=== PATIENT | female | born 1990 | race Caucasian/White ===

== ENCOUNTER → 2017-11-18 15:42 | Outpatient (CLI) | payer BC, SELFPAY ==
[2017-11-18 18:44] LABS: ALB/GLOB Ratio 0.8 RATIO (0.9-2.4); AST(SGOT) 12 U/L (15-37); Alanine Aminotransfer ALT/SGPT 18 U/L (13-56); Albumin, Serum 3.6 g/dL (3.2-5.0); Alkaline Phosphatase 66 U/L (45-117); Anion Gap 10 (5-15); BUN 17 mg/dL (7-18); BUN/Creat Ratio 25.3 RATIO (10-20); Calcium,Total 8.9 mg/dL (8.5-10.1); Chloride 101 mmol/L (98-107); Creatinine, Serum 0.67 mg/dL (0.55-1.02); EST Glomerular Filtration Rate 110 mL/min (>60); Est Glom Filt Rate - Afr Amer 133 mL/min (>60); Globulin 4.5 g/dL (2.2-4.2); Glucose 83 mg/dL (74-106); Magnesium 2.1 mg/dL (1.6-2.6); Potassium 3.7 mmol/L (3.5-5.1); Protein, Total 8.1 g/dL (6.4-8.2); Sodium Level 140 mmol/L (136-145); Uric Acid 4.6 mg/dL (2.6-6.0)
[2017-11-18 18:54] LABS: PTHIN 36.5 pg/mL (18.4-80.1)
[2017-11-26 20:07] LABS: Ca Oxalate, Monohydrate 92 % (.)
== END ==
PROVIDERS: Visit Provider Nurse Practitioner Adult Health
DX: N20.0 Calculus of kidney (principal)
CPT/HCPCS: 36415; 80053; 82360; 83735; 83970; 84100; 84550

== ENCOUNTER → 2017-11-28 06:45 | Outpatient (CLI) | payer BC, SELFPAY ==
--- NOTE | 2017-11-28 07:00 | CT_ITS ---
STUDY: CT CHEST WITH CONTRAST REASON FOR EXAM: Female, 27 years old. History of a soft tissue density on prior CT scan of the abdomen. RADIATION DOSAGE (If Supplied By Facility): CTDIvol = ( 11.9 ) mGy, DLP = ( 254 ) mGycm TECHNIQUE: Transaxial imaging was performed following intravenous administration of 100 ml of Isovue 300 contrast material. Multiplanar coronal and sagittal images were reformatted. Individualized dose optimization techniques were used for this CT. COMPARISON: None. FINDINGS: Residual thymic gland is seen. Small benign-appearing bilateral axillary lymph nodes. The lungs are normal. There is no demonstrated pleural abnormality. Normal heart and pericardium. There is evidence of enlarged bilateral hilar and mediastinal lymphadenopathy. Normal enhanced pulmonary arteries. Normal aorta arch and descending thoracic aorta. Normal osseous structures. There is no demonstrated abnormality of the visualized upper abdomen. CT/Chest WITH Contrast IMPRESSION: Bilateral hilar and mediastinal lymphadenopathy. Lymphoma should be ruled out. Electronically Signed: Emeka Menjivar MD at 15:13 EDT Tel [phone], Service support ,
== END ==
PROVIDERS: Visit Provider Nurse Practitioner Adult Health
DX: M79.89 Other specified soft tissue disorders (principal)
CPT/HCPCS: 71260; Q9967

== ENCOUNTER → 2017-12-17 11:42 | Outpatient (CLI) | payer BC, SELFPAY ==
[2017-12-17 12:23] LABS: Hemoglobin 13.2 g/dl (12.0-15.0); Mean Corpuscular Hgb 30.1 pg (27.0-32.0); Mean Corpuscular Volume 91.1 fL (81-99); Mean Platelet Vol. 9.4 fl (6.2-12.0); Platelet Count 434 K/mm3 (150-450); RBC Distribution Width CV 12.4 % (11.6-14.6); RBC Distribution Width SD 40.5 fl (35.1-43.9); Red Blood Count 4.39 M/mm3 (4.2-5.4); Scan Indicated on CBC? Y/N NO; White Blood Count 10.3 K/mm3 (4.4-11.0)
[2017-12-18 15:03] LABS: Free Kappa Light Chains 16.3 mg/L (3.3-19.4); Free Lambda Light Chains 16.4 mg/L (5.7-26.3)
== END ==
PROVIDERS: Visit Provider Internal Medicine Critical Care Medicine
DX: R59.0 Localized enlarged lymph nodes (principal)
CPT/HCPCS: 36415; 83883; 85027; 85610

== ENCOUNTER 2017-12-27 11:27 | Day surgery (SDC) | payer BC, SELFPAY ==
[2017-12-27] VITALS (9 sets, daily range): BP systolic 95–120; BP diastolic 44–78; PULSE 70–93; RESP 16–18; TEMP 36.2–37.3; O2SAT 92–100; BMI 23.0
--- NOTE | 2017-12-27 | ASPS_PTH ---
PATIENT: ADAM MCKNIGHT LOC: EN U#:[id number] AGE/SX: 27/F ROOM: RE12/27/[address]: Dr. Hipolito Juares DO : 1990 BED: DIS: 12/27/2017 SPEC #: [id number] RECD: 12/27/17 14:03 STATUS: VENKATESH HOPE #: [id number] MARGOT: 12/27/17 00:[address]: Hipolito Juares DEPT: CYTOLOGY RECD BY: Peter Llamas ENTERED: 12/31/17 08:57 SP TYPE: ASPIRATION OTHR DR: Out of Town Doctor Tissues: A - Lung, NOS B - Lung, NOS C - Lung, NOS D - Lung, NOS E - Lung, NOS F - Lung, NOS G - Lung, NOS Procedures: Special Stain Group II Cytology Other HEADER OPERATION: EBUS with TBNA PRE-OP DIAGNOSIS: Mediastinal LAD TISSUE SUBMITTED: A-E ? EBUS FNA, site 7, F & G - EBUS FNA, site 10R DIAGNOSIS CYTOLOGY A. EBUS aspiration #1, site 7: Adequate for evaluation. Lymphocytes and blood present. B. EBUS aspiration #2, site 7: Nondiagnostic. Blood and rare respiratory epithelial cells. C. EBUS aspiration #3, site 7: Adequate for evaluation. Lymphocytes present. Giant cell consistent with granuloma. D. EBUS aspiration #4, site 7: Adequate for evaluation. Giant cells consistent with granuloma. E. EBUS aspiration #5, site 7: Adequate for evaluation. Mostly blood. F. EBUS aspiration #6, site 10R: Nondiagnostic. Blood and benign respiratory epithelial cells. G. EBUS aspiration #7, site 10R: Nondiagnostic. Blood and benign respiratory epithelial cells. AM:pj 12/31/17 COMMENT The specimen is evaluated at the time of procedure by Dr. Nunez. Immediate Evaluation: A. EBUS aspiration #1, site 7: Adequate for evaluation. Lymphocytes and blood present. (1:05?p.m.) B. EBUS aspiration #2, site 7: Nondiagnostic. Blood and rare respiratory epithelial cells. C. EBUS aspiration #3, site 7: Adequate for evaluation. Lymphocytes present. Giant cell consistent with granuloma. D. EBUS aspiration #4, site 7: Adequate for evaluation. Two giant cells consistent with granuloma. E. EBUS aspiration #5, site 7: Adequate for evaluation. Mostly blood. F. EBUS aspiration #6, site 10R: Nondiagnostic. Blood and benign respiratory epithelial cells. G. EBUS aspiration #7, site 10R: Nondiagnostic. Blood and benign respiratory epithelial cells. Flow cytometric analysis was performed on the all remaining fluid from site 7 and 10R per order and reveals no evidence of a B-cell or T-cell lymphoma. The complete report is viewable in patient?s EMR. CYTOLOGY STUDY Slides are reviewed. CYTOLOGY GROSS A - Received labeled with the patient?s name and and designated ?EBUS FNA, aspiration #1, site?7.? The specimen consists of two smears submitted for immediate cytologic evaluation (wet read). B - Received labeled with the patient?s name and and designated ?EBUS FNA, aspiration #2, site?7.? The specimen consists of two smears submitted for immediate cytologic evaluation (wet read). C - Received labeled with the patient?s name and and designated ?EBUS FNA, aspiration #3, site?7.? The specimen consists of two smears submitted for immediate cytologic evaluation (wet read). D - Received labeled with the patient?s name and and designated ?EBUS FNA, aspiration #4, site?7.? The specimen consists of two smears submitted for immediate cytologic evaluation (wet read). E - Received labeled with the patient?s name and and designated ?EBUS FNA, aspiration #5, site?7.? The specimen consists of two smears submitted for immediate cytologic evaluation (wet read). F - Received labeled with the patient?s name and and designated ?EBUS FNA, aspiration #6, site?10R.? The specimen consists of two smears submitted for immediate cytologic evaluation (wet read). G - Received labeled with the patient?s name and and designated ?EBUS FNA, aspiration #7, site?10R.? The specimen consists of two smears submitted for immediate cytologic evaluation (wet read). / AM:pj 12/27/17 TC:3 CPT: 61052 x7, 48047 x2
[2017-12-27 11:48] LABS: Internal QC Validated? YES +Cl - CLEAR BKGD; Pregnancy, Urine Negative Negative
--- NOTE | 2017-12-27 13:52 | PCM.OP.BLANK ---
Operative Report Date of Procedure: 12/27/17 BRONCHOSCOPY (EBUS) PROCEDURE REPORT DATE OF SERVICE: December 27, 2017 BRIEF HISTORY: CT chest with contrast completed at the beginning of November 2017 revealed evidence of enlarged bilateral hilar and mediastinal lymph nodes. The patient was subsequently referred to Dr. Castro of oncology. The patient had been admitted to [facility] in October 2017 with acute abdominal pain. A CAT scan of the abdomen and pelvis revealed a right ureteral stone which she passed spontaneously. However, the CAT scan did reveal enlarged lymph nodes at the gastroesophageal junction, distal esophagus. This prompted them to obtain dedicated chest imaging which revealed mediastinal and hilar lymphadenopathy. The patient is a lifelong non-smoker with limited secondhand smoke exposure. The patient was subsequently referred to me in the pulmonary medicine clinic to undergo mediastinal lymph node sampling via EBUS. PROCEDURE: Bronchoscopy with endoscopic endobronchial ultrasound (EBUS), transbronchial needle aspiration INDICATION: Mediastinal and hilar lymphadenopathy PHYSICIAN: DO Ron Louis MD ANESTHETIC: This procedure was completed under the supervision of anesthesia. Please refer to their documentation accordingly. COMPLICATIONS: No immediate complications noted. DESCRIPTION OF PROCEDURE: A history and physical has been performed. Please see outpatient pulmonary clinic note. The patient's medications and allergies have been reviewed. The risks and benefits of the procedure and sedation options and risks were discussed with the patient at length. All questions were answered and informed consent was obtained. The patient's identification and proposed procedure were verified prior to the procedure by the physician. ASA GRADE ASSESSMENT: II After obtaining informed consent, the bronchoscope was introduced through the mouth, via laryngeal mask airway and advanced to the tracheal bronchial tree bilaterally. The procedure was accomplished without difficulty. The patient tolerated the procedure well. FINDINGS: The visualized oropharynx appears normal. The vocal cords appeared normal and moved normally with breathing. The subglottic space is normal. The trachea was of normal caliber. The nikia is sharp. The tracheal bronchial trees of the left and right lungs were examined to at least the first subsegmental level. Bronchial mucosa and anatomy was noted to be normal. Once the airway inspection was completed, the standard bronchoscope was withdrawn and a convex probe endobronchial ultrasound (EBUS) bronchoscope was inserted through the same route. The endobronchial ultrasound endoscope was then utilized to systematically examine the superior/inferior mediastinal and hilar lymph nodes to assist with fine-needle aspiration. In total, 7 transbronchial needle aspirations were completed at 2 different lymph node stations. Transbronchial needle aspiration was performed at lymph node station #7 ([place]) using an Olympus EBUS-TBNA 19-gauge needle and sent for routine cytology. The procedure was guided by ultrasound. 5 samples were obtained. Transbronchial needle aspiration was then performed at lymph node station #10R (Right Hilar) using an Olympus EBUS-TBNA 19-gauge needle and sent for routine cytology. The procedure was guided by ultrasound. 2 samples were obtained. Rapid on-site evaluation (RALPH): Preliminary cytology was suggestive of granuloma formation. Following this, the EBUS endoscope was subsequently withdrawn from the patient's airway through the LMA. A conventional bronchoscope was then reinserted into the patient's airway, at which time, any retained secretions and/or blood was cleared. The bronchoscope was then withdrawn without complication. The patient was then transferred to the PACU, where they recovered in the usual fashion. IMPRESSION: 1. Extensive subcarinal and moderate right hilar lymphadenopathy was identified and sampled by EBUS. 2. Airway anatomy was normal in gross appearance without any endobronchial lesions identified. RECOMMENDATIONS: 1. Await final pathology report and flow cytometry. 2. Follow-up in the pulmonary medicine clinic as scheduled. Code Visit 9xxxx: Other Procedure See Report - [id number]
== END 2017-12-27 16:16 | disposition home or self-care (01) ==
LOC: EN 11:28 → AC 11:29
PROVIDERS: Visit Provider Internal Medicine Critical Care Medicine
PROC: BB4BZZZ Ultrasonography of Pleura (ICD-10-PCS; principal; 2017-12-27 12:00)
DX: R59.1 Generalized enlarged lymph nodes (principal); Z77.22 Contact with and (suspected) exposure to environmental tobacco smoke (acute) (chronic)
CPT/HCPCS: 31652; 81025; 88161; 88313; J7120; A4216; J2405

== ENCOUNTER → 2018-01-16 07:56 | Outpatient (CLI) | payer BC, SELFPAY ==
--- NOTE | 2018-01-16 15:52 | PFTCOMP ---
COMPLETE PULMONARY FUNCTION TEST INTERPRETATION Brief HPI: Patient is a 27 year old female, currently under the care of Dr. Juares, who presents to [facility] for complete pulmonary function tests secondary to diagnosis of sarcoidosis. Respiratory therapist reports good effort and reproducible results. Interpretation: Forced expiration spirometry shows no large airways obstructive ventilatory defect with an FEV1 of 93% predicted. There is some bronchodilator response, but this does not meet strict ATS criteria. Spirograms are of good quality and plateau normally. The respiratory flow volume loop shows a normal pattern. Lung volumes by body plethysmography show a decreased total lung capacity at 5.49 L, 84% predicted. All other lung volumes are reduced symmetrically. Diffusion capacity by carbon monoxide is normal at 109% predicted. The airway resistance is normal. No previous pulmonary function tests were available for review. Impression: Mild restrictive ventilatory defect with some response to bronchodilators, but this did not reach clinical significance by ATS criteria.
--- NOTE | 2018-01-16 15:55 | PFTCOMP_ITS ---
COMPLETE PULMONARY FUNCTION TEST INTERPRETATION Brief HPI: Patient is a 27 year old female, currently under the care of Dr. Juares , who presents to [facility] for complete pulmonary function tests secondary to diagnosis of sarcoidosis. Respiratory therapist reports good effort and reproducible results. Interpretation: Forced expiration spirometry shows no large airways obstructive ventilatory defect with an FEV1 of 93% predicted. There is some bronchodilator response, but this does not meet strict ATS criteria. Spirograms are of good quality and plateau normally. The respiratory flow volume loop shows a normal pattern. Lung volumes by body plethysmography show a decreased total lung capacity at 5.49 L, 84% predicted. All other lung volumes are reduced symmetrically. Diffusion capacity by carbon monoxide is normal at 109% predicted. The airway resistance is normal. No previous pulmonary function tests were available for review. Impression: Mild restrictive ventilatory defect with some response to bronchodilators, but this did not reach clinical significance by ATS criteria.
== END ==
PROVIDERS: Visit Provider Nurse Practitioner Acute Care
DX: D86.9 Sarcoidosis, unspecified (principal)
CPT/HCPCS: 94060; 94726; 94729

== ENCOUNTER → 2018-02-17 19:50 | Outpatient (CLI) | payer BC, SELFPAY | PROVIDERS: Referring Provider Nurse Practitioner Adult Health; Visit Provider Nurse Practitioner Adult Health | DX: N39.0 Urinary tract infection, site not specified (principal) | CPT/HCPCS: 87086; 87088; 87186 ==

== ENCOUNTER → 2018-04-08 09:45 | Outpatient (CLI) | payer BC, SELFPAY ==
[2018-04-08 11:17] LABS: Absolute Lymphocyte Count 2.12 X10^3/ul (0.83-4.51); Absolute Neutrophil Count 5.5 X10^3/uL (2.0-7.7); Basophil# 0.02 X10^3/uL; Basophil% 0.2 % (0-1); Eosinophil# 0.13 X10^3/uL; Eosinophils% 1.6 % (0-5); Hematocrit 39.8 % (37-47); Hemoglobin 13.1 g/dl (12.0-15.0); Lymphocyte # 2.12 X10^3/ul (4.0); Lymphocyte % 25.7 % (19-41); Mean Corp Hgb Conc 32.9 g/gl (32-36); Mean Corpuscular Hgb 29.9 pg (27.0-32.0); Mean Corpuscular Volume 90.9 fL (81-99); Mean Platelet Vol. 9.8 fl (6.2-12.0); Monocyte# 0.48 X10^3/uL; Monocyte% 5.8 % (0-10); Neutrophil # 5.47 X10^3/uL (2.7-7.7); Neutrophil % 66.5 % (47-70); Platelet Count 379 K/mm3 (150-450); RBC Distribution Width CV 12.4 % (11.6-14.6); RBC Distribution Width SD 40.6 fl (35.1-43.9); Red Blood Count 4.38 M/mm3 (4.2-5.4); White Blood Count 8.2 K/mm3 (4.4-11.0)
[2018-04-08 11:18] LABS: POSITIVE COUNT NO; POSITIVE DIFFERENTIAL NO; POSITIVE MORPHOLOGY NO
[2018-04-08 11:41] LABS: Anion Gap 7 (5-15); BUN 23 mg/dL (7-18); BUN/Creat Ratio 35.3 RATIO (10-20); Calcium,Total 8.7 mg/dL (8.5-10.1); Chloride 108 mmol/L (98-107); Creatinine, Serum 0.65 mg/dL (0.55-1.02); EST Glomerular Filtration Rate 114 mL/min (>60); Est Glom Filt Rate - Afr Amer 138 mL/min (>60); Glucose 78 mg/dL (74-106); Potassium 3.6 mmol/L (3.5-5.1); Sodium Level 141 mmol/L (136-145)
--- OUTSIDE RECORDS SUMMARY | 2018-05-25 09:58 | XMS RPT_ITS ---
:1990 Author Organization [facility] Support Name Relationship Address Phone NBA HERNANDEZ Unavailable [address] + [place] [address] JMSM Unavailable [address] + [place] [address] BAILEE MCKNIGHT Unavailable Unavailable + BAILEE MCKNIGHT Unavailable Unavailable + ADAM MCKNIGHT Unavailable Unavailable Unavailable NBA HERNANDEZ Unavailable Unavailable + BAILEE MCKNIGHT Unavailable Unavailable + BAILEE MCKNIGHT Unavailable Unavailable + ADAM MCKNIGHT Unavailable Unavailable Unavailable NBA HERNANDEZ Unavailable Unavailable + NBA HERNANDEZ Unavailable [address] + [place] [address] JMSM Unavailable [address] + [place] [address] NBA HERNANDEZ Unavailable [address] + [place] [address] JMSM Unavailable [address] + [place] [address] NBA HERNANDEZ Unavailable [address] + [place] [address] JMSM Unavailable [address] + [place] [address] BAILEE MCKNIGHT Unavailable Unavailable + BAILEE MCKNIGHT Unavailable Unavailable + ADAM MCKNIGHT Unavailable Unavailable Unavailable NBA HERNANDEZ Unavailable Unavailable + NBA HERNANDEZ Unavailable Unavailable + NBA HERNANDEZ Unavailable [address] + [place] [address] JMSM Unavailable [address] + [place] [address] NBA HERNANDEZ Unavailable [address] + [place] [address] JMSM Unavailable [address] + [place] [address] ROXANNA, BAILEE Unavailable Unavailable + ROXANNA, BAILEE Unavailable Unavailable + ROXANNAMANJULA HERMANISTEN Unavailable Unavailable Unavailable NBA HERNANDEZ Unavailable Unavailable + ROXANNA, BAILEE Unavailable Unavailable + ROXANNA, BAILEE Unavailable Unavailable + ROXANNAMANJULA HERMANISTEN Unavailable Unavailable Unavailable NBA HERNANDEZ Unavailable Unavailable + ROXANNA, BAILEE Unavailable Unavailable + ROXANNA, BAILEE Unavailable Unavailable + ROXANNAMANJULA HERMANISTEN Unavailable Unavailable Unavailable NBA HERNANDEZ Unavailable Unavailable + ROXANNA, BAILEE Unavailable Unavailable + ROXANNA, BAILEE Unavailable Unavailable + MANJULA MCKNIGHTISTEN Unavailable Unavailable Unavailable NBA HERNANDEZ Unavailable Unavailable + NBA HERNANDEZ Unavailable [address] + [place] [address] JMSM Unavailable [address] + [place] [address] NBA HERNANDEZ Unavailable [address] + [place] [address] JMSM Unavailable [address] + [place] [address] NBA HERNANDEZ Unavailable [address] + [place] [address] JMSM Unavailable [address] + [place] [address] MIAH HERNANDEZ Unavailable Unavailable + NBA HERNANDEZ Unavailable [address] + [place] [address] JMSM Unavailable [address] + [place] [address] NBA HERNANDEZ Unavailable [address] + [place] [address] JMSM Unavailable [address] + [place] [address] NBA HERNANDEZ Unavailable [address] + [place] [address] JMSM Unavailable [address] + [place] [address] NBA HERNANDEZ Unavailable [address] + [place] [address] JMSM Unavailable [address] + [place] [address] NBA HERNANDEZ Unavailable [address] + [place] [address] JMSM Unavailable [address] + [place] [address] BAILEE MCKNIGHT Unavailable Unavailable + ROXANNA, BAILEE Unavailable Unavailable + ADAM MCKNIGHT Unavailable Unavailable Unavailable NBA HERNANDEZ Unavailable Unavailable + NBA HERNANDEZ Unavailable [address] + [place] [address] JMSM Unavailable [address] + [place] [address] NBA HERNANDEZ Unavailable Unavailable + ROXANNA, BAILEE Unavailable Unavailable + ROXANNA, BAILEE Unavailable Unavailable + ADAM MCKNIGHT Unavailable Unavailable Unavailable NBA HERNANDEZ Unavailable Unavailable + ESDRAS MCKNIGHTDY Unavailable Unavailable + ROXANNA, BAILEE Unavailable Unavailable + ADAM MCKNIGHT Unavailable Unavailable Unavailable NBA HERNANDEZ Unavailable Unavailable + BAILEE MCKNIGHT Unavailable Unavailable + BAILEE MCKNIGHT Unavailable Unavailable + ADAM MCKNIGHT Unavailable Unavailable Unavailable NBA HERNANDEZ Unavailable Unavailable + Care Team Providers Name Role Phone Pushpa, Karen M Attending Unavailable Pushpa, Karen M Referring Unavailable Primay Care Physicia, No Primary Care Unavailable Pushpa, Karen M Attending Unavailable Pushpa, Karen M Referring Unavailable SABRINA NGUYEN Primary Care Unavailable SABRINA NGUYEN Consulting Unavailable Hipolito Brown, D.O. Attending Unavailable DOCTOR, OUT OF TOWN Referring Unavailable Pushpa, Karen M Attending Unavailable Pushpa, Karen M Referring Unavailable SABRINA NGUYEN Primary Care Unavailable Isckarus, Vannesa Attending Unavailable Pushpa, Karen M Referring Unavailable SABRINA NGUYEN Primary Care Unavailable Isckarus, Vannesa Attending Unavailable Pushpa, Karen M Referring Unavailable SABRINA NGUYEN Primary Care Unavailable Isckarus, Vannesa Consulting Unavailable Hipolito Juares D.O. Attending Unavailable Christiane Kingsley.O. Referring Unavailable SABRINA NGUYEN Primary Care Unavailable Hipolito Mor D.O. Attending Unavailable DOCTOR, OUT OF TOWN Referring Unavailable SABRINA NGUYEN Primary Care Unavailable Christiane Kingsley.O. Attending Unavailable Hipolito Brown, D.O. Referring Unavailable SABRINA NGUYEN Primary Care Unavailable Isckarus, Mansjr Consulting Unavailable Hipolito Brown, D.O. Attending Unavailable Hipolito Brown, D.O. Referring Unavailable SABRINA NGUYEN Primary Care Unavailable Hipolito Juares D.O. Consulting Unavailable Elizabeth Duggan Attending Unavailable DOCTOR, OUT OF TOWN Referring Unavailable Elizabeth Duggan Attending Unavailable Duggan, Elizabeth Referring Unavailable SABRINA NGUYEN Primary Care Unavailable Ron Trevino Attending Unavailable Duggan, Elizabeth Referring Unavailable Pushpa, Karen M Attending Unavailable SABRINA NGUYEN Primary Care Unavailable Pushpa, Karen M Referring Unavailable Pushpa, Karen M Attending Unavailable SABRINA NGUYEN Primary Care Unavailable Pushpa, Karen M Referring Unavailable CHAOG DAVISON Attending Unavailable CHAGO DAVISON Referring Unavailable CHAGO DAVISON Attending Unavailable CHAGO DAVISON Referring Unavailable TROY CHOI Attending Unavailable ADUNKA, TROY F Referring Unavailable ADUNKA, TROY F Admitting Unavailable ADUNKA, TROY F Attending Unavailable CHAGO DAVISON Attending Unavailable CHAGO DAVISON Referring Unavailable MOOSE MYERS Attending Unavailable SELF, SELF Referring Unavailable ADUNKA, TROY F Attending Unavailable ADUNKA, TROY F Referring Unavailable LORIE SAWYER Attending Unavailable SELF, SELF Referring Unavailable JODIE JONESA Attending Unavailable CHAGO DAVISON R Referring Unavailable CHAGO DAVISON R Attending Unavailable CHAGO DAVISON R Referring Unavailable CHAGO DAVISON R Attending Unavailable CHAGO DAVISON R Referring Unavailable NICK RATLIFF DO Attending Unavailable PHYSICIAN, NONE Primary Care Unavailable PHYSICIAN, NONE Primary Care Unavailable BREANNA ZHANG MD Admitting Unavailable BREANNA ZHANG MD Attending Unavailable Dottie Barker Attending Unavailable PROBLEMS PROBLEMS DATE TYPE CONDITION / CODE ATTENDING STATUS SOURCE 04/14/2018 Unknown R82.998 - Other Pushpa, Karen Active [facility] abnormal findings M Community in urine / Hospital R82.998(ICD-10) Repository 04/11/2018 Admitting Facial Weakness / CHAGO DAVISON Active [place] diagnosis 852() [facility] Repository 04/08/2018 Unknown D86.9 - Hipolito Brown, Active [facility] Sarcoidosis, D.O. 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 diagnosis anarthria / University R47.1(ICD-10) [facility] Repository 01/07/2018 Admitting Abnormal ROBERT TOSHA Active [facility] diagnosis innervation [facility] syndrome left [facility] eye, unspecified Center eyelid / Repository H02.516(ICD-10) 01/07/2018 Admitting Foreign Body in LORIE SAWYER Active [facility] diagnosis Ear / [id number]() [facility] Repository 01/07/2018 Admitting Annual Exam / LUCIA, Active [place] diagnosis 745() [facility] 12/19/2017 Admitting Unknown / Dottie Barker Active [facility] Medical diagnosis UNK(Unknown) Center [place] Repository 12/06/2017 Unknown R59.1 - Isckarus, Active [facility] lymph Hospital nodes / Repository R59.1(ICD-10) 08/27/2017 Admitting Hearing Loss / ADUNKA TROY Active [facility] diagnosis 460() F [facility] Repository 07/22/2017 Admitting Dysphagia, oral SAMAN, CHAGO R Active [facility] diagnosis phase / University R13.11(ICD-10) [facility] Repository PROCEDURES PROCEDURES No Procedure Records FoundRESULTS RESULTS ABDOMEN SINGLE VIEW Observed: 04/14/2018 Status: F Source: [place] 4:10 PM [facility] REPOSITORY [facility] Imaging Services [address] [id number] Abdomen Single View MR#: [id number] Acct: [id number] Name: ROXANNAMANJULAADAM J Rep #: [id number] : 1990 F 28 From: Edmond Flanagan PCP: OUT OF TOWN DOCTOR Status: REG CLI Study: Abdomen Single View Date of Exam: 04/14/18 Exam# [id number] Ordering Dr: Karen Barrow COMPOSITION MOLDER-C STUDY: X-RAY - ABDOMEN/PELVIS REASON FOR EXAM: Female, 28 years old. Kidney stones TECHNIQUE: Frontal view COMPARISON: None. FINDINGS: Normal visualized lung bases. There is an unremarkable bowel gas pattern. There is no demonstrated free abdominal air. Multiple tiny bilateral kidney stones are identified. NO ureteral stones are seen. NO bladder stones are seen. Normal soft tissue structures. Normal visualized osseous structures. RAD/Abdomen Single View IMPRESSION: There is an unremarkable bowel gas pattern. There is no demonstrated free abdominal air. Multiple tiny bilateral kidney stones are identified. NO ureteral stones are seen. NO bladder stones are seen. Electronically Signed: Edmond Flanagan MD at 7:56 EST , Service support , CC: OUT OF TOWN DOCTOR; Karen Barrow NP Critical Care Technician: Signed Observed: 04/14/2018 Status: F Source: [place] CULTURE, URINE 3:30 PM [facility] REPOSITORY Urine Culture ORGANISM 1: Presumptive E. coli [place] Count >100,000 Presumptive E. coli: REACTION Amoxacillin/Clavulanic Acid $ 4 S Ampicillin $ 16 I Ampicillin/Sulbactam $ 4 S Cefazolin $ <=4 S Cefepime $ <=1 S Ceftriaxone $ <=1 S Ciprofloxacin $ <=0.25 S ESBL - Ertapenim $$$ <=0.5 S Gentamicin $ <=1 S Imipenem *NF <=0.25 S Levofloxacin $ <=0.12 S Nitrofurantoin $ <=16 S Piperacillin/Tazobactam $$ <=4 S Tobramycin $ <=1 S Trimethoprim/Sulfametho $ <=20 S (NF) indicates non-formulary drug at [facility]. Approval by Infectious Disease Specialist required before non-formulary drugs may be ordered and/or dispensed. Performed By: #### M100.0650 #### [facility] [place], [address] CBC W/DIFF, AUTOMATED Collected: 04/08/2018 Status: F Source: [place] 9:53 AM [facility] REPOSITORY TYPE CODE TESTS RESULT OUT OF [place] REFERENCE UNITS LAB L100.1000 4.4-11.0 K/mm3 Normal WBC 8.2 LAB L100.1200 4.2-5.4 M/mm3 Normal RBC 4.38 LAB L100.1300 12.0-15.0 g/dl Normal HGB 13.1 LAB L100.1400 37-47 % Normal HCT 39.8 LAB L100.1500 81-99 fL Normal MCV 90.9 LAB L100.1600 27.0-32.0 pg Normal MCH 29.9 LAB L100.1700 32-36 g/gl Normal MCHC 32.9 LAB L100.1810 11.6-14.6 % Normal RDW CV 12.4 LAB L100.1820 35.1-43.9 fl Normal RDW SD 40.6 LAB L100.1900 150-450 K/mm3 Normal PLT 379 LAB L100.2000 6.2-12.0 fl Normal MPV 9.8 LAB L100.2100 47-70 % Normal NEUT% 66.5 LAB L100.2200 19-41 % Normal LY% 25.7 LAB L100.2300 0-10 % Normal MONO% 5.8 LAB L100.2400 0-5 % Normal EO% 1.6 LAB L100.2500 0-1 % Normal BASO% 0.2 LAB L100.2550 0.0-0.9 % Normal IM GRAN % 0.200 Result Comment: IG% - Immature Granulocytes (promyelocytes, myelocytes and metamyelocytes) > 1% indicates that a LEFT SHIFT is Present. LAB L100.2620 2.0-7.7 X10 3/uL Normal Absolute Neut 5.5 LAB L100.2720 0.83-4.51 X10 3/ul Normal Absolute Lymph 2.12 Performed By: #### L100.0100 #### [facility] [address] [place], [place], [address] BASIC METABOLIC Collected: 04/08/2018 Status: F Source: [place] PROFILE ([facility]) 9:53 AM [facility] REPOSITORY TYPE CODE TESTS RESULT OUT OF R[place] REFERENCE UNITS LAB L501.0100 74-106 mg/dL Normal GLU 78 Result Comment: Please note revised GLUCOSE reference range effective 2017. LAB L501.1000 7-18 mg/dL High BUN 23 LAB L501.1100 0.55-1.02 mg/dL Normal CREAT,SERUM 0.65 Result Comment: The validity of the calculated GFR AND GFRAA in patients over 70 years has not been determined. Clinical correlation is essential. LAB L501.1110 >60 mL/min Normal EST GFR 114 Result Comment: Non- GFR Calc LAB L501.1115 >60 mL/min Normal EST GFR - AA 138 Result Comment: GFR Calc LAB L501.1300 10-20 RATIO High BUN/CRE 35.3 LAB L501.2200 8.5-10.1 mg/dL CA Normal 8.7 LAB L501.5300 136-145 mmol/L NA Normal 141 LAB L501.5600 3.5-5.1 mmol/L K Normal 3.6 LAB L501.5900 98-107 mmol/L High CL 108 LAB L501.6100 21.0-32.0 mmol/L Normal CO2 26.0 LAB L501.6200 5-15 Normal GAP 7 Performed By: #### L500.2500 #### [facility] [address] [place], [place], [address] PULMONARY VISIT REPORT Observed: 04/08/2018 Status: F Source: [place] 9:24 AM [facility] REPOSITORY [facility] [place] [address] [place], [place] [address] OFFICE VISIT Date of Service: 04/08/18 MR#: [id number] Acct: [id number] Name: ADAM MCKNIGHT Rep #: [id number] : 1990 Provider: Hipolito Juares D.O. Age/Sex: 28/F Location: [facility] Status: Signed Assessment AND Plan 1. Sarcoidosis D86.9 Plan At this time, given the patient's lack of respiratory symptoms, no treatment is indicated. Recommend continued yearly eye examinations. In addition, we will plan to repeat the patient's pulmonary function testing on a yearly basis. She will be due for repeat PFTs around December 2018. She has been advised to call this office if she experiences any worsening in her breathing quality. Orders Orders: Plan Detail Other Medications New: Follow Up 9 Months (DMB) HPI HPI Comments Details: The patient is a 28-year-old female who presents to the clinic today for a routine scheduled follow-up office visit due to underlying sarcoidosis. If you recall, CT chest with contrast completed at the beginning of November 2017 revealed evidence of enlarged bilateral hilar and mediastinal lymph nodes. The patient was subsequently referred to Dr. Castro of oncology. The patient had been admitted to [facility] in October 2017 with acute abdominal pain. A CAT scan of the abdomen and pelvis revealed a right ureteral stone which she passed spontaneously. However, the CAT scan did reveal enlarged lymph nodes at the gastroesophageal junction, distal esophagus. This prompted them to obtain dedicated chest imaging which revealed mediastinal and hilar lymphadenopathy. The patient is a lifelong non-smoker with limited secondhand smoke exposure. The patient subsequently underwent mediastinal lymph node sampling by EBUS, which revealed evidence of granulomas consistent with sarcoidosis. Pulmonary function testing was subsequently completed in December 2017 and revealed evidence of a mild restrictive ventilatory defect with a partial response to aerosolized bronchodilators. Today, the patient reports no significant pulmonary limitations. She only experiences a mild degree of shortness of breath with strenuous physical exertion. She denies any chest tightness or wheezing. She does have a mild, essentially nonproductive cough. She is already undergone her yearly eye examination. The results of her pulmonary function tests were conveyed to her today's office visit. She denies fevers, chills or night sweats. Her weight remains stable. Intake Vital Signs04/08/18 Height 51 ft 1 in 04/08/18 Weight: 170 lb Intake Visit Reasons: 3 M FU Accompanied by: Self Allergies No Known Allergies Allergy (Verified 04/08/18 08:46) Medications Desog-E.estradiol/E.estradiol [Kariva 28 Day Tablet] 1 ea PO DAILY 12/04/17 [History Confirmed 04/08/18] Multivitamin [Multiple Vitamins] 1 ea PO DAILY 12/04/17 [History Confirmed 04/08/18] D-Mannose 1 tab PO DAILY 12/06/17 [History Confirmed 04/08/18] ascorbic acid (vitamin C) 1,000 mg tablet 1 g PO Q6H 04/08/18 [History Confirmed 04/08/18] methenamine hippurate 1 gram tablet 1 g PO ONCE tab 04/08/18 [History Confirmed 04/08/18] potassium citrate ER 15 mEq (1,620 mg) tablet,extended release 15 meq PO BID tab 04/08/18 [History Confirmed 04/08/18] [facility] Medical History BENIGN BRAIN TUMOR REMOVED (Acute) Calculus of kidney (Acute) Deaf (Acute) Generalized abdominal pain (Acute) Partial facial paralysis (Acute) Urinary calculi (Acute) Urinary tract infection (Acute) Surgical History H/O brain surgery (Resolved) Family History Grandmother Lung cancer Social History Smoking Status: Never smoker alcohol intake: current alcohol intake frequency: holidays/special occasions only substance use type: does not use Review of Systems Const CONSTITUTIONAL: Negative anorexia, body ache, chills, daytime sleepiness, fever(s), night sweats, oral thrush, stops breathing during sleep, weight loss, sleeping in chair, fatigue, weight loss, weight gain, frequent colds, seasonal allergies, other, headache(s) or orthopnea EETM Ear Nose Throat Mouth: Positive hearing normal; negative hard of hearing, hoarseness, dry mouth in morning, change in vision, itchy eyes, eye pain, swallowing Difficulty, ear pain, nose bleed, headache(s), mouth pain, nasal congestion, nasal discharge, sinus pain, sinus pressure, sore throat, other (clears throat through out the day ) or post nasal drip Cardio Cardiovascular: Negative chest pain, chest pain at rest, chest pain with activity, irregular heart rhythm, edema, shortness of breath when lying down, palpitations, murmur or other Resp Respiratory: Positive as per HPI, shortness of breath (with weather) and cough cough: Positive productive (upon rising ) color: Positive clear; negative pain with cough, wheezing, chest congestion, chest tightness, pain on inspiration, inhalers, increase use of rescue inhalers, snoring, apnea or other Gastro Gastrointestional: Negative bloody stools, change in appetite, difficulty swallowing, reflux, hematemesis, melena stool, loose stool, constipation or other Genitourinary: Negative blood in urine, nocturia, pain with urination or other Musc Musculoskeletal: Negative body pain, back pain, neck pain or other Skin/Breast Skin/Breast: Negative dry skin, itching, rash, unusual bruising, breast lump or other Neuro Neurological: Negative restless legs, confusion, weakness or other Psych Psychocological: Negative abnormal sleep pattern, anxiety, thoughts of hurting self/others, hopelessness or other Lymph Lymphatic: Negative easy bleeding, easy bruising, swollen lymph nodes or other Exam Const Constitutional: Positive conversant, cooperative, in no acute respiratory distress, well developed, well nourished and good hygiene Head Head: Positive normocephalic and atraumatic; negative cyanosis of lips/distal nose Eyes Eye: Positive clear conjunctiva; negative nystagmus or scleral abnormality Ears Ear: Positive hearing normal and external ears normal; negative hard of hearing Nose Nose: Positive external nose normal; negative epistaxis Mouth Mouth: Positive oral mucosae normal and posterior oropharynx is adequate; negative no lesions or post nasal drip Mallampati Score: II: Mallampati Score Neck Neck: Positive normal visual inspection and trachea midline; negative lymphadenopathy Chest Wall Chest: Positive symmetric chest movement Normal AP diameter. Resp lung sounds: Positive clear to auscultation and good air exchange; negative wheezes, rhonchi or rales Cardio Cardiac: Positive regular rate, regular rhythm, S1 normal and S2 normal; negative rub, gallop or murmur GI GI: Positive normal bowel sounds Soft without distention Genitourinary: Positive deferred Musc Musculoskeletal: Positive steady gait Skin Pulmonary Skin Exam: Positive intact; negative lesion, ulcers, dermal atrophy or rash Pulses Pulse: Yes Pedal pulses present: Extremities Extremities: No clubbing, No cyanosis, No edema Neuro Neurologic: Yes conversant, Yes no focal neuro deficits, Yes cooperative Lymph Lymphatic: No lymphadenopathy Psych Appearance: Positive grossly normal Mental Status: Positive mental status grossly normal Mood: Positive congruent mood Affect: Positive normal affect Coding Level of Care Code Off vis,est,level 3 Diagnoses Sarcoidosis D86.9 04/08/18 0924 <Electronically signed by Hipolito Juares DO> Date Hipolito Juares DO Cosigner Signature: Date (if applicable) CC: OUT OF TOWN DOCTOR Observed: 02/17/2018 Status: F Source: [place] CULTURE, URINE 11:30 AM [facility] REPOSITORY Urine Culture ORGANISM 1: Presumptive E. coli [place] Count >100,000 Presumptive E. coli: REACTION Amoxacillin/Clavulanic Acid $ 4 S Ampicillin $ 8 S Ampicillin/Sulbactam $ 4 S Cefazolin $ <=4 S Cefepime $ <=1 S Ceftriaxone $ <=1 S Ciprofloxacin $ <=0.25 S ESBL - Ertapenim $$$ <=0.5 S Gentamicin $ <=1 S Imipenem *NF <=0.25 S Levofloxacin $ <=0.12 S Nitrofurantoin $ <=16 S Piperacillin/Tazobactam $$ <=4 S Tobramycin $ <=1 S Trimethoprim/Sulfametho $ <=20 S (NF) indicates non-formulary drug at [facility]. Approval by Infectious Disease Specialist required before non-formulary drugs may be ordered and/or dispensed. Performed By: #### M100.0650 #### [facility] [address] [place], [address] XR ABDOMEN AP Observed: 01/31/2018 Status: F Source: [facility] 9:43 PM [facility] REPOSIT[facility] ORIGINAL XR ABDOMEN AP CLINICAL STATEMENT: left flank pain. COMPARISON: CT abdomen/pelvis, 11/10/2017 FINDINGS: The LEFT renal shadow is mostly obscured by overlying bowel. Rounded opacities projecting over the aerated LEFT hemicolon just inferior to the 12th rib correspond with lower pole calculi as sh own on the prior CT and measure up to 5 mm. There are multiple 2 mm calcifications associated with the RIGHT renal midpole and lower pole. No calcifications referable to either ureter or the urinary bladder are identified. Moderate stool is seen within the RIGHT hemicolon. Osseous structures are intact, and the sacroiliac joints are normally approximated. IMPRESSION: Bilateral nephrolithiasis. I have personally reviewed the images of this examination and agree with the resident's findings and interpretation. Interpreted By: Kiara Luevano MD Preliminary Report By: Shubham Barksdale MD Electronically Signed By: Kiara Luevano MD Dictated Date: 01/31/2018 9:47:16 PM Prelim Date: 01/31/2018 9:50:46 PM Sign Date: 01/31/2018 10:49:03 PM CBC Collected: 01/31/2018 Status: F Source: [place] [facility] 7:51 PM [facility] REPOSITORY TYPE CODE TESTS RESULT OUT OF REFERENCE UNITS RANGE LAB WBC(LOINC) 4.60-10.80 10 3/mcL High WBC 13.10 LAB RBCCT(LOINC 4.20-5.40 10 6/mcL ) RBC 4.31 LAB HGB(LOINC) 12.0-16.0 G/dL Hgb 12.6 LAB HCT(LOINC) 37.0-47.0 % Hct 38.0 LAB MCV(LOINC) 80.0-94.0 fL MCV 88.2 LAB MCH(LOINC) 27.0-31.2 pg MCH 29.4 LAB MCHC(LOINC) 33.0-37.0 G/dL MCHC 33.3 LAB RDW(LOINC) 11.5-14.5 % RDW 12.5 LAB PLT(LOINC) 130-400 10 3/mcL High Platelet 416 LAB MPV(LOINC) 7.4-10.4 fL MPV 7.7 Performed By: #### CBC, ADIFF, ANEU #### [address] [address] #### BMP, GFR #### [address] [address] .AUTO DIFF Collected: 01/31/2018 Status: F Source: [facility] 7:51 PM [facility] REPOSITORY TYPE CODE TESTS RESULT OUT OF REFERENCE UNITS RANGE LAB DONNA(LOINC) 37.0-80.0 % Neutrophil % 72.0 LAB LYM(LOINC) 10.0-50.0 % Lymphocyte % 21.4 LAB MON(LOINC) 1.7-13.0 % Monocyte % 5.2 LAB EO(LOINC) 0.0-7.0 % Eosinophil % 0.9 LAB BAS(LOINC) 0.0-2.5 % Basophil % 0.5 LAB ABLYM(LOIN 0.77-3.85 10 3/mcL C) Lymphocyte, 2.80 Absolute LAB BEN(LOINC 0.15-1.00 10 3/mcL ) Monocyte, 0.70 Absolute LAB AEOS(LOINC 0.00-0.40 10 3/mcL ) Eosinophil, 0.10 Absolute LAB ABAS(LOINC 0.00-0.19 10 3/mcL ) Basophil, 0.10 Absolute Performed By: #### CBC, ADIFF, ANEU #### [facility] [address] [place], [place] [address] #### BMP, GFR #### [address] [address] .NEUABS Collected: 01/31/2018 Status: F Source: [facility] 7:51 [facility] REPOSITORY TYPE CODE TESTS RESULT OUT OF REFERENCE UNITS RANGE LAB ANEU(LOINC) 2.85-6.16 10 3/mcL High Neutrophil, 9.50 Absolute Performed By: #### CBC, ADIFF, ANEU #### [place] [id number] [place], [place] [address] #### BMP, GFR #### [address] [address] BMP Collected: 01/31/2018 Status: F Source: [facility] 7:51 PM [facility] REPOSITORY TYPE CODE TESTS RESULT OUT OF REFERENCE UNITS RANGE LAB GLU(LOINC) 70-105 mg/dL Glucose High Level 116 LAB NA(LOINC) 136-145 mmol/L Sodium Level 138 LAB K(LOINC) 3.5-5.1 mmol/L Low Potassium Level 3.3 LAB CL(LOINC) 98-107 mmol/L Chloride 102 LAB CO2(LOINC) 22-29 mmol/L CO2 25 LAB EBAL(LOINC mEq/L ) Electrolyte Balance 11.0 LAB BUN(LOINC) 7-18 mg/dL BUN High 20 LAB CRE(LOINC) 0.55-1.02 mg/dL Creatinine Lvl (s) 0.81 LAB BC(LOINC) 7-27 ratio BUN/Creatinine 25 Ratio LAB CA(LOINC) 8.4-10.2 mg/dL Calcium Lvl 9.1 Performed By: #### CBC, ADIFF, ANEU #### [address] [address] #### BMP, GFR #### [address] [address] .GFR Collected: 01/31/2018 Status: F Source: [facility] 7:51 PM [facility] REPOSITORY TYPE CODE TESTS RESULT OUT OF REFERENCE UNITS RANGE LAB GFRAA(LOINC ml/min/1.73 ) sqm GFR 102 [place] Result Comment: GFR Population mean for , Non- Americans Ages 20-29 = 116 mL/min/1.73 sq.m. Ages 30-39 = 107 mL/min/1.73 sq.m. Ages 40-49 = 99 mL/min/1.73 sq.m. Ages 50-59 = 93 mL/min/1.73 sq.m. Ages 60-69 = 85 mL/min/1.73 sq.m. Ages 70+ = 75 mL/min/1.73 sq.m. Chronic Kidney Disease: Less than 60 mL/min/1.73 square meters End Stage Renal Disease: Less than 15 mL/min/1.73 square meters LAB GFRNO(LOINC) ml/min/1.73sqm GFR Non- 84 Result Comment: GFR Population mean for , Non- Americans Ages 20-29 = 116 mL/min/1.73 sq.m. Ages 30-39 = 107 mL/min/1.73 sq.m. Ages 40-49 = 99 mL/min/1.73 sq.m. Ages 50-59 = 93 mL/min/1.73 sq.m. Ages 60-69 = 85 mL/min/1.73 sq.m. Ages 70+ = 75 mL/min/1.73 sq.m. Chronic Kidney Disease: Less than 60 mL/min/1.73 square meters End Stage Renal Disease: Less than 15 mL/min/1.73 square meters Performed By: #### CBC, ADIFF, ANEU #### [address] [address] #### BMP, GFR #### [address] [address] UA Collected: 01/31/2018 Status: F Source: [facility] 7:51 PM [facility] REPOSITORY TYPE CODE TESTS RESULT OUT OF RANGE REFERENCE UNITS LAB SPCUA(DENISE NC) UA Specimen Type Void LAB CLRUA(DENISE NC) UA Color Yellow LAB APPUA(DENISE Clear NC) UA Appear Unknown Slightly Cloudy LAB SGUA(LOIN C) UA Spec Grav 1.015 LAB GLUA(LOIN Negative mg/dL C) UA Glucose Negative LAB BILUA(DENISE Negative NC) UA Bili Negative LAB KETUA(DENISE Negative mg/dL NC) UA Ketones Negative LAB BLDUA(DENISE Negative NC) UA Blood Unknown Small LAB PHUA(LOIN C) UA pH 5.0 LAB PROUA(DENISE Negative mg/dL NC) UA Protein Trace LAB UROUA(DENISE E.U./dL NC) UA Urobilinogen 0.2 LAB NITUA(DENISE Negative NC) UA Nitrite Unknown Positive LAB LEUUA(DENISE Negative NC) UA Leuk Est Unknown Large Performed By: #### UA, PREGU, UAMICAO #### [place] [address] PREGU Collected: 01/31/2018 Status: F Source: [facility] 7:51 [facility] REPOSITORY TYPE CODE TESTS RESULT OUT OF RANGE REFERENCE UNITS LAB PREGU(LOIN C) Test Negative Urine LAB PRUG1(LOIN C) Unknown test HCG not (u) int detected. Performed By: #### UA, PREGU, UAMICAO #### [address] [address] .URINALYSIS MICROSCOPIC Collected: 01/31/2018 Status: F Source: [facility] () 7:51 [facility] REPOSITORY TYPE CODE TESTS RESULT OUT OF RANGE REFERENCE UNITS LAB WBCUA(LOIN None Seen /hpf C) Unknown UA WBC 15-25 LAB RBCUA(LOIN None Seen /hpf C) Unknown UA RBC 0-5 LAB EPIUA(LOIN None Seen /hpf C) Unknown UA Squam Epithelial 0-5 LAB BACUA(LOIN /hpf C) Unknown UA Bacteria 3+ Performed By: #### UA, PREGU, UAMICAO #### [address] [address] Observed: 01/31/2018 Status: F Source: [place] [facility] 7:51 [facility] REPOSITORY . MICRO - Microbiology PROCEDURE: Urine Culture [*1] SOURCE: Urine, Clean Catch BODY SITE: COLLECTED DATE/TIME: 01/31/2018 19:51 EDT RECEIVED DATE/TIME: 02/01/2018 19:59 EDT START DATE/TIME: 02/01/2018 19:59 EDT FREE TEXT SOURCE: FINAL REPORTS Final Report [] Verified Date/Time/Personnel: 02/03/2018 08:00 EDT >100,000 organisms per mL Escherichia coli PRELIMINARY REPORTS Preliminary Report [] Verified Date/Time/Personnel: 02/02/2018 10:12 EDT >100,000 organisms per mL Gram Negative Rods Final identification and HUMBERTO to follow. SUSCEPTIBILITY RESULTS Escherichia coli Antibiotic HUMBERTO Dilutn HUMBERTO Interp Ampicillin <=8 Susceptible Cefazolin <=8 Susceptible Ciprofloxacin <=1 Susceptible Gentamicin <=4 Susceptible Levofloxacin <=2 Susceptible Meropenem <=1 Susceptible Nitrofurantoin <=32 Susceptible Trimethoprim/ <=2/38 Susceptible Sulfa Performing Locations *1: This test was performed at: [facility], [address] [place] [address], [facility]- , [facility] Performed By: #### CUR #### [place] [address] PULMONARY FUNCTION Observed: 01/16/2018 Status: F Source: [place] REPORT COMP 3:55 PM [facility] REPOSITORY [facility] Pulmonary Services/Neurology [address] [place] [address] MR#: [id number] Acct: [id number] Name: ADAM MCKNIGHT Rep #: [id number] : 1990 27 From: Ron Trevino MD Referring Dr: Elizabeth Duggan COMPOSITION MOLDER Status: REG CLI Ordering Dr: Date: Location: [facility] Sex: F C COMPLETE PULMONARY FUNCTION TEST INTERPRETATION Brief HPI: Patient is a 27 year old female, currently under the care of Dr. Juares, who presents to [facility] for complete pulmonary function tests secondary to diagnosis of sarcoidosis. Respiratory therapist reports good effort and reproducible results. Interpretation: Forced expiration spirometry shows no large airways obstructive ventilatory defect with an FEV1 of 93% predicted. There is some bronchodilator response, but this does not meet strict ATS criteria. Spirograms are of good quality and plateau normally. The respiratory flow volume loop shows a normal pattern. Lung volumes by body plethysmography show a decreased total lung capacity at 5.49 L, 84% predicted. All other lung volumes are reduced symmetrically. Diffusion capacity by carbon monoxide is normal at 109% predicted. The airway resistance is normal. No previous pulmonary function tests were available for review. Impression: Mild restrictive ventilatory defect with some response to bronchodilators, but this did not reach clinical significance by ATS criteria. 01/16/18 4345 <Electronically signed by Ron Trevino MD> Date Ron Trevino MD CC: Ron Trevino MD; Elizabeth Duggan; OUT OF TOWN DOCTOR Date Dictated: 01/16/181551 Date Transcribed: 01/16/181551 Critical Care Technician: NILSA Signed MRI INTERNAL AUDITORY Observed: 01/07/2018 Status: F Source: [facility] WITH AND 2:13 PM [facility] WITHOUT CONTRAST [facility] REPOSITORY EXAM: MRI INTERNAL AUDITORY CANAL WITH AND WITHOUT CONTRAST, 01/07/2018 12:12 PM COMPARISON: June 20, 2016. CLINICAL INDICATION: 27 years Female Hearing loss, mixed conductive sensorineural; RELEVANT CLINICAL HISTORY: H90.5:SNHL (sensorineural hearing loss) TECHNIQUE: A series of sagittal, axial and coronal multisequence images of the head are obtained both before and after intravenous administration of contrast. Study includes dedicated evaluation of the internal auditory canals, with pre-and postcontrast thin section axial and coronal T1- weighted, axial thin section T2 3D SPACE, and axial thin section 3D VIBE images obtained through the level of the IACs. CONTRAST: gadoterate Meglumine (DOTAREM) 5 MMOL/10ML injection 3-60 mL; Route of Administration: Intravenous; Dose: 15 mL. 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 T1 hyperintense packing material within the mastoidectomy defect and internal auditory canal has decreased in size. Following contrast, there is some stable, minimal enhancement medial to the T1 hyperintense packing material in the left CP angle region. Mixed signal intensity opacity is present within the left mastoid air cells. Brain and posterior fossa structures are otherwise normal in appearance. No abnormal enhancement is noted along the right 7th or 8th nerve complex. Right mastoid air cells are clear. Sinuses are clear. No abnormality is noted in the orbits. 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 There is some stable enhancement medial to the T1 hyperintense packing material in the CP angle region which is favored to be related to treatment effects over residual tumor. Attention on follow-up is recommended. *CRE/GFR POC DEVICE Collected: 01/07/2018 Status: F Source: [facility] 11:33 AM [facility] REPOSITORY TYPE CODE TESTS RESULT OUT OF REFERENCE UNITS RANGE LAB CREPC 0.50-1.20 mg/dL Creatinine (poc 0.72 device) LAB GFRPC >60 mL/min/1.7 3 sq m est GFR, (poc device) >60 LAB PCSTYP *POC SAMPLE TYPE Venous Observed: 01/07/2018 Status: F Source: [facility] URINE CULTURE -UHE 9:52 AM [facility] REPOSITORY SOURCE: Urine-clean catch: RESULT: ESCHERICHIA COLI :Greater than 100,000 CFU/ML ---> RVW Mixed skin/urogenital alex :10,000 TO 50,000 CFU/ML (NOTE) Suspect contamination during collection. REPORT STATUS: 01/09/2018 FINAL ORGANISM: ESCHERICHIA COLI SUSCEPTIBILITY ESCHERICHIA COLI :Greater than 100,000 CFU/ML ANTIBIOTIC INTERPRETATION HUMBERTO STATUS AMIKACIN SS <=2 F AMPICILLIN I 16 F AMPICILLIN/SULB. SS 4 F CEFAZOLIN SS 8 F CEFEPIME SS <=1 F CEFTRIAXONE SS <=1 F CIPROFLOXACIN SS <=0.25 F GENTAMICIN SS <=1 F NITROFURANTOIN SS 32 F TOBRAMYCIN SS <=1 F TRIMETHOPRIM/SULFA. SS <=20 F Performed By: #### UR #### [address] [address] Blood Cultures processed at: [facility] PULMONARY VISIT REPORT Observed: 01/03/2018 Status: F Source: [place] 9:10 AM [facility] Pulmonary Medicine of [address] [place] [address] OFFICE VISIT Date of Service: 01/02/18 MR#: [id number] Acct: [id number] Name: EUFEMIA MCKNIGHTBHAKTI Gomes Rep #: [id number] : 1990 Provider: Elizabeth Duggan Age/Sex: 27/F Location: [facility] Status: Signed Assessment AND Plan 1. Sarcoidosis D86.9 Plan New. Pathology confirmed a diagnosis of sarcoidosis. Significant amount of time spent discussing sarcoidosis, signs and symptoms, treatment and observation management. The patient did become tearful during the office visit, supportive measures were provided. After reassurance was provided the patient did convey understanding and was no longer tearful. Ophthalmology referral placed, to evaluate the possibility of ophthalmic sarcoid. Will obtain baseline PFTs. Follow-up with Dr. Juares in 3 months. Education materials provided are not sarcoidosis. Orders Orders: 2. Facial nerve palsy, secondary G51.0 Plan Complicates exam, plan, care and prognosis. Plan Detail Follow Up 3 Months (DMB) HPI Ebus Results: Chief Complaint: Postnasal drip HPI Comments Details: This patient presents to the office today to review recent test results. She is ambulatory, currently in room air and accompanied by her boyfriend. She denies any shortness of breath at rest or during conversation, does report some shortness of breath with exertion, per her own words during exercise. She reports a persistent postnasal drip, that has worsened over the past 2 weeks. She states that typically this occurs in the spring and fall it is related to seasonal allergies. Currently she has a cough that is productive of clear to pale yellow sputum, which she attributes to the postnasal drip. She is not currently on any maintenance inhalers, nor rescue inhaler. She has been taking Claritin-D [id number] for her postnasal drip, which she says is effective for about 1 week and then she needs to take a break from the medication. She denies any wheezing, chest tightness, chest pain or palpitations. She has not experienced any rashes. She has not experienced any vision changes, and denies any difficulties with dry eyes. 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 She has been meaning to get a ophthalmology opinion on on that eye but has not made the time to do so. See complete review of systems. Pathology report from [facility] procedure completed by Dr. Juares, was reviewed and was consistent with granuloma tissue. Flow cytology returned and was reviewed, CD4: CD8 ratio is 2.5-1, discussed the case with Dr. Juares who reports that this indicates sarcoidosis. Intake Vital Signs01/02/18 Height 5 ft 11 in 01/02/18 Weight: 165 lb Intake Visit Reasons: Ebus Results Chief Complaint: Enlarged lymph nodes on a CAT scan Allergies No Known Allergies Allergy (Verified 12/24/17 15:34) Medications Desog-E.estradiol/E.estradiol [Kariva 28 Day Tablet] 1 ea PO DAILY 12/04/17 [History Confirmed 12/24/17] Multivitamin [Multiple Vitamins] 1 ea PO DAILY 12/04/17 [History Confirmed 12/24/17] D-Mannose 1 tab PO DAILY 12/06/17 [History Confirmed 12/24/17] Cephalexin [Keflex] 500 mg PO BID 12/24/17 [History Confirmed 12/24/17] [facility] Medical History BENIGN BRAIN TUMOR REMOVED (Acute) Calculus of kidney (Acute) Deaf (Acute) Generalized abdominal pain (Acute) Partial facial paralysis (Acute) Urinary calculi (Acute) Urinary tract infection (Acute) Surgical History H/O brain surgery (Resolved) Family History Grandmother Lung cancer Social History Smoking Status: Never smoker alcohol intake: current alcohol intake frequency: holidays/special occasions only substance use type: does not use Review of Systems Const CONSTITUTIONAL: Negative anorexia, body ache, chills, daytime sleepiness, fever(s), night sweats, oral thrush, stops breathing during sleep, weight loss, sleeping in chair, fatigue, weight loss, weight gain, frequent colds, seasonal allergies, other, headache(s) or orthopnea EETM Ear Nose Throat Mouth: Positive hearing normal and post nasal drip; negative hard of hearing, hoarseness, dry mouth in morning, change in vision, itchy eyes, eye pain, swallowing Difficulty, ear pain, nose bleed, headache(s), mouth pain, nasal congestion, nasal discharge, sinus pain, sinus pressure, sore throat or other Cardio Cardiovascular: Negative chest pain, chest pain at rest, chest pain with activity, irregular heart rhythm, edema, shortness of breath when lying down, palpitations, murmur or other Resp Respiratory: Positive as per HPI and cough cough: Positive productive color: Positive clear, yellow and white; negative shortness of breath, pain with cough, wheezing, chest congestion, chest tightness, pain on inspiration, inhalers, increase use of rescue inhalers, snoring, apnea or other Gastro Gastrointestional: Negative bloody stools, change in appetite, difficulty swallowing, reflux, hematemesis, melena stool, loose stool, constipation or other Genitourinary: Negative blood in urine, nocturia, pain with urination or other Musc Musculoskeletal: Negative body pain, back pain, neck pain or other Skin/Breast Skin/Breast: Negative dry skin, itching, rash, unusual bruising, breast lump or other Neuro Neurological: Negative restless legs, confusion, weakness or other Psych Psychocological: Negative abnormal sleep pattern, anxiety, thoughts of hurting self/others, hopelessness or other Lymph Lymphatic: Negative easy bleeding, easy bruising, swollen lymph nodes or other Exam Const Constitutional: Positive conversant, cooperative, in no acute respiratory distress, healthy appearing, well developed, well nourished and good hygiene Head Head: Positive normocephalic, atraumatic and other (Chronic left-sided facial droop); negative cyanosis of lips/distal nose Eyes Eye: Positive clear conjunctiva; negative nystagmus or scleral abnormality Ears Ear: Positive hearing normal and external ears normal; negative hard of hearing Nose Nose: Positive external nose normal and no nasal discharge; negative epistaxis Mouth Mouth: Positive post nasal drip, oral mucosae normal, no lesions, good dentition, posterior oropharynx is adequate and other (Chronic left-sided facial droop); negative malodorous breath or oral thrush present Mallampati Score: II: Mallampati Score Neck Neck: Positive normal visual inspection, full ROM and trachea midline; negative lymphadenopathy, JVD or tender Chest Wall Chest: Positive normal inspection of the chest and symmetric chest movement; negative increased A/P diameter Resp lung sounds: Positive clear to auscultation, good air exchange, normal expiratory time and normal respiratory effort; negative diminished, wheezes, rhonchi, rales, dullness to percussion or wheeze present on forced exhalation Cardio Cardiac: Positive regular rate, regular rhythm, S1 normal and S2 normal; negative murmur GI GI: Positive normal to inspection; negative distended Genitourinary: Positive deferred Musc Musculoskeletal: Positive steady gait and ROM normal; negative kyphosis or scoliosis Skin Pulmonary Skin Exam: Positive intact; negative rash, lesion or ulcers Pulses Pulse: Yes pulses normal x4 extremities Extremities Extremities: Yes capillary refill normal, No clubbing, No cyanosis, No edema Neuro Neurologic: Yes conversant, Yes no focal neuro deficits, Yes normal concentration, Yes understands questions, Yes cooperative, Yes normal cognition, Yes normal coordination Lymph Lymphatic: No lymphadenopathy, No tenderness, No cervical adenopathy Psych Appearance: Positive grossly normal, eye contact and well kempt Mental Status: Positive mental status grossly normal Mood: Positive anxious mood Affect: Positive anxious affect Coding Level of Care Code Off vis,est,level 4 Diagnoses Sarcoidosis D86.9 Facial nerve palsy, secondary G51.0 Time Spent (min) 45 01/03/18 0910 <Electronically signed by Elizabeth HOLLINS> Date Elizabeth HOLLINS Cosigner Signature: Date (if applicable) CC: OUT OF TOWN DOCTOR OPERATIVE REPORT Observed: 12/27/2017 Status: F Source: [place] 1:58 PM [facility] REPOSITORY [facility] Medical Records Department [address] [place] [address] Operative Report 12/27/17 1352 MR#: [id number] Acct: [id number] Name: ADAM MCKNIGHT Rep #: [id number] : 1990 27 From: Hipolito Juares DO PCP: OUT OF TOWN DOCTOR Status: REG SDC Y Location: [place] [address] Operative Report Date of Procedure: 12/27/17 BRONCHOSCOPY (EBUS) PROCEDURE REPORT DATE OF SERVICE: December 27, 2017 BRIEF HISTORY: CT chest with contrast completed at the beginning of November 2017 revealed evidence of enlarged bilateral hilar and mediastinal lymph nodes. The patient was subsequently referred to Dr. Castro of oncology. The patient had been admitted to [facility] in October 2017 with acute abdominal pain. A CAT scan of the abdomen and pelvis revealed a right ureteral stone which she passed spontaneously. However, the CAT scan did reveal enlarged lymph nodes at the gastroesophageal junction, distal esophagus. This prompted them to obtain dedicated chest imaging which revealed mediastinal and hilar lymphadenopathy. The patient is a lifelong non-smoker with limited secondhand smoke exposure. The patient was subsequently referred to me in the pulmonary medicine clinic to undergo mediastinal lymph node sampling via EBUS. PROCEDURE: Bronchoscopy with endoscopic endobronchial ultrasound (EBUS), transbronchial needle aspiration INDICATION: Mediastinal and hilar lymphadenopathy PHYSICIAN: DO Ron Louis MD ANESTHETIC: This procedure was completed under the supervision of anesthesia. Please refer to their documentation accordingly. COMPLICATIONS: No immediate complications noted. DESCRIPTION OF PROCEDURE: A history and physical has been performed. Please see outpatient pulmonary clinic note. The patient's medications and allergies have been reviewed. The risks and benefits of the procedure and sedation options and risks were discussed with the patient at length. All questions were answered and informed consent was obtained. The patient's identification and proposed procedure were verified prior to the procedure by the physician. ASA GRADE ASSESSMENT: II After obtaining informed consent, the bronchoscope was introduced through the mouth, via laryngeal mask airway and advanced to the tracheal bronchial tree bilaterally. The procedure was accomplished without difficulty. The patient tolerated the procedure well. FINDINGS: The visualized oropharynx appears normal. The vocal cords appeared normal and moved normally with breathing. The subglottic space is normal. The trachea was of normal caliber. The nikia is sharp. The tracheal bronchial trees of the left and right lungs were examined to at least the first subsegmental level. Bronchial mucosa and anatomy was noted to be normal. Once the airway inspection was completed, the standard bronchoscope was withdrawn and a convex probe endobronchial ultrasound (EBUS) bronchoscope was inserted through the same route. The endobronchial ultrasound endoscope was then utilized to systematically examine the superior/inferior mediastinal and hilar lymph nodes to assist with fine-needle aspiration. In total, 7 transbronchial needle aspirations were completed at 2 different lymph node stations. Transbronchial needle aspiration was performed at lymph node station #7 ([place]) using an Olympus EBUS-TBNA 19-gauge needle and sent for routine cytology. The procedure was guided by ultrasound. 5 samples were obtained. Transbronchial needle aspiration was then performed at lymph node station #10R (Right Hilar) using an Olympus EBUS-TBNA 19-gauge needle and sent for routine cytology. The procedure was guided by ultrasound. 2 samples were obtained. Rapid on-site evaluation (RALPH): Preliminary cytology was suggestive of granuloma formation. Following this, the EBUS endoscope was subsequently withdrawn from the patient's airway through the LMA. A conventional bronchoscope was then reinserted into the patient's airway, at which time, any retained secretions and/or blood was cleared. The bronchoscope was then withdrawn without complication. The patient was then transferred to the PACU, where they recovered in the usual fashion. IMPRESSION: 1. Extensive subcarinal and moderate right hilar lymphadenopathy was identified and sampled by EBUS. 2. Airway anatomy was normal in gross appearance without any endobronchial lesions identified. RECOMMENDATIONS: 1. Await final pathology report and flow cytometry. 2. Follow-up in the pulmonary medicine clinic as scheduled. Code Visit 9xxxx: Other Procedure See Report - [id number] 12/27/17 1358 <Electronically signed by Hipolito Juares DO> Date Hipolito Juares DO CC: Hipolito Juares D.O.; OUT OF TOWN DOCTOR Signed ,URINE Collected: 12/27/2017 Status: F Source: [place] 11:38 AM [facility] REPOSITORY TYPE CODE TESTS RESULT OUT OF REFERENCE UNITS RANGE LAB L400.8000 Negative Normal HCGUQUAL Negative Result Comment: Very dilute urine specimens, as indicated by a low specific gravity, may not contain arborist representative levels of hCG. If is still suspected, a first morning urine specimen should be collected 48 hours later and tested. Performed By: #### L400.7600 #### [facility] [address] [place], [address] ASPIRATION (SLIDES Observed: 12/27/2017 Status: F Source: [place] ONLY) 12:00 AM [facility] REPOSITORY Patient: ADAM MCKNIGHT : 1990 () Acct Num: [id number] Phys: Hipolito Juares D.O. Unit Num: [id number] Loc: EN Specimen: [id number] Received: 12/27/17 - 1403 Spec Type: ASPIRATION TISSUES TISSUES: A. Lung, NOS B. Lung, NOS C. Lung, NOS D. Lung, NOS E. Lung, NOS F. Lung, NOS G. Lung, NOS COMMENT The specimen is evaluated at the time of procedure by Dr. Nunez. Immediate Evaluation: A. EBUS aspiration #1, site 7: Adequate for evaluation. Lymphocytes and blood present. (1:05 p.m.) B. EBUS aspiration #2, site 7: Nondiagnostic. Blood and rare respiratory epithelial cells. C. EBUS aspiration #3, site 7: Adequate for evaluation. Lymphocytes present. Giant cell consistent with granuloma. D. EBUS aspiration #4, site 7: Adequate for evaluation. Two giant cells consistent with granuloma. E. EBUS aspiration #5, site 7: Adequate for evaluation. Mostly blood. F. EBUS aspiration #6, site 10R: Nondiagnostic. Blood and benign respiratory epithelial cells. G. EBUS aspiration #7, site 10R: Nondiagnostic. Blood and benign respiratory epithelial cells. Flow cytometric analysis was performed on the all remaining fluid from site 7 and 10R per order and reveals no evidence of a B-cell or T- cell lymphoma. The complete report is viewable in patient s EMR. CYTOLOGY GROSS A - Received labeled with the patient s name and and designated EBUS FNA, aspiration #1, site 7. The specimen consists of two smears submitted for immediate cytologic evaluation (wet read). B - Received labeled with the patient s name and and designated EBUS FNA, aspiration #2, site 7. The specimen consists of two smears submitted for immediate cytologic evaluation (wet read). C - Received labeled with the patient s name and and designated EBUS FNA, aspiration #3, site 7. The specimen consists of two smears submitted for immediate cytologic evaluation (wet read). D - Received labeled with the patient s name and and designated EBUS FNA, aspiration #4, site 7. The specimen consists of two smears submitted for immediate cytologic evaluation (wet read). E - Received labeled with the patient s name and and designated EBUS FNA, aspiration #5, site 7. The specimen consists of two smears submitted for immediate cytologic evaluation (wet read). F - Received labeled with the patient s name and and designated EBUS FNA, aspiration #6, site 10R. The specimen consists of two smears submitted for immediate cytologic evaluation (wet read). G - Received labeled with the patient s name and and designated EBUS FNA, aspiration #7, site 10R. The specimen consists of two smears submitted for immediate cytologic evaluation (wet read). / AM:rg 12/27/17 TC:3 CPT: 94038 x7, 67337 x2 CYTOLOGY STUDY Slides are reviewed. DIAGNOSIS CYTOLOGY A. EBUS aspiration #1, site 7: Adequate for evaluation. Lymphocytes and blood present. B. EBUS aspiration #2, site 7: Nondiagnostic. Blood and rare respiratory epithelial cells. C. EBUS aspiration #3, site 7: Adequate for evaluation. Lymphocytes present. Giant cell consistent with granuloma. D. EBUS aspiration #4, site 7: Adequate for evaluation. Giant cells consistent with granuloma. E. EBUS aspiration #5, site 7: Adequate for evaluation. Mostly blood. F. EBUS aspiration #6, site 10R: Nondiagnostic. Blood and benign respiratory epithelial cells. G. EBUS aspiration #7, site 10R: Nondiagnostic. Blood and benign respiratory epithelial cells. AM:pj 12/31/17 HEADER OPERATION: EBUS with TBNA PRE-OP DIAGNOSIS: Mediastinal LAD TISSUE SUBMITTED: A-E EBUS FNA, site 7, F AND G - EBUS FNA, site 10R Signed Jt [facility] 12/31/17 <signature on file> Performed By: #### PASPS #### [facility] [address] [place] [address], [address] Observed: 12/19/2017 Status: F Source: [facility] URINE CULTURE 12:00 PM [facility] REPOSITORY ORGANISM 1: ESCHERICHIA COLI COLONY COUNT >100,000 ESCHERICHIA COLI: REACTION AMIKACIN <16 S AMPICILLIN <8 S CEFAZOLIN <8 S CEFEPIME <4 S CEFOTAXIME <2 S CEFTAZIDIME <1 S CEFUROXIME 8 S CIPROFLOXACIN <1 S GENTAMICIN <4 S IMIPENEM <1 S ERTAPENEM <2 S NITROFURANTOIN <32 S PIPERACILLIN/TAZOBACTAM <16 S TOBRAMYCIN <4 S TRIMETH/SULFA <2/38 S LEVOFLOXACIN <2 S MEROPENEM <1 S Performed By: #### M100.70616 #### [facility] [address] [place] [address] # [phone] CBC-COMPLETE BLOOD CNT Collected: 12/17/2017 Status: F Source: [place] NO DIFF 11:47 AM [facility] REPOSITORY TYPE CODE TESTS RESULT OUT OF RANGE REFERENCE UNITS LAB L100.1000 4.4-11.0 K/mm3 Normal WBC 10.3 LAB L100.1200 4.2-5.4 M/mm3 Normal RBC 4.39 LAB L100.1300 12.0-15.0 g/dl Normal HGB 13.2 LAB L100.1400 37-47 % Normal HCT 40.0 LAB L100.1500 81-99 fL Normal MCV 91.1 LAB L100.1600 27.0-32.0 pg Normal MCH 30.1 LAB L100.1700 32-36 g/gl Normal MCHC 33.0 LAB L100.1810 11.6-14.6 % Normal RDW CV 12.4 LAB L100.1820 35.1-43.9 fl Normal RDW SD 40.5 LAB L100.1900 150-450 K/mm3 Normal PLT 434 LAB L100.2000 6.2-12.0 fl Normal MPV 9.4 Performed By: #### L100.0500, L300.3900 #### [facility] [address] [place], [place], [id number] PROTHROMBIN TIME W/INR Collected: 12/17/2017 Status: F Source: [place] 11:47 AM [facility] REPOSITORY TYPE CODE TESTS RESULT OUT OF RANGE REFERENCE UNITS LAB L300.4150 11.7-14.9 SECONDS Normal PROTIME 13.0 LAB L300.4200 Normal INR 1.0 Performed By: #### L100.0500, L300.3900 #### [facility] [address] [place], [place], [address] KAPPA LAMBDA LIGHT Collected: 12/17/2017 Status: F Source: [facility] 11:47 AM [facility] REPOSITORY Order Comment: DR CASTRO ORDERED KAPPA BENIGNO TYPE CODE TESTS RESULT OUT OF RANGE REFERENCE UNITS LAB L3130.0200 3.3-19.4 mg/L Normal FR KAPPA LT 16.3 CHN LAB L3130.0300 5.7-26.3 mg/L Normal FR LAMBDA LT 16.4 CH LAB L3130.0400 0.26-1.65 Normal KAPPA/LAMBDA 0.99 % Result Comment: Performed at: [facility], [place], [place] [id number] Automation Driver: Darian Curtis PhD, Phone: [phone] Performed By: #### L3130.0010 #### [facility] (refer to report for specific site) refer to report for address and phone number PULMONARY VISIT REPORT Observed: 12/17/2017 Status: F Source: [place] 11:44 AM [facility] REPOSITORY [facility] [address] [address] [place] [address] OFFICE VISIT Date of Service: 12/17/17 MR#: [id number] Acct: [id number] Name: ADAM MCKNIGHT Rep #: [id number] : 1990 Provider: Hipolito Juares D.O. Age/Sex: 27/F Location: [facility] Status: Signed Assessment AND Plan 1. Mediastinal lymphadenopathy R59.0 Plan The patient's recent contrasted chest CT revealed evidence of both mediastinal and hilar lymphadenopathy. Patient was evaluated by oncology with concern for potential lymphoma versus underlying granulomatous disease such as sarcoidosis. Therefore, she was referred to our office for consideration of mediastinal lymph node sampling via EBUS. The procedure was discussed with the patient at length, including risks and benefits. Questions were answered accordingly. Following our discussion, the patient was in agreement to proceed with the procedure. She has been scheduled for December 27. Once her finalized pathology reports are made available, I will call her to schedule a follow-up office appointment. Preprocedure lab orders have been placed. Orders Orders: HPI HPI Comments Details: The patient is a 27-year-old female who presents to the clinic today in referral for evaluation of mediastinal lymphadenopathy. CT chest with contrast completed at the beginning of November 2017 revealed evidence of enlarged bilateral hilar and mediastinal lymph nodes. The patient was subsequently referred to Dr. Castro of oncology. The patient had been admitted to [facility] in October 2017 with acute abdominal pain. A CAT scan of the abdomen and pelvis revealed a right ureteral stone which she passed spontaneously. However, the CAT scan did reveal enlarged lymph nodes at the gastroesophageal junction, distal esophagus. This prompted them to obtain dedicated chest imaging which revealed mediastinal and hilar lymphadenopathy. The patient is a lifelong non-smoker with limited secondhand smoke exposure. She denies any fatigue or unintentional weight loss. She denies the presence of shortness of breath, chest tightness, wheezing or cough. She only reports a mild degree of nasal congestion and postnasal drip. She denies fevers, chills or night sweats. Her weight has been stable. Her appetite is good. Intake Vital Signs12/17/17 Height 5 ft 11 in 12/17/17 Weight: 166 lb Intake Visit Reasons: abnormal CT Webbing Weaver Required: No Is patient in pain?: No Allergies No Known Allergies Allergy (Verified 12/17/17 11:07) Medications Desog-E.estradiol/E.estradiol [Kariva 28 Day Tablet] 1 ea PO DAILY 12/04/17 [History Confirmed 12/17/17] Multivitamin [Multiple Vitamins] 1 ea PO DAILY 12/04/17 [History Confirmed 12/17/17] D-Mannose 1 tab PO DAILY 12/06/17 [History Confirmed 12/17/17] [facility] Medical History BENIGN BRAIN TUMOR REMOVED (Acute) Calculus of kidney (Acute) Deaf (Acute) Generalized abdominal pain (Acute) Partial facial paralysis (Acute) Urinary calculi (Acute) Urinary tract infection (Acute) Surgical History H/O brain surgery (Resolved) Family History Grandmother Lung cancer Social History Smoking Status: Never smoker alcohol intake: current alcohol intake frequency: holidays/special occasions only substance use type: does not use Review of Systems Const CONSTITUTIONAL: Negative anorexia, body ache, chills, daytime sleepiness, fever(s), night sweats, oral thrush, stops breathing during sleep, weight loss, sleeping in chair, fatigue, weight loss, weight gain, frequent colds, seasonal allergies, other, headache(s) or orthopnea EETM Ear Nose Throat Mouth: Positive hearing normal; negative hard of hearing, hoarseness, dry mouth in morning, change in vision, itchy eyes, eye pain, swallowing Difficulty, ear pain, nose bleed, headache(s), mouth pain, nasal congestion, nasal discharge, post nasal drip, sinus pain, sinus pressure, sore throat or other Cardio Cardiovascular: Negative chest pain, chest pain at rest, chest pain with activity, irregular heart rhythm, edema, shortness of breath when lying down, palpitations, murmur or other Resp Respiratory: Positive as per HPI; negative shortness of breath, pain with cough, wheezing, chest congestion, cough, chest tightness, pain on inspiration, inhalers, increase use of rescue inhalers, snoring, apnea or other Gastro Gastrointestional: Negative bloody stools, change in appetite, difficulty swallowing, reflux, hematemesis, melena stool, loose stool, constipation or other Genitourinary: Negative blood in urine, nocturia, pain with urination or other Musc Musculoskeletal: Negative body pain, back pain, neck pain or other Skin/Breast Skin/Breast: Negative dry skin, itching, rash, unusual bruising, breast lump or other Neuro Neurological: Negative restless legs, confusion, weakness or other Psych Psychocological: Negative abnormal sleep pattern, anxiety, thoughts of hurting self/others, hopelessness or other Lymph Lymphatic: Negative easy bleeding, easy bruising or other Exam Const Constitutional: Positive conversant, cooperative, in no acute respiratory distress, well developed, well nourished and good hygiene Head Head: Positive normocephalic and atraumatic; negative cyanosis of lips/distal nose Eyes Eye: Positive clear conjunctiva; negative nystagmus or scleral abnormality Ears Ear: Positive hearing normal and external ears normal; negative hard of hearing Nose Nose: Positive external nose normal; negative epistaxis Mouth Mouth: Positive oral mucosae normal and posterior oropharynx is adequate; negative no lesions or post nasal drip Mallampati Score: II: Mallampati Score Neck Neck: Positive normal visual inspection and trachea midline; negative lymphadenopathy Chest Wall Chest: Positive symmetric chest movement Normal AP diameter. Resp lung sounds: Positive clear to auscultation, good air exchange and normal expiratory time; negative wheezes, rhonchi or rales Cardio Cardiac: Positive regular rate, regular rhythm, S1 normal and S2 normal; negative rub, gallop or murmur GI GI: Positive normal bowel sounds Soft without distention Genitourinary: Positive deferred Musc Musculoskeletal: Positive steady gait Skin Pulmonary Skin Exam: Positive intact; negative lesion, ulcers, dermal atrophy or rash Pulses Pulse: Yes Pedal pulses present: Extremities Extremities: No clubbing, No cyanosis, No edema Neuro Neurologic: Yes conversant, Yes no focal neuro deficits, Yes cooperative Psych Appearance: Positive grossly normal Mental Status: Positive mental status grossly normal Mood: Positive congruent mood Affect: Positive normal affect Coding Level of Care Code Off vis,new,level 4 Diagnoses Mediastinal lymphadenopathy R59.0 12/17/17 1144 <Electronically signed by Hipolito Juares DO> Date Hipolito Juares DO Cosigner Signature: Date (if applicable) CC: Vannesa Castro MD ONCOLOGY HISTORY AND Observed: 12/06/2017 Status: F Source: [place] PHYSICAL 12:32 PM [facility] REPOSITORY [facility] Medical Records Department [address] [place] [address] History and Physical 12/06/17 1216 MR#: [id number] Acct: [id number] Name: ROXANNAADAM Rep #: [id number] : 1990 27 From: Vannesa Castro MD PCP: OUT OF TOWN DOCTOR Status: REG RCR Y Location: OMD - Problem List (1) Lymphadenopathy Status: Acute Subjective Date of Service:: 12/06/17 Chief Complaint: Enlarged lymph nodes on a CAT scan History of Present Illness: Patient is a 27-year-old female who presented at [facility] ER on November 10, 2017 with acute abdominal pain and a CAT scan of the abdomen and pelvis revealed right ureteral stone which since the patient had passed and the pain had resolved. However the CAT scan revealed enlarged lymph nodes at the GE junction distal esophagus the largest measuring 12 mm in diameter. This prompted a CT scan of the chest which revealed pathologically enlarged bilateral hilar and mediastinal lymphadenopathy. Small benign-appearing bilateral axillary adenopathy was also noted. The patient has had no B symptoms and is unaware of any enlarged lymph nodes. Apart from the pain from the kidney stone which resolved she has had no recent infections. 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 Health History: Past Medical History Other Cancer History: BENIGN BRAIN TUMOR REMOVED Past Medical History (Last Reviewed 12/06/17 @ 11:11 by Lisseth Silva RN) Deaf (Acute) Partial facial paralysis (Acute) BENIGN BRAIN TUMOR REMOVED (Acute) Calculus of kidney (Acute) Generalized abdominal pain (Acute) Urinary calculi (Acute) Urinary tract infection (Acute) Family History (Last Updated 12/06/17 @ 11:11 by Lisseth Silva RN) Grandmother Lung cancer Allergies/Adverse Reactions: Allergy/AdvReac Type Severity Reaction Status Date / Time No Known Allergies Allergy Verified 12/06/17 11:07 Risk Factors Social History Smoking Status Never smoker Tobacco Risk Data: Tobacco Risk Smoking Status Never smoker Type of tobacco: Smokeless tobacco usage: Never Items/Day: Year started: Years used: Counseled to quit/cut down: Reason for no counseling performed: Reason for no pharmacotherapy: Tobacco use comments: Passive smoke exposure: Substance Risk Drug use: No Caffeine use [drinks/day]: Alcohol use: Type of alcohol: SOCIAL Drinks per day: Has patient felt the need to cut down: Has the patient been annoyed by complaints: Has the patient felt guilty about drinking: Has the patient needed an eye senior product development engineer in the mornings: Comments: Date of last PAP smear:: 04/29/15 Review of Systems Constitutional:: Denies: Fever, Sweats, Weight loss, Appetite change, Chills Cardiovascular:: Denies: Chest pain, Palpitations, Dyspnea on exertion, Orthopnea, PND, Shortness of breath Respiratory: Denies: Cough, Hemoptysis, Shortness of Breath, Wheezing Gastrointestinal:: Reports: Abdominal pain - Resoled since he passed the stone. Denies: Nausea, Vomiting, Diarrhea, Constipation, Hematochezia Genitourinary: Reports: - - Last menstrual. October 2017, she is on control pills and her boy friend wears a condom during intimacy. Denies: Dysuria, Hematuria, Flank pain Musculoskeletal:: Denies: Back pain, Myalgia, Arthralgia Skin: Denies: Rash, Skin Changes, Wounds Neurological:: Reports: Paralysis - Residual left face paralysis and hearing loss post resection of a vestibular schwannoma, Hearing loss. Denies: Headache, Dizziness, Visual changes, Tinnitus Psychiatric: Denies: Anxiety, Depression, Homicidal Ideations, Suicidal Ideations Vital Signs Height 5 ft 11 in Weight: 75.75 kg Weight in Pounds 167.0 lbs - Physical Exam General: Alert, Oriented x3, No apparent distress, - - ECOG 0 HEENT: Atraumatic, PERRLA, EOMI, Normocephalic, - Oropharynx:: Dry mucosa Neck:: Supple, Trachea midline. Negative for: JVD, bilateral Cardiac:: Regular rate, Regular rhythm, Normal S1, Normal S2. Negative for: Murmur Lungs: Clear to auscultation, Excusion symmetrical. Negative for: Rhonchi, Wheezes Abdomen:: Bowel sounds x 4, Soft, Non-tender, Non-distended. Negative for: Hepatosplenomegaly Extremities:: Negative for: Cyanosis, Edema Neurological: - - Old left facial palsy Skin:: Negative for: Lesions, Rash, Petechiae, Ecchymosis Psychiatric:: Appropriate affect, Euthymic Lymphatics:: Inguinal lymphadenopathy - No pathologically enlarged inguinal nodes. Negative for: Cervical lymphadenopathy, Supraclavicular lymphadenopathy, Axillary lymphadenopathy Diagnostic Data: I personally reviewed patient's CT chest images and concur with the report Assessment and Plan 27-year-old female with asymptomatic incidentally discovered mediastinal and upper abdominal adenopathy. The differential diagnosis is: 1. Lymphoma: Hodgkin's or non-Hodgkin's. 2. Metastatic malignancy less likely. 3. Nonmalignant such as sarcoid. Plan: 1. Obtain baseline CBC, CMP, LDH, hepatitis and HIV serologies, serum protein electrophoresis, immune fixation (noted on recent labs and elevated gamma globulin levels). 2. Tissue biopsy by CT or EBUS. Impression and plan discussed with patient and her boyfriend, follow-up after above Medications: Prescriptions This Visit Medication Instructions Recorded Primary Care Provider: Out of Town Doctor Referring Provider: Karen Barrow COMPOSITION MOLDER-C 12/06/17 1232 <Electronically signed by Vannesa Castro MD> Date Vannesa Castro MD Cosigner Signature: Date (if applicable) CC: Vannesa Castro MD; OUT OF TOWN DOCTOR; Karen Barrow COMPOSITION MOLDER Signed CBC W/DIFF, AUTOMATED Collected: 12/06/2017 Status: F Source: [place] 12:15 PM [facility] REPOSITORY Order Comment: Reason for Laboratory Test . TYPE CODE TESTS RESULT OUT OF RANGE REFERENCE UNITS LAB L100.1000 4.4-11.0 K/mm3 Normal WBC 7.8 LAB L100.1200 4.2-5.4 M/mm3 Normal RBC 4.35 LAB L100.1300 12.0-15.0 g/dl Normal HGB 13.1 LAB L100.1400 37-47 % Normal HCT 40.1 LAB L100.1500 81-99 fL Normal MCV 92.2 LAB L100.1600 27.0-32.0 pg Normal MCH 30.1 LAB L100.1700 32-36 g/gl Normal MCHC 32.7 LAB L100.1810 11.6-14.6 % Normal RDW CV 12.8 LAB L100.1820 35.1-43.9 fl Normal RDW SD 43.0 LAB L100.1900 150-450 K/mm3 Normal PLT 341 LAB L100.2000 6.2-12.0 fl Normal MPV 9.3 LAB L100.2100 47-70 % High NEUT% 71.8 LAB L100.2200 19-41 % Normal LY% 21.1 LAB L100.2300 0-10 % Normal MONO% 5.4 LAB L100.2400 0-5 % Normal EO% 1.3 LAB L100.2500 0-1 % Normal BASO% 0.3 LAB L100.2550 0.0-0.9 % Normal IM GRAN % 0.100 Result Comment: IG% - Immature Granulocytes (promyelocytes, myelocytes and metamyelocytes) > 1% indicates that a LEFT SHIFT is Present. LAB L100.2620 2.0-7.7 X10 3/uL Normal Absolute Neut 5.6 LAB L100.2720 0.83-4.51 X10 3/ul Normal Absolute Lymph 1.64 Performed By: #### L100.0100, L101.9900 #### [facility] [address] [place], [address] ERYTHROCYTE SED RATE Collected: 12/06/2017 Status: F Source: [place] 12:15 PM [facility] REPOSITORY Order Comment: Reason for Laboratory Test . TYPE CODE TESTS RESULT OUT OF RANGE REFERENCE UNITS LAB L102.0000 0-20 mm/hr Normal SED RATE 19 Performed By: #### L100.0100, L101.9900 #### [facility] [address] [place], [address] COMPREHENSIVE METABOLIC Collected: 12/06/2017 Status: F Source: [place] [facility] 12:15 PM [facility] REPOSITORY Order Comment: Reason for Laboratory Test . Serial Specimen #1, #2 or #3? 1 TYPE CODE TESTS RESULT OUT OF RANGE REFERENCE UNITS LAB L501.0100 74-106 mg/dL High GLU 109 Result Comment: Fasting Glucose result from 100 to 125 mg/dL suggests IMPAIRED HOMEOSTASIS per A.D.A. criteria. Please note revised GLUCOSE reference range effective 2017. LAB L501.1000 7-18 mg/dL Normal BUN 12 LAB L501.1100 0.55-1.02 mg/dL Normal CREAT,SERUM 0.80 Result Comment: The validity of the calculated GFR AND GFRAA in patients over 70 years has not been determined. Clinical correlation is essential. LAB L501.1110 >60 mL/min Normal EST GFR 90 Result Comment: Non- GFR Calc LAB L501.1115 >60 mL/min Normal EST GFR - AA 109 Result Comment: GFR Calc LAB L501.1255 ml/min Normal Estimated CRCL 117.02 LAB L501.1300 10-20 RATIO BUN/CRE Normal 15.0 LAB L501.1500 6.4-8. g/dL High 2 T PROT 8.4 LAB L501.1800 3.2-5. g/dL 0 ALB Normal 3.4 LAB L501.1950 2.2-4. g/dL High 2 GLOB 5.0 LAB L501.2000 0.9-2. RATIO Low 4 A/G 0.7 LAB L501.2200 8.5-10 mg/dL .1 CA Normal 8.9 LAB L501.4100 15-37 U/L AST Normal 15 LAB L501.4305 45-117 U/L ALK P Normal 74 LAB L501.4405 13-56 U/L ALT Normal 16 LAB L501.4600 0.20-1 mg/dL .00 T BILI Normal 0.60 LAB L501.5300 136-14 mmol/L 5 NA Normal 142 LAB L501.5600 3.5-5. mmol/L 1 K Normal 3.7 LAB L501.5900 98-107 mmol/L High CL 108 LAB L501.6100 21.0-3 mmol/L 2.0 CO2 Normal 26.0 LAB L501.6200 5-15 GAP Normal 8 Performed By: #### L500.4050, L504.2610 #### [facility] [address] [place], [address] LDH Collected: 12/06/2017 Status: F Source: [place] 12:15 PM [facility] REPOSITORY Order Comment: Reason for Laboratory Test . Serial Specimen #1, #2 or #3? 1 TYPE CODE TESTS RESULT OUT OF RANGE REFERENCE UNITS LAB L504.2610 84-246 U/L Normal LDH 138 Performed By: #### L500.4050, L504.2610 #### [facility] [address] [place], [address] HEPATITIS B/C PROFILE Collected: 12/06/2017 Status: F Source: [facility] 12:15 PM [facility] REPOSITORY Order Comment: Reason for Laboratory Test . Is Patient Fasting? N TYPE CODE TESTS RESULT OUT OF RANGE REFERENCE UNITS LAB L3100.0400 Normal HB SURF AG Result Comment: TEST RESULT LIMITS HBV/HCV (Profile VIII) HBsAg Screen Negative Negative Hep Be Ag Negative Negative Hep B Core Ab, IgM Negative Negative Hep B Core Ab, Tot Negative Negative Hep Be Ab Negative Negative Hep B Surface Ab, Qual Reactive Non Reactive: Inconsistent with immunity, less than 10 mIU/mL Reactive: Consistent with immunity, HCV Ab 0.1 s/co ratio 0.0 - 0.9 Comment: Non reactive HCV antibody screen is consistent with no HCV infection, unless recent infection is suspected or other evidence exists to indicate HCV infection. Performed By: #### L3000.0800, L3100.3425 #### [facility] (refer to report for specific site) refer to report for address and phone number GRACY + PROTEIN ELECT, Collected: 12/06/2017 Status: F Source: ALYSSA SERUM 12:15 PM [facility] REPOSITORY Order Comment: Reason for Laboratory Test . Is Patient Fasting? N TYPE CODE TESTS RESULT OUT OF RANGE REFERENCE UNITS LAB L3100.3500 Normal PROTEIN,TOTA L Result Comment: TEST RESULT LIMITS GRACY and PE, Serum Immunoglobulin G, Qn, Serum 1163 mg/dL 700 - 1600 Immunoglobulin A, Qn, Serum 310 mg/dL 87 - 352 Immunoglobulin M, Qn, Serum 119 mg/dL 26 - 217 Protein, Total 7.3 g/dL 6.0 - 8.5 Albumin 3.5 g/dL 2.9 - 4.4 Qpmft-5-Mvexxuyp 0.4 g/dL 0.0 - 0.4 Hbpnd-1-Etmnfnyf 0.8 g/dL 0.4 - 1.0 Beta Globulin 1.3 g/dL 0.7 - 1.3 Gamma Globulin 1.3 g/dL 0.4 - 1.8 M-Gabriel Not Observed g/dL Not Observed Globulin, Total 3.8 g/dL 2.2 - 3.9 A/G Ratio 1.0 0.7 - 1.7 Immunofixation Result, Serum No monoclonality detected. Please note: Protein electrophoresis scan will follow via computer, mail, or signal tower director delivery. TESTING PERFORMED AT [facility]. ORIGINAL REPORT ON FILE IN LAB CONTAINS ADDITIONAL TEST SITE INFORMATION. Performed By: #### L3000.0800, L3100.3425 #### [facility] (refer to report for specific site) refer to report for address and phone number CHEST WITH CONTRAST Observed: 11/28/2017 Status: F Source: ALYSSA 7:01 AM [facility] REPOSITORY [facility] Imaging Services [address] [place] [address] Chest WITH Contrast MR#: [id number] Acct: [id number] Name: ADAM MCKNIGHT Rep #: [id number] : 1990 F 27 From: Emeka Menjivar MD PCP: OUT OF TOWN DOCTOR Status: REG CLI Study: Chest WITH Contrast Date of Exam: 11/28/17 Exam# [id number] Ordering Dr: Karen Barrow COMPOSITION MOLDER-C STUDY: CT CHEST WITH CONTRAST REASON FOR EXAM: Female, 27 years old. History of a soft tissue density on prior CT scan of the abdomen. RADIATION DOSAGE (If Supplied By Facility): CTDIvol = ( 11.9 ) mGy, DLP = ( 254 ) mGycm TECHNIQUE: Transaxial imaging was performed following intravenous administration of 100 ml of Isovue 300 contrast material. Multiplanar coronal and sagittal images were reformatted. Individualized dose optimization techniques were used for this CT. COMPARISON: None. FINDINGS: Residual thymic gland is seen. Small benign-appearing bilateral axillary lymph nodes. The lungs are normal. There is no demonstrated pleural abnormality. Normal heart and pericardium. There is evidence of enlarged bilateral hilar and mediastinal lymphadenopathy. Normal enhanced pulmonary arteries. Normal aorta arch and descending thoracic aorta. Normal osseous structures. There is no demonstrated abnormality of the visualized upper abdomen. CT/Chest WITH Contrast IMPRESSION: Bilateral hilar and mediastinal lymphadenopathy. Lymphoma should be ruled out. Electronically Signed: Emeka Menjivar MD at 15:13 EDT Tel [phone], Service support , CC: OUT OF TOWN DOCTOR; Karen Barrow NP Critical Care Technician: Signed COMPREHENSIVE METABOLIC Collected: 11/18/2017 Status: F Source: ALYSSA PROFIL 4:06 PM [facility] REPOSITORY Order Comment: Comments: MG TYPE CODE TESTS RESULT OUT OF RANGE REFERENCE UNITS LAB L501.0100 74-106 mg/dL Normal GLU 83 Result Comment: Please note revised GLUCOSE reference range effective 2017. LAB L501.1000 7-18 mg/dL Normal BUN 17 LAB L501.1100 0.55-1.02 mg/dL Normal CREAT,SERUM 0.67 Result Comment: The validity of the calculated GFR AND GFRAA in patients over 70 years has not been determined. Clinical correlation is essential. LAB L501.1110 >60 mL/min Normal EST GFR 110 Result Comment: Non- GFR Calc LAB L501.1115 >60 mL/min Normal EST GFR - AA 133 Result Comment: GFR Calc LAB L501.1300 10-20 RATIO High BUN/CRE 25.3 LAB L501.1500 6.4-8.2 g/dL T Normal PROT 8.1 LAB L501.1800 3.2-5.0 g/dL Normal ALB 3.6 LAB L501.1950 2.2-4.2 g/dL High GLOB 4.5 LAB L501.2000 0.9-2.4 RATIO Low A/G 0.8 LAB L501.2200 8.5-10.1 mg/dL CA Normal 8.9 LAB L501.4100 15-37 U/L Low AST 12 LAB L501.4305 45-117 U/L Normal ALK P 66 LAB L501.4405 13-56 U/L Normal ALT 18 LAB L501.4600 0.20-1.00 mg/dL T Normal BILI 0.60 LAB L501.5300 136-145 mmol/L NA Normal 140 LAB L501.5600 3.5-5.1 mmol/L K Normal 3.7 LAB L501.5900 98-107 mmol/L CL Normal 101 LAB L501.6100 21.0-32.0 mmol/L Normal CO2 29.0 LAB L501.6200 5-15 Normal GAP 10 Performed By: #### L500.4050, L501.1400, L501.2300, L501.5200 #### [facility] [address] [place], [place], [id number] URIC ACID Collected: 11/18/2017 Status: F Source: ALYSSA 4:06 PM [facility] REPOSITORY Order Comment: Comments: MG TYPE CODE TESTS RESULT OUT OF RANGE REFERENCE UNITS LAB L501.1400 2.6-6.0 mg/dL Normal URIC 4.6 Result Comment: The drugs N-Acetylcysteine and Metamizole may falsely depress this assay. Performed By: #### L500.4050, L501.1400, L501.2300, L501.5200 #### [facility] [address] [place], [address] PHOSPHORUS Collected: 11/18/2017 Status: F Source: ALYSSA 4:06 PM [facility] REPOSITORY Order Comment: Comments: MG TYPE CODE TESTS RESULT OUT OF RANGE REFERENCE UNITS LAB L501.2300 2.5-4.9 mg/dL Normal PHOS 3.0 Performed By: #### L500.4050, L501.1400, L501.2300, L501.5200 #### [facility] [address] [place], [address] MAGNESIUM Collected: 11/18/2017 Status: F Source: [place] 4:06 PM [facility] REPOSITORY Order Comment: Comments: MG TYPE CODE TESTS RESULT OUT OF RANGE REFERENCE UNITS LAB L501.5200 1.6-2.6 mg/dL Normal MG 2.1 Performed By: #### L500.4050, L501.1400, L501.2300, L501.5200 #### [facility] [address] [place], [address] PTHIN Collected: 11/18/2017 Status: F Source: [place] 4:06 PM [facility] REPOSITORY TYPE CODE TESTS RESULT OUT OF RANGE REFERENCE UNITS LAB L509.1000 18.4-80.1 pg/mL Normal PTHIN 36.5 Performed By: #### L509.1000 #### [facility] [address] [place], [address] CALCULI, URINARY W / Collected: 11/18/2017 Status: F Source: ALYSSA PHOTO 2:35 PM [facility] REPOSITORY TYPE CODE TESTS RESULT OUT OF RANGE REFERENCE UNITS LAB L3650.0200 . Normal COLOR Brown LAB L3650.0300 . mm Normal SIZE 3x2x2 LAB L3650.0400 . mg Normal WEIGHT 15.0 LAB L3650.0500 . Normal . Comment Result Comment: Percentage (Represents the % composition) LAB L3650.0600 . % CA OXAL DIHYDR 03 Normal LAB L3650.0700 . % CA OXAL 92 Normal MONOHYD LAB L3650.0800 . % CA PHOSPHATE 05 Normal LAB L3650.0900 . MAG RAQUEL PHOS Test not Normal performed LAB L3650.1000 . URIC ACID Test not Normal performed LAB L3650.1100 . URIC ACID Test not Normal DIHYD performed LAB L3650.1200 . AMM ACID URATE Test not Normal performed LAB L3650.1300 . NA ACID URATE Test not Normal performed LAB L3650.1400 . CA HYDROG PHOS Test not Normal performed LAB L3650.1500 . CYSTINE Test not Normal performed LAB L3650.1600 . CHOLESTEROL Test not Normal performed LAB L3650.1700 . CA Test not Normal BILIRUBINATE performed LAB L3650.1800 . CA CARBONATE Test not Normal performed LAB L3650.1900 . TRIAMTERENE Test not Normal performed LAB L3650.2000 . NEWBERYITE Test not Normal performed LAB L3650.2100 . DRIED BLOOD Test not Normal performed LAB L3650.2200 . CELL MATERIAL Test not Normal performed LAB L3650.2250 . NIDUS No Nidus Normal visualized LAB L3650.2325 . SHELL Test not Normal performed LAB L3650.2350 . SURFACE Comment: Normal CRYSTAL Result Comment: Calcium oxalate dihydrate LAB L3650.2400 . Normal Test not COMMENT performed LAB L3650.2500 . Normal Test not COMMENT performed LAB L3650.2600 . Normal Comment PHOTO Result Comment: Photograph will follow under separate cover. LAB L3650.2700 . Normal COMMENT Comment Result Comment: Physician questions regarding Calculi Analysis contact [facility] at: [phone]. LAB L3650.2800 . Normal COMMENT Comment Result Comment: Calculi report with photograph will follow via computer, mail or signal tower director delivery. LAB L3650.2900 . Normal Disclaimer Comment Result Comment: This test was developed and its performance characteristics determined by [facility]. It has not been cleared or approved by the Food and Drug Administration. Performed at: [address] [id number] Automation Driver: Mandeep Cruz MD, Phone: [phone] Performed By: #### L3650.0100 #### [facility] (refer to report for specific site) refer to report for address and phone number CT ABDOMEN/PELVIS W/O Observed: 11/10/2017 Status: F Source: MARGARITA CONTRAST 6:29 PM [facility] REPOSITORY ORIGINAL REPORT CORRECTION CORRECTION: Probable large lymph nodes near the GE junction. Routine follow-up CT chest with intravenous contrast advised. Corrected report appears below. I have personally reviewed the images of this examination and edited the preliminary report. CT ABDOMEN/PELVIS W/O CONTRAST: Multiplanar coronal, sagittal, and axial reconstructions were reviewed on a separate workstation CLINICAL STATEMENT: RIGHT flank pain starting today, nausea, vomiting COMPARISON: None TECHNIQUE: This exam was performed according to our departmental dose optimization program, including but not limited to: automated exposure control, adjustment of the mAs and/or kVp according to patien t size and/or exam, and use of an iterative reconstruction algorithm where applicable. FINDINGS: Evaluation is suboptimal secondary to the lack of IV contrast. The included lung bases are clear. No pleural fluid. The unenhanced liver, gallbladder, spleen, adrenal glands, and pancreas are normal. The stomach, duodenum, small bowel, and large bowel demonstrate no acute abnormality. The appendix is normal. No pneumoperitoneum. There are multiple bilateral nephrolithiasis. In the RIGHT kidney, there are at least 4 nonobstructing calculi, the largest at the inferior pole measuring 4 mm. In the LEFT kidney, there are at least 7 nonobstructing calculi, the largest measuring 4 mm at the inferior pole. There is mild RIGHT hydroureteronephrosis, with inflammatory fat stranding seen adjacent to multiple segments of the RIGHT ureter , to the level of the distal ureter, where a 3 mm stone is seen at the ureterovesicular junction. No left-sided ureteral stones. The urinary bladder is largely collapsed. The uterus is anteverted. No adnexal mass. The aorta is normal in course and caliber. No lymphadenopathy. The abdominal wall is intact. No aggressive osseous lesions or acute osseous findings. There are prominent lymph nodes/soft tissue density lesions adjacent to the GE junction/distal esophagus. A density on image 6 measures approximately 6 mm. There is a density suspected on image 7 measuring 12 mm in diameter. IMPRESSION: 1. Obstructing 3 mm distal RIGHT ureteral stone resulting in mild RIGHT hydroureteronephrosis. 2. Multiple bilateral nonobstructing nephrolithiasis measuring up to 4 mm. 3. Soft tissue density lesions/lymph nodes near the GE junction/distal esophagus. Routine follow-up CT chest with intravenous contrast advised. I have personally reviewed the images of this examination and agree with the resident's findings and interpretation. Interpreted By: Nick Castro MD Preliminary Report By: J Luis Morales DO Electronically Signed By: Nick Castro MD Dictated Date: 11/10/2017 6:37:17 PM Prelim Date: 11/10/2017 6:42:25 PM Sign Date: 11/10/2017 9:54:14 PM UA Collected: 11/10/2017 Status: F Source: [facility] 5:51 PM [facility] REPOSITORY TYPE CODE TESTS RESULT OUT OF RANGE REFERENCE UNITS LAB SPCUA(DENISE NC) UA Specimen Type Clean Catch LAB CLRUA(DENISE NC) UA Color Yellow LAB APPUA(DENISE Clear NC) UA Appear Unknown Cloudy LAB SGUA(LOIN C) UA Spec Grav 1.020 LAB GLUA(LOIN Negative mg/dL C) UA Glucose Negative LAB BILUA(DENISE Negative NC) UA Bili Negative LAB KETUA(DENISE Negative mg/dL NC) UA Ketones Negative LAB BLDUA(DENISE Negative NC) UA Blood Unknown Moderate-Inta ct LAB PHUA(LOIN C) UA pH 6.0 LAB PROUA(DENISE Negative mg/dL NC) UA Protein Trace LAB UROUA(DENISE E.U./dL NC) UA Urobilinogen 0.2 LAB NITUA(DEINSE Negative NC) UA Nitrite Unknown Positive LAB LEUUA(DENISE Negative NC) UA Leuk Est Unknown Moderate Performed By: #### UA, PREGU, UAMICAO #### [place] [address] PREGU Collected: 11/10/2017 Status: F Source: [facility] 5:51 PM [facility] REPOSITORY TYPE CODE TESTS RESULT OUT OF RANGE REFERENCE UNITS LAB PREGU(LOIN C) Test Negative Urine LAB PRUG1(LOIN C) Unknown test HCG not (u) int detected. Performed By: #### UA, PREGU, UAMICAO #### [place] [address] [place], [place] [address] .URINALYSIS MICROSCOPIC Collected: 11/10/2017 Status: F Source: [facility]) 5:51 PM [facility] REPOSITORY TYPE CODE TESTS RESULT OUT OF RANGE REFERENCE UNITS LAB WBCUA(LOIN None Seen /hpf C) Unknown UA WBC 10-15 LAB RBCUA(LOIN None Seen /hpf C) Unknown UA RBC 0-5 LAB EPIUA(LOIN None Seen /hpf C) Unknown UA Squam Epithelial 0-5 LAB BACUA(LOIN /hpf C) Unknown UA Bacteria 3+ Performed By: #### UA, PREGU, UAMICAO #### [place] [address] [place], [place] [address] CBC Collected: 11/10/2017 Status: F Source: [facility] 5:51 [facility] REPOSITORY TYPE CODE TESTS RESULT OUT OF REFERENCE UNITS RANGE LAB WBC(LOINC) 4.60-10.80 10 3/mcL High WBC 12.30 LAB RBCCT(LOINC 4.20-5.40 10 6/mcL ) RBC 4.74 LAB HGB(LOINC) 12.0-16.0 G/dL Hgb 14.3 LAB HCT(LOINC) 37.0-47.0 % Hct 41.6 LAB MCV(LOINC) 80.0-94.0 fL MCV 87.8 LAB MCH(LOINC) 27.0-31.2 pg MCH 30.2 LAB MCHC(LOINC) 33.0-37.0 G/dL MCHC 34.4 LAB RDW(LOINC) 11.5-14.5 % RDW 12.7 LAB PLT(LOINC) 130-400 10 3/mcL High Platelet 472 LAB MPV(LOINC) 7.4-10.4 fL MPV 7.8 Performed By: #### CBC, ADIFF, ANEU, BMP, GFR #### [address] [address] .AUTO DIFF Collected: 11/10/2017 Status: F Source: [facility] 5:51 [facility] REPOSITORY TYPE CODE TESTS RESULT OUT OF REFERENCE UNITS RANGE LAB DONNA(LOINC) 37.0-80.0 % Neutrophil % 68.5 LAB LYM(LOINC) 10.0-50.0 % Lymphocyte % 22.9 LAB MON(LOINC) 1.7-13.0 % Monocyte % 6.3 LAB EO(LOINC) 0.0-7.0 % Eosinophil % 1.7 LAB BAS(LOINC) 0.0-2.5 % Basophil % 0.6 LAB ABLYM(LOIN 0.77-3.85 10 3/mcL C) Lymphocyte, 2.80 Absolute LAB BEN(LOINC 0.15-1.00 10 3/mcL ) Monocyte, 0.80 Absolute LAB AEOS(LOINC 0.00-0.40 10 3/mcL ) Eosinophil, 0.20 Absolute LAB ABAS(LOINC 0.00-0.19 10 3/mcL ) Basophil, 0.10 Absolute Performed By: #### CBC, ADIFF, ANEU, BMP, GFR #### [address] [address] .NEUABS Collected: 11/10/2017 Status: F Source: [facility] 5:51 [facility] REPOSITORY TYPE CODE TESTS RESULT OUT OF REFERENCE UNITS RANGE LAB ANEU(LOINC) 2.85-6.16 10 3/mcL High Neutrophil, 8.40 Absolute Performed By: #### CBC, ADIFF, ANEU, BMP, GFR #### [address] [address] BMP Collected: 11/10/2017 Status: F Source: [facility] 5:51 [facility] REPOSITORY TYPE CODE TESTS RESULT OUT OF REFERENCE UNITS RANGE LAB GLU(LOINC) 70-105 mg/dL Glucose High Level 112 LAB NA(LOINC) 136-146 mEq/L Sodium Level 140 LAB K(LOINC) 3.5-5.1 mEq/L Potassium Level 3.7 LAB CL(LOINC) 98-107 mEq/L Chloride 104 LAB CO2(LOINC) 22-29 mEq/L CO2 24 LAB EBAL(LOINC mEq/L ) Electrolyte Balance 12.0 LAB BUN(LOINC) 7.0-18.0 mg/dL BUN 17.7 LAB CRE(LOINC) 0.6-1.2 mg/dL Creatinine Lvl (s) 0.8 LAB BC(LOINC) 7-27 ratio BUN/Creatinine 22 Ratio LAB CA(LOINC) 8.4-10.2 mg/dL Calcium Lvl 9.8 Performed By: #### CBC, ADIFF, ANEU, BMP, GFR #### [place] [place], [place] [address] .GFR Collected: 11/10/2017 Status: F Source: [facility] 5:51 PM [facility] REPOSITORY TYPE CODE TESTS RESULT OUT OF REFERENCE UNITS RANGE LAB GFRAA(LOINC ml/min/1.73 ) sqm GFR >60 [place] Result Comment: GFR Population mean for , Non- Americans Ages 20-29 = 116 mL/min/1.73 sq.m. Ages 30-39 = 107 mL/min/1.73 sq.m. Ages 40-49 = 99 mL/min/1.73 sq.m. Ages 50-59 = 93 mL/min/1.73 sq.m. Ages 60-69 = 85 mL/min/1.73 sq.m. Ages 70+ = 75 mL/min/1.73 sq.m. Chronic Kidney Disease: Less than 60 mL/min/1.73 square meters End Stage Renal Disease: Less than 15 mL/min/1.73 square meters LAB GFRNO(LOINC) ml/min/1.73sqm GFR Non- >60 Result Comment: GFR Population mean for , Non- Americans Ages 20-29 = 116 mL/min/1.73 sq.m. Ages 30-39 = 107 mL/min/1.73 sq.m. Ages 40-49 = 99 mL/min/1.73 sq.m. Ages 50-59 = 93 mL/min/1.73 sq.m. Ages 60-69 = 85 mL/min/1.73 sq.m. Ages 70+ = 75 mL/min/1.73 sq.m. Chronic Kidney Disease: Less than 60 mL/min/1.73 square meters End Stage Renal Disease: Less than 15 mL/min/1.73 square meters Performed By: #### CBC, ADIFF, ANEU, BMP, GFR #### [place] [address] [place], [place] [address] ALLERGIES ALLERGIES DATE TYPE / CODE NAME / CODE REACTION SEVERITY SOURCE 04/08/2018 Drug No Known Unknown [facility] Allergy/4160 Allergies/F00 [facility] [address](SNOMED 6981360(RXNOR Repository CT) M) ENCOUNTERS ENCOUNTERS ADMIT/DISCHARGE ACCOUNT NUMBER ADMITTING ENCOUNTER LOCATION SOURCE CLASS 04/14/2018 [id number] Ambulatory [facility] ding:RAD Repository 04/11/2018 [id number] Ambulatory Building:O4G [facility] Repository 04/11/2018 [id number] Ambulatory Building:OPR [facility] Repository 04/08/2018 [id number] Ambulatory [facility] ding:LAB.FUT Repository URE 04/08/2018/04/08/20 [id number] [facility] 02/17/2018 [id number] Ambulatory [facility] ding:LABSPEC Repository 02/12/2018 [id number] AMBERA, Ambulatory Building:BAS [facility] Repository 01/31/2018/02/02/20 [id number] VICENTE ROSENBERG, Ambulatory BBuilding:MS [place] 18 BREANNA W URRoom: Health 0207Bed: A Foundation Repository 01/16/2018 [id number] Ambulatory [facility] ding:PSN Repository 01/16/2018 [id number] Ambulatory BMSBuilding: [facility] Repository 01/07/2018 [id number] Ambulatory Building:OPR [facility] Repository 01/07/2018 [id number] Ambulatory Building:DUO [facility] Repository 01/07/2018 [id number] Ambulatory Building:KRI [facility] Repository 01/07/2018 [id number] Ambulatory Building:ARL [facility] Repository 01/02/2018/01/03/20 [id number] Ambulatory BMSBuilding: Alyssa 18 BMS.[facility] Repository 12/27/2017/12/28/19 [id number] Ambulatory [address] ding:EN Repository 12/27/2017 [id number] Ambulatory BMSBuilding: Alyssa BMS.CF.[facility] Repository 12/19/2017 [id number] [facility] ng:ORIGISELLE 12/17/2017 [id number] Ambulatory [facility] ding:LAB Repository 12/17/2017/12/18/19 [id number] Ambulatory BMSBuilding: Alyssa 18 BMS.[facility] Repository 12/06/2017 [id number] Ambulatory [facility] ding:OMD Repository 12/06/2017 [id number] Ambulatory BMSBuilding: Alyssa BMS.CF.[facility] Repository 11/28/2017 [id number] Ambulatory [facility] ding:CT Repository 11/22/2017 [id number] Ambulatory Building:O4G [facility] Repository 11/18/2017 [id number] Ambulatory [facility] ding:LAB Repository 11/10/2017/11/11/19 [id number] Emergency BBuilding:[address] Repository 08/27/2017 [id number] Ambulatory Building:O4G [facility] Repository 07/22/2017 [id number] Ambulatory Building:[facility] Repository 07/19/2017 [id number] [facility] PAYERS PAYERS ENCOUNTER GUARANTOR PAYER SUBSCRIBER SOURCE 04/14/2018 ADAM Gomes Primary ADAM Gomes [facility] [id number] Insurance:ANTHEMPolicy ROBERBETTDOB: [facility] Number: [id number] [facility] MONCHO [id number] [place]ository [place] [address]Olt: Date:1162-23-59[address], [place] () [address]NY: 04/14/2018 Secondary NOT GIVENUNK [facility] Insurance:SELF PAY [facility] Number: Effective Repository Date:2018-04-14 04/11/2018 ADAM Gomes Primary ADAM Gomes [facility] Health[facility]ETTDOB: Insurance:[facility] CORBETTDOB: [place] PPO POSPolicy Number: [id number] [facility] [id number] 0 [place], [place] Date:0095-95-28V[address] Repository [address]Cxz: ([phone]) Name:[place], [place] [phone] () [phone]: () 04/11/2018 ADAM Gomes Primary ADAM Gomes [facility] CORBETTDOB: Insurance[facility] [place] [facility] Number: [id number] [facility] [id number] 0 [place], [place] Date:3985-02-98Nsms [address] Repository [address]Cwr: ([phone]) Name:[place], [place] [phone] () [address]Vey: () 04/08/2018 ADAM Gomes Primary ADAM Gomes [place] [id number] Insurance:ANTHEMPolicy CORBETTDOB: [facility] Number: [id number], [id number] [place]ository [place] [address]Cfz: Date:5950-28-55WT [address] NH[address] CHU () [address]VR: 04/08/2018 Secondary NOT GIVENUNK A[place] Insurance:SELF PAY [facility] Number: Effective Repository Date:2018-04-02 04/08/2018 ADAM Gomes Primary ADAM Gomes [place] [id number] Insurance:ANTHEMPolicy CORBETTDOB: [facility] Number: [id number], [id number] Repository [place] [address]Yvx: Date:6539-65-71TN [address] NH[address] CHU () [address]GM: 04/08/2018 Secondary NOT GIVENUNK [facility] Insurance:SELF PAY [facility] Number: Effective Repository Date:2018-03-31 02/17/2018 ADAM Gomes Primary ADAM Gomes [facility] [id number] Insurance:[facility] CORBETTDOB: [facility] Number: [id number] HospitalTERESITA [id number] [place] [address]Ieq: Date:0935-62-52[address]ELO [place] () [address]GL: 02/17/2018 Secondary NOT GIVENUNK [facility] Insurance:SELF PAY [facility] Number: Effective Repository Date:2018-02-17 02/12/2018 ADAM Gomes Primary [facility]omes [facility]OSPITALBETTB: [place] [facility] POSPolic Number: [id number] [facility] [id number] [address] [place] [address] Date:5898-00-48Mtwc [address] Repository [address]Lrn: ([phone]) Name:[facility] CARE [place], [place] [phone] () [phone]: () 01/31/2018 ADAM Gomes Primary [facility]omes [facility] Insurance:[place] CORBETTDOB: [facility] CROSS COMMERCIALPolicy [id number] Repository [facility] Number: [address] [place] [address] [id number] [place], [place] [address]Jgc: ([phone]) Date:2018-01-31 [address]Rbz: () 1815-54-37Ynet [phone] Name:[address] ()Tel: (591) 887202[place]wo[place]qq[place], [place] [phone] () [address]BP: 01/16/2018 ADAM Gomes Primary ADAM Gomes [facility] [id number] Insurance:ANTHEMPolicy CORBETTDOB: [facility] Number: [id number] [id number] Repository [place] [address]Tcj: Date:3569-16-58[address]SDBPBFJ, [place] () [address]MW: 01/16/2018 Secondary NOT GIVENUNK [facility] Insurance:SELF PAY [facility] Number: Effective Repository Date:2018-01-02 01/16/2018 ADAM Gomes Primary ADAM Gomes Alyssa [id number] Insurance:[facility]HEMPolicy [facility] Number: [id number] [id number] Repository [place] [address]Thg: Date:4858-03-79[address]HJZYOTG, [place] () [address]KZ: 01/16/2018 Secondary NOT GIVENUNK [employer] Insurance:SELF PAY [facility] Number: Effective Repository Date:2018-01-16 01/07/2018 ADAM Gomes Primary ADAM [facility]omes [facility] [place] O POSPolicy Number: [id number] [facility] [id number] [address] [place] [address] Date:5085-60-39[address] Repository [address]Gwu: ([phone]) Name:[facility] CARE [place], [place] [phone] () [phone]: () 01/07/2018 ADAM Gomes Primary ADAM Gomes [facility]: [facility]TB: [place] PPO POSPolicy Number: [id number] [facility] [id number] 0 [facility], [place] Date:2459-15-37Xtpq [address] Repository [address]Aws: ([phone]) Name:[place], [place] [phone] () [phone]: () 01/07/2018 ADAM Gomes Primary ADAM Gomes [facility]: [facility]: [place] PPO POSPolicy Number: [id number] [facility] [id number] 0 [facility], [place] Date:5162-29-30Rw[address] Repository [address]Blc: ([phone]) Name:[place], [place] [phone] () [phone]: () 01/07/2018 ADAM Gomes Primary ADAM Gomes [facility]: [facility]: [place] [facility] POSPolic Number: [id number] [facility] [id number] 0 [facility], [place] Date:2844-57-06[address]xe [address] Repository [address]Ktf: ([phone]) Name:[place], [place] [phone] () [phone]: () 01/02/2018 ADAM Gomes Primary ADAM Gomes Alyssa [id number] [facility] Number: [id number] Hospital [id number] [place] [address]Cth: Date:6731-19-16[address]FAVDTQD, [place] () [address]QN: 01/02/2018 Secondary NOT GIVENUNK Alyssa Insurance:SELF PAY [facility] Number: Effective Repository Date:2018-01-02 12/27/2017 ADAM Gomes Primary ADAM J [facility] [id number] Insurance:ANTHEMPolicy CORBETTDOB: Community [place] Number: [id number], [id number] [place]ository [place] [address]Ggs: Date:9037-08-19[address]FKGUHKGNHI [place] () [address]AB: 12/27/2017 Secondary NOT GIVENUNK Alyssa Insurance:SELF PAY [facility] Number: Effective Repository Date:2017-12-09 12/27/2017 ADAM Gomes Primary ADAM J Alyssa [id number] Insurance:ANTHEMPolicy CORBETTDOB: [facility] Number: [id number] Francis Medical Center, [id number] [place]ository [place] [address]Dbj: Date:1974-62-01[address]SIZBCLQ, [place] () [address]XZ: 12/27/2017 Secondary NOT GIVENUNK Alyssa Insurance:SELF PAY [facility] Number: Effective Repository Date:2017-12-27 12/19/2017 ADAM DEWITTDY [facility] [id number] Insurance:ANTHEM CORBETTUNK [facility] Number: Repository [place], [place] [id number] [address]Csv: ([phone]) Date:2013-04-29 [phone] () 12/17/2017 ADAM Gomes Primary ADAM J Alyssa [id number] Insurance:ANTHEMPolicy CORBETTDOB: [facility] Number: [id number] Francis Medical Center, [id number] Repository [place] [address]Dwk: Date:6204-69-58HR [address]QHRBGRI, [place] () [address]ZF: 12/17/2017 Secondary NOT GIVENUNK Alyssa Insurance:SELF PAY [facility] Number: Effective Repository Date:2017-12-17 12/17/2017 ADAM Gomes Primary ADAM J [facility] [id number] Insurance:ANTHEMPolicy CORBETTDOB: Community [place] Number: [id number] Hospital [id number] Repository [place] [address]Nse: Date:3302-78-15GZ [address]PEAEIVM, [facility]) [address]WW: 12/17/2017 Secondary NOT GIVENUNK Alyssa Insurance:SELF PAY [facility] Number: Effective Repository Date:2017-12-10 12/06/2017 ADAM Gomes Primary ADAM J [facility] [id number] Insurance:ANTHEMPolicy CORBETTDOB: [facility] [place] Number: [id number] Hospital [id number] Repository [place] [address]Occ: Date:6960-19-60W[address]TXCTBOI, [place] () [address]LT: 12/06/2017 Secondary NOT GIVENUNK Alyssa Insurance:SELF PAY [facility] Number: Effective Repository Date:2017-12-03 12/06/2017 ADAM Gomes Primary ADAM J [facility] [id number] Insurance:ANTHEMPolicy CORBETTDOB: [facility] Number: [id number] Valley General [id number] Repository [place] [address]Wxt: Date:5376-01-16TG [address] [place] [address] [facility]) [address]VI: 12/06/2017 Secondary NOT GIVENUNK [place] Insurance:SELF PAY [facility] Number: Effective Repository Date:2017-12-06 11/28/2017 ADAM Gomes Primary ADAM J Alyssa [id number] Insurance:ANTHEMPolicy CORBETTDOB: [facility] [place] Number: [id number] Valley General [id number] Repository [place] [address]Oml: Date:5853-13-67QA [address] CHU () [address]LG: 11/28/2017 Secondary NOT GIVENUNK Alyssa Insurance:SELF PAY [facility] [place] Number: Effective Repository Date:2017-11-18 11/22/2017 ADAM Gomes Primary AD[facility]omes [facility] Insurance:ANTHEM O CORBETTDOB: [place] O POSPolicy Number: [id number] [facility] [id number] [address] [place] [address] Date:8539-97-00Kty[address] Repository [address]Fcm: ([phone]) Name:[facility] CARE [place], [place] [phone] () [phone]: () 11/18/2017 ADAM Gomes Primary ADAM Gomes [facility] [id number] Insurance:[facility]B: [facility] Number: [id number] Hospital [id number] [place] [address]Oxu: Date:5338-75-15AW [address] CHU () [address]YA: 11/18/2017 Secondary NOT GIVENUNK [place] Insurance:SELF PAY [facility] [place] Number: Effective Repository Date:2017-11-18 11/10/2017 ADAM Gomes Primary ADAM Gomes [facility]: Insurance:[facility]ITALBETTDOB: [facility] [place] [facility] [id number] [facility] Number: [address] [place], [place] [id number] [place], [place] [address]Lvt: ([phone]) Date:2017-11-10 [address]Ejf: () 6528-89-11Ehbs [phone] Name:[facility] BOX ()Tel: [phone] 134914Wwpiaje, [place] [phone] ( [address]MA: 08/27/2017 ADAM Gomes Primary ADAM Gomes [facility]: Insurance:[facility]: [place] PPO POSPolicy Number: [id number] [facility] [id number] 0 [facility], [place] Date:8846-49-68Ldmd [address] Repository [address]Rbf: ([phone]) Name:[place], [place] [phone] () [phone]: () 07/22/2017 ADAM Gomes Primary ADAM Gomes [facility]: Insurance:[facility]: [place] PPO POSPolicy Number: [id number] [facility] [id number] 0 [facility], [place] Date:0876-25-99Dctl [address] Repository [address]Zpn: ([phone]) Name:[place], [place] [phone] () [phone]: () 07/19/2017 ADAM Gomes Primary ADAM Gomes [facility]: Insurance:[facility]: [place] PPO POSPolicy Number: [id number] [facility] [id number] 0 [facility], [place] Date:5801-44-32Zcgp [address] Repository [address]Ztz: (196) Name:[place], [place] [phone] () [address]Mej: ()
== END ==
PROVIDERS: Referring Provider Nurse Practitioner Adult Health; Visit Provider Nurse Practitioner Adult Health
DX: N20.0 Calculus of kidney (principal)
CPT/HCPCS: 36415; 80048; 85025

== ENCOUNTER → 2018-04-14 16:07 | Outpatient (CLI) | payer BC, SELFPAY ==
--- NOTE | 2018-04-14 16:15 | RAD_ITS ---
STUDY: X-RAY - ABDOMEN/PELVIS REASON FOR EXAM: Female, 28 years old. Kidney stones TECHNIQUE: Frontal view COMPARISON: None. FINDINGS: Normal visualized lung bases. There is an unremarkable bowel gas pattern. There is no demonstrated free abdominal air. Multiple tiny bilateral kidney stones are identified. NO ureteral stones are seen. NO bladder stones are seen. Normal soft tissue structures. Normal visualized osseous structures. RAD/Abdomen Single View IMPRESSION: There is an unremarkable bowel gas pattern. There is no demonstrated free abdominal air. Multiple tiny bilateral kidney stones are identified. NO ureteral stones are seen. NO bladder stones are seen. Electronically Signed: Edmond Flanagan MD at 7:56 EST , Service support ,
--- OUTSIDE RECORDS SUMMARY | 2018-07-17 08:58 | XMS RPT_ITS ---
:1990 Author Organization [facility] Support Name Relationship Address Phone NBA HERNANDEZ Unavailable [address] + [place] [address] JMSM Unavailable [address] + [place] [address] BAILEE MCKNIGHT Unavailable Unavailable + BAILEE MCKNIGHT Unavailable Unavailable + ADAM MCKNIGHT Unavailable Unavailable Unavailable NBA HERNANDEZ Unavailable Unavailable + BAILEE MCKNIGHT Unavailable Unavailable + BAILEE MCKNIGHT Unavailable Unavailable + ADAM MCKNIGHT Unavailable Unavailable Unavailable NBA HERNANDEZ Unavailable Unavailable + NBA HERNANDEZ Unavailable [address] + [place] [address] JMSM Unavailable [address] + [place] [address] NBA HERNANDEZ Unavailable [address] + [place] [address] JMSM Unavailable [address] + [place] [address] NBA HERNANDEZ Unavailable [address] + [place] [address] JMSM Unavailable [address] + [place] [address] BAILEE MCKNIGHT Unavailable Unavailable + BAILEE MCKNIGHT Unavailable Unavailable + ADAM MCKNIGHT Unavailable Unavailable Unavailable NBA HERNANDEZ Unavailable Unavailable + NBA HERNANDEZ Unavailable Unavailable + NBA HERNANDEZ Unavailable [address] + [place] [address] JMSM Unavailable [address] + [place] [address] NBA HERNANDEZ Unavailable [address] + [place] [address] JMSM Unavailable [address] + [place] [address] ROXANNA, BAILEE Unavailable Unavailable + ROXANNA, BAILEE [...] HERNANDEZ Unavailable [address] + [place] [address] JMSM Unavailable [address] + [place] [address] NBA HERNANDEZ Unavailable [address] + [place] [address] JMSM Unavailable [address] + [place] [address] NBA HERNANDEZ Unavailable [address] + [place] [address] JMSM Unavailable [address] + [place] [address] MIAH HERNANDEZ Unavailable Unavailable + NBA HERNANDEZ Unavailable [address] + [place] [address] JMSM Unavailable [address] + [place] [address] NBA HERNANDEZ Unavailable [address] + [place] [address] JMSM Unavailable [address] + [place] [address] NBA HERNANDEZ Unavailable [address] + [place] [address] JMSM Unavailable [address] + [place] [address] NBA HERNANDEZ Unavailable [address] + [place] [address] JMSM Unavailable [address] + [place] [address] NBA HERNANDEZ Unavailable [address] + [place] [address] JMSM Unavailable [address] + [place] [address] BAILEE MCKNIGHT Unavailable Unavailable + ROXANNA, BAILEE Unavailable Unavailable + ADAM MCKNIGHT Unavailable Unavailable Unavailable NBA HERNANDEZ Unavailable Unavailable + NBA HERNANDEZ Unavailable [address] + [place] [address] JMSM Unavailable [address] + [place] [address] NBA HERNANDEZ Unavailable Unavailable + ROXANNA, BAILEE [...] Unavailable DOCTOR, OUT OF TOWN Referring Unavailable Eliazbeth Duggan Attending Unavailable Duggan, Elizabeth Referring Unavailable SABRINA NGUYEN Primary Care Unavailable Ron Trevino Attending Unavailable Duggan, Elizabeth Referring Unavailable Pushpa, Karen M Attending Unavailable SABRINA NGUYEN Primary Care Unavailable Pushpa, Karen M Referring Unavailable Pushpa, Karen M Attending Unavailable SABRINA NGUYEN Primary Care Unavailable Pushpa, Karen M Referring Unavailable CHAGO DAVISON Attending Unavailable CHAGO DAVISON Referring Unavailable CHAGO DAVISON Attending Unavailable CHAGO DAIVSON Referring Unavailable TROY CHOI Attending Unavailable ADUNKA, [...] Admitting Facial Weakness / CHAGO DAVISON Active [place] [facility] diagnosis 852() [facility] Repository 04/08/2018 Unknown D86.9 - Hipolito Brown, Active Alyssa Sarcoidosis, D.O. 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 [facility] / D49.6(ICD-10) Center Repository 01/07/2018 Admitting Dysarthria and TOSHA JONES Active [facility] diagnosis anarthria / University R47.1(ICD-10) [facility] Repository 01/07/2018 Admitting Abnormal ROBERT TOSHA Active [facility] diagnosis innervation University syndrome left [facility] eye, unspecified Center eyelid / Repository H02.516(ICD-10) 01/07/2018 Admitting Foreign Body in LORIE SAWYER Active [facility] diagnosis Ear / 400226() [facility] Repository 01/07/2018 Admitting Annual Exam / LUCIA, Active [place] [facility] diagnosis 745() [facility] 12/19/2017 Admitting Unknown / Dottie Barker Active [facility] Medical diagnosis UNK(Unknown) Center [place] Repository 12/06/2017 Unknown R59.1 - Isckarus, Active [facility] lymph Hospital nodes / Repository R59.1(ICD-10) 08/27/2017 Admitting Hearing Loss / ADUNKA TROY Active [facility] diagnosis 460() F [facility] Repository 07/22/2017 Admitting Dysphagia, oral SAMAN, CHAGO R Active [facility] diagnosis phase / University R13.11(ICD-10) [facility] Repository PROCEDURES PROCEDURES No Procedure Records FoundRESULTS RESULTS ABDOMEN SINGLE VIEW Observed: 04/14/2018 Status: F Source: [place] 4:10 PM [facility] REPOSITORY [facility] Imaging Services [address] [place] [address] Abdomen Single View MR#: [id number] Acct: [id number] Name: ROXANNAMANJULAADAM J Rep #: [id number] : 1990 F 28 From: Edmond Flanagan PCP: OUT OF TOWN DOCTOR Status: REG CLI Study: Abdomen Single View Date of Exam: 04/14/18 Exam# [id number] Ordering Dr: Karen Barrow MAINFRAME SOFTWARE DEVELOPER-C STUDY: X-RAY - ABDOMEN/PELVIS REASON FOR EXAM: [...] OUT OF TOWN DOCTOR; Karen Barrow NP Straddle Bug Driver: Signed Observed: 04/14/2018 Status: F Source: [place] CULTURE, URINE 3:30 PM [facility] REPOSITORY Urine Culture ORGANISM 1: Presumptive E. coli Trinity Count >100,000 Presumptive E. coli: REACTION Amoxacillin/Clavulanic [...] <=20 S (NF) indicates non-formulary drug at [facility]. Approval by Infectious Disease Specialist required before non-formulary drugs may be ordered and/or dispensed. Performed By: #### M100.0650 #### [facility] [address] [place], [address] CBC W/DIFF, AUTOMATED Collected: 04/08/2018 Status: F Source: [place] 9:53 AM [facility] REPOSITORY TYPE CODE TESTS RESULT OUT OF [...] Lymph 2.12 Performed By: #### L100.0100 #### [facility] [address] [place], [place], [address] BASIC METABOLIC Collected: 04/08/2018 Status: F Source: [place] PROFILE ([facility]) 9:53 AM [facility] REPOSITORY TYPE CODE TESTS RESULT OUT OF [...] GAP 7 Performed By: #### L500.2500 #### [facility] [address] [place], [place], [address] PULMONARY VISIT REPORT Observed: 04/08/2018 Status: F Source: [place] 9:24 AM [facility] REPOSITORY [facility] [address] [place], [place] [address] OFFICE VISIT Date of Service: 04/08/18 MR#: [id number] Acct: [id number] Name: ADAM MCKNIGHT Rep #: [id number] : 1990 Provider: Hipolito Juares D.O. Age/Sex: 28/F Location[place] [facility] Status: Signed Assessment AND Plan 1. Sarcoidosis [...] oncology. The patient had been admitted to [facility] in October 2017 with acute abdominal pain. [...] PO BID tab 04/08/18 [History Confirmed 04/08/18] [facility] Medical History BENIGN BRAIN TUMOR REMOVED (Acute) [...] F Source: [place] CULTURE, URINE 11:30 AM [facility] REPOSITORY Urine Culture ORGANISM 1: Presumptive E. coli Trinity Count >100,000 Presumptive E. coli: REACTION Amoxacillin/Clavulanic [...] <=20 S (NF) indicates non-formulary drug at [facility]. Approval by Infectious Disease Specialist required before non-formulary drugs may be ordered and/or dispensed. Performed By: #### M100.0650 #### [facility] [address] [place], [address] XR ABDOMEN AP Observed: 01/31/2018 Status: F Source: [place] 9:43 PM [facility] REPOSITORY ORIGINAL XR ABDOMEN [...] PM CBC Collected: 01/31/2018 Status: F Source: [place] 7:51 PM [facility] REPOSITORY TYPE CODE TESTS RESULT OUT OF [...] Performed By: #### CBC, ADIFF, ANEU #### [address] [address] #### BMP, GFR #### [address] [address] .AUTO DIFF Collected: 01/31/2018 Status: F Source: [facility] 7:51 PM [facility] REPOSITORY TYPE CODE TESTS [...] Performed By: #### CBC, ADIFF, ANEU #### [facility] [address] [place], [place] [address] #### BMP, GFR #### [address] [address] .NEUABS Collected: 01/31/2018 Status: F Source: [facility] 7:51 [facility] REPOSITORY TYPE CODE TESTS RESULT OUT OF REFERENCE UNITS RANGE LAB ANEU(LOINC) 2.85-6.16 10 3/mcL High Neutrophil, 9.50 Absolute Performed By: #### CBC, ADIFF, ANEU #### [place] [address] [place], [place] [address] #### BMP, GFR #### [address] [address] BMP Collected: 01/31/2018 Status: F Source: [facility] 7:51 PM [facility] REPOSITORY TYPE CODE TESTS RESULT OUT OF [...] Performed By: #### CBC, ADIFF, ANEU #### [address] [address] #### BMP, GFR #### [address] [address] .GFR Collected: 01/31/2018 Status: F Source: [facility] 7:51 PM [facility] REPOSITORY TYPE CODE TESTS RESULT OUT OF REFERENCE UNITS RANGE LAB GFRAA(LOINC ml/min/1.73 ) sqm GFR 102 [place] Result Comment: GFR Population mean for , [...] Performed By: #### CBC, ADIFF, ANEU #### [address] [address] #### BMP, GFR #### [address] [address] UA Collected: 01/31/2018 Status: F Source: [facility] 7:51 PM [facility] REPOSITORY TYPE CODE TESTS [...] Performed By: #### UA, PREGU, UAMICAO #### [place] [address] PREGU Collected: 01/31/2018 Status: F Source: [facility] 7:51 [facility] REPOSITORY TYPE CODE TESTS RESULT OUT OF RANGE REFERENCE UNITS LAB PREGU(LOIN C) Test Negative Urine LAB PRUG1(LOIN C) Unknown test HCG not (u) int detected. Performed By: #### UA, PREGU, UAMICAO #### [address] [address] .URINALYSIS MICROSCOPIC Collected: 01/31/2018 Status: F Source: [place] () 7:51 [facility] REPOSITORY TYPE CODE TESTS RESULT OUT OF RANGE REFERENCE UNITS LAB WBCUA(LOIN None Seen /hpf C) Unknown UA WBC 15-25 LAB RBCUA(LOIN None Seen /hpf C) Unknown UA RBC 0-5 LAB EPIUA(LOIN None Seen /hpf C) Unknown UA Squam Epithelial 0-5 LAB BACUA(LOIN /hpf C) Unknown UA Bacteria 3+ Performed By: #### UA, PREGU, UAMICAO #### [address] [address] Observed: 01/31/2018 Status: F Source: [place] [employer] [facility] 7:51 [facility] REPOSITORY . MICRO - Microbiology PROCEDURE: [...] Locations *1: This test was performed at: [facility], [address] [place] [address], [facility]- , [facility] Performed By: #### CUR #### [place] [address] PULMONARY FUNCTION Observed: 01/16/2018 Status: F Source: [place] REPORT COMP 3:55 PM [facility] REPOSITORY [facility] Pulmonary Services/Neurology [address] [place] [address] MR#: [id number] Acct: [id number] Name: ADAM MCKNIGHT Rep #: [id number] : 1990 27 From: Ron Trevino MD Referring Dr: Elizabeth Duggan MAINFRAME SOFTWARE DEVELOPER Status: REG CLI Ordering Dr: Date: Location: [facility] Sex: F C COMPLETE PULMONARY FUNCTION TEST INTERPRETATION Brief HPI: Patient is a 27 year old female, currently under the care of Dr. Juares, who presents to [facility] for complete pulmonary function tests secondary to [...] reach clinical significance by ATS criteria. 01/16/18 3245 <Electronically signed by Ron Trevino MD> Date Ron Trevino MD CC: Ron Treivno MD; Elizabeth Duggan; OUT OF TOWN DOCTOR Date Dictated: 01/16/181551 Date Transcribed: 01/16/181551 Straddle Bug Driver: NILSA Signed MRI INTERNAL AUDITORY Observed: 01/07/2018 Status: F Source: [facility] WITH AND 2:13 PM [facility] WITHOUT CONTRAST [facility] REPOSITORY EXAM: MRI INTERNAL AUDITORY CANAL WITH [...] POC DEVICE Collected: 01/07/2018 Status: F Source: [facility] 11:33 AM [facility] REPOSITORY TYPE CODE TESTS RESULT OUT OF REFERENCE UNITS RANGE LAB CREPC 0.50-1.20 mg/dL Creatinine (poc 0.72 device) LAB GFRPC >60 mL/min/1.7 3 sq m est GFR, (poc device) >60 LAB PCSTYP *POC SAMPLE TYPE Venous Observed: 01/07/2018 Status: F Source: [facility] URINE CULTURE -UHE 9:52 AM [facility] REPOSITORY SOURCE: Urine-clean catch: RESULT: ESCHERICHIA COLI [...] <=20 F Performed By: #### UR #### [address] [address] Blood Cultures processed at: [facility] PULMONARY VISIT REPORT Observed: 01/03/2018 Status: F Source: [place] 9:10 AM [facility] Pulmonary Medicine of [address] [place] [address] OFFICE VISIT Date of Service: 01/02/18 MR#: [id number] Acct: [id number] Name: EUFEMIA MCKNIGHTBHAKTI Gomes Rep #: [id number] : 1990 Provider: Elizabeth Duggan Age/Sex: 27/F Location[place] [facility] Status: Signed Assessment AND Plan 1. Sarcoidosis [...] rescue inhaler. She has been taking Claritin-D [id number] for her postnasal drip, which she says [...] mg PO BID 12/24/17 [History Confirmed 12/24/17] [facility] Medical History BENIGN BRAIN TUMOR REMOVED (Acute) [...] OPERATIVE REPORT Observed: 12/27/2017 Status: F Source: [place] 1:58 PM [facility] REPOSITORY [facility] Medical Records Department [address] [place] [address] Operative Report 12/27/17 1352 MR#: [id number] Acct: [id number] Name: ADAM MCKNIGHT Rep #: [id number] : 1990 27 From: Hipolito Juares DO PCP: OUT OF TOWN DOCTOR Status: REG SDC Y Location: [place] [address] Operative Report Date of Procedure: 12/27/17 BRONCHOSCOPY (EBUS) PROCEDURE REPORT DATE OF SERVICE: December 27, 2017 BRIEF HISTORY: CT chest with contrast completed at the beginning of November 2017 revealed evidence of enlarged bilateral hilar and mediastinal lymph nodes. The patient was subsequently referred to Dr. Castro of oncology. The patient had been admitted to [facility] in October 2017 with acute abdominal pain. [...] Visit 9xxxx: Other Procedure See Report - [id number] 12/27/17 1358 <Electronically signed by Hipolito Juares DO> Date Hipolito Juares DO CC: Hipolito Juares D.O.; OUT OF TOWN DOCTOR Signed ,URINE Collected: 12/27/2017 Status: F Source: [place] 11:38 AM [facility] REPOSITORY TYPE CODE TESTS RESULT OUT OF REFERENCE UNITS RANGE LAB L400.8000 Negative Normal HCGUQUAL Negative Result Comment: Very dilute urine specimens, as indicated by a low specific gravity, may not contain sales training representative levels of hCG. If is still suspected, a first morning urine specimen should be collected 48 hours later and tested. Performed By: #### L400.7600 #### [facility] [address] [place], [address] ASPIRATION (SLIDES Observed: 12/27/2017 Status: F Source: [place] ONLY) 12:00 AM [facility] REPOSITORY Patient: ADAM MCKNIGHT : 1990 () Acct Num: [id number] Phys: Hipolito Juares D.O. Unit Num: [id number] Loc: EN Specimen: [id number] Received: 12/27/17 - [...] (wet read). / AM:rg 12/27/17 TC:3 CPT: 51941 x7, 96604 x2 CYTOLOGY STUDY Slides are reviewed. DIAGNOSIS [...] - EBUS FNA, site 10R Signed Jt [facility] 12/31/17 <signature on file> Performed By: #### PASPS #### [facility] [address] [place] [address], [address] Observed: 12/19/2017 Status: F Source: [facility] URINE CULTURE 12:00 PM [facility] REPOSITORY ORGANISM 1: ESCHERICHIA COLI COLONY [...] S MEROPENEM <1 S Performed By: #### M100.34088 #### [facility] [address] [place] [address] # [phone] CBC-COMPLETE BLOOD CNT Collected: 12/17/2017 Status: F Source: [place] NO DIFF 11:47 AM [facility] REPOSITORY TYPE CODE TESTS RESULT OUT OF [...] 9.4 Performed By: #### L100.0500, L300.3900 #### [facility] [address] [place], [place], [address] PROTHROMBIN TIME W/INR Collected: 12/17/2017 Status: F Source: [place] 11:47 AM [facility] REPOSITORY TYPE CODE TESTS RESULT OUT OF RANGE REFERENCE UNITS LAB L300.4150 11.7-14.9 SECONDS Normal PROTIME 13.0 LAB L300.4200 Normal INR 1.0 Performed By: #### L100.0500, L300.3900 #### [facility] [address] [place], [place], [address] KAPPA LAMBDA LIGHT Collected: 12/17/2017 Status: F Source: [facility] 11:47 AM [facility] REPOSITORY Order Comment: DR CASTRO ORDERED KAPPA BENIGNO TYPE CODE TESTS RESULT OUT OF RANGE REFERENCE UNITS LAB L3130.0200 3.3-19.4 mg/L Normal FR KAPPA LT 16.3 CHN LAB L3130.0300 5.7-26.3 mg/L Normal FR LAMBDA LT 16.4 CH LAB L3130.0400 0.26-1.65 Normal KAPPA/LAMBDA 0.99 % Result Comment: Performed at: [facility] Lab[address], [place], [place] [id number] Stoner Out: Darian Curtis PhD, Phone: [phone] Performed By: #### L3130.0010 #### [facility] (refer to report for specific site) refer to report for address and phone number PULMONARY VISIT REPORT Observed: 12/17/2017 Status: F Source: [place] 11:44 AM [facility] REPOSITORY [facility] [address] [place] [address] OFFICE VISIT Date of Service: 12/17/17 MR#: [id number] Acct: [id number] Name: ADAM MCKNIGHT Rep #: [id number] : 1990 Provider: Hipolito Juares D.O. Age/Sex: 27/F Location[place] [facility] Status: Signed Assessment AND Plan 1. Mediastinal [...] oncology. The patient had been admitted to [facility] [place] in October 2017 with acute abdominal pain. [...] 166 lb Intake Visit Reasons: abnormal CT Health And Safety Consultant Required: No Is patient in pain?: No Allergies No Known Allergies Allergy (Verified 12/17/17 11:07) Medications Desog-E.estradiol/E.estradiol [Kariva 28 Day Tablet] 1 ea PO DAILY 12/04/17 [History Confirmed 12/17/17] Multivitamin [Multiple Vitamins] 1 ea PO DAILY 12/04/17 [History Confirmed 12/17/17] D-Mannose 1 tab PO DAILY 12/06/17 [History Confirmed 12/17/17] [facility] Medical History BENIGN BRAIN TUMOR REMOVED (Acute) [...] HISTORY AND Observed: 12/06/2017 Status: F Source: [place] PHYSICAL 12:32 PM [facility] REPOSITORY [facility] Medical Records Department [address] [place] [address] History and Physical 12/06/17 1216 MR#: [id number] Acct: [id number] Name: ROXANNAADAM Rep #: [id number] : 1990 27 From: Vannesa Castro MD PCP: OUT OF TOWN DOCTOR Status: REG RCR Y Location: OMD - Problem List (1) Lymphadenopathy Status: Acute Subjective Date of Service:: 12/06/17 Chief Complaint: Enlarged lymph nodes on a CAT scan History of Present Illness: Patient is a 27-year-old female who presented at [facility] ER on November 10, 2017 [...] 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 and did not [...] drinking: Has the patient needed an eye turkey roll maker in the mornings: Comments: Date of last [...] of Town Doctor Referring Provider: Karen Barrow MAINFRAME SOFTWARE DEVELOPER-C 12/06/17 1232 <Electronically signed by Vannesa Castro MD> Date Vannesa Castro MD Cosigner Signature: Date (if applicable) CC: Vannesa Castro MD; OUT OF TOWN DOCTOR; Karen Barrow MAINFRAME SOFTWARE DEVELOPER Signed CBC W/DIFF, AUTOMATED Collected: 12/06/2017 Status: F Source: [place] 12:15 PM [facility] REPOSITORY Order Comment: Reason for Laboratory Test [...] 1.64 Performed By: #### L100.0100, L101.9900 #### [facility] [address] [place], [address] ERYTHROCYTE SED RATE Collected: 12/06/2017 Status: F Source: [place] 12:15 PM [facility] REPOSITORY Order Comment: Reason for Laboratory Test . TYPE CODE TESTS RESULT OUT OF RANGE REFERENCE UNITS LAB L102.0000 0-20 mm/hr Normal SED RATE 19 Performed By: #### L100.0100, L101.9900 #### [facility] [place], [address] COMPREHENSIVE METABOLIC Collected: 12/06/2017 Status: F Source: [place] [facility] 12:15 PM [facility] REPOSITORY Order Comment: Reason for Laboratory Test [...] 8 Performed By: #### L500.4050, L504.2610 #### [facility] [address] [place], [address] LDH Collected: 12/06/2017 Status: F Source: [place] 12:15 PM [facility] REPOSITORY Order Comment: Reason for Laboratory Test . Serial Specimen #1, #2 or #3? 1 TYPE CODE TESTS RESULT OUT OF RANGE REFERENCE UNITS LAB L504.2610 84-246 U/L Normal LDH 138 Performed By: #### L500.4050, L504.2610 #### [facility] [address] [place], [address] HEPATITIS B/C PROFILE Collected: 12/06/2017 Status: F Source: [facility] 12:15 PM [facility] REPOSITORY Order Comment: Reason for Laboratory Test [...] Status: F Source: [place] SERUM 12:15 PM [facility] REPOSITORY Order Comment: Reason for Laboratory Test [...] 8.5 Albumin 3.5 g/dL 2.9 - 4.4 Lethd-4-Qahvtled 0.4 g/dL 0.0 - 0.4 Qmple-7-Asmaxlme 0.8 g/dL 0.4 - 1.0 Beta Globulin 1.3 g/dL 0.7 - 1.3 Gamma Globulin 1.3 g/dL 0.4 - 1.8 M-Gabriel Not Observed g/dL Not Observed Globulin, Total 3.8 g/dL 2.2 - 3.9 A/G Ratio 1.0 0.7 - 1.7 Immunofixation Result, Serum No monoclonality detected. Please note: Protein electrophoresis scan will follow via computer, mail, or nursing center tutor delivery. TESTING PERFORMED AT [facility]. ORIGINAL REPORT ON FILE IN LAB CONTAINS ADDITIONAL TEST SITE INFORMATION. Performed By: #### L3000.0800, L3100.3425 #### [facility] (refer to report for specific site) refer to report for address and phone number CHEST WITH CONTRAST Observed: 11/28/2017 Status: F Source: [place] 7:01 AM [facility] REPOSITORY [facility] Imaging Services [address] [place] [address] Chest WITH Contrast MR#: [id number] Acct: [id number] Name: ADAM MCKNIGHT Rep #: [id number] : 1990 F 27 From: Emeka Menjivar MD PCP: OUT OF TOWN DOCTOR Status: REG CLI Study: Chest WITH Contrast Date of Exam: 11/28/17 Exam# [id number] Ordering Dr: Karen Barrow MAINFRAME SOFTWARE DEVELOPER-C STUDY: CT CHEST WITH CONTRAST REASON FOR [...] Emeka Menjivar MD at 15:13 EDT Tel [phone], Service support , CC: OUT OF TOWN DOCTOR; Karen Barrow NP Straddle Bug Driver: Signed COMPREHENSIVE METABOLIC Collected: 11/18/2017 Status: F Source: ALYSSA PROFIL 4:06 PM [facility] REPOSITORY Order Comment: Comments: MG TYPE CODE [...] By: #### L500.4050, L501.1400, L501.2300, L501.5200 #### [facility] [address] [place], [place], [address] URIC ACID Collected: 11/18/2017 Status: F Source: ALYSSA 4:06 PM [facility] REPOSITORY Order Comment: Comments: MG TYPE CODE TESTS RESULT OUT OF RANGE REFERENCE UNITS LAB L501.1400 2.6-6.0 mg/dL Normal URIC 4.6 Result Comment: The drugs N-Acetylcysteine and Metamizole may falsely depress this assay. Performed By: #### L500.4050, L501.1400, L501.2300, L501.5200 #### [facility] [address] [place], [address] PHOSPHORUS Collected: 11/18/2017 Status: F Source: ALYSSA 4:06 PM [facility] REPOSITORY Order Comment: Comments: MG TYPE CODE TESTS RESULT OUT OF RANGE REFERENCE UNITS LAB L501.2300 2.5-4.9 mg/dL Normal PHOS 3.0 Performed By: #### L500.4050, L501.1400, L501.2300, L501.5200 #### [facility] [address] [place], [address] MAGNESIUM Collected: 11/18/2017 Status: F Source: [place] 4:06 PM [facility] REPOSITORY Order Comment: Comments: MG TYPE CODE TESTS RESULT OUT OF RANGE REFERENCE UNITS LAB L501.5200 1.6-2.6 mg/dL Normal MG 2.1 Performed By: #### L500.4050, L501.1400, L501.2300, L501.5200 #### [facility] [address] [place], [address] PTHIN Collected: 11/18/2017 Status: F Source: [place] 4:06 PM [facility] REPOSITORY TYPE CODE TESTS RESULT OUT OF RANGE REFERENCE UNITS LAB L509.1000 18.4-80.1 pg/mL Normal PTHIN 36.5 Performed By: #### L509.1000 #### [facility] [address] [place], [address] CALCULI, URINARY W / Collected: 11/18/2017 Status: F Source: ALYSSA PHOTO 2:35 PM [facility] REPOSITORY TYPE CODE TESTS RESULT OUT OF [...] Comment: Physician questions regarding Calculi Analysis contact [facility] at: [phone]. LAB L3650.2800 . Normal COMMENT Comment Result Comment: Calculi report with photograph will follow via computer, mail or nursing center tutor delivery. LAB L3650.2900 . Normal Disclaimer Comment Result Comment: This test was developed and its performance characteristics determined by [facility]. It has not been cleared or approved by the Food and Drug Administration. Performed at: [address] [id number] [place] Out: Mandeep Cruz MD, Phone: [phone] Performed By: #### L3650.0100 #### [facility] (refer to report for specific site) refer to report for address and phone number CT ABDOMEN/PELVIS W/O Observed: 11/10/2017 Status: F Source: MARGARITA CONTRAST 6:29 PM [facility] REPOSITORY ORIGINAL REPORT CORRECTION CORRECTION: Probable large [...] PM UA Collected: 11/10/2017 Status: F Source: [facility] 5:51 PM [facility] REPOSITORY TYPE CODE TESTS RESULT OUT OF [...] Performed By: #### UA, PREGU, UAMICAO #### [place] [address] PREGU Collected: 11/10/2017 Status: F Source: [facility] 5:51 PM [facility] REPOSITORY TYPE CODE TESTS RESULT OUT OF RANGE REFERENCE UNITS LAB PREGU(LOIN C) Test Negative Urine LAB PRUG1(LOIN C) Unknown test HCG not (u) int detected. Performed By: #### UA, PREGU, UAMICAO #### [place] [address] [place], [place] [address] .URINALYSIS MICROSCOPIC Collected: 11/10/2017 Status: F Source: [facility]) 5:51 PM [facility] REPOSITORY TYPE CODE TESTS RESULT OUT OF RANGE REFERENCE UNITS LAB WBCUA(LOIN None Seen /hpf C) Unknown UA WBC 10-15 LAB RBCUA(LOIN None Seen /hpf C) Unknown UA RBC 0-5 LAB EPIUA(LOIN None Seen /hpf C) Unknown UA Squam Epithelial 0-5 LAB BACUA(LOIN /hpf C) Unknown UA Bacteria 3+ Performed By: #### UA, PREGU, UAMICAO #### [place] [address] [place], [place] [address] CBC Collected: 11/10/2017 Status: F Source: [facility] 5:51 [facility] REPOSITORY TYPE CODE TESTS RESULT [...] #### CBC, ADIFF, ANEU, BMP, GFR #### [address] [address] .AUTO DIFF Collected: 11/10/2017 Status: F Source: [facility] 5:51 [facility] REPOSITORY TYPE CODE TESTS RESULT [...] #### CBC, ADIFF, ANEU, BMP, GFR #### [address] [address] .NEUABS Collected: 11/10/2017 Status: F Source: [facility] 5:51 [facility] REPOSITORY TYPE CODE TESTS RESULT OUT OF REFERENCE UNITS RANGE LAB ANEU(LOINC) 2.85-6.16 10 3/mcL High Neutrophil, 8.40 Absolute Performed By: #### CBC, ADIFF, ANEU, BMP, GFR #### [address] [address] BMP Collected: 11/10/2017 Status: F Source: [facility] 5:51 [facility] REPOSITORY TYPE CODE TESTS RESULT [...] #### CBC, ADIFF, ANEU, BMP, GFR #### [place] [place], [place] [address] .GFR Collected: 11/10/2017 Status: F Source: [facility] 5:51 [facility] REPOSITORY TYPE CODE TESTS RESULT OUT OF REFERENCE UNITS RANGE LAB GFRAA(LOINC ml/min/1.73 ) sqm GFR >60 [place] Result Comment: GFR Population mean for , [...] CBC, ADIFF, ANEU, BMP, GFR #### [place] [place], [place] [address] ALLERGIES ALLERGIES DATE TYPE / CODE NAME / CODE REACTION SEVERITY SOURCE 04/08/2018 Drug No Known Unknown [facility] Allergy/4160 Allergies/F00 [facility] 6[address](SNOMED 3187421(RXNOR Repository CT) M) ENCOUNTERS ENCOUNTERS ADMIT/DISCHARGE ACCOUNT NUMBER ADMITTING ENCOUNTER LOCATION SOURCE CLASS 04/14/2018 [id number] Ambulatory [facility] ding:RAD Repository 04/11/2018 [id number] Ambulatory Building:O4G [facility] Repository 04/11/2018 [id number] Ambulatory Building:OPR [facility] Repository 04/08/2018 [id number] Ambulatory [facility] ding:LAB.FUT Repository URE 04/08/2018/04/08/20 [id number] [facility] BMS[facility] 02/17/2018 [id number] Ambulatory [facility] ding:LABSPEC Repository 02/12/2018 [id number] AMBERA, Ambulatory Building:BAS [facility] Repository 01/31/2018/02/02/20 [id number] VICENTE ROSENBERG, Ambulatory BBuilding:MS Nagy 18 BREANNA W URRoom: Health [address]Bed: A [facility] Repository 01/16/2018 [id number] Ambulatory [facility] ding:PSN Repository 01/16/2018 [id number] Ambulatory BMSBuilding: [facility] Repository 01/07/2018 [id number] Ambulatory Building:OPR [facility] Repository 01/07/2018 [id number] Ambulatory Building:DUO [facility] Repository 01/07/2018 [id number] Ambulatory Building:KRI [facility] Repository 01/07/2018 [id number] Ambulatory Building:ARL [facility] Repository 01/02/2018/01/03/20 [id number] Ambulatory BMSBuilding: Alyssa 18 BMS.[facility] Repository 12/27/2017/12/28/19 [id number] Ambulatory [address] ding:EN Repository 12/27/2017 [id number] Ambulatory BMSBuilding: Alyssa BMS.CF.[facility] Repository 12/19/2017 [id number] Ambulatory [facility] CenterBuildi Repository ng:ORIGISELLE 12/17/2017 [id number] Ambulatory [facility] ding:LAB Repository 12/17/2017/12/18/19 [id number] Ambulatory BMSBuilding: Alyssa 18 BMS.[facility] Repository 12/06/2017 [id number] Ambulatory [facility] ding:OMD Repository 12/06/2017 [id number] Ambulatory BMSBuilding: Alyssa BMS.CF.[facility] Repository 11/28/2017 [id number] Ambulatory [facility] ding:CT Repository 11/22/2017 [id number] Ambulatory Building:O4G [facility] Repository 11/18/2017 [id number] Ambulatory [facility] ding:LAB Repository 11/10/2017/11/11/19 [id number] Emergency BBuilding:[address] Repository 08/27/2017 [id number] Ambulatory Building:O4G [facility] Repository 07/22/2017 [id number] Ambulatory Building:[facility] Repository 07/19/2017 [id number] [facility] PAYERS PAYERS ENCOUNTER GUARANTOR PAYER SUBSCRIBER SOURCE 04/14/2018 ADAM Gomes Primary ADAM Gomes [facility] [id number] Insurance:ANTHEMPolicy ROBERBETTDOB: [facility] Number: [id number] MONCHO [id number] Repository [place] [address]Gsy: Date:4051-73-92[address]WK[address], [place] () [address]OB: 04/14/2018 Secondary NOT GIVENUNK [facility] Insurance:SELF PAY [facility] Number: Effective Repository Date:2018-04-14 04/11/2018 ADAM Gomes Primary ADAM Gomes [facility]: [facility] CORBETTDOB: [place] PPO POSPolicy Number: [id number] [facility] [id number] 0 [place], [place] Date:7962-14-61[address] Repository [address]Bhl: (853) Name:[place], [place] [phone] () [address]Yvd: () 04/11/2018 ADAM Gomes Primary ADAM Gomes [facility] CORBETTDOB: Insurance:[facility]ET[facility]: [place] [facility] Number: [id number] [facility] [id number] 0 [place], [place] Date:7459-47-86[address] Repository [address]Ubx: (123) Name:[place], [place] [phone] () [address]Cne: () 04/08/2018 ADAM Goems Primary ADAM Gomes [place] [id number] Insurance:ANTHEMPolicy CORBETTDOB: [facility] Number: [id number] [facility], [id number] Repository [place] [address]Lec: Date:4553-42-75PU [address] NH[address] CHU () [address]DW: 04/08/2018 Secondary NOT GIVENUNK [place] Insurance:SELF PAY [facility] Number: Effective Repository Date:2018-04-02 04/08/2018 ADAM Gomes Primary ADAM Gomes [place] [id number] Insurance:ANTHEMPolicy CORBETTDOB: [facility] Number: [id number] Inyo Hospital, [id number] Repository [place] [address]Euh: Date:3732-12-61TS [address] NH[address] CHU () [address]UF: 04/08/2018 Secondary NOT GIVENUNK [facility] Insurance:SELF PAY [facility] Number: Effective Repository Date:2018-03-31 02/17/2018 ADAM Gomes Primary ADAM Gomes [facility] [id number] Insurance:[facility] CORBETTDOB: [facility] Number: [id number] County Medical CenterTERESITA [id number] Repository [place] [address]Gml: Date:0659-45-16YL [address]ATMARCELO ID () [address]YE: 02/17/2018 Secondary NOT GIVENUNK [facility] Insurance:SELF PAY [facility] Number: Effective Repository Date:2018-02-17 02/12/2018 ADAM Gomes Primary ADAM Gomes [facility]: Insurance:ANTHJAMA[facility] MEDICAL CENTERBETTB: [place] [facility] POSPolic Number: [id number] [facility] [id number] [address] [place] [address] Date:0562-79-[address] Repository [address]Luq: (310) Name:[facility] [place], [place] [phone] () [address]Zxq: () 01/31/2018 ADAM Gomes Primary ADAM Gomes [facility] UPMCTTB: Insurance:[place] CORBETTDOB: [facility] CROSS COMMERCIALPolicy [id number] Repository [facility] Number: [address] [place] [address] [id number] [place], [place] [address]Car: (145) Date:2018-01-31 [address]Vfu: () 6340-73-00Jucw [phone] Name:[address] ()Tel: [phone]) [phone], [place] [phone] () [address]RI: 01/16/2018 ADAM Gomes Primary ADAM Gomes [facility] [id number] Insurance:ANTHEMPolicy CORBETTDOB: [facility] Number: [id number] [id number] Repository [place] [address]Dzy: Date:8029-53-07JI [address]QFBEGOT, [place] () [address]WP: 01/16/2018 Secondary NOT GIVENUNK [place] Insurance:SELF PAY [facility] Number: Effective Repository Date:2018-01-02 01/16/2018 ADAM Gomes Primary ADAM Gomes [place] [id number] Insurance:ANTHEMPolicy [facility]BETTDOB: [facility] Number: [id number] Del Rey Hospital [id number] [place]ository [place] [address]Ivu: Date:2087-88-57MC [address]SYTAQJX, [place] () [address]UZ: 01/16/2018 Secondary NOT GIVENUNK [place] Insurance:SELF PAY [facility] Number: Effective Repository Date:2018-01-16 01/07/2018 ADAM Gomes Primary ADAM Gomes [facility]B: Insurance:[facility]: [place] O POSPolicy Number: [id number] [facility] [id number] [address] [place] [address] Date:0575-09-54X[address] Repository [address]Gwv: ([phone]) Name:[facility] [place], [place] [phone] () [address]Ebz: () 01/07/2018 ADAM Gomes Primary ADAM Gomes [facility]B: Insurance:[facility] CENTERBETTB: [place] PPO POSPolicy Number: [id number] [facility] [id number] 0 [facility] [place], [place] Date:2407-99-79Ndyt [address] Repository [address]Jgr: (763) Name:[place], [place] [phone] () [address]Ign: () 01/07/2018 ADAM Gomes Primary ADAM Gomes [facility]B: Insurance:[facility] CENTERBETTB: [place] PPO POSPolicy Number: [id number] [facility] [id number] 0 [facility] [place], [place] Date:4587-37-50Vhln [address] Repository [address]Qsm: (663) Name:[place], [place] [phone] () [address]Hyn: () 01/07/2018 ADAM Gomes Primary ADAM Gomes [facility] HospitalB: Insurance:[facility]OS[facility]ITALB: [place] [facility] POSPolic Number: [id number] [facility] [id number] 0 [facility] [place], [place] Date:5317-48-90Egrj [address] Repository [address]Obp: (601) Name:[place], [place] [phone] () [address]Ncd: () 01/02/2018 ADAM Gomes Primary ADAM Gomes [place] [id number] Insurance:[facility] HospitalBETTB: [facility] Number: [id number] Del Rey Hospital [id number] Repository [place] [address]Khc: Date:2924-98-89AJ [address]RXAMZFB, [place] () [address]CH: 01/02/2018 Secondary NOT GIVENUNK [place] Insurance:SELF PAY [facility] Number: Effective Repository Date:2018-01-02 12/27/2017 ADAM Gomes Primary ADAM J [facility] [id number] Insurance:ANTHEMPolicy CORBETTDOB: Community [place] Number: [id number] Inyo Hospital, [id number] [place]ository [place] [address]Vfh: Date:3685-22-57HJ [address]DUPAATNNHI [place] () [address]JL: 12/27/2017 Secondary NOT GIVENUNK [place] Insurance:SELF PAY [facility] Number: Effective Repository Date:2017-12-09 12/27/2017 ADAM Gomes Primary ADAM J [place] [id number] Insurance:ANTHEMPolicy CORBETTDOB: [facility] Number: [id number] Inyo Hospital, [id number] Repository [place] [address]Ylk: Date:6621-97-41DR [address]TLXNMDB, [place] () [address]TI: 12/27/2017 Secondary NOT GIVENUNK [place] Insurance:SELF PAY [facility] Number: Effective Repository Date:2017-12-27 12/19/2017 ADAM DEWITTDY [facility] [id number] Insurance:ANTHEM CORBETTUNK [facility] Number: Repository [place], [place] [id number] [address]Klh: (920) Date:2013-04-29 [phone] () 12/17/2017 ADAM Gomes Primary ADAM J [place] [id number] Insurance:ANTHEMPolicy CORBETTDOB: [facility] Number: [id number] Inyo Hospital, [id number] [place]ository [place] [address]Zmk: Date:2407-64-03ZJ [address]JCNQLXG, [place] () [address]MT: 12/17/2017 Secondary NOT GIVENUNK [place] Insurance:SELF PAY [facility] Number: Effective Repository Date:2017-12-17 12/17/2017 ADAM Gomes Primary ADAM J [facility] [id number] Insurance:ANTHEMPolicy CORBETTDOB: Community [place] Number: [id number] Del Rey Hospital [id number] Repository [place] [address]Fjq: Date:7469-41-57AI [address]FMTCCFW, [facility]) [address]YB: 12/17/2017 Secondary NOT GIVENUNK [place] Insurance:SELF PAY [facility] Number: Effective Repository Date:2017-12-10 12/06/2017 ADAM Gomes Primary ADAM J [facility] [id number] Insurance:ANTHEMPolicy CORBETTDOB: [facility] MERCEDES Number: [id number] Del Rey Hospital [id number] Repository [place] [address]Yyo: Date:4044-91-74EO [address]DGANNQQ, [place] () [address]QE: 12/06/2017 Secondary NOT GIVENUNK [place] Insurance:SELF PAY [facility] Number: Effective Repository Date:2017-12-03 12/06/2017 ADAM Gomes Primary ADAM J [facility] [id number] Insurance:ANTHEMPolicy CORBETTDOB: [facility] Number: [id number] Hospital Medical [id number] Repository [place] [address]Swv: Date:0045-46-31XM [address] [place] [address] [facility]) [address]GA: 12/06/2017 Secondary NOT GIVENUNK [place] Insurance:SELF PAY [facility] Number: Effective Repository Date:2017-12-06 11/28/2017 ADAM Gomes Primary ADAM J [place] [id number] Insurance:ANTHEMPolicy CORBETTDOB: [facility] MERCEDES Number: [id number] Hospital Medical [id number] Repository [place] [address]Reh: Date:8932-56-50MX [address] NH[address] CHU () [address]RQ: 11/28/2017 Secondary NOT GIVENUNK [place] Insurance:SELF PAY [facility] Number: Effective Repository Date:2017-11-18 11/22/2017 ADAM Gomes Primary ADAM Gomes [facility]: Insurance:ANTHEM O CORBETTDOB: [place] O POSPolicy Number: [id number] [facility] [id number] [address] [place] [address] Date:5617-58-[address] Repository [address]Rxd: (663) Name:[facility] [place], [place] [phone] () [address]Xuz: () 11/18/2017 ADAM Gomes Primary ADAM Gomes [facility] [id number] Insurance:[facility] HospitalB: [facility] Number: [id number] Del Rey Hospital [id number] Repository [place] [address]Ejn: Date:8893-60-51II [address] NH[address] CHU () [address]UX: 11/18/2017 Secondary NOT GIVENUNK [place] Insurance:SELF PAY [facility] Number: Effective Repository Date:2017-11-18 11/10/2017 ADAM Gomes Primary ADAM Gomes [facility]: Insurance:[facility] HOSPITALBETTDOB: [facility] EARLIMART COMMERCIALKindred Healthcare [id number] [facility] Number: 0 [place], [place] [id number] [place], [place] [address]Vrd: (593) Date:2017-11-10 [address]Hnb: () 0994-74-12Tdav [phone] Name:[facility] BOX ()Tel: [phone], [place] [phone] ( [address]SF: 08/27/2017 ADAM Gomes Primary ADAM Gomes [facility]B: Insurance:[facility]: [place] PPO POSPolicy Number: [id number] [facility] [id number] 0 [facility] [place], [place] Date:8162-93-94Danb [address] Repository [address]Coh: (513) Name:[place], [place] [phone] () [address]Gjz: () 07/22/2017 ADAM Gomes Primary ADAM Gomes [facility]B: Insurance:[facility]: [place] PPO POSPolicy Number: [id number] [facility] [id number] 0 [facility] [place], [place] Date:9433-08-26Ibb[address] Repository [address]Qci: (513) Name:[place], [place] [phone] () [address]Bdy: () 07/19/2017 ADAM Gomes Primary ADAM Gomes [facility]B: Insurance:[facility]: [place] PPO POSPolicy Number: [id number] [facility] [id number] 0 [facility] [place], [place] Date:9274-33-99[address] Repository [address]Gct: ([phone]) Name:[place], [place] [phone] () [address]Bmk: ()
== END ==
PROVIDERS: Referring Provider Nurse Practitioner Adult Health; Visit Provider Nurse Practitioner Adult Health
DX: R82.998 Other abnormal findings in urine (principal); N20.0 Calculus of kidney
CPT/HCPCS: 74018; 87086; 87088; 87186

== ENCOUNTER → 2018-05-26 11:52 | Outpatient (CLI) | payer BC, SELFPAY | PROVIDERS: Referring Provider Nurse Practitioner Adult Health; Visit Provider Nurse Practitioner Adult Health | DX: N20.0 Calculus of kidney (principal) | CPT/HCPCS: 36415; 84132 ==

== ENCOUNTER → 2018-07-08 16:05 | Outpatient (CLI) | payer BC, SELFPAY ==
[2018-07-08 16:51] LABS: Anion Gap 7 (5-15); BUN 17 mg/dL (7-18); BUN/Creat Ratio 25.7 RATIO (10-20); Chloride 100 mmol/L (98-107); Creatinine, Serum 0.66 mg/dL (0.55-1.02); EST Glomerular Filtration Rate 112 mL/min (>60); Est Glom Filt Rate - Afr Amer 136 mL/min (>60); Glucose 85 mg/dL (74-106); Potassium 3.7 mmol/L (3.5-5.1); Sodium Level 134 mmol/L (136-145)
== END ==
PROVIDERS: Referring Provider Nurse Practitioner Adult Health; Visit Provider Nurse Practitioner Adult Health
DX: N20.0 Calculus of kidney (principal)
CPT/HCPCS: 36415; 80048

== ENCOUNTER → 2018-11-24 15:47 | Outpatient (CLI) | payer BC, SELFPAY ==
[2018-11-24 16:34] LABS: Anion Gap 5 (5-15); BUN 11 mg/dL (7-18); Calcium,Total 9.4 mg/dL (8.5-10.1); Chloride 103 mmol/L (98-107); Creatinine, Serum 0.73 mg/dL (0.55-1.02); EST Glomerular Filtration Rate 99 mL/min (>60); Est Glom Filt Rate - Afr Amer 120 mL/min (>60); Glucose 85 mg/dL (74-106); Potassium 3.6 mmol/L (3.5-5.1); Sodium Level 135 mmol/L (136-145)
== END ==
DX: N20.0 Calculus of kidney (principal); Z79.01 Long term (current) use of anticoagulants
CPT/HCPCS: 36415; 80048

== ENCOUNTER → 2018-12-23 13:24 | Outpatient (CLI) | payer BC, SELFPAY ==
--- NOTE | 2018-12-23 14:28 | RAD_ITS ---
STUDY: X-RAY - ABDOMEN/PELVIS REASON FOR EXAM: Female, 28 years old. Flank pain TECHNIQUE: 3 views COMPARISON: 04/14/2018 FINDINGS: Normal visualized lung bases. Punctate calcifications overlying both renal shadows There is an abundance of fecal material throughout the colon. There is no demonstrated free abdominal air. The visualized liver, spleen and kidneys are grossly normal in size and morphology. Normal soft tissue structures. Normal visualized osseous structures. RAD/Abdomen Single View IMPRESSION: No acute findings Retained stool noted throughout the colon Likely bilateral nephrolithiasis Electronically Signed: Ray Walker MD at 15:21 EDT , Service support ,
--- NOTE | 2018-12-24 13:23 | PFT ---
INTRODUCTION: The patient is a 28-year-old female that presents for pulmonary function studies secondary to a diagnosis of sarcoidosis. Respiratory therapy reports good patient effort. Bronchodilators were used during testing. INTERPRETATION: Forced expiration spirometry demonstrates no evidence of a large airways obstructive ventilatory defect. There was no significant response to aerosolized bronchodilators. Spirograms are of good quality and plateau normally. Body plethysmography was performed and reveals lung volumes to be within normal limits. Diffusing capacity by single breath CO was also within normal limits. IMPRESSION: Normal pulmonary function studies.
== END ==
PROVIDERS: Referring Provider Internal Medicine Critical Care Medicine; Visit Provider Internal Medicine Critical Care Medicine
DX: N20.0 Calculus of kidney (principal); D86.9 Sarcoidosis, unspecified
CPT/HCPCS: 74018; 94060; 94726; 94729

== ENCOUNTER → 2019-10-06 | Outpatient (CLI) | payer BC, SELFPAY ==
[2019-07-01 10:23] VITALS: BMI 25.2
--- NOTE | 2019-10-06 15:08 | CT_ITS ---
STUDY: CT MAXILLOFACIAL SINUSES REASON FOR EXAM: Female, 29 years old. Sinus pressure RADIATION DOSAGE (If Supplied By Facility): CTDIvol = ( 33.45 ) mGy, DLP = ( 855.81 ) mGycm TECHNIQUE: The patient was scanned in a multi detector CT scanner. High resolution axial imaging was performed without the administration of intravenous contrast material. Sagittal and coronal images were reconstructed. Individualized dose optimization techniques were used for this CT. COMPARISON: None. FINDINGS: FRONTAL SINUSES: Normal aeration, without mucosal inflammatory disease. ETHMOIDAL SINUSES: Normal aeration, without mucosal inflammatory disease. MAXILLARY SINUSES: Normal aeration, without mucosal inflammatory disease. SPHENOIDAL SINUSES: Normal aeration, without mucosal inflammatory disease. There is patency of the bilateral maxillary infundibuli with normal uncinate processes, ethmoid bullae, and hiatus semilunaris. Normal bilateral middle turbinates. Normal bilateral inferior turbinates. Normal midline nasal septum. There is patency of the bilateral nasal airways. The visualized osseous structures are normal. The visualized bilateral orbital contents are normal. CT/Sinus/Facial Bone IMPRESSION: Normal CT examination of the maxillofacial sinuses. Electronically Signed: Ray Walker MD at 17:26 EDT , Service support ,
== END | disposition home or self-care (01) ==
LOC: CT 15:01
PROVIDERS: Referring Provider Otolaryngology; Visit Provider Otolaryngology
DX: J32.9 Chronic sinusitis, unspecified (principal)
CPT/HCPCS: 70486

== ENCOUNTER → 2019-12-21 | Outpatient (CLI) | payer BC, SELFPAY ==
[2019-07-01 10:23] VITALS: BMI 25.2
--- NOTE | 2019-12-21 13:45 | RAD_ITS ---
STUDY: X-RAY - ABDOMEN/PELVIS REASON FOR EXAM: Female, 29 years old. LEFT SIDE KIDNEY STONE FOLLOW UP TECHNIQUE: Single AP view of the abdomen / pelvis. COMPARISON: 12/23/2018 FINDINGS: There is an unremarkable bowel gas pattern. The visualized liver, spleen and kidneys are grossly normal in size and morphology. Normal soft tissue structures. Normal visualized osseous structures. RAD/Abdomen Single View IMPRESSION: Normal x-ray examination of the abdomen and pelvis. Electronically Signed: Ollie Anguiano MD at 14:37 EDT Tel , Service support ,
[2019-12-21 14:37] LABS: Anion Gap 5 (5-15); BUN 14 mg/dL (7-18); BUN/Creat Ratio 18.7 RATIO (10-20); Calcium,Total 8.8 mg/dL (8.5-10.1); Chloride 108 mmol/L (98-107); Creatinine, Serum 0.75 mg/dL (0.55-1.02); EST Glomerular Filtration Rate 96 mL/min (>60); Est Glom Filt Rate - Afr Amer 117 mL/min (>60); Glucose 90 mg/dL (74-106); Potassium 3.6 mmol/L (3.5-5.1); Sodium Level 139 mmol/L (136-145)
== END | disposition home or self-care (01) ==
PROVIDERS: Referring Provider Nurse Practitioner Adult Health; Visit Provider Nurse Practitioner Adult Health
DX: N20.0 Calculus of kidney (principal); N39.0 Urinary tract infection, site not specified
CPT/HCPCS: 36415; 74018; 80048; 87086; 87088

== ENCOUNTER → 2020-01-07 | Outpatient (CLI) | payer BC, SELFPAY ==
[2019-12-21 15:08] VITALS: BMI 25.2
--- NOTE | 2020-01-07 12:54 | CT_ITS ---
STUDY: CT ABDOMEN AND PELVIS WITHOUT CONTRAST REASON FOR EXAM: Female, 29 years old. HX [place] RADIATION DOSAGE (If Supplied By Facility): CTDIvol = ( 9.36 ) mGy, DLP = ( 478.22 ) mGycm TECHNIQUE: Transaxial images were obtained from the dome of the diaphragm to the symphysis pubis without oral contrast, and without intravenous contrast. Sagittal and coronal images were reconstructed. Individualized dose optimization techniques were used for this CT. COMPARISON: None. FINDINGS: The visualized lung bases are unremarkable. The visualized portions of the heart are within normal limits. Normal liver. Normal gallbladder and extrahepatic biliary system. Normal spleen. Normal pancreas. Normal bilateral adrenal glands. Punctate calcification in upper pole calyx of the right kidney. 1.3 cm cyst in the posterior midportion of the right kidney. A 1 cm cyst is also seen in the lower pole. A punctate calcification is seen in the lower pole calyx of the right kidney. There is a 3.3 mm calculus in the upper pole calyx of the left kidney. There are 2 adjacent nonobstructive calculi in the lower pole calyx of the left kidney measuring 3.6 mm. Normal visualized stomach. Normal small intestine. There are scattered colonic diverticula consistent with diverticulosis. The appendix is visualized and appears normal. Normal abdominal aorta. Normal inferior vena cava. Normal retroperitoneum. Normal urinary bladder. Normal abdominal wall. Normal osseous structures. CT/Abdomen/Pelvis without Cont IMPRESSION: Bilateral nonobstructive intrarenal calculi. Small right renal cyst. Electronically Signed: Emeka Menjivar, at 13:46 EDT , Service support ,
== END | disposition home or self-care (01) ==
PROVIDERS: Referring Provider Nurse Practitioner Adult Health; Visit Provider Nurse Practitioner Adult Health
DX: R31.9 Hematuria, unspecified (principal)
CPT/HCPCS: 74176

== ENCOUNTER → 2020-02-25 | Outpatient (CLI) | payer BC, SELFPAY ==
[2019-12-21 15:08] VITALS: BMI 25.2
[2020-02-25 15:32] LABS: Bacteria 0 SEEN /hpf (None Seen); Mucous, Urine 0 SEEN /hpf (<or=2+)
[2020-02-25 16:46] LABS: Color, Urine Yellow (Yellow); Glucose, Dipstick Normal (Normal); Ketone-Dipstick Negative (Negative); Leukocyte Esterase-Dipstick 100 /ul (Negative); Nitrite-Dipstick Positive (Negative); Occult Blood-Urine 25 /ul (Negative); Protein-Dipstick Negative (Negative); Urine Bilirubin Dipstick Negative (Negative); Urine Clarity Sl. Cloudy (Clear); Urine Urobilinogen Normal (Normal)
[2020-02-25 17:20] LABS: Red Blood Cells-Urine 0-5 SEEN /hpf (0-5); Squamous Epithelial Cells - UA 0-5 SEEN /hpf (5-10); White Blood Cells 10-25 SEEN /hpf (0-5)
== END | disposition home or self-care (01) ==
LOC: LAB 15:28
PROVIDERS: Referring Provider Nurse Practitioner Adult Health; Visit Provider Nurse Practitioner Adult Health
DX: R31.9 Hematuria, unspecified (principal)
CPT/HCPCS: 81001

== ENCOUNTER → 2020-06-13 09:00 | Outpatient (CLI) | payer BC, SELFPAY ==
[2019-12-21 15:08] VITALS: BMI 25.2
--- NOTE | 2020-06-13 09:01 | RAD_ITS ---
STUDY: X-RAY - ESOPHAGUS (BARIUM SWALLOW) WITH FLUOROSCOPY REASON FOR EXAM: Female, 30 years old. GERD, DYSPHAGIA, FEELING OF SOMETHING IN THROAT -- 29.17 mGy TECHNIQUE: 23 view(s) of the esophagus were obtained following swallowing of barium. FLUOROSCOPY TIME (if supplied): (0:48) minutes/seconds COMPARISON: None. FINDINGS: There is no demonstrated esophageal foreign body. There is no demonstrated stricture or mucosal abnormality. Normal gastroesophageal junction, without a demonstrated hiatal hernia. The patient ingested a 12 mm tablet of barium. The tablet is trapped at the gastroesophageal junction. Normal visualized aortic arch and descending thoracic aorta. Normal visualized pulmonary parenchyma. Normal visualized osseous structures of the thorax. RAD/Esophagus Dual Contrast IMPRESSION: The ingested 12 mm tablet of barium is trapped at the gastroesophageal junction. Electronically Signed: Emeka Menjivar MD at 10:23 EST , Service support ,
== END ==
PROVIDERS: Referring Provider Otolaryngology; Visit Provider Otolaryngology
DX: R13.10 Dysphagia, unspecified (principal); K21.9 Gastro-esophageal reflux disease without esophagitis
CPT/HCPCS: 74221

== ENCOUNTER → 2020-12-27 | Outpatient (CLI) | payer BC, SELFPAY ==
[2020-12-27 17:15] LABS: Red Blood Cells-Urine 0 SEEN /hpf (0-5)
[2020-12-27 17:40] LABS: Color, Urine Yellow (Yellow); Glucose, Dipstick Normal (Normal); Ketone-Dipstick Negative (Negative); Leukocyte Esterase-Dipstick 500 /ul (Negative); Nitrite-Dipstick Positive (Negative); Occult Blood-Urine 50 /ul (Negative); Protein-Dipstick Negative (Negative); Urine Bilirubin Dipstick Negative (Negative); Urine Clarity Clear (Clear); Urine Urobilinogen Normal (Normal)
[2020-12-27 18:36] LABS: Bacteria 2+ /hpf (None Seen); Mucous, Urine 1+ /hpf (<or=2+); Squamous Epithelial Cells - UA 5-10 SEEN /hpf (5-10); White Blood Cells 50-100 SEEN /hpf (0-5)
== END | disposition home or self-care (01) ==
LOC: LABSPEC 16:48
PROVIDERS: Referring Provider Nurse Practitioner Adult Health; Visit Provider Nurse Practitioner Adult Health
DX: N20.0 Calculus of kidney (principal); R31.21 Asymptomatic microscopic hematuria
CPT/HCPCS: 81001; 87086; 87088

== ENCOUNTER → 2021-01-09 08:43 | Outpatient (CLI) | payer BC, SELFPAY ==
--- NOTE | 2021-01-09 08:47 | US_ITS ---
STUDY: ULTRASOUND BREAST - RIGHT REASON FOR EXAM: Female, 30 years old. Palpable lump in the right breast. TECHNIQUE: Axial and longitudinal images of the RIGHT breast were performed with a high resolution ultrasound transducer. # OF IMAGES: 30 COMPARISON: Comparison is made with prior mammogram done earlier in the day. FINDINGS: RIGHT Breast: The lower inner quadrant of the breast was examined by ultrasound. There is dense fibroglandular tissue. No sonographic abnormalities seen. US/Breast Limited Unilateral IMPRESSION: No sonographic abnormality is seen. ASSESSMENT CATEGORY: BIRADS Category 1: Negative. A letter regarding these results will be sent to the patient by the facility within 30 days. Electronically Signed: Emeka Menjivar MD at 10:36 EDT , Service support ,
--- NOTE | 2021-01-09 08:47 | BI_ITS ---
MAMMOGRAPHY - BILATERAL DIAGNOSTIC REASON FOR EXAM: Female, 30 years old. Occasional tenderness and lumpiness in the lower outer quadrant of the right breast. PERTINENT HISTORY: Non-contributory. TECHNIQUE: Digital bilateral breast janessa (3D mammographic acquisition) in the CC and MLO projections. 2-D mediolateral oblique (MLO) and craniocaudad (CC) views of both breasts were obtained. CAD: Full Field Digital Mammography with Computer Added Detection was performed. COMPARISON: None. Baseline examination. FINDINGS: Breast Composition: The breasts are heterogeneously dense, which may obscure small masses. There are no dominant masses or suspicious calcifications. No other significant abnormalities are identified. BI/DIAG MAMM W/CAD, BILAT IMPRESSION: Negative diagnostic mammogram. The patient''s history of a palpable lump, correlation with ultrasound is recommended. ASSESSMENT CATEGORY: BIRADS Category 0: Incomplete. Need additional imaging evaluation. A letter regarding these results will be sent to the patient by the facility within 30 days. Approximately 10% of breast cancers are not detected by mammography. A normal mammogram should not delay biopsy of a clinically suspicious abnormality. Electronically Signed: Emeka Menjivar MD at 10:21 EDT , Service support ,
[2021-01-09 11:40] LABS: Anion Gap 6 (5-15); BUN 17 mg/dL (7-18); BUN/Creat Ratio 25.3 RATIO (10-20); Calcium,Total 8.9 mg/dL (8.5-10.1); Chloride 106 mmol/L (98-107); Creatinine, Serum 0.67 mg/dL (0.55-1.02); EST Glomerular Filtration Rate 108 mL/min (>60); Est Glom Filt Rate - Afr Amer 131 mL/min (>60); Glucose 92 mg/dL (74-106); Sodium Level 138 mmol/L (136-145)
== END ==
PROVIDERS: Nurse Practitioner Adult Health; Referring Provider Obstetrics & Gynecology; Visit Provider Obstetrics & Gynecology
DX: N20.0 Calculus of kidney (principal); N64.4 Mastodynia; N63.10 Unspecified lump in the right breast, unspecified quadrant
CPT/HCPCS: 36415; 76642; 77062; 77066; 80048; G0279

== ENCOUNTER 2021-07-26 15:51 | Outpatient (CLI) | payer BC, SELFPAY ==
[2021-07-26 17:06] LABS: Basophil# 0.05 X10^3/uL; Basophil% 0.3 % (0-1); Eosinophil# 0.15 X10^3/uL; Hematocrit 41.1 % (37-47); Hemoglobin 13.3 g/dL (12.0-15.0); Lymphocyte % 21.9 % (19-41); Mean Corp Hgb Conc 32.4 g/dL (32-36); Mean Corpuscular Hgb 29.8 pg (27.0-32.0); Mean Corpuscular Volume 92.2 fL (81-99); Mean Platelet Vol. 10.4 fl (6.2-12.0); Monocyte# 0.79 X10^3/uL; Monocyte% 5.1 % (0-10); NRBC Flagged by Analyzer 0 % (0-5); Neutrophil # 11.04 X10^3/uL (2.7-7.7); Neutrophil % 71.2 % (47-70); Platelet Count 414 K/mm3 (150-450); RBC Distribution Width CV 12.5 % (11.6-14.6); RBC Distribution Width SD 42.6 fl (35.1-43.9); Red Blood Count 4.46 M/mm3 (4.2-5.4); White Blood Count 15.5 K/mm3 (4.4-11.0)
[2021-07-26 17:21] LABS: ALB/GLOB Ratio 0.9 RATIO (0.9-2.4); AST(SGOT) 17 U/L (15-37); Alanine Aminotransfer ALT/SGPT 22 U/L (13-56); Albumin, Serum 3.6 g/dL (3.2-5.0); Alkaline Phosphatase 80 U/L (45-117); Anion Gap 6 (5-15); BUN 21 mg/dL (7-18); BUN/Creat Ratio 29.5 RATIO (10-20); Calcium,Total 8.8 mg/dL (8.5-10.1); Chloride 105 mmol/L (98-107); Creatinine, Serum 0.71 mg/dL (0.55-1.02); EST Glomerular Filtration Rate 101 mL/min (>60); Est Glom Filt Rate - Afr Amer 122 mL/min (>60); Globulin 4.2 g/dL (2.2-4.2); Glucose 87 mg/dL (74-106); Potassium 3.7 mmol/L (3.5-5.1); Protein, Total 7.8 g/dL (6.4-8.2); Sodium Level 137 mmol/L (136-145)
== END 2021-07-26 23:59 | disposition home or self-care (01) ==
LOC: BIMLAB 15:52
PROVIDERS: Referring Provider Internal Medicine; Visit Provider Internal Medicine
DX: D86.9 Sarcoidosis, unspecified (principal)
CPT/HCPCS: 36415; 80053; 85025

== ENCOUNTER → 2021-08-23 | Outpatient (CLI) | payer BC, SELFPAY ==
[2021-08-23 12:14] LABS: Absolute Lymphocyte Count 2.72 X10^3/uL (0.83-4.51); Absolute Neutrophil Count 10.8 X10^3/uL (2.0-7.7); Basophil# 0.06 X10^3/uL; Basophil% 0.4 % (0-1); Eosinophil# 0.06 X10^3/uL; Eosinophils% 0.4 % (0-5); Hemoglobin 14.1 g/dL (12.0-15.0); Lymphocyte # 2.72 X10^3/ul (0.83-4.51); Lymphocyte % 18.9 % (19-41); Mean Corp Hgb Conc 32.8 g/dL (32-36); Mean Corpuscular Hgb 30.7 pg (27.0-32.0); Mean Corpuscular Volume 93.7 fL (81-99); Mean Platelet Vol. 9.6 fl (6.2-12.0); Monocyte# 0.69 X10^3/uL; Monocyte% 4.8 % (0-10); NRBC Flagged by Analyzer 0 % (0-5); Neutrophil # 10.81 X10^3/uL (2.7-7.7); Platelet Count 533 K/mm3 (150-450); RBC Distribution Width CV 12.1 % (11.6-14.6); RBC Distribution Width SD 41.7 fl (35.1-43.9); Red Blood Count 4.59 M/mm3 (4.2-5.4); White Blood Count 14.4 K/mm3 (4.4-11.0)
== END | disposition home or self-care (01) ==
LOC: BIMLAB 11:20
PROVIDERS: Visit Provider Internal Medicine
DX: D72.829 Elevated white blood cell count, unspecified (principal)
CPT/HCPCS: 36415; 85025

== ENCOUNTER → 2021-11-02 | Outpatient (CLI) | payer BC, SELFPAY ==
--- NOTE | 2021-11-02 16:24 | RAD_ITS ---
STUDY: X-RAY - RIGHT WRIST REASON FOR EXAM: Female, 31 years old. pain TECHNIQUE: 3 view(s) of the wrist were obtained. COMPARISON: None. FINDINGS: Normal visualized distal radius and ulna. Normal radiocarpal articulation. Normal distal radioulnar articulation. Normal carpal bones. Normal carpal articulations. Normal carpometacarpal articulation of the thumb. Normal second through fifth carpometacarpal articulations. Normal visualized metacarpal bones. The soft tissue structures are unremarkable. RAD/Wrist min 3 Views IMPRESSION: Normal x-ray examination of the wrist. Electronically Signed: Ollie Anguiano MD at 17:04 EDT ,
--- NOTE | 2021-11-02 16:24 | RAD_ITS ---
STUDY: X-RAY - RIGHT HAND REASON FOR EXAM: Female, 31 years old. pain TECHNIQUE: 3 view(s) of the hand. COMPARISON: None. FINDINGS: Normal radiocarpal articulation. Normal distal radioulnar joint. Normal visualized carpal bones. Normal carpal articulations Normal carpometacarpal articulation of the thumb. Normal second through fifth carpometacarpal joints. Normal metacarpi. Normal metacarpophalangeal joint of the thumb. Normal interphalangeal joint of the thumb. Normal proximal and distal phalanges of the thumb. Normal metacarpophalangeal joints of the second through fifth fingers. Normal proximal and distal interphalangeal joints of the second through fifth fingers. Normal phalanges of the second through fifth fingers. The soft tissue structures are unremarkable. RAD/Hand Min 3 Views IMPRESSION: Normal x-ray examination of the hand. Electronically Signed: Ollie Anguiano MD at 17:05 EDT ,
== END | disposition home or self-care (01) ==
LOC: MTRAD 16:24
PROVIDERS: Referring Provider Physician Assistant; Visit Provider Physician Assistant
DX: M79.641 Pain in right hand (principal); M25.531 Pain in right wrist
CPT/HCPCS: 73110; 73130

== ENCOUNTER → 2022-03-07 | Outpatient (CLI) | payer BC, SELFPAY ==
[2022-03-15 14:47] LABS: HPV APTIMA, High Risk Negative (Negative)
== END | disposition home or self-care (01) ==
PROVIDERS: Visit Provider Nurse Practitioner Women's Health
DX: Z12.4 Encounter for screening for malignant neoplasm of cervix (principal)
CPT/HCPCS: 87624; 88175; G0145

== ENCOUNTER → 2022-06-13 | Outpatient (CLI) | payer BC, SELFPAY ==
[2022-06-13 15:39] LABS: Absolute Lymphocyte Count 3.23 X10^3/uL (0.83-4.51); Absolute Neutrophil Count 10.6 X10^3/uL (2.0-7.7); Basophil# 0.05 X10^3/uL; Basophil% 0.3 % (0-1); Eosinophil# 0.12 X10^3/uL; Eosinophils% 0.8 % (0-5); Hematocrit 41.6 % (37-47); Hemoglobin 13.6 g/dL (12.0-15.0); Lymphocyte # 3.23 X10^3/ul (0.83-4.51); Lymphocyte % 21.8 % (19-41); Mean Corp Hgb Conc 32.7 g/dL (32-36); Mean Corpuscular Hgb 30.2 pg (27.0-32.0); Mean Corpuscular Volume 92.2 fL (81-99); Mean Platelet Vol. 9.7 fl (6.2-12.0); Monocyte# 0.73 X10^3/uL; Monocyte% 4.9 % (0-10); NRBC Flagged by Analyzer 0 % (0-5); Neutrophil # 10.59 X10^3/uL (2.7-7.7); Neutrophil % 71.7 % (47-70); Platelet Count 501 K/mm3 (150-450); RBC Distribution Width CV 11.9 % (11.6-14.6); RBC Distribution Width SD 40.4 fl (35.1-43.9); Red Blood Count 4.51 M/mm3 (4.2-5.4); White Blood Count 14.8 K/mm3 (4.4-11.0)
[2022-06-13 16:31] LABS: ALB/GLOB Ratio 0.8 RATIO (0.9-2.4); AST(SGOT) 17 U/L (15-37); Alanine Aminotransfer ALT/SGPT 23 U/L (13-56); Albumin, Serum 3.3 g/dL (3.2-5.0); Alkaline Phosphatase 80 U/L (45-117); Anion Gap 8 (5-15); BUN 19 mg/dL (7-18); BUN/Creat Ratio 24.3 RATIO (10-20); Calcium,Total 8.8 mg/dL (8.5-10.1); Chloride 106 mmol/L (98-107); Cholesterol 186 mg/dL (200); Creatinine, Serum 0.78 mg/dL (0.55-1.02); EST Glomerular Filtration Rate 90 mL/min (>60); Est Glom Filt Rate - Afr Amer 109 mL/min (>60); Globulin 4.3 g/dL (2.2-4.2); Glucose 80 mg/dL (74-106); High Density Lipoprotein 55 mg/dL; Potassium 3.7 mmol/L (3.5-5.1); Protein, Total 7.6 g/dL (6.4-8.2); Sodium Level 139 mmol/L (136-145); Triglycerides 125 mg/dL; Very Low Density Lipoprotein 25 mg/dL (5-40)
== END | disposition home or self-care (01) ==
LOC: BIMLAB 14:11
PROVIDERS: PCP Internal Medicine; Referring Provider Internal Medicine; Visit Provider Internal Medicine
DX: Z00.00 Encounter for general adult medical examination without abnormal findings (principal)
CPT/HCPCS: 36415; 80053; 80061; 85025

== ENCOUNTER → 2022-09-05 | Outpatient (CLI) | payer BC, SELFPAY ==
--- NOTE | 2022-09-06 09:52 | PFTCOMP_ITS ---
COMPLETE PULMONARY FUNCTION TEST INTERPRETATION Brief HPI: Patient is a 32-year-old female, currently under the care of Dr. Juares, who presents to [facility] for complete pulmonary function tests secondary to diagnosis of sarcoidosis. Respiratory therapist reports good effort and reproducible results. Interpretation: Forced expiration spirometry shows no large airways obstructive ventilatory defect with an FEV1 of 97% predicted. There is no significant bronchodilator response by strict ATS criteria. Spirograms are of good quality and plateau normally. The respiratory flow volume loop shows a normal pattern. Lung volumes by body plethysmography show a normal total lung capacity at 6.91 L, 103% predicted. All other lung volumes are within normal limits. Diffusion capacity by carbon monoxide is normal at 104% predicted. The airway resistance is normal. Compared to previous pulmonary function tests from 12/23/2018, there has been a significant improvement in all measured values. Impression: Grossly normal pulmonary function test with significant improvement compared to 2019
== END | disposition home or self-care (01) ==
PROVIDERS: PCP Internal Medicine; Referring Provider Internal Medicine Critical Care Medicine; Visit Provider Internal Medicine Critical Care Medicine
DX: D86.9 Sarcoidosis, unspecified (principal)
CPT/HCPCS: 94060; 94726; 94729

== ENCOUNTER → 2023-01-07 | Outpatient (CLI) | payer BC, SELFPAY | END | disposition home or self-care (01) | LOC: LABSPEC 16:18 | PROVIDERS: PCP Internal Medicine; Referring Provider Urology; Visit Provider Urology | DX: N30.21 Other chronic cystitis with hematuria (principal) | CPT/HCPCS: 87077; 87086; 87088; 87186 ==

== ENCOUNTER → 2023-04-15 | Outpatient (CLI) | payer BC, SELFPAY ==
[2023-04-15 12:16] LABS: Absolute Lymphocyte Count 2.37 X10^3/uL (0.83-4.51); Absolute Neutrophil Count 2.6 X10^3/uL (2.0-7.7); Basophil# 0.02 X10^3/uL; Basophil% 0.4 % (0-1); Eosinophil# 0.04 X10^3/uL; Eosinophils% 0.7 % (0-5); Hematocrit 42.8 % (37-47); Lymphocyte # 2.37 X10^3/ul (0.83-4.51); Lymphocyte % 43.1 % (19-41); Mean Corp Hgb Conc 32.7 g/dL (32-36); Mean Corpuscular Volume 91.6 fL (81-99); Mean Platelet Vol. 9.7 fl (6.2-12.0); Monocyte% 9.1 % (0-10); NRBC Flagged by Analyzer 0 % (0-5); Neutrophil # 2.55 X10^3/uL (2.7-7.7); Neutrophil % 46.3 % (47-70); POSITIVE MORPHOLOGY YES; Platelet Count 354 K/mm3 (150-450); RBC Distribution Width CV 12.3 % (11.6-14.6); RBC Distribution Width SD 41.2 fl (35.1-43.9); Red Blood Count 4.67 M/mm3 (4.2-5.4); White Blood Count 5.5 K/mm3 (4.4-11.0)
[2023-04-15 12:17] LABS: Differential Indicated SCAN CRITERIA MET
[2023-04-15 12:38] LABS: Reactive Lymphocyte 1+
[2023-04-15 13:12] LABS: Anion Gap 7 (5-15); BUN 15 mg/dL (7-18); BUN/Creat Ratio 17.8 RATIO (10-20); Calcium,Total 8.6 mg/dL (8.5-10.1); Chloride 107 mmol/L (98-107); Creatinine, Serum 0.84 mg/dL (0.55-1.02); EST Glomerular Filtration Rate 82 mL/min (>60); Est Glom Filt Rate - Afr Amer 99 mL/min (>60); Glucose 89 mg/dL (74-106); Sodium Level 140 mmol/L (136-145); T4 Free Direct 1.21 ng/dL (0.76-1.46); Thyroid Stim Hormone (TSH) 2.55 uIU/mL (0.358-3.74)
== END | disposition home or self-care (01) ==
LOC: BIMLAB 10:07
PROVIDERS: PCP Internal Medicine; Referring Provider Internal Medicine; Visit Provider Internal Medicine
DX: R19.7 Diarrhea, unspecified (principal)
CPT/HCPCS: 36415; 80048; 84439; 84443; 85025

== ENCOUNTER → 2023-04-16 | Outpatient (CLI) | payer BC, SELFPAY ==
[2023-04-20 00:07] LABS: Calprotectin, Stool 60 ug/g (0-120)
== END | disposition home or self-care (01) ==
LOC: LABSPEC 09:57
PROVIDERS: PCP Internal Medicine; Referring Provider Internal Medicine; Visit Provider Internal Medicine
DX: R19.7 Diarrhea, unspecified (principal)
CPT/HCPCS: 83630; 83993; 87506

== ENCOUNTER → 2023-06-17 | Outpatient (CLI) | payer BC, SELFPAY ==
--- OUTSIDE RECORDS SUMMARY | 2023-06-17 15:03 | XMS RPT_ITS | CCD ---
Author Name Unknown Address [address] [place] [address] [address] [place] [address] Organization [facility] Care Team Providers Care Associate Director Of Sales Name Role Phone Jose Armando Paz DO Unavailable Unavailable Ruchi ROSENBERG, Boni Foss Primary Care Provider PHYSICIAN, NONE Primary Care Physician Unavailab Azul ROSENBERG, DR EM Singh Attending Unavailable PHYSICIAN, NONE Primary Care Unavailable PIA BENTLEY Referring Unavailable RUCHI, EFEWONGBE B Primary Care Unavailable PIA BENTLEY Attending Unavailable PIA BENTLEY Referring Unavailable OLEGHE, EFEWONGBE B Primary Care Unavailable PIA BENTLEY Attending Unavailable PIA BENTLEY Referring Unavailable PIA BENTLEY Attending Unavailable RUCHI EFEWJUDEBE B Primary Care Unavailable PIA BENTLEY Referring Unavailable RUCHI, EFEWONGBE B Primary Care Unavailable PIA BENTLEY Attending Unavailable PIA BENTLEY Referring Unavailable RUCHI, EFEWONGBE B Primary Care Unavailable PIA BENTLEY Attending Unavailable PIA BENTLEY Referring Unavailable RUCHI EFEWONGBE B Primary Care Unavailable PIA BENTLEY Attending Unavailable Medications Current Medications Medication Drug Class(es) Dates Sig (Normalized) Sig (Original) acetaminophen 325 mg oral capsule (1 source) Start: 8 Tylenol 325 mg oral capsule Dose : 650 mg =, Oral, q4h, PRN Pain, scale 1-3, 0 Refill(s) Start Date: 02/01/18 Status: Ordered onabotulinumtoxina 100 unt injection (3 sources) Acetylcholine Release Inhibitor Start: 3 End: 3 onabotulinumtoxinA (BOTOX) injection 50 Units Problems Active Problems Problem Classification Problem Date Documented Date Episodic/Chronic Calculus of urinary tract (1 source) Kidney stone 11-10-2017 Episodic Immunity disorders (3 sources) Pulmonary sarcoidosis; Translations: [Sarcoidosis of lung] Onset: 01-07-2018 01-07-2018 Chronic Neoplasms of unspecified nature or uncertain behavior (4 sources) Neoplasm of brain; Translations: [Neoplasm of unspecified behavior of brain] Onset: 12-20-2015 11-08-2017 Chronic Other and unspecified benign neoplasm (1 source) Acoustic neuroma; 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 Other and unspecified benign neoplasm (3 sources) Cerebellopontine angle tumor; Translations: [Benign neoplasm of cranial nerves] Onset: 09-28-2015 09-28-2015 Chronic Other ear and sense organ disorders (3 sources) Sensorineural hearing loss; Translations: [Unspecified sensorineural hearing loss] Onset: 10-09-2016 10-09-2016 Chronic Other ear and sense organ disorders (1 source) Hearing loss 11-10-2017 Chronic Other nervous system disorders (1 source) Facial nerve disorder; Translations: [Disorder of facial nerve, unspecified] Episodic Other nervous system disorders (2 sources) Facial nerve motor disorder; Translations: [Other disorders of facial nerve] Episodic Other nervous system disorders (2 sources) Other disorders of facial nerve; Translations: [Other disorders of facial nerve] Onset: 03-07-2023 Episodic Other nervous system disorders (2 sources) Other abnormal involuntary movements; Translations: [Other abnormal involuntary movements] Onset: 03-07-2023 Episodic Other nervous system disorders (2 sources) Other speech disturbances; Translations: [Other speech disturbances] Onset: 03-07-2023 Episodic Past or Other Problems Problem Classification Problem Date Documented Date Episodic/Chronic Lymphadenitis (3 sources) Lymphadenopathy; Translations: [Generalized enlarged lymph nodes] Onset: 01-07-2018 01-07-2018 Episodic Nausea and vomiting (3 sources) Postoperative nausea and vomiting; Translations: [Nausea with vomiting, unspecified] Onset: 12-21-2015 12-21-2015 Episodic Other complications of (3 sources) Urinary tract infection in ; Translations: [Unspecified infection of urinary tract in , unspecified trimester] Onset: 01-13-2018 Resolved: 01-13-2018 01-13-2018 Episodic Other eye disorders (4 sources) Abnormal innervation syndrome; Translations: [Abnormal innervation syndrome unspecified eye, unspecified eyelid] Onset: 11-06-2016 Episodic Other nervous system disorders (5 sources) Facial palsy; 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] Onset: 12-21-2015 Episodic Other nervous system disorders (2 sources) Mejia's palsy; 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] Onset: 07-03-2022 Episodic Urinary tract infections (3 sources) Recurrent urinary tract infection; Translations: [Urinary tract infection, site not specified] Onset: 01-07-2018 01-07-2018 Episodic Results Test Name Value Interpretation Reference Range Facil ity Vital Signs Date Time Vital Sign Value Performing Clinician Faci lity 10-31-2021 12:43-0400 Heart rate 88 /min Pia Bentley MD Work Phone: [facility] 10-31-2021 12:43-0400 SaO2% (BldA) [Mass fraction] 99 % Pia Bentley MD Work Phone: [facility] Encounters Encounter Date Encounter Type Care Provider Facility Start: 03-07-2023 ambulatory PIA BENTLEY Facility:[facility] Start: 03-01-2023 End: 03-02-[address] EM BENDER MD Facility:[facility] Start: 03-01-2023 End: 03-01-[address] EM BENDER MD [facility] Start: 11-06-2022 ambulatory PIA BENTLEY Facility:[facility] Start: 11-06-2022 End: 11-06-2022 Patient encounter procedure Pia Bentley MD Work Phone: [facility] Procedures Date Procedure Procedure Detail Performing Clinician Craniotomy DR EM BENDER MD Specimen from lung o btained by biopsy (specimen) DR EM BENDER MD Plan of Treatment Date Care Activity Detail Author Start: 03-07-2023 End: 03-07-2023 Patient encounter procedure [facility] Start: 12-28-2022 Influenza vaccination INFLUENZA VACCINE (#1) [facility] Start: 11-06-2022 End: 11-06-2022 Patient encounter procedure 11/06/2022 Office Visit Otolaryngology Pia Bentley MD [address] [place] [id number] [facility] Start: 03-13-2022 End: 03-13-2022 Patient encounter procedure 03/13/2022 Office Visit Otolaryngology Pia Bentley MD [address] [place] [id number] [facility] [place] Start: 03-13-2022 End: 03-13-2022 ambulatory 03/13/2022 Rehab Services Visit Speech Therapy Pia Bentley MD [address] [place] [address] Treva Patiño, [facility] P[facility] [address] [facility] [facility] [address] [place] [address] Outpatient Rehabilitation [facility] Start: 12-28-2021 Influenza vaccination INFLUENZA VACCINE (#1) [facility] Start: 12-22-2016 Potassium [Moles/volume] in Serum or Plasma POTASSIUM [facility] Start: 2010 Screening for malignant neoplasm of cervix CERVICAL CANCER SCREENING DISCUSSION [facility] Start: 2008 Third diphtheria, tetanus and acellular pertussis (DTaP) vaccination TDAP (ADULT) [facility] Start: 2007 Tetanus vaccination TETANUS [facility] Start: 1989 COVID-19 VACCINE (#1) COVID-19 VACCINE (#1) [facility] Start: 1989 Tetanus vaccination TETANUS [facility] innervated facial nrv unil [place] CHEMODNRVTJ [facility] INNERVATED FACIAL NRV UNIL [place] Charge Routine 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 Social History Date Type Detail Facility Start: 02-04-2017 End: 08-24-2020 Tobacco smoking status NHIS Never smoked tobacco [facility] Start: 02-04-2017 Tobacco use and exposure Smokeless tobacco non-user [facility] Start: 10-31-2021 Alcohol intake 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) [facility] Start: 1990 Sex Assigned At Not on file O LOW [facility] Start: 06-23-2022 End: 07-03-2022 Exposure to SARS-CoV-2 (event) Not sure [facility] Start: 10-31-2021 History of Social function [facility] Start: 10-31-2021 Tobacco use panel [facility] Gender identity Identifies as fe male gender (finding) [facility] Sex Assigned At Sex [facility] Medical Equipment Procedure Code Equipment Code Equipment Origin al Text Equipment Identifier Dates Screw Neuro 1.5x4.0mm/Ea - [id number] Start: 12-20-2015 Goals Date Patient Goal Desired Activity /State Personal health goal History of Present illness Narrative 11-06-2022 Pia Bentley MD - 11/06/2022 11:30 AM EDT Note Date & Type Note Facility 11-06-2022 History of Present illness Narrative Chemodenervation With Botox ([id number]) PREOPERATIVE DIAGNOSIS(ES): Left facial paralysis, abnormal innervation syndrome (severe synkinesis) POSTOPERATIVE DIAGNOSIS(ES): Same ATTENDING: Pia Bentley MD ANESTHESIA: none PROCEDURE PERFORMED: Botox injection into bilateral cervicofacial musculature (50 units total) INDICATIONS FOR PROCEDURE: The patient presents for scheduled Botox injection. She is doing well with the current treatment protocol and therefore no change has been elected. The risks and benefits of the surgical procedure have been explained in detail to the patient and she has elected to proceed. PROCEDURE DETAILS: The patient was placed in a reclined position. The cervicofacial skin was then cleansed with alcohol and markings made after visualizing facial animations. Once this was completed, A total of 28 units was injected with 22 units being discarded, for a total of 50 units being utilized. Injections were performed to bilateral frontalis, left lower lip depressors, left mentalis, left buccinator, left nasal ala, left deep dori at columella. Specific details of injection are located in the therapeutic botox log. Bilateral injections performed as otherwise asymmetry would be exacerbated by unilateral treatment. CONDITION: Stable COMPLICATIONS:The patient tolerated the procedure well without apparent complications and was ambulatory. documented in this encounter [facility] History of Present illness Narrative 07-03-2022 Pia Bentley MD - 07/03/2022 1:00 PM EST Note Date & Type Note Facility 07-03-2022 History of Present illness Narrative Chemodenervation With Botox ([id number]) PREOPERATIVE DIAGNOSIS(ES): Left facial paralysis, abnormal innervation syndrome (severe synkinesis) POSTOPERATIVE DIAGNOSIS(ES): Same ATTENDING: Pia Bentley MD ANESTHESIA: none PROCEDURE PERFORMED: Botox injection into bilateral cervicofacial musculature (50 units total) INDICATIONS FOR PROCEDURE: The patient presents for scheduled Botox injection. She is doing well with the current treatment protocol and therefore no change has been elected. The risks and benefits of the surgical procedure have been explained in detail to the patient and she has elected to proceed. PROCEDURE DETAILS: The patient was placed in a reclined position. The cervicofacial skin was then cleansed with alcohol and markings made after visualizing facial animations. Once this was completed, A total of 28 units was injected with 22 units being discarded, for a total of 50 units being utilized. Injections were performed to bilateral frontalis, left lower lip depressors, left mentalis, left buccinator, left nasal ala, left deep dori at columella. Specific details of injection are located in the therapeutic botox log. Bilateral injections performed as otherwise asymmetry would be exacerbated by unilateral treatment. CONDITION: Stable COMPLICATIONS:The patient tolerated the procedure well without apparent complications and was ambulatory. documented in this encounter [facility] History of Present illness Narrative 10-31-2021 Pia Bentley MD - 10/31/2021 1:00 PM EDT Note Date & Type Note Facility 10-31-2021 History of Present illness Narrative Chemodenervation With Botox ([id number]) PREOPERATIVE DIAGNOSIS(ES): Left facial paralysis, abnormal innervation syndrome (severe synkinesis) POSTOPERATIVE DIAGNOSIS(ES): Same ATTENDING: Pia Bentley MD ANESTHESIA: none PROCEDURE PERFORMED: Botox injection into bilateral cervicofacial musculature (50 units total) INDICATIONS FOR PROCEDURE: The patient presents for scheduled Botox injection. She is doing well with the current treatment protocol and therefore no change has been elected. The risks and benefits of the surgical procedure have been explained in detail to the patient and she has elected to proceed. PROCEDURE DETAILS: The patient was placed in a reclined position. The cervicofacial skin was then cleansed with alcohol and markings made after visualizing facial animations. Once this was completed, A total of 28 units was injected with 22 units being discarded, for a total of 50 units being utilized. Injections were performed to bilateral frontalis, left lower lip depressors, left mentalis, left buccinator, left nasal ala, left deep dori at columella. Specific details of injection are located in the therapeutic botox log. Bilateral injections performed as otherwise asymmetry would be exacerbated by unilateral treatment. CONDITION: Stable COMPLICATIONS:The patient tolerated the procedure well without apparent complications and was ambulatory. documented in this encounter [facility] Evaluation + Plan note Note Date & Type Note Facility Evaluation + Plan note No data available for this section [facility] Evaluation note Note Date & Type Note Facility documented in this encounter [facility] note Note Date & Type Note Facility documented in this encounter [facility] Evaluation note Note Date & Type Note Facility documented in this encounter [facility] Discharge instructions Note Date & Type Note Facility Hospital Discharge instructions No data available for this section [facility] Progress note Note Date & Type Note Facility Progress note No data available for this section [facility] Advance Directives No Advanced Directives Records FoundLatest Code Status on File Code Status Date Activated Date Inactivated Comments Full Code 12/20/2015 6:11 AM 12/23/2015 8:09 PM Latest Code Status on File Code Status Date Activated Date Inactivated Comments Full Code 12/20/2015 6:11 AM 12/23/2015 8:09 PM Summary Purpose Family History No Family History Records Found Additional Source Comments Reason for Visit (unrecogniz ed section and content) Specialty Diagnoses / Procedures Referred By Azael walker Referred To Contact Otolaryngology Diagnoses Disorder of facial nerve Facial paralysis Pia Bentley MD [address] [place] [address] [address] Referral ID Status Reason Start Date Expiration Date Visits Requested Visits Authorized [id number] Authorized - 06/21/2021 07/16/2022 4 4 Reason Comments Botox Injection FP. Specialty Diagnoses / Procedures Referred By Contac t Referred To Contact Otolaryngology Diagnoses Facial nerve motor disorder Blepharospasm Pia Bentley MD [address] [place] [phone] Otolaryngology [place] [address] Referral ID Status Reason Start Date Expiration Date Visits Requested Visits Authorized [id number] Authorized - 10/31/2022 11/25/2023 4 4 Care Teams (unrecognized sec tion and content) Associate Director Of Sales Relationship Specialty Start Date End Date Boni Hopper MD [address] [address] PCP - General Internal Medicine 10/31/21 Jose Armando Paz DO 09/02/15 INFORMATION SOURCE (unrecogn ized section and content) DATE CREATED AUTHOR AUTHOR'S CYNTHIA ATGERRY 03/12/2023 [facility] FOR RECORDS PERTAINING TO PATIENTS WHO ARE OR HAVE BEEN ENROLLED IN A CHEMICAL DEPENDENCY/SUBSTANCEABUSE PROGRAM, SOME INFORMATION MAY BE OMITTED. This clinical summary was aggregated from multiple sources. Caution should be exercised in using it in the provision of clinical care. This summary normalizes information from multiple sources, and as a consequence, information in this document may materially change the coding, format and clinical context of patient data. In addition, data may be omitted in some cases. CLINICAL DECISIONS SHOULD BE BASED ON THE PRIMARY CLINICAL RECORDS. [facility]. provides no warranty or guarantee of the accuracy or completeness of information in this document.
[2023-06-17 16:03] LABS: ALB/GLOB Ratio 0.9 RATIO (0.9-2.4); AST(SGOT) 15 U/L (15-37); Alanine Aminotransfer ALT/SGPT 22 U/L (13-56); Albumin, Serum 3.4 g/dL (3.2-5.0); Alkaline Phosphatase 79 U/L (45-117); Anion Gap 6 (5-15); BUN 17 mg/dL (7-18); BUN/Creat Ratio 25.1 RATIO (10-20); Chloride 108 mmol/L (98-107); Cholesterol 170 mg/dL (200); Creatinine, Serum 0.68 mg/dL (0.55-1.02); EST Glomerular Filtration Rate 106 mL/min (>60); Est Glom Filt Rate - Afr Amer 128 mL/min (>60); Globulin 3.8 g/dL (2.2-4.2); Glucose 91 mg/dL (74-106); High Density Lipoprotein 47 mg/dL; Potassium 4.1 mmol/L (3.5-5.1); Protein, Total 7.2 g/dL (6.4-8.2); Sodium Level 139 mmol/L (136-145); Triglycerides 249 mg/dL; Very Low Density Lipoprotein 50 mg/dL (5-40)
== END | disposition home or self-care (01) ==
LOC: BIMLAB 13:26
PROVIDERS: PCP Internal Medicine; Visit Provider Internal Medicine
DX: Z00.00 Encounter for general adult medical examination without abnormal findings (principal)
CPT/HCPCS: 36415; 80053; 80061

== ENCOUNTER 2023-11-07 15:28 | Outpatient (CLI) | payer BC, SELFPAY ==
[2023-11-07 17:34] LABS: SERUM TEARS COLLECTION SPECIMEN PROCESSED
== END 2023-11-07 23:59 | disposition home or self-care (01) ==
PROVIDERS: PCP Internal Medicine; Referring Provider Ophthalmology; Visit Provider Ophthalmology
DX: H04.123 Dry eye syndrome of bilateral lacrimal glands (principal)
CPT/HCPCS: 36415

== ENCOUNTER → 2023-11-11 | Outpatient (CLI) | payer BC, SELFPAY | END | disposition home or self-care (01) | LOC: LABSPEC 11:33 | PROVIDERS: PCP Internal Medicine; Referring Provider Urology; Visit Provider Urology | DX: N39.0 Urinary tract infection, site not specified (principal) | CPT/HCPCS: 87077; 87086; 87088; 87186 ==

== ENCOUNTER → 2023-11-26 | Outpatient (CLI) | payer BC, SELFPAY | END | disposition home or self-care (01) | LOC: LABSPEC 15:32 | PROVIDERS: PCP Internal Medicine; Referring Provider Urology; Visit Provider Urology | DX: N39.0 Urinary tract infection, site not specified (principal) | CPT/HCPCS: 87077; 87086; 87088; 87186 ==

== ENCOUNTER → 2023-12-16 | Outpatient (CLI) | payer BC, SELFPAY ==
--- NOTE | 2023-12-16 14:24 | US_ITS ---
INDICATION: HX OF URINARY CALCULUS EXAMINATION: Ultrasound US Kidney(s) complete (eg, kidneys and bladder) TECHNIQUE: Gambino scale and color doppler images were obtained of the kidneys. COMPARISON: No relevant prior comparison study available FINDINGS: RIGHT KIDNEY: 10.9 cm length. There is no hydronephrosis. No shadowing calculus, focal lesion or perinephric collection is demonstrated. LEFT KIDNEY: 12.6 cm length. There is no hydronephrosis. 7 mm echogenic focus in the lower pole consistent with a calculus. URINARY BLADDER: Distended. Bladder volume 255 mL. Bilateral ureteral jets visualized. US/Kidney and Bladder IMPRESSION: Nonobstructing intrarenal calculus in the left kidney. No hydronephrosis.. Electronically Signed: Arlene Wong MD at 7:45 EDT ,
== END | disposition home or self-care (01) ==
LOC: US 14:22
PROVIDERS: PCP Internal Medicine; Referring Provider Urology; Visit Provider Urology
DX: R30.0 Dysuria (principal); Z87.442 Personal history of urinary calculi
CPT/HCPCS: 76770; 87086; 87088

== ENCOUNTER → 2023-12-24 | Outpatient (CLI) | payer BC, SELFPAY ==
--- NOTE | 2023-12-24 09:30 | RAD_ITS ---
STUDY: X-RAY - ABDOMEN/PELVIS REASON FOR EXAM: Female, 33 years old. URINARY CALCULIS TECHNIQUE: Frontal views COMPARISON: None. FINDINGS: There is an unremarkable bowel gas pattern. Colonic fecal retention. There is no demonstrated free abdominal air. Possible calcifications over the left renal shadow. Normal soft tissue structures. Normal visualized osseous structures. RAD/Abdomen Single View IMPRESSION: Possible calcification over the left renal shadow. Colonic fecal retention. Electronically Signed: Fan Ayala DO at 20:15 EDT ,
== END | disposition home or self-care (01) ==
PROVIDERS: PCP Internal Medicine; Referring Provider Urology; Visit Provider Urology
DX: N30.00 Acute cystitis without hematuria (principal); Z87.442 Personal history of urinary calculi
CPT/HCPCS: 74018; 87077; 87086; 87088; 87186

== ENCOUNTER → 2024-02-26 | Outpatient (CLI) | payer BC, SELFPAY | END | disposition home or self-care (01) | LOC: PSN 10:37 | PROVIDERS: PCP Internal Medicine; Referring Provider Nurse Practitioner Acute Care; Visit Provider Nurse Practitioner Acute Care | DX: D86.9 Sarcoidosis, unspecified (principal) | CPT/HCPCS: 94060; 94726; 94729 ==

== ENCOUNTER → 2024-03-02 | Outpatient (CLI) | payer BC, SELFPAY ==
[2024-03-02 16:33] LABS: Absolute Lymphocyte Count 4.77 X10^3/uL (0.83-4.51); Absolute Neutrophil Count 9.3 X10^3/uL (2.0-7.7); Basophil# 0.06 X10^3/uL; Basophil% 0.4 % (0-1); Eosinophil# 0.21 X10^3/uL; Eosinophils% 1.4 % (0-5); Hematocrit 40.6 % (37-47); Hemoglobin 13.1 g/dL (12.0-15.0); Lymphocyte # 4.77 X10^3/ul (0.83-4.51); Lymphocyte % 31.5 % (19-41); Mean Corp Hgb Conc 32.3 g/dL (32-36); Mean Corpuscular Hgb 29.1 pg (27.0-32.0); Mean Corpuscular Volume 90.2 fL (81-99); Monocyte# 0.79 X10^3/uL; Monocyte% 5.2 % (0-10); NRBC Flagged by Analyzer 0 % (0-5); Neutrophil # 9.29 X10^3/uL (2.7-7.7); Neutrophil % 61.2 % (47-70); POSITIVE MORPHOLOGY YES; Platelet Count 478 K/mm3 (150-450); RBC Distribution Width CV 12.4 % (11.6-14.6); RBC Distribution Width SD 40.8 fl (35.1-43.9); White Blood Count 15.2 K/mm3 (4.4-11.0)
[2024-03-02 16:39] LABS: Differential Indicated SCAN CRITERIA MET
[2024-03-02 17:20] LABS: Vitamin D,25 Hydroxy 21.8 ng/mL
[2024-03-02 18:37] LABS: Differential Comment SCANNED; Reactive Lymphocyte 1+; Toxic Granulation 2+
[2024-03-06 22:07] LABS: Complement CH50 > 60 U/mL (>41); IgG, Quant 1115 mg/dL (586-1602); Immunoglobulin A 338 mg/dL (87-352); Immunoglobulin E 9 IU/mL (6-495); Immunoglobulin G, Subclass 1 550 mg/dL (248-810); Immunoglobulin G, Subclass 2 377 mg/dL (130-555); Immunoglobulin G, Subclass 3 58 mg/dL (15-102); Immunoglobulin G, Subclass 4 13 mg/dL (2-96); Immunoglobulin M 90 mg/dL (26-217)
== END | disposition home or self-care (01) ==
PROVIDERS: PCP Internal Medicine; Referring Provider Nurse Practitioner; Visit Provider Nurse Practitioner
DX: D84.9 Immunodeficiency, unspecified (principal); E55.9 Vitamin D deficiency, unspecified
CPT/HCPCS: 36415; 82306; 82784; 82785; 82787; 85025; 86162

== ENCOUNTER → 2024-04-06 | Outpatient (CLI) | payer BC, SELFPAY ==
--- NOTE | 2024-04-06 14:04 | BI_ITS ---
MAMMOGRAPHY - BILATERAL SCREENING REASON FOR EXAM: Female, 34 years old. Routine annual screening examination. PERTINENT HISTORY: Non-contributory. TECHNIQUE: Digital bilateral breast siomara (3D mammographic acquisition) in the CC and MLO projections. 2-D mediolateral oblique (MLO) and craniocaudad (CC) views of both breasts were obtained. CAD: Full Field Digital Mammography with Computer Added Detection was performed. COMPARISON: Comparison is made with prior study January 09, 2021. FINDINGS: Breast Composition: The breasts are heterogeneously dense, which may obscure small masses. There are no dominant masses or suspicious calcifications. Small bilateral fat containing axillary lymph nodes. No other significant abnormalities are identified. There has been no significant change since the prior study. BI/SCRN MAMM (CAD)W/SIOMARA BILAT IMPRESSION: Stable bilateral screening mammogram. Yearly follow-up mammogram recommended. (A) ASSESSMENT CATEGORY: BIRADS Category 2: Benign. A letter regarding these results will be sent to the patient by the facility within 30 days. Approximately 10% of breast cancers are not detected by mammography. A normal mammogram should not delay biopsy of a clinically suspicious abnormality. [id number] Electronically Signed: Emeka Menjivar MD at 8:27 EST ,
== END | disposition home or self-care (01) ==
LOC: OPBI 14:04
PROVIDERS: PCP Internal Medicine; Referring Provider Nurse Practitioner Women's Health; Visit Provider Nurse Practitioner Women's Health
DX: Z12.31 Encounter for screening mammogram for malignant neoplasm of breast (principal)
CPT/HCPCS: 77063; 77067

== ENCOUNTER → 2024-06-18 | Outpatient (CLI) | payer BC, SELFPAY ==
[2024-06-18 12:37] LABS: Absolute Lymphocyte Count 2.85 X10^3/uL (0.83-4.51); Absolute Neutrophil Count 5.8 X10^3/uL (2.0-7.7); Basophil# 0.05 X10^3/uL; Basophil% 0.5 % (0-1); Eosinophil# 0.12 X10^3/uL; Eosinophils% 1.3 % (0-5); Lymphocyte # 2.85 X10^3/ul (0.83-4.51); Lymphocyte % 30.2 % (19-41); Mean Corp Hgb Conc 32.5 g/dL (32-36); Mean Corpuscular Hgb 28.7 pg (27.0-32.0); Mean Corpuscular Volume 88.3 fL (81-99); Mean Platelet Vol. 9.7 fl (6.2-12.0); Monocyte# 0.56 X10^3/uL; Monocyte% 5.9 % (0-10); NRBC Flagged by Analyzer 0 % (0-5); Neutrophil # 5.79 X10^3/uL (2.7-7.7); Neutrophil % 61.4 % (47-70); Platelet Count 505 K/mm3 (150-450); RBC Distribution Width CV 12.5 % (11.6-14.6); RBC Distribution Width SD 40.2 fl (35.1-43.9); Red Blood Count 4.53 M/mm3 (4.2-5.4); White Blood Count 9.4 K/mm3 (4.4-11.0)
[2024-06-18 13:32] LABS: ALB/GLOB Ratio 0.8 RATIO (0.9-2.4); AST(SGOT) 20 U/L (15-37); Alanine Aminotransfer ALT/SGPT 28 U/L (13-56); Albumin, Serum 3.3 g/dL (3.2-5.0); Alkaline Phosphatase 81 U/L (45-117); Anion Gap 9 (5-15); BUN 18 mg/dL (7-18); BUN/Creat Ratio 23.7 RATIO (10-20); Calcium,Total 9.5 mg/dL (8.5-10.1); Chloride 108 mmol/L (98-107); Cholesterol 197 mg/dL (200); Creatinine, Serum 0.76 mg/dL (0.55-1.02); EST Glomerular Filtration Rate 92 mL/min (>60); Est Glom Filt Rate - Afr Amer 111 mL/min (>60); Globulin 4.4 g/dL (2.2-4.2); Glucose 84 mg/dL (74-106); High Density Lipoprotein 58 mg/dL; Potassium 4.3 mmol/L (3.5-5.1); Protein, Total 7.7 g/dL (6.4-8.2); Sodium Level 139 mmol/L (136-145); Triglycerides 183 mg/dL; Very Low Density Lipoprotein 37 mg/dL (5-40)
[2024-06-18 13:44] LABS: Hemoglobin A1c 4.8 % (3.8-5.6)
== END | disposition home or self-care (01) ==
LOC: BIMLAB 09:19
PROVIDERS: PCP Internal Medicine; Referring Provider Dermatology; Visit Provider Dermatology
DX: Z00.00 Encounter for general adult medical examination without abnormal findings (principal); Z79.899 Other long term (current) drug therapy
CPT/HCPCS: 36415; 80053; 80061; 83036; 85025

== ENCOUNTER → 2024-08-12 | Outpatient (CLI) | payer SELFPAY ==
[2024-08-12 11:30] LABS: SERUM TEARS COLLECTION SPECIMEN PROCESSED
== END | disposition home or self-care (01) ==
LOC: LAB 09:13
PROVIDERS: PCP Internal Medicine; Referring Provider Ophthalmology; Visit Provider Ophthalmology
DX: H04.123 Dry eye syndrome of bilateral lacrimal glands (principal)

== ENCOUNTER → 2024-12-22 | Outpatient (CLI) | payer BC, SELFPAY ==
[2024-12-22 12:41] LABS: Hematocrit 39.8 % (37-47); Hemoglobin 13.2 g/dL (12.0-15.0); Immature Granulocytes Count 0.060 X10^3/uL (0.0-0.0); Mean Corp Hgb Conc 33.2 g/dL (32-36); Mean Corpuscular Volume 90.5 fL (81-99); Mean Platelet Vol. 9.7 fl (6.2-12.0); NRBC Flagged by Analyzer 0 % (0-5); Platelet Count 445 K/mm3 (150-450); RBC Distribution Width CV 12.2 % (11.6-14.6); RBC Distribution Width SD 40.7 fl (35.1-43.9); Red Blood Count 4.40 M/mm3 (4.2-5.4); White Blood Count 12.5 K/mm3 (4.4-11.0)
[2024-12-22 13:20] LABS: Ferritin 50 ng/mL (22-378); Iron 81 ug/dL (50-170); Iron Binding Capacity,Total 369 ug/dL (250-450); Iron Binding Capacity,Unsat 288 ug/dL (228-428)
[2024-12-22 14:27] LABS: Cholesterol 179 mg/dL (<=200); Low Density Lipoprotein Calc. 94 mg/dL; Triglycerides 176 mg/dL; Very Low Density Lipoprotein 35 mg/dL (5-40); cholesterol:hdl ratio screen 3.60
--- OUTSIDE RECORDS SUMMARY | 2024-12-22 19:57 | XMS RPT_ITS | CCD ---
Author Organization [facility] Care Team Providers Care Director Economic Name Role Phone Care Physician, No Primary Primary Care Provider Unavailable Care Physician, No Primary Referring Provider Un available Urban SOLE RUFFER, SOLE RUFFER-C Elizabeth Attending Provider Terese Fonseca Attending Provider Unavailable Dr. Divine Hopper Attending Provider [phone] Jose Armando Paz DO Unavailable Unavailable Divine Hopper MD Primary Care Provider Care Physician, No Primary Primary Care Provider Unavailable Care Physician, No Primary Referring Provider Un available JAIRON Casas Attending Provider Care Physician, No Primary Primary Care Provider Unavailable Care Physician, No Primary Referring Provider Un available Darci SOLE RUFFER, SOLE RUFFER-C Jessenia Attending Provider Dr. Hipolito Juares Attending Provider Dr. Divine Hopper Attending Provider [phone] Jose Armando Paz DO Unavailable Divine Yang MD Primary Care Provider Care Physician, No Primary Primary Care Provider Unavailable Care Physician, No Primary Referring Provider Un available Dr. Hipolito Juares Attending Provider Dr. Divine Hopper Attending Provider [phone] Dr. Hipolito Juares Referring Provider Dr. Hipolito Juares Other Provider Dr. Divine Hopper Primary Care Provider Dr. Ron Trevino Attending Provider Jose Armando Paz DO Unavailable Unavailable Divine Hopper MD Primary Care Provider [phone] Care Physician, No Primary Referring Provider Un available Urban SOLE RUFFER, SOLE RUFFER-C Elizabeth Attending Provider Dr. Divine Hopper Primary Care Provider [phone] PHYSICIAN, NONE Primary Care Physician Unavailab DR EM Liang MD Attending Unavailable PHYSICIAN, NONE Primary Care Unavailable Dr. Divine Hopper Primary Care Provider [phone] Dr. Divine Hopper Referring Provider [phone] Dr. Hipolito Juares Attending Provider Care Physician, No Primary Referring Provider Un available Darci SOLE RUFFER, SOLE RUFFER-C Jessenia Attending Provider Dr. Divine Hopper Attending Provider [phone] Dr. Divine Hopper Primary Care Provider [phone] Dr. Divine Hopper Referring Provider [phone] DIVINE HOPPER MD Primary Care Physician [phone] DIVINE HOPPER MD Primary Care Unavailab ALPHONSE Lopez DO Attending Unavailable Jose Armando Paz DO Unavailable Unavailable Oleghe, Efewongbe Referring Unavailable Jessenia Bejarano NP Attending Unavailable Oleghe, Efewongbe Primary Care Unavailable Em Bender Referring Unavailable Em Bender Attending Unavailable Oleghe, Efewongbe Primary Care Unavailable Imtiaz Cristopher Referring Unavailable Oleghe, Efewongbe Primary Care Unavailable ImtiazYang Attending Unavailable Oleghe, Efewongbe Primary Care Unavailable Jose Armando Gupta Referring Unavailable Jose Armando Gupta Attending Unavailable ImtiazYang Attending Unavailable Oleghe, Efewongbe Primary Care Unavailable ImtiazYang Referring Unavailable ImtiazYang Referring Unavailable ImtiazYang Attending Unavailable Oleghe, Efewongbe Primary Care Unavailable Oleghe, Efewongbe Primary Care Unavailable Jose Armando Gupta Referring Unavailable Jose Armando Gupta Attending Unavailable Imtiaz, Yang Mclaughlin Referring Unavailable Oleghe, Efewongbe Primary Care Unavailable Yang Kitchen Attending Unavailable ImtiazYang Referring Unavailable Oleghe, Efewongbe Primary Care Unavailable Yang Kitchen Attending Unavailable Oleghe, Efewongbe Primary Care Unavailable Urban SOLE RUFFER, Elizabeth Attending Unavailable Urban SOLE RUFFER, Elizabeth Referring Unavailable Oleghe, Efewongbe Attending Unavailable Oleghe, Efewongbe Primary Care Unavailable Oleghe, Efewongbe Referring Unavailable Oleghe, Efewongbe Primary Care Unavailable ImtiazYang Attending Unavailable Oleghe, Efewongbe Primary Care Unavailable KERI ORTIZ Referring Unavailable KERI ORTIZ Attending Unavailable Darci SOLE RUFFER, Jessenia Referring Unavailable Darci SOLE RUFFER, Jessenia Attending Unavailable Oleghe, Efewongbe Primary Care Unavailable Yris Gunn Attending Unavailable Oleghe, Efewongbe Primary Care Unavailable Oleghe, Efewongbe Referring Unavailable Oleghe, Efewongbe Primary Care Unavailable Oleghe, Efewongbe Referring Unavailable Richard Patel Attending Unavailable Oleghe, Efewongbe Primary Care Unavailable Oleghe, Efewongbe Referring Unavailable Urban SOLE RUFFER, Elizabeth Attending Unavailable Oleghe, Efewongbe Primary Care Unavailable Oleghe, Efewongbe Referring Unavailable Ricardo Lam Attending Unavailable Oleghe, Efewongbe Primary Care Unavailable Oleghe, Efewongbe Referring Unavailable Oleghe, Efewongbe Attending Unavailable Oleghe, Efewongbe Primary Care Unavailable Ron Trevino Attending Unavailable Urban MCCONNELL, Elizabeth Referring Unavailable Ruchi ROSENBERG Efjosueongbe B Primary Care Provider PIA BENTLEY Attending Unavailable OLEGHE, EFEWONGBE B Primary Care Unavailable PIA BENTLEY Referring Unavailable OLEGHE, EFEWONGBE B Primary Care Unavailable PIA BENTLEY Referring Unavailable PIA BENTLEY Attending Unavailable OLEGHE, EFEWONGBE B Primary Care Unavailable PIA BENTLEY Referring Unavailable PIA BENTLEY Attending Unavailable PIA BENTLEY Attending Unavailable OLEGHE, EFEWONGBE B Primary Care Unavailable PIA BENTLEY Referring Unavailable OLEGHE, EFEWONGBE B Primary Care Unavailable PIA BENTLEY Attending Unavailable PIA BENTLEY Referring Unavailable PIA BENTLEY Attending Unavailable DIVINE HOPPER Primary Care Unavailable PIA BENTLEY Referring Unavailable PIA BENTLEY Attending Unavailable DIVINE HOPPER Primary Care Unavailable PIA BENTLEY Referring Unavailable Allergies Allergy Classification Reported Allergen(s) Allergy Type Date of Onset Reaction(s) Facility (1 source) Nitrofurantoin Drug Allergy 5 [facility] Repository Medications Current Medications Medication Drug Class(es) Dates Sig (Normalized) Sig (Original) acetaminophen 325 mg oral capsule (2 sources) Start: 8 Tylenol 325 mg oral capsule Dose : 650 mg =, Oral, q4h, PRN Pain, scale 1-3, 0 Refill(s) Start Date: 02/01/18 Status: Ordered onabotulinumtoxina 100 unt injection (8 sources) Acetylcholine Release Inhibitor Start: 5 End: 5 onabotulinumtoxinA (BOTOX) injection 50 Units Start: 06-30-2024 End: 07-01-2024 onabotulinumtoxinA (BOTOX) i njection 50 Units Start: 03-10-2024 End: 03-11-2024 onabotulinumtoxinA (BOTOX) i njection 50 Units Start: 11-05-2023 End: 11-06-2023 onabotulinumtoxinA (BOTOX) i njection 50 Units Start: 07-02-2023 End: 07-03-2023 onabotulinumtoxinA (BOTOX) i njection 50 Units Start: 11-06-2022 End: 11-07-2022 onabotulinumtoxinA (BOTOX) i njection 50 Units Start: 07-03-2022 End: 07-04-2022 onabotulinumtoxinA (BOTOX) i njection 50 Units Start: 10-31-2021 End: 11-01-2021 onabotulinumtoxinA (BOTOX) i njection 50 Units Cranberry preparation (10 sources) Non-Standardized Food Allergenic Extract, Non-Standardized Plant Allergenic Extract Start: 02-01-2018 take 1 capsule by mouth once daily cranberry oral capsule See Instructions, 1 cap(s) Oral Daily, 0 Refill(s) Start Date: 02/01/18 Status: Ordered CRANBERRY PO sophia e by mouth. Active CRANBERRY PO sophia e by mouth. 0 Active Cyclosporine (Restasis) 0.05 % dropperette (1 source) Start: 06-17-2023 Cyclosporine ( Restasis) 0.05 % dropperette Active DRP OPHTHALMIC June 17, 2023 12:00am D-Mannose (9 sources) Start: 12-06-2017 take 1 tablet by mouth once daily D-Mannose Active 1 TABLET PO DAILY December 06, 2017 11:07am Start: 12-06-2017 take 1 tablet by daquan th once daily D-Mannose Active 1 TABLET PO DAILY December 05, 2017 11:00pm Start: 12-06-2017 take 1 tablet by daquan th once daily D-Mannose Active 1 TABLET PO DAILY December 06, 2017 12:00am D-Mannose 500 MG Cap (8 sources) Start: 12-06-2017 D-Mannose 500 MG Cap Indications: Recurrent UTI DAILY 12/06/2017 Active Start: 12-06-2017 D-Mannose 500 MG Cap Indications: Recurrent UTI DAILY 0 12/06/2017 Active dapsone 0.075 mg/mg topical gel (9 sources) Sulfone Start: 12-21-2019 Dapsone (Aczon e) 7.5 % gel with pump Active 1 APPLIC TOPICAL DAILY December 20, 2019 11:00pm rub in gently and completely Desog-E.Estradiol /E.Estradiol (20 sources) Progestin, Estrogen Start: 03-11-2023 take 1 tablet by mouth once daily Desog-E.Estradiol/ E.Estradiol Active 1 TABLET PO DAILY March 11, 2023 2:15pm Start: 04-02-2022 End: 03-11-2023 take 1 tablet by mouth once daily Desog-E.Estradiol/E.Estradiol Discontinu ed 1 TABLET PO DAILY April 02, 2022 12:44pm March 11, 2023 2:15pm Start: 04-02-2022 take 1 tablet by daquan th once daily Desog-E.Estradiol/E.Estradiol Active 1 T ABLET PO DAILY April 02, 2022 1:44pm Start: 04-02-2022 take 1 tablet by daquan th once daily Desog-E.Estradiol/E.Estradiol Active 1 T ABLET PO DAILY April 02, 2022 12:44pm Start: 04-02-2022 End: 04-02-2022 take 1 tablet by mouth once daily Desog-E.Estradiol/E.Estradiol Discontinu ed 1 TABLET PO DAILY April 02, 2022 12:34pm April 02, 2022 1:44pm Start: 04-02-2022 End: 04-02-2022 take 1 tablet by mouth once daily Desog-E.Estradiol/E.Estradiol Discontinu ed 1 TABLET PO DAILY April 02, 2022 11:34am April 02, 2022 12:44pm Start: 03-07-2022 End: 04-02-2022 take 1 tablet by mouth once daily Desog-E.Estradiol/E.Estradiol Discontinu ed 1 TABLET PO DAILY March 07, 2022 2:37pm April 02, 2022 12:35pm Start: 03-07-2022 End: 04-02-2022 take 1 tablet by mouth once daily Desog-E.Estradiol/E.Estradiol Discontinu ed 1 TABLET PO DAILY March 07, 2022 1:37pm April 02, 2022 11:35am Start: 12-22-2021 End: 03-07-2022 take 1 tablet by mouth once daily Desog-E.Estradiol/E.Estradiol Discontinu ed 1 TABLET PO DAILY December 22, 2021 4:38pm March 07, 2022 2:37pm Start: 12-22-2021 End: 03-07-2022 take 1 tablet by mouth once daily Desog-E.Estradiol/E.Estradiol Discontinu ed 1 TABLET PO DAILY December 22, 2021 3:38pm March 07, 2022 1:37pm Start: 11-30-2020 End: 12-22-2021 take 1 tablet by mouth once daily Desog-E.Estradiol/E.Estradiol Discontinu ed 1 TABLET PO DAILY November 30, 2020 8:06am December 22, 2021 4:39pm Start: 11-30-2020 End: 12-22-2021 take 1 tablet by mouth once daily Desog-E.Estradiol/E.Estradiol Discontinu ed 1 TABLET PO DAILY November 30, 2020 7:06am December 22, 2021 3:39pm Start: 11-30-2020 take 1 tablet by daquan th once daily Desog-E.Estradiol/E.Estradiol Active 1 T ABLET PO DAILY November 30, 2020 8:06am Start: 12-21-2019 End: 11-30-2020 take 1 tablet by mouth once daily Desog-E.Estradiol/E.Estradiol Discontinu ed 1 TABLET PO DAILY December 21, 2019 2:21pm November 30, 2020 7:06am Start: 12-21-2019 End: 11-30-2020 take 1 tablet by mouth once daily Desog-E.Estradiol/E.Estradiol Discontinu ed 1 TABLET PO DAILY December 21, 2019 3:21pm November 30, 2020 8:06am Start: 01-07-2018 take 1 tablet by daquan th once daily desogestrel-ethinyl estradiol 0.15-0.02/ 0.01 MG (/) Tab tablet Indications: Encounter for initial prescription of contraceptive pills Take 1 tablet by mouth daily. 3 Package 4 01/07/2018 Active Start: 12-04-2017 End: 12-21-2019 Desog-E.Estradiol/E.Estradio l Discontinued 1 EACH PO DAILY December 04, 2017 7:54am December 21, 2019 3:22pm Start: 12-04-2017 End: 12-21-2019 Desog-E.Estradiol/E.Estradio l Discontinued 1 EACH PO DAILY December 03, 2017 11:00pm December 21, 2019 2:22pm Start: 12-04-2017 End: 12-21-2019 Desog-E.Estradiol/E.Estradio l Discontinued 1 EACH PO DAILY December 04, 2017 12:00am December 21, 2019 3:22pm famotidine 40 mg oral tablet (1 source) Histamine-2 Receptor Antagonist Start: 01-17-2024 End: 01-22-2024 famotidine 40 mg oral tablet Dose : 40 mg = 1 tab(s), Oral, Daily, # 5 tab(s), 0 Refill(s) Start Date: 01/17/24 Stop Date: 01/22/24 Status: Ordered hydrOXYzine pamoate 25 mg oral capsule (1 source) Antihistamine Start: 01-17-2024 End: 01-24-2024 hydrOXYzine pamoate 25 mg oral capsule Dose : 25 mg = 1 cap(s), Oral, QID, PRN as needed for itching, X 7 day(s), # 30 cap(s), 0 Refill(s), 01/24/24 12:19:00 AM EDT Start Date: 01/17/24 Stop Date: 01/24/24 Status: Ordered montelukast 10 mg oral tablet (20 sources) Leukotriene Receptor Antagonist Start: 10-03-2020 End: 04-15-2023 Montelukast 10 MG tablet 10/03/2020 Active Multiple Vitamin (MULTIVITAMIN PO) (8 sources) Multiple Vitamin (MULTIVITAMIN PO) Indications: Well woman exam with routine gynecological exam take by mouth. Active Multiple Vitamin (MULTIVITAMIN PO) Indications: Well woman exam with routine gynecological exam take by mouth. 0 Active Multivitamin preparation (9 sources) Start: 12-04-2017 Multivitamin A ctive 1 EACH PO DAILY December 04, 2017 7:54am Start: 12-04-2017 Multivitamin A ctive 1 EACH PO DAILY December 03, 2017 11:00pm Start: 12-04-2017 Multivitamin A ctive 1 EACH PO DAILY December 04, 2017 12:00am omeprazole 40 mg delayed release oral capsule (20 sources) Proton Pump Inhibitor Start: 12-21-2019 End: 06-13-2022 take 1 capsule by mouth once daily omeprazole [address] capsule Take 1 capsule by mouth daily. 04/28/2022 Active potassium citrate 15 meq extended release oral tablet (17 sources) Start: 04-08-2018 take 1 tablet by mouth twice daily Potassium Citrate 15 MEQ (1620 MG) Tab CR Take 1 tablet by mouth 2 times daily. 3 05/14/2018 Active rohto (1 source) Start: 06-17-2023 rohto Active EACH EYE June 17, 2023 12:00am qhs Saccharomyces boulardii (1 source) Start: 06-17-2023 take 1 mg by mouth once daily in the morning Saccharomyces Boulardii Active MG PO June 17, 2023 12:00am qam Semaine (1 source) Start: 06-17-2023 Semaine Active PO June 17, 2023 12:00am pro biotic bid spironolactone 25 mg oral tablet (20 sources) Aldosterone Antagonist Start: 12-21-2019 take 50 mg by mouth once daily Spironolactone Active 50 MG PO DAILY December 21, 2019 2:02pm Start: 12-31-2018 End: 12-21-2019 take 25 mg by mouth once daily Spironolactone Disconti nued 25 MG PO DAILY December 30, 2018 11:00pm December 21, 2019 2:05pm Start: 06-11-2018 take 1 tablet by daquan th once daily spironolactone 50 MG Tab tablet Take 1 tablet by mouth daily. 11 06/11/2018 Active Completed/Discontinued Medications Medication Drug Class(es) Dates Sig (Normalized) Sig (Original) [id number] 200 actuat albuterol 0.09 mg/actuat metered dose inhaler (9 sources) beta2-Adrenergic Agonist Start: 12-31-2018 End: 12-21-2019 take 1 puff(s) by inhalation every four hours Albuterol Sulfate Discontinued 2 PUFF INHALATION Q4H December 30, 2018 11:00pm December 21, 2019 2:04pm administer with spacer ascorbic acid 1000 mg oral tablet (9 sources) Vitamin C Start: 04-08-2018 End: 12-31-2018 take 1 g by mouth every six hours Ascorbic Acid (Vitamin C) Discontinued 1 GM PO EVERY 6 HOURS April 08, 2018 12:00am December 31, 2018 12:55pm azelastine hydrochloride 0.137 mg/actuat metered dose nasal spray (9 sources) Histamine-1 Receptor Antagonist Start: 12-31-2018 End: 12-21-2019 take 1 spray(s) nasal route twice daily Azelastine Discontinued 1 SPRAY INTRANASAL TWICE A DAY December 30, 2018 11:00pm December 21, 2019 2:03pm administer into each nostril cephalexin 500 mg oral capsule (9 sources) Cephalosporin Antibacterial Start: 12-24-2017 End: 04-08-2018 take 500 mg by mouth twice daily Cephalexin Discontinued 500 MG PO TWICE A DAY December 23, 2017 11:00pm April 08, 2018 8:46am dexamethasone 6 mg oral tablet (6 sources) Corticosteroid Start: 02-13-2022 End: 06-13-2022 take 6 mg by mouth once daily Dexamethasone Discontinued 6 MG PO DAILY February 12, 2022 11:00pm June 13, 2022 1:49pm fluorometholone 1 mg/ml ophthalmic suspension (15 sources) Corticosteroid Start: 12-21-2019 End: 06-30-2024 fluorometholone 0.1 % Suspension ophthalmic suspension Apply to eye. 12/21/2019 06/30/2024 Discontinued (Therapy completed) Start: 12-21-2019 Fluorometholon e Active 1 DRP OPHTHALMIC TWICE A DAY December 20, 2019 11:00pm fluticasone propionate 0.05 mg/actuat metered dose nasal spray (9 sources) Corticosteroid Start: 12-31-2018 End: 12-21-2019 take 1 spray(s) nasal route once daily Fluticasone Propionate (Flonase Allergy Relief) 50 mcg/actuation spray,suspension Discontinued 2 SPRAY INTRANASAL daily December 30, 2018 11:00pm December 21, 2019 2:03pm administer into each nostril Fluticasone Propion-Salmetero l (6 sources) Corticosteroid, beta2-Adrenergic Agonist Start: 06-14-2022 End: 09-20-2022 Fluticasone Propion-Salmeterol (Advair Diskus) 500-50 mcg/dose blister with device Discontinued 1 INH INHALATION TWICE A DAY 60 June 14, 2022 12:00am September 20, 2022 12:17pm Start: 06-14-2022 End: 09-20-2022 Fluticasone Propion-Salmeter ol (Advair Diskus) 500-50 mcg/dose blister with device Discontinued 1 INH INHALATION TWICE A DAY 60 June 14, 2022 1:00am September 20, 2022 1:17pm Start: 06-14-2022 Fluticasone Pr opion-Salmeterol (Advair Diskus) 500-50 mcg/dose blister with device Active 1 INH INHALATION TWICE A DAY 60 June 14, 2022 1:00am Start: 06-14-2022 Fluticasone Pr opion-Salmeterol (Advair Diskus) 500-50 mcg/dose blister with device Active 1 INH INHALATION TWICE A DAY 60 June 14, 2022 12:00am Fluticasone Furoate-Vilanterol (20 sources) Corticosteroid, beta2-Adrenergic Agonist Start: 06-13-2022 End: 06-14-2022 Fluticasone Furoate-Vilanterol (Breo Ellipta) 200-25 mcg/dose blister with device Discontinued 1 INH INHALATION daily June 13, 2022 2:09pm June 14, 2022 9:47am after inhalation, rinse mouth with water and spit out; do not swallow Start: 06-13-2022 End: 06-14-2022 Fluticasone Furoate-Vilanter ol (Breo Ellipta) 200-25 mcg/dose blister with device Discontinued 1 INH INHALATION daily June 13, 2022 1:09pm June 14, 2022 8:47am after inhalation, rinse mouth with water and spit out; do not swallow Start: 03-15-2022 End: 06-13-2022 Fluticasone Furoate-Vilanter ol (Breo Ellipta) 200-25 mcg/dose blister with device Discontinued 1 INH INHALATION daily March 15, 2022 9:36am June 13, 2022 2:09pm after inhalation, rinse mouth with water and spit out; do not swallow Start: 03-15-2022 End: 06-13-2022 Fluticasone Furoate-Vilanter ol (Breo Ellipta) 200-25 mcg/dose blister with device Discontinued 1 INH INHALATION daily March 15, 2022 8:36am June 13, 2022 1:09pm after inhalation, rinse mouth with water and spit out; do not swallow Start: 12-21-2021 End: 03-15-2022 Fluticasone Furoate-Vilanter ol (Breo Ellipta) 200-25 mcg/dose blister with device Discontinued 1 INH INHALATION daily December 21, 2021 8:05am March 15, 2022 9:38am after inhalation, rinse mouth with water and spit out; do not swallow Start: 12-21-2021 End: 03-15-2022 Fluticasone Furoate-Vilanter ol (Breo Ellipta) 200-25 mcg/dose blister with device Discontinued 1 INH INHALATION daily December 21, 2021 7:05am March 15, 2022 8:38am after inhalation, rinse mouth with water and spit out; do not swallow Start: 06-14-2021 End: 12-21-2021 Fluticasone Furoate-Vilanter ol (Breo Ellipta) 200-25 mcg/dose blister with device Discontinued 1 INH INHALATION daily June 14, 2021 2:13pm December 21, 2021 8:06am after inhalation, rinse mouth with water and spit out; do not swallow Start: 06-14-2021 End: 12-21-2021 Fluticasone Furoate-Vilanter ol (Breo Ellipta) 200-25 mcg/dose blister with device Discontinued 1 INH INHALATION daily June 14, 2021 1:13pm December 21, 2021 7:06am after inhalation, rinse mouth with water and spit out; do not swallow Start: 06-14-2021 Fluticasone Fu roate-Vilanterol (Breo Ellipta) 200-25 mcg/dose blister with device Active 1 INH INHALATION daily June 14, 2021 2:13pm after inhalation, rinse mouth with water and spit out; do not swallow Start: 12-23-2020 End: 06-14-2021 Fluticasone Furoate-Vilanter ol (Breo Ellipta) 200-25 mcg/dose blister with device Discontinued 1 INH INHALATION daily December 23, 2020 7:55am June 14, 2021 1:28pm after inhalation, rinse mouth with water and spit out; do not swallow Start: 12-23-2020 End: 06-14-2021 Fluticasone Furoate-Vilanter ol (Breo Ellipta) 200-25 mcg/dose blister with device Discontinued 1 INH INHALATION daily December 23, 2020 8:55am June 14, 2021 2:28pm after inhalation, rinse mouth with water and spit out; do not swallow Start: 10-03-2020 End: 12-23-2020 Fluticasone Furoate-Vilanter ol (Breo Ellipta) 200-25 mcg/dose blister with device Discontinued 1 INH INHALATION daily October 03, 2020 1:30pm December 23, 2020 8:56am after inhalation, rinse mouth with water and spit out; do not swallow Start: 10-03-2020 End: 12-23-2020 Fluticasone Furoate-Vilanter ol (Breo Ellipta) 200-25 mcg/dose blister with device Discontinued 1 INH INHALATION daily October 02, 2020 11:00pm December 23, 2020 7:56am after inhalation, rinse mouth with water and spit out; do not swallow Start: 10-03-2020 End: 12-23-2020 Fluticasone Furoate-Vilanter ol (Breo Ellipta) 200-25 mcg/dose blister with device Discontinued 1 INH INHALATION daily 3 October 03, 2020 12:00am December 23, 2020 8:56am after inhalation, rinse mouth with water and spit out; do not swallow ipratropium bromide 0.042 mg/actuat metered dose nasal spray (20 sources) Anticholinergic Start: 07-01-2019 End: 06-29-2020 take 1 spray(s) nasal route three times daily Ipratropium [place] Discontinued 2 SPRAY INTRANASAL THREE TIMES A DAY 3 July 20, 2019 8:11am June 29, 2020 2:13pm administer into each nostril methenamine hippurate 1000 mg oral tablet (9 sources) Start: 04-08-2018 End: 12-31-2018 take 1 g by mouth once Methenamine Hippurate Discontinued 1 GM PO ONCE April 08, 2018 12:00am December 31, 2018 12:55pm methylPREDNISolone 4 mg oral tablet (7 sources) Corticosteroid Start: 11-02-2021 End: 06-13-2022 take 1 tablet by mouth once Methylprednisolone (Medrol (Edgardo)) 4 mg tablets,dose pack Discontinued 0 PO per package directions November 01, 2021 11:00pm June 13, 2022 12:53pm PO PER PKG DIR Problems Active Problems Problem Classification Problem Date Documented Da te Episodic/Chronic Abdominal pain (3 sources) Generalized abdominal pain; Translations: [Generalized abdominal pain] Episodic Administrative/social admission (6 sources) Patient encounter status; Translations: [Persons encountering health services in other specified circumstances] Episodic Allergic reactions (1 source) Urticaria; Translations: [Urticaria, unspecified] Onset: Episodic Calculus of urinary tract (20 sources) Kidney stone; Translations: [Calculus of kidney] 03-07-2022 Episodic Deficiency and other anemia (9 sources) Anemia; Translations: [Anemia, unspecified] 07-25-2021 Episodic Diseases of white blood cells (8 sources) Leukocytosis; Translations: [Elevated white blood cell count, unspecified] 07-31-2021 Chronic Disorders of lipid metabolism (1 source) Pure hyperglyceridemia; Translations: [Pure hyperglyceridemia] Onset: 5 Chronic Headache; including migraine (6 sources) Migraine without aura; Translations: [Migraine without aura, not intractable, without status migrainosus] 03-07-2022 Chronic Immunity disorders (20 sources) Sarcoidosis; Translations: [Sarcoidosis, unspecified] Onset: 8 Chronic Neoplasms of unspecified nature or uncertain behavior (19 sources) Neoplasm of brain; Translations: [Neoplasm of unspecified behavior of brain] Onset: 6 11-08-2017 Chronic Other and unspecified benign neoplasm (1 source) Acoustic neuroma; 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 Other and unspecified benign neoplasm (8 sources) Cerebellopontine angle tumor; Translations: [Benign neoplasm of cranial nerves] Onset: 6 09-28-2015 Chronic Other and unspecified benign neoplasm (2 sources) Benign neoplasm of cranial nerves; Translations: [Benign neoplasm of cranial nerves] Onset: 6 Chronic Other circulatory disease (9 sources) Elevated blood-pressure reading without diagnosis of hypertension; Translations: [Elevated blood-pressure reading, without diagnosis of hypertension] 07-26-2021 Episodic Other circulatory disease (3 sources) Elevated blood-pressure reading, without diagnosis of hypertension; Translations: [Elevated blood pressure reading without diagnosis of hypertension] Episodic Other ear and sense organ disorders (11 sources) Hearing loss; Translations: [Unspecified hearing loss, unspecified ear] 07-01-2019 Chronic Other ear and sense organ disorders (8 sources) Sensorineural hearing loss; Translations: [Unspecified sensorineural hearing loss] Onset: 7 10-09-2016 Chronic Other eye disorders (1 source) Dry eye syndrome of bilateral lacrimal glands; Translations: [Dry eye syndrome of bilateral lacrimal glands] Onset: 5 Episodic Other gastrointestinal disorders (3 sources) Diarrhea; Translations: [Diarrhea, unspecified] 04-15-2023 Episodic Other gastrointestinal disorders (3 sources) Diarrhea, unspecified; Translations: [Diarrhea] 04-15-2023 Episodic Other hereditary and degenerative nervous system conditions (6 sources) Blepharospasm; 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] Onset: 5 07-02-2023 Chronic Other hereditary and degenerative nervous system conditions (1 source) Blepharospasm; 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] Onset: 5 Chronic Other inflammatory condition of skin (1 source) Erythema multiforme; Translations: [Erythema multiforme, unspecified] Onset: 4 Episodic Other inflammatory condition of skin (1 source) Pruritus of skin; Translations: [Pruritus, unspecified] Onset: 4 Episodic Other lower respiratory disease (5 sources) Cough; Translations: [Cough] Episodic Other nervous system disorders (5 sources) Mejia's palsy; 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] Episodic Other nervous system disorders (1 source) Facial nerve disorder; Translations: [Disorder of facial nerve, unspecified] Episodic Other nervous system disorders (7 sources) Facial nerve motor disorder; Translations: [Other disorders of facial nerve] Episodic Other nervous system disorders (2 sources) Other disorders of facial nerve; Translations: [Other disorders of facial nerve] Onset: 5 Episodic Other upper respiratory disease (3 sources) Allergic rhinitis; Translations: [Allergic rhinitis, unspecified] 02-19-2023 Chronic Other upper respiratory disease (2 sources) Allergic rhinitis, unspecified; Translations: [Allergic rhinitis, cause unspecified] 02-19-2023 Chronic Other upper respiratory infections (1 source) Acute upper respiratory infection, unspecified; Translations: [Acute upper respiratory infection, unspecified] Onset: 5 Episodic Sprains and strains (10 sources) Sprain of unspecified part of right wrist and hand, initial encounter; Translations: [Sprain of right hand] Episodic Unclassified (6 sources) Excessive mucus secretion; Translations: [Excessive mucus secretion] 06-14-2022 Urinary tract infections (1 source) Other chronic cystitis with hematuria; Translations: [Other chronic cystitis with hematuria] Onset: 4 Chronic Past or Other Problems Problem Classification Problem Date Documented Da te Episodic/Chronic Deficiency and other anemia (1 source) Anemia, unspecified; Translations: [Anemia, unspecified] Onset: 06-22-2024 Episodic Genitourinary symptoms and ill-defined conditions (1 source) Dysuria; Translations: [Dysuria] Onset: 01-07-2024 Episodic Lymphadenitis (17 sources) Lymphadenopathy; Translations: [Generalized enlarged lymph nodes] Onset: 01-07-2018 01-07-2018 Episodic Nausea and vomiting (8 sources) Postoperative nausea and vomiting; Translations: [Nausea with vomiting, unspecified] Onset: 12-21-2015 12-21-2015 Episodic Other complications of (8 sources) Urinary tract infection in ; Translations: [Unspecified infection of urinary tract in , unspecified trimester] Onset: 01-13-2018 Resolved: 01-13-2018 01-13-2018 Episodic Other eye disorders (9 sources) Abnormal innervation syndrome; Translations: [Abnormal innervation syndrome unspecified eye, unspecified eyelid] Onset: 11-06-2016 Episodic Other eye disorders (2 sources) Abnormal innervation syndrome unspecified eye, unspecified eyelid; Translations: [Abnormal innervation syndrome unspecified eye, unspecified eyelid] Onset: 11-06-2016 Episodic Other gastrointestinal disorders (2 sources) Dysphagia, oral phase; Translations: [Dysphagia, oral phase] Onset: 06-30-2024 Episodic Other nervous system disorders (20 sources) Facial palsy; 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] Onset: 12-21-2015 Episodic Other nervous system disorders (2 sources) Other speech disturbances; Translations: [Other speech disturbances] Onset: 06-30-2024 Episodic Other screening for suspected conditions (not mental disorders or infectious disease) (1 source) Encounter for screening mammogram for malignant neoplasm of breast; Translations: [Encounter for screening mammogram for malignant neoplasm of breast] Onset: 05-08-2024 Episodic Unclassified (9 sources) BENIGN BRAIN TUMOR REMOVED 11-27-2021 Unclassified (3 sources) Full-term ; Translations: [Full-term ] 06-13-2022 Urinary tract infections (13 sources) Urinary tract infectious disease; Translations: [Urinary tract infection, site not specified] Onset: 01-07-2018 01-07-2018 Episodic Results Test Name Value Interpretation Reference Range Facility Internal Medicine Office Vis khurram 09-17-2024 Internal Medicine Office Visit [facility] [address] [place] [address] [place] [address] OFFICE VISIT Date of Service: 09/17/24 MR#: [id number] Acct: [id number] Name: HAVEN ALBERT Rep #: [id number] : 1990 Provider: JAIRON Haq Age/Sex: 34/F Location: [facility] [place].BIM Status: Signed Intake Vital Signs 09/01/24 08:09 09/17/24 11:06 Height 5 ft 11 in 5 ft 11 in Weight: 215 lb 216 lb BMI 29.9 30.1 BP 108/67 102/62 Blood Pressure Location Lt brachial Lt brachial Position Sitting Sitting Respiration 18 20 H Pulse 74 105 H Pulse Source Monitor Monitor Temp 97.3 F L 97.4 F L Temp Source Temporal Pulse Oximetry (%) 98 97 Oxygen Delivery Method room air room air Intake Visit Reasons: ACUTE CONGESTION, DIZZINESS, COUGH Chief Complaint: sick 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 Required: No Accompanied by: Self Is patient in pain?: No Allergies nitrofurantoin (From Macrobid) Adverse Reaction (Intermediate, Verified 09/17/24 11:02) Rash Medications ???Medication ???Instructions ???Recorded ???Confirmed ???Type multivitamin 1 ea PO DAILY 12/04/17 09/17/24 Hi story D-Mannose 1 tab PO DAILY 12/06/17 09/17/24 H istory potassium citrate 15 mEq (1,620 15 meq PO BID 04/08/18 09/17/24 Hi story mg) tablet,extended release dapsone 7.5 % topical gel with 1 applic topical DAILY 12/21/19 History pump (Aczone) spironolactone 25 mg tablet 50 mg PO DAILY 12/21/19 09/17/24 H istory Semaine PO 06/17/23 09/17/24 History eye drop .Route 12/18/23 09/17/24 History omeprazole 40 mg capsule,delayed 40 mg PO DAILY #90 caps 12/18/23 0 09/17/24 Rx release desogestrel-e.estradi ol 0.15 1 tab PO DAILY #84 tabs 03/16/24 0 09/17/24 Rx mg-0.02 mg(21)/e.estrad 0.01 mg(5) tablet azelastine 0.05 % eye drops 1 drp ophthalmic (eye) ONCE 09/17/24 History rohto EACH EYE PRN 06/22/24 09/17/24 His tory cholecalciferol (vitamin D3) 50 50 mcg PO DAILY 09/01/24 09/17/24 History mcg (2,000 unit) capsule (Vitamin D3) ferrous sulfate 325 mg (65 mg mg PO 09/01/24 09/17/24 History iron) tablet (iron) montelukast 10 mg tablet 10 mg PO QPM #90 tabs 09/01/24 Rx (Singulair) benzonatate 200 mg capsule 200 mg PO TID PRN cough #30 caps 0 09/17/24 09/17/24 Rx fluticasone propionate 50 2 spray intranasal QDAY #16 grams 09/17/24 09/17/24 Rx mcg/actuation nasal spray,suspension (Flonase Allergy Relief) Nurse's Note: Using sudafed for cough and congestion started feeling saturday night after returning from a trip to [place] aching vomiting dizzy and headache and now congested and coughing and miserable PFSH Medical History Hypertriglyceridemia Sprain of right hand Leukocytosis Elevated blood pressure reading without diagnosis of hypertension History of kidney stones Anemia GERD (gastroesophageal reflux disease) Deaf BENIGN BRAIN TUMOR REMOVED Urinary calculi Calculus of kidney Surgical History History of lung biopsy H/O brain surgery Family History Grandmother Lung cancer Cancer Grandfather Cancer Mother Anemia Social History household members: spouse current occupational status: employed current occupation: [employer] Smoking Status: Never smoker alcohol intake: current alcohol intake frequency: holidays/special occasions only substance use type: does not use caffeine: No what type of physical activity do you participate in: none seatbelt use: always do you feel safe at home: Yes additional social history: Single HPI HPI Chief Complaint: sick Details: HAVEN ALBERT, is a 34 F who presents to the office today for cough and congestion which started Saturday night / Saturday. She has a lot of nasal congestion and coughing. Cough is worse lying down. She does have some production to the cough getting some minor clear / yellow phlegm. She has not noticed any wheezing or shortness of breath. She has not had any fevers although had some chills Cara. She does have history of sarcoidosis and sees pulmonology at the same time states that she has always had normal breathing tests. She does have history of allergies and take Azelestine and Singulair for this. She has taken Sudafed for the recent congestion. She states that her boyfriend is also sick with URI symptoms. ROS Const Constitutional: No body ache, excessive sweating, fatigue, fever(s), frequent falls, headache(s), snoring, weakness, weight change, sleep problems or change in appetite Eyes Eyes: No blurry vision, change in vision, eye pain or Light sensitivity ENT ENT: No abnormal hearing, ear or mastoid pa (more content not included)... Normal [facility] Pulmonary Visit Reporton Pulmonary Visit Report [facility] [place] [address] [place] [address] OFFICE VISIT Date of Service: 09/01/24 MR#: [id number] Acct: [id number] Name: HAVEN ALBERT Rep #: [id number] : 1990 Provider: Yris Gunn NP Age/Sex: 34/F Location: [facility] [place].PMW Status: Signed Assessment and Plan Assessment and Plan (1) Sarcoidosis: Status: Chronic Plan: PFT has remained stable when compared to 2018, the 2022 study indicated that her volumes were elevated. The patient has not had exacerbation in respiratory symptoms. She has not had respiratory illnesses. Her symptoms have been stable and have not progressed. I have recommended that she notify this practice if she has worsening respiratory symptoms. I have recommended a PFT at the end of 2024 and to follow-up at the beginning of 2025. (2) Allergic rhinitis: Status: Chronic Qualifiers: Allergic rhinitis seasonality: seasonal Allergic rhinitis trigger: unspecified Qualified Code(s): J30.2 - Other seasonal allergic rhinitis Plan: Continue Singulair as prescribed which is refilled today. Continue to follow with ENT and their recommendations. Orders: Orders PFT Complete - DLCO, Spirometry b/a bronchodilators, lung volumes 04/02/25 D86.9 - Sarcoidosis, unspecified Medications: Refilled montelukast (Singulair) 10 mg PO QPM 90 tabs 4RF Plan Details Follow Up: Apr 2025 (LMR) HPI HPI Comments Details: Patient is a 34-year-old female who presents to the office today for follow-up of her sarcoidosis. She is ambulatory and currently on room air. She has not recently been seen in the ED or urgent care for any respiratory illness. She has not required any antibiotics or prednisone for any breathing problems. She is not requiring a maintenance inhaler. She does continue with the Singulair. In the past she did use Zyrtec and did not find it to be beneficial for her. She has not recently needed to use her albuterol rescue inhaler. She is using ipratropium bromide nasal spray, she finds it to be helpful. She is a lifelong never smoker. She denies shortness of breath and also reports that she is not in shape . She reports an occasional cough in the morning that is dry to productive with yellow sputum, she denies any hemoptysis. She indicates that this has been occurring for many years. She denies wheezing. She denies chest tightness, chest pain, chest tightness, palpitations. She denies fever, chills or body aches. She continues to follow with ply cutter and has not had any new concerns. She does follow with dermatology as well and there have been no new skin rashes. The patient has had eczema in the past that has flared. Documentation reviewed with the patient today includes: PFT from February 26, 2024 shows pulmonary function test grossly within normal limit. Intake Vital Signs 02/24/24 08:16 03/16/24 13:29 09/01/24 08:09 Height 5 ft 11 in 5 ft 11 in 5 ft 11 in Weight: 215 lb BMI 29.9 BP 108/67 Blood Pressure Location Lt brachial Position Sitting Respiration 18 Pulse 74 Pulse Source Monitor Temp 97.3 F L Temperature Source Temporal Artery Pulse Oximetry (%) 98 Oxygen Delivery Method room air Intake Visit Reasons: 6 M FU Chief Complaint: 6 M FU 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 Required: No DME Vendor: n/a Accompanied by: Self Is patient in pain?: No Allergies nitrofurantoin (From Macrobid) Adverse Reaction (Intermediate, Verified 09/01/24 13:26) Rash Medications ???Medication ???Instructions ???Recorded ???Confirmed ???Type multivitamin 1 ea PO DAILY 12/04/17 09/01/24 Hi story D-Mannose 1 tab PO DAILY 12/06/17 09/01/24 H istory potassium citrate 15 mEq (1,620 15 meq PO BID 04/08/18 09/01/24 Hi story mg) tablet,extended release dapsone 7.5 % topical gel with 1 applic topical DAILY 12/21/19 History pump (Aczone) spironolactone 25 mg tablet 50 mg PO DAILY 12/21/19 09/01/24 H istory Semaine PO 06/17/23 09/01/24 History eye drop .Route 12/18/23 09/01/24 History omeprazole 40 mg capsule,delayed 40 mg PO DAILY #90 caps 12/18/23 0 09/01/24 Rx release desogestrel-e.estradi ol 0.15 1 tab PO DAILY #84 tabs 03/16/24 0 09/01/24 Rx mg-0.02 mg(21)/e.estrad 0.01 mg(5) tablet azelastine 0.05 % eye drops 1 drp ophthalmic (eye) ONCE 09/01/24 History rohto EACH EYE PRN 06/22/24 09/01/24 His tory cholecalciferol (vitamin D3) 50 50 mcg PO DAILY 09/01/24 09/01/24 History mcg (2,000 unit) capsule (Vitamin D3) ferrous sulfate 325 mg (65 mg mg PO 09/01/24 09/01/24 History iron) tablet (iron) montelukast 10 mg tablet 10 mg PO QPM #90 tabs 09/01/2410/21 Rx (Singulair) REPLACED BY [facility] Medical History (more content not included)... Normal [facility] Internal Medicine Office Vis itoestrellita 06-22-2024 Internal Medicine Office Visit [facility] [address] [place] [address] [address] [place], [place] [id number] OFFICE VISIT Date of Service: 06/22/24 MR#: [id number] Acct: [id number] Name: HAVEN ALBERT Rep #: [id number] : 1990 Provider: Dr. Divine cooper MD Age/Sex: 34/F Location: [facility] [place].B[facility] Status: Signed Intake Vital Signs 12/18/23 13:52 03/16/24 13:29 06/22/24 13:56 Height 5 ft 11 in 5 ft 11 in 5 ft 11 in Weight: 213 lb BMI 29.7 BP 116/62 Blood Pressure Location Lt brachial Position Sitting Respiration 17 Pulse 85 Pulse Source Monitor Temp 98.2 F Temp Source Temporal Pulse Oximetry (%) 99 Oxygen Delivery Method room air Intake Visit Reasons: 6 M FU Chief Complaint: 6 M FU Is patient in pain?: No Allergies nitrofurantoin (From Macrobid) Adverse Reaction (Intermediate, Verified 06/22/24 13:52) Rash Medications ???Medication ???Instructions ???Recorded ???Confirmed ???Type multivitamin 1 ea PO DAILY 12/04/17 06/22/24 Hi story D-Mannose 1 tab PO DAILY 12/06/17 06/22/24 H istory potassium citrate 15 mEq (1,620 15 meq PO BID 04/08/18 06/22/24 Hi story mg) tablet,extended release dapsone 7.5 % topical gel with 1 applic topical DAILY 12/21/19 History pump (Aczone) spironolactone 25 mg tablet 50 mg PO DAILY 12/21/19 06/22/24 H istory Semaine PO 06/17/23 06/22/24 History eye drop .Route 12/18/23 06/22/24 History omeprazole 40 mg capsule,delayed 40 mg PO DAILY #90 caps 12/18/23 0 06/22/24 Rx release montelukast 10 mg tablet 10 mg PO QPM #90 tabs 02/21/24 Rx (Singulair) desogestrel-e.estradi ol 0.15 1 tab PO DAILY #84 tabs 03/16/24 0 06/22/24 Rx mg-0.02 mg(21)/e.estrad 0.01 mg(5) tablet azelastine 0.05 % eye drops 1 drp ophthalmic (eye) ONCE 06/22/24 History rohto EACH EYE PRN 06/22/24 History PFSH Medical History Hypertriglyceridemia Sprain of right hand Leukocytosis Elevated blood pressure reading without diagnosis of hypertension History of kidney stones Anemia GERD (gastroesophageal reflux disease) Deaf BENIGN BRAIN TUMOR REMOVED Urinary calculi Calculus of kidney Surgical History History of lung biopsy H/O brain surgery Family History Grandmother Lung cancer Cancer Grandfather Cancer Mother Anemia Social History household members: spouse current occupational status: employed current occupation: [employer] Smoking Status: Never smoker alcohol intake: current alcohol intake frequency: holidays/special occasions only substance use type: does not use caffeine: No what type of physical activity do you participate in: none seatbelt use: always do you feel safe at home: Yes additional social history: Single HPI HPI Chief Complaint: 6 M FU Details: HAVEN ALBERT, is a 34 F who presents to the office today for follow-up. No acute concerns at this time. History of hyper triglyceridemia/lipid emia. Has made dietary changes, recent labs reviewed and there was significant improvement. Currently not on any medication for this. Other chronic medical conditions are generally stable. Chronic history of reflux, no acute concerns reported in that regard. No dark or bloody stool or unintentional weight changes. ROS Const Constitutional: No body ache, chills, excessive sweating, fatigue, fever(s), frequent falls, headache(s), snoring, weight change, sleep problems, abnormal sleep pattern or change in appetite Eyes Eyes: No blurry vision, change in vision, visual disturbances, eye pain or Light sensitivity ENT ENT: No abnormal hearing, ear or mastoid pain, tinnitus, balance problems, nosebleed/epistaxis, nasal congestion, headache(s), neck pain or sore throat Resp Respiratory: No cough, shortness of breath, snoring or wheezing Cardio Cardiology: No chest pain at rest, chest pain with exertion, excessive sweating, shortness of breath, dyspnea on exertion, lightheadedness, orthopnea or palpitations Gastro GI: No abdominal pain, change in bowel habits, constipation, cramping, diarrhea, nausea/dyspepsia or vomiting Genitourinary-Female: No burning urination, painful urination, urinary incontinence, urinary frequency, suprapubic fullness, side pain, abnormal vaginal bleeding or pelvic pain Musc Musculoskeletal: No abnormal gait, joint pain, back pain, limited range of motion, neck pain, numbness or tingling Skin Skin: No dry skin, redness, excessive hair growth, yellowing of the eye, lesions, itchy eyes, rash or wounds Neuro Neurology: No abnormal gait, abnormal hearing, confusion, unsteady gait/balance, (more content not included)... Normal [facility] CBC W/Diff, Automatedon 05-31 0-2024 Absolute Lymph 2.85 X10 3/uL Normal 0.83-4.51 [facility] Comment on above: Performed By: #### M 100.2200 #### [facility] [address] [place], [address] Absolute Neut 5.8 X10 3/uL Normal 2.0-7.7 [facility] Comment on above: Performed By: #### M 100.2200 #### [facility] [address] [place], [address] Basophils/100 WBC (Bld) 0.5 % Normal 0-1 [facility] Comment on above: Performed By: #### M 100.2200 #### [facility] [address] [place], [address] Eosinophils/100 WBC (Bld) 1.3 % Normal 0-5 [facility] Comment on above: Performed By: #### M 100.2200 #### [facility] [address] [place], [address] Erythrocyte distribution width (RBC) [Ratio] 12.5 % Normal 11.6-14.6 [facility] Comment on above: Performed By: #### M 100.2200 #### [facility] [address] [place], [address] Hematocrit (Bld) [Volume fraction] 40.0 % Normal 37-47 [facility] Comment on above: Performed By: #### M 100.2200 #### [facility] [address] [place], [address] Hemoglobin (Bld) [Mass/Vol] 13.0 g/dL Normal 12.0-15.0 [facility] Comment on above: Performed By: #### M 100.2200 #### [facility] [address] [place], [address] IG% 0.700 Normal 0.0-0.9 [facility] Comment on above: Result Comment: IG% - Immature Granulocytes (promyelocytes, myelocytes and metamyelocytes) > 1% indicates that a LEFT SHIFT is Present. Performed By: #### M 100.2200 #### [facility] [address] [place], [address] Lymphocytes/100 WBC (Bld) 30.2 % Normal 19-41 [facility] Comment on above: Performed By: #### M 100.2200 #### [facility] [address] [place], [address] MCH (RBC) [Entitic mass] 28.7 pg Normal 27.0-32.0 [facility] Comment on above: Performed By: #### M 100.2200 #### [facility] [address] [place], [address] MCHC (RBC) [Mass/Vol] 32.5 g/dL Normal 32-36 [facility] Comment on above: Performed By: #### M 100.2200 #### [facility] [address] [place], [address] MCV (RBC) [Entitic vol] 88.3 fL Normal 81-99 [facility] Comment on above: Performed By: #### M 100.2200 #### [facility] [address] [place], [address] Monocytes/100 WBC (Bld) 5.9 % Normal 0-10 [facility] Comment on above: Performed By: #### M 100.2200 #### [facility] [address] [place], [address] Neutrophils/100 WBC (Bld) 61.4 % Normal 47-70 [facility] Comment on above: Performed By: #### M 100.2200 #### [facility] [address] [place], [address] Nucleated RBC (Bld) [#/Vol] 0 10*3/uL Normal 0-5 [facility] Comment on above: Performed By: #### M 100.220 #### [facility] [address] [place], [address] Platelet mean volume (Bld) [Entitic vol] 9.7 fL Normal 6.2-12.0 [facility] Comment on above: Performed By: #### M 100.2200 #### [facility] [address] [place], [address] Platelets (Bld) [#/Vol] 505 10*3/uL High 150-450 [facility] Comment on above: Performed By: #### M 100.2200 #### [facility] [address] [place], [address] RBC (Bld) [#/Vol] 4.53 10*6/uL Normal 4.2-5.4 [facility] Comment on above: Performed By: #### M 100.2200 #### [facility] [address] [place], [address] RDW SD 40.2 fl Normal 35.1-43.9 [facility] Comment on above: Performed By: #### M 100.2200 #### [facility] [address] [place], [address] WBC (Bld) [#/Vol] 9.4 10*3/uL Normal 4.4-11.0 [facility] Comment on above: Performed By: #### M 100.2200 #### [facility] [address] [place], [address] Comprehensive Metabolic Prof ilon 06-18-2024 Albumin [Mass/Vol] 3.3 g/dL Normal 3.2-5.0 [facility] Comment on above: Performed By: #### M 100.2200 #### [facility] [address] [place], [address] Albumin/Globulin [Mass ratio] 0.8 {ratio} Low 0.9-2.4 [facility] Comment on above: Performed By: #### M 100.2200 #### [facility] [address] [place], [address] ALK P 81 U/L Normal 45-117 [facility] Comment on above: Performed By: #### M 100.2200 #### [facility] [address] [place], [address] ALT [Catalytic activity/Vol] 28 U/L Normal 13-56 [facility] Comment on above: Performed By: #### M 100.2200 #### [facility] [address] [place], [address] AST [Catalytic activity/Vol] 20 U/L Normal 15-37 [facility] Comment on above: Performed By: #### M 100.2200 #### [facility] [address] [place], [address] Bilirubin [Mass/Vol] 0.60 mg/dL Normal 0.20-1.00 [facility] Comment on above: Result Comment: For patients on eltrombopag therapy, use of Dimension [place] TBIL is not recommended. Performed By: #### M 100.2200 #### [facility] [address] [place], [address] BUN/CRE 23.7 RATIO High 10-20 [facility] Comment on above: Performed By: #### M 100.2200 #### [facility] [address] [place], [address] CA,Total 9.5 mg/dL Normal 8.5-10.1 [facility] Comment on above: Performed By: #### M 100.2200 #### [facility] [address] [place], [address] Chloride [Moles/Vol] 108 mmol/L High 98-107 [facility] Comment on above: Performed By: #### M 100.2200 #### [facility] [address] [place], [address] CO2 [Moles/Vol] 23.0 mmol/L Normal 21.0-32.0 [facility] Comment on above: Performed By: #### M 100.2200 #### [facility] [address] [place], [address] Creatinine [Mass/Vol] 0.76 mg/dL Normal 0.55-1.02 [facility] Comment on above: Result Comment: The validity of the calculated GFR GFRAA in patients over 70 years has not been determined. Clinical correlation is essential. Performed By: #### M 100.2200 #### [facility] [address] [place], [address] EST GFR - AA 111 mL/min Normal >60 [facility] Comment on above: Result Comment: Afri can Sudanese GFR Calc Performed By: #### M 100.2200 #### [facility] [address] [place], [address] GAP 9 Normal 5-15 [facility] Comment on above: Performed By: #### M 100.2200 #### [facility] [address] [place], [address] GFR/1.73 sq M.predicted among non-blacks MDRD (S/P/Bld) [Vol rate/Area] 92 mL/min/{1.73_m2} Normal >60 [facility] Comment on above: Result Comment: Non- GFR Calc Performed By: #### M 100.2200 #### [facility] [address] [place], [address] Globulin (S) [Mass/Vol] 4.4 g/dL High 2.2-4.2 [facility] Comment on above: Performed By: #### M 100.2200 #### [facility] [address] [place], [address] Glucose [Mass/Vol] 84 mg/dL Normal 74-106 [facility] Comment on above: Performed By: #### M 100.2200 #### [facility] [address] [place], [address] Potassium [Moles/Vol] 4.3 mmol/L Normal 3.5-5.1 [facility] Comment on above: Performed By: #### M 100.2200 #### [facility] [address] [place], [address] Sodium [Moles/Vol] 139 mmol/L Normal 136-145 [facility] Comment on above: Performed By: #### M 100.2200 #### [facility] [address] [place], [address] T PROT 7.7 g/dL Normal 6.4-8.2 [facility] Comment on above: Performed By: #### M 100.2200 #### [facility] [address] [place], [address] Urea nitrogen [Mass/Vol] 18 mg/dL Normal 7-18 [facility] Comment on above: Performed By: #### M 100.2200 #### [facility] [address] [place], [address] Hemoglobin A1con 06-18-2024 HbA1c (Bld) [Mass fraction] 4.8 % Normal 3.8-5.6 [facility] Comment on above: Result Comment: Norm al < 5.7 % Prediabetic 5.7 - 6.4 % Diabetic >or= 6.5 % Please note range changes. Performed By: #### M 100.2200 #### [facility] [address] [place], [address] Lipid Profileon 06-18-2024 Cholesterol [Mass/Vol] 197 mg/dL Normal 200 [facility] Comment on above: Result Comment: <200 mg/dL Desirable 200-240 mg/dL Borderline >240 mg/dL High Risk Performed By: #### M 100.2200 #### [facility] [address] [place], [address] Cholesterol in HDL [Mass/Vol] 58 mg/dL Normal [facility] Comment on above: Result Comment: The drugs N-Acetylcysteine and Metamizole may falsely depress this assay. Reference Range HDL <40 mg/dL Low HDL Cholesterol HDL >or= 60 mg/dL High HDL Cholesterol Performed By: #### M 100.2200 #### [facility] [address] [place], [address] Cholesterol in LDL [Mass/Vol] 102 mg/dL Normal 0-130 [facility] Comment on above: Performed By: #### M 100.2200 #### [facility] [address] [place], [address] Cholesterol in VLDL [Mass/Vol] 37 mg/dL Normal 5-40 [facility] Comment on above: Performed By: #### M 100.2200 #### [facility] [address] [place], [place], [address] Triglyceride [Mass/Vol] 183 mg/dL Normal [facility] Comment on above: Result Comment: The drugs N-Acetylcysteine and Metamizole may falsely depress this assay. Serum Triglycerides Reference Interval Normal <150 mg/dL Borderline high 150 - 199 mg/dL High 200 - 499 mg/dL Very High > or = 500 mg/dL Performed By: #### M 100.2200 #### [facility] [address] [place], [address] SCRN MAMM (CAD)W/SIOMARA BILATo n 04-06-2024 SCRN MAMM (CAD)W/SIOMARA BILAT [facility] [address] [place], [place] [address] SCRN MAMM (CAD)W/SIOMARA BILAT MR#: [id number] Acct: [id number] Name: HAVEN ALBERT Rep #: [id number] : 1990 F 34 From: Emeka coello MD PCP: Dr. Divine Hopper MD Status: [facility] Study: SCRN MAMM (CAD)W/SIOMARA BILAT Date of Exam: 01/20 Exam# [id number] Ordering Dr: Jessenia Bejarano SOLE RUFFER SOLE RUFFER -C [id number] MAMMOGRAPHY - BILATERAL SCREENING REASON FOR EXAM: Female, 34 years old. Routine annual screening examination. PERTINENT HISTORY: Non-contributory. TECHNIQUE: Digital bilateral breast siomara (3D mammographic acquisition) in the CC and MLO projections. 2-D mediolateral oblique (MLO) and craniocaudad (CC) views of both breasts were obtained. CAD: Full Field Digital Mammography with Computer Added Detection was performed. COMPARISON: Comparison is made with prior study January 09, 2021. FINDINGS: Breast Composition: The breasts are heterogeneously dense, which may obscure small masses. There are no dominant masses or suspicious calcifications. Small bilateral fat containing axillary lymph nodes. No other significant abnormalities are identified. There has been no significant change since the prior study. BI/SCRN MAMM (CAD)W/SIOMARA BILAT IMPRESSION: Stable bilateral screening mammogram. Yearly follow-up mammogram recommended. (A) ASSESSMENT CATEGORY: BIRADS Category 2: Benign. A letter regarding these results will be sent to the patient by the facility within 30 days. Approximately 10% of breast cancers are not detected by mammography. A normal mammogram should not delay biopsy of a clinically suspicious abnormality. [id number] Electronically Signed: Emeka Menjivar MD at 8:27 EST Reading Location ID and State: [address] [place] [address] , Service support , CC: GURVINDER Bejarano; Dr. Divine Hopper MD Direct Care Professional: Signed Normal [facility] Senior Manager Creative Services Office Visit Reporton 03-16-2024 Senior Manager Creative Services Office Visit Report [facility] [address], [address] [place] [address] OFFICE VISIT Date of Service: 03/16/24 MR#: [id number] Acct: [id number] Name: HAVEN ALBERT Rep #: [id number] : 1990 Provider: GURVINDER cisneros Age/Sex: 33/F Location: [facility] [place] Status: Signed Intake Vital Signs 03/11/23 14:03 07/18/23 13:00 02/24/24 08:16 03/16/24 13:24 03/16/24 13:29 Height 5 ft 11 in 5 ft 11 in 5 ft 11 in 5 ft 11 in 5 ft 11 in Weight: 210 lb 212 lb 6 oz BMI 29.2 29.6 BP 113/68 110/66 Blood Pressure Location Lt brachial Position Sitting Respiration 16 Pulse 78 Pulse Source Monitor Temp 97.1 F L Temperature Source Temporal Artery Pulse Oximetry (%) 97 Oxygen Delivery Method room air 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: No Is patient in pain?: No Allergies nitrofurantoin (From Macrobid) Adverse Reaction (Intermediate, Verified 03/16/24 13:24) Rash Medications ???Medication ???Instructions ???Recorded ???Confirmed ???Type multivitamin 1 ea PO DAILY 12/04/17 03/16/24 History D-Mannose 1 tab PO DAILY 12/06/17 03/16/24 History potassium citrate 15 mEq (1,620 15 meq PO BID 04/08/18 03/16/24 History mg) tablet,extended release dapsone 7.5 % topical gel with 1 applic topical DAILY 12/21/19 03/16/24 History pump (Aczone) spironolactone 25 mg tablet 50 mg PO DAILY 12/21/19 03/16/24 History Semaine PO 06/17/23 03/16/24 History rohto EACH EYE 06/17/23 03/16/24 History eye drop .Route 12/18/23 03/16/24 History omeprazole 40 mg capsule,delayed 40 mg PO DAILY #90 caps 12/18/23 03/16/24 Rx release montelukast 10 mg tablet 10 mg PO QPM #90 tabs 02/21/24 03/16/24 Rx (Singulair) azelastine 0.05 % eye drops 1 drp ophthalmic (eye) BID 03/16/24 03/16/24 History desogestrel-e.estradi ol 0.15 1 tab PO DAILY #84 tabs 03/16/24 03/16/24 Rx mg-0.02 mg(21)/e.estrad 0.01 mg(5) tablet Is last menstrual period known: Yes Last Menstrual Period: 02/26/24 Post menopausal: No Patient : No : No Control Method: OCP PFSH Medical History Hypertriglyceridemia Sprain of right hand Leukocytosis Elevated blood pressure reading without diagnosis of hypertension History of kidney stones Anemia GERD (gastroesophageal reflux disease) Deaf BENIGN BRAIN TUMOR REMOVED Urinary calculi Calculus of kidney Surgical History History of lung biopsy H/O brain surgery Family History Grandmother Lung cancer Cancer Grandfather Cancer Mother Anemia Social History household members: spouse current occupational status: employed current occupation: [employer] Smoking Status: Never smoker alcohol intake: current alcohol intake frequency: holidays/special occasions only substance use type: does not use caffeine: No what type of physical activity do you participate in: none seatbelt use: always do you feel safe at home: Yes additional social history: Single History 0 Elective abortions Hx Para Spontaneous abortions Hx # Term Pregnancies Ectopic pregnancies Hx # Pregnancies Multiple births # of living children HPI Encounter for routine gynecological examination Details: HAVEN ALBERT is a 33 year old who presents for annual exam. Denies concerns. Same sexual partner. Happy with OCP use. Seeing Dr Kitchen for recurrent UTIs. Better since had kidney stone removed. Last PAP: 2021 History of abnormal PAP: no Last mammogram: 2021 History of abnormal mammogram: no Colon cancer screening: age 44 Other preventative health care screenings: Ruchi Female Reproductive History Last Menstrual Period: 02/26/24 Cycle Length: 21-35 Questions: metorrhagia: No, sexually active: Yes, dyspareunia: No and PCB: No ROS Const Constitutional: Denies fatigue, weight gain or weight loss Cardio Card: Denies chest pain Resp Resp: Denies cough or dyspnea on exertion GI GI: Denies abdominal pain, bloating, change in stool character, constipation or vomiting : Reports as per HPI; Denies difficulty voiding, pelvic pain, urinary frequency, urinary incontinence, urinary urgency, vaginal discharge or vaginal pruritus Exam Const General: cooperative, healthy appearing, no acute distress and well developed Orientation: alert, oriented to person and oriented to place HENCA Head: normal to inspection Neck Neck: normal visual inspection Thyroid: thyroid normal Lymphatic: no lymphadenopathy noted Chest Breast inspection: normal inspection o (more content not included)... Normal [facility] Miscellaneous Lab Procedureo n 03-12-2024 [facility] LAB TEST Normal [facility] Comment on above: Order Comment: SER/R [id number] MANNOSE BINDING LECTIC SER/RT Result Comment: TEST RESULTS LIMITS Mannose Binding Lectin (MBL) 3853 ng/mL Low: 0 - 50 Intermediate: 51 - 500 Normal: >500 TESTING PERFORMED AT [facility]. ORIGINAL REPORT ON FILE IN LAB CONTAINS ADDITIONAL TEST SITE INFORMATION. Performed By: #### M 100.2200 #### [facility] [address] [place], [address] Complement CH50on 03-06-2024 COMPLEMENT,CH50 > 60 Normal >41 [facility] Comment on above: Order Comment: N Result Comment: Age Male Female 1 - 30 days Not Estab. Not Estab. 31 days - 6 months >32 >20 7 months - 17 years >39 >39 >17 years >41 >41 NOTE: The adult (>17 years) reference interval range is used to flag abnormals on this report. If the patient is 17 years old or younger, use the table above to determine out of range values. Performed at: [address] [id number] Sheeter Helper: Darian Curtis PhD, Phone: [phone] Performed at: [facility] Lab[address] [id number] Sheeter Helper: Ying Encarnacion MD, Phone: [phone] Performed By: #### L 506.1000, L3200.1100, L3200.0500, L100.0100, L801.1541, L3100.5600 #### [facility] [address] [place], [address] IgG Subclasseson 03-06-2024 IgG, SUBCLASS 1 550 mg/dL Normal 248-810 [facility] Comment on above: Order Comment: N Performed By: #### L 506.1000, L3200.1100, L3200.0500, L100.0100, L801.1541, L3100.5600 #### [facility] [address] [place], [address] IgG, SUBCLASS 2 377 mg/dL Normal 130-555 [facility] Comment on above: Order Comment: N Performed By: #### L 506.1000, L3200.1100, L3200.0500, L100.0100, L801.1541, L3100.5600 #### [facility] [address] [place], [address] IgG, SUBCLASS 3 58 mg/dL Normal 15-102 [facility] Comment on above: Order Comment: N Performed By: #### L 506.1000, L3200.1100, L3200.0500, L100.0100, L801.1541, L3100.5600 #### [facility] [address] [place], [address] IgG, SUBCLASS 4 13 mg/dL Normal 2-96 [facility] Comment on above: Order Comment: N Performed By: #### L 506.1000, L3200.1100, L3200.0500, L100.0100, L801.1541, L3100.5600 #### [facility] [address] [place], [address] IGG,QUANT 1115 mg/dL Normal 586-1602 [facility] Comment on above: Order Comment: N Performed By: #### L 506.1000, L3200.1100, L3200.0500, L100.0100, L801.1541, L3100.5600 #### [facility] [address] [place], [address] Immunoglobulins G/A/M/Elijah IMMUNOGLOB A QN 338 mg/dL Normal 87-352 [facility] Comment on above: Order Comment: N Performed By: #### L 506.1000, L3200.1100, L3200.0500, L100.0100, L801.1541, L3100.5600 #### [facility] [address] [place], [address] IMMUNOGLOB E QN 9 IU/mL Normal 6-495 [facility] Comment on above: Order Comment: N Performed By: #### L 506.1000, L3200.1100, L3200.0500, L100.0100, L801.1541, L3100.5600 #### [facility] [address] [place], [address] IMMUNOGLOB M QN 90 mg/dL Normal 26-217 [facility] Comment on above: Order Comment: N Performed By: #### L 506.1000, L3200.1100, L3200.0500, L100.0100, L801.1541, L3100.5600 #### [facility] [address] [place], [address] CBC W/Diff, Automatedon 11-0 REACTIVE LYMPH 1+ Normal [facility] Comment on above: Performed By: #### L 506.1000, L3200.1100, L3200.0500, L100.0100, L801.1541, L3100.5600 #### [facility] [address] [place], [address] SMEAR COMMENT SCANNED Normal [facility] Comment on above: Performed By: #### L 506.1000, L3200.1100, L3200.0500, L100.0100, L801.1541, L3100.5600 #### [facility] [address] [place], [address] TOXIC GRAN 2+ Normal [facility] Comment on above: Performed By: #### L 506.1000, L3200.1100, L3200.0500, L100.0100, L801.1541, L3100.5600 #### [facility] [address] [place], [address] Vitamin D,25 Hydroxyon 03-02 Vitamin D 25-OH 21.8 ng/mL Normal [facility] Comment on above: Result Comment: Daphne min D 25(OH) Status Range Deficiency <20 ng/mL (50nmol/L) Insufficiency 20 - 30 ng/mL (50 - 75 nmol/L) Sufficiency 30 - 100 ng/mL (75 - 250 nmol/L) Toxicity >100 ng/mL (>250 nmol/L) Performed By: #### L 506.1000, L3200.1100, L3200.0500, L100.0100, L801.1541, L3100.5600 #### [facility] [address] [place], [address] Pulmonary Visit Reporton Pulmonary Visit Report [facility] [place] [address] [place], [place] [address] OFFICE VISIT Date of Service: 02/24/24 MR#: [id number] Acct: [id number] Name: HAVEN ALBERT Rep #: [id number] : 1990 Provider: GURVINDER Duggan Age/Sex: 33/F Location: [facility] [place].[facility] Status: Signed Assessment and Plan Assessment and Plan (1) Sarcoidosis: Status: Chronic Plan: Symptomatically stable. PFT to ensure stability. No need for intervention or treatment. Follow-up with Dr. Juares in 6 months to continue surveillance. (2) Allergic rhinitis: Status: Chronic Qualifiers: Allergic rhinitis trigger: unspecified Allergic rhinitis seasonality: seasonal Qualified Code(s): J30.2 - Other seasonal allergic rhinitis Plan: Continue Singulair as prescribed along with saline nasal rinses, per allergy recommendations. Orders: Orders Pulmonary Function Test (Comp) 02/24/24 D86.9 - Sarcoidosis, unspecified Plan Details Follow Up: 6 Months (DMB) HPI 1 Y FU Chief Complaint: Chronic cough HPI Comments Details: This patient presents to the office today for follow-up of her sarcoidosis. She is ambulatory and currently on room air. She has not recently been seen in the ED or urgent care for any respiratory illness. She has not required any antibiotics or prednisone for any breathing problems. She is not requiring a maintenance inhaler. She does continue with the Singulair. She has not recently needed to use her albuterol rescue inhaler. She is using ipratropium bromide nasal spray, she finds it to be helpful. She is a lifelong never smoker. She denies any difficulty with shortness of breath. She reports a cough that is productive of thick dark yellow to white colored sputum, she denies any hemoptysis. She denies any chest tightness, chest pain, chest tightness or wheezing. She has not had any palpitations. She denies any fever, chills or body aches. She does experience headaches about 1-2 times weekly. Intake Vital Signs 02/19/23 11:21 07/18/23 13:00 12/18/23 13:52 02/24/24 08:16 Height 5 ft 11 in 5 ft 11 in 5 ft 11 in 5 ft 11 in Weight: 210 lb BMI 29.2 BP 113/68 Blood Pressure Location Lt brachial Position Sitting Respiration 16 Pulse 78 Pulse Source Monitor Temp 97.1 F L Temperature Source Temporal Artery Pulse Oximetry (%) 97 Oxygen Delivery Method room air Intake Visit Reasons: 1 Y FU Chief Complaint: f/u DME Vendor: N/A Accompanied by: Self Allergies nitrofurantoin (From Macrobid) Adverse Reaction (Intermediate, Verified 02/24/24 13:49) Rash Medications ???Medication ???Instructions ???Recorded ???Confirmed ???Type multivitamin 1 ea PO DAILY 12/04/17 02/24/24 History D-Mannose 1 tab PO DAILY 12/06/17 02/24/24 History potassium citrate 15 mEq (1,620 15 meq PO BID 04/08/18 02/24/24 History mg) tablet,extended release dapsone 7.5 % topical gel with 1 applic topical DAILY 12/21/19 02/24/24 History pump (Aczone) spironolactone 25 mg tablet 50 mg PO DAILY 12/21/19 02/24/24 History Semaine PO 06/17/23 02/24/24 History rohto EACH EYE 06/17/23 02/24/24 History desogestrel-e.estradi ol 0.15 1 tab PO DAILY 12/18/23 02/24/24 History mg-0.02 mg(21)/e.estrad 0.01 mg(5) tablet eye drop .Route 12/18/23 02/24/24 History omeprazole 40 mg capsule,delayed 40 mg PO DAILY #90 caps 12/18/23 02/24/24 Rx release montelukast 10 mg tablet 10 mg PO QPM #90 tabs 02/21/24 02/24/24 Rx (Singulair) PFSH Medical History Hypertriglyceridemia Preventative health care Diarrhea Sprain of right hand Leukocytosis Elevated blood pressure reading without diagnosis of hypertension History of kidney stones Anemia GERD (gastroesophageal reflux disease) Deaf Partial facial paralysis BENIGN BRAIN TUMOR REMOVED Urinary calculi Calculus of kidney Surgical History History of lung biopsy H/O brain surgery Family History Grandmother Lung cancer Cancer Grandfather Cancer Mother Anemia Social History household members: spouse current occupational status: employed current occupation: [employer] Smoking Status: Never smoker alcohol intake: current alcohol intake frequency: holidays/special occasions only substance use type: does not use caffeine: No what type of physical activity do you participate in: none seatbelt use: always do you feel safe at home: Yes additional social history: Single Review of Systems Resp Respiratory: Yes as per HPI Exam Const Constitutional: Positive conversant (more content not included)... Normal [facility] .MDWon 01-16-2024 Monocyte Distribution Width 16.28 Normal 0.00-20.00 [facility] Comment on above: Result Comment: For ED adult patients suspected of sepsis, MDW<=20.0 does not rule out sepsis or risk of sepsis Performed By: #### BENI BENTLEY MDW, DIFF #### [place] [address] .Manual Diffon 01-16-2024 Basophil %, Manual 0.0 % Normal 0.0-2.5 [facility] Comment on above: Performed By: #### BENI BENTLEY MDW, DIFF #### [place] [address] Basophil, Abs Manual 0.0 10 3/mcL Normal 0.0-0.2 [facility] Comment on above: Performed By: #### BENI BENTLEY MDW, DIFF #### [place] [address] Eosinophil %, Manual 0.0 % Normal 0.0-7.0 [facility] Comment on above: Performed By: #### BENI BENTLEY MDW, DIFF #### [place] [address] Eosinophil, Abs Manual 0.0 10 3/mcL Normal 0.0-0.4 [facility] Comment on above: Performed By: #### BENI BENTLEY MDW, DIFF #### [place] [address] Lymphocyte %, Manual 12.0 % Normal 10.0-50.0 [facility] Comment on above: Performed By: #### BENI BENTLEY MDW, DIFF #### [place] [address] Lymphocyte, Abs Manual 3.1 10 3/mcL Normal 0.8-3.9 [facility] Comment on above: Performed By: #### BENI BENTLEY MDW, DIFF #### [place] [address] Monocyte %, Manual 7.0 % Normal 1.7-13.0 [facility] Comment on above: Performed By: #### BENI BENTLEY MDW, DIFF #### [place] [id number] Monocyte, Abs Manual 1.8 10 3/mcL High 0.2-1.0 [facility] Comment on above: Performed By: #### C BENI LEE MDW, DIFF #### [address] [address] Neutrophil %, Manual 81.0 % High 37.0-80.0 [facility] Comment on above: Performed By: #### C BENI LEE MDW, DIFF #### [address] [address] Neutrophil, Abs Manual 20.9 10 3/mcL High 2.9-6.2 [facility] Comment on above: Performed By: #### BENI BENTLEY MDW, DIFF #### [address] [address] Nucleated RBC 0.0 /100 WBC Normal [facility] Comment on above: Performed By: #### BENI BENTLEY MDW, DIFF #### [address] [address] .Morphon 01-16-2024 Platelet Estimate Slt Increased Normal [facility] Comment on above: Performed By: #### BENI BENTLEY MDW, DIFF #### [address] [address] RBC morphology finding Nom (Bld) Normal Normal [facility] Comment on above: Performed By: #### C BENI LEE MDW, DIFF #### [address] [address] CBCon 01-16-2024 Erythrocyte distribution width (RBC) [Ratio] 13.3 % Normal 11.5-14.5 [facility] Comment on above: Performed By: #### BENI BENTLEY MDW, DIFF #### [address] [address] Hematocrit (Bld) [Volume fraction] 39.8 % Normal 37.0-47.0 [facility] Comment on above: Performed By: #### BENI BENTLEY MDW, DIFF #### [address] [address] Hgb 13.6 G/dL Normal 12.0-16.0 [facility] Comment on above: Performed By: #### C BENI LEE MDW, DIFF #### [address] [address] MCH (RBC) [Entitic mass] 30.3 pg Normal 27.0-31.2 [facility] Comment on above: Performed By: #### C BENI LEE MDW, DIFF #### [address] [address] [address] MCHC 34.1 G/dL Normal 33.0-37.0 [facility] Comment on above: Performed By: #### C BENI LEE MDW, DIFF #### [address] [address] MCV (RBC) [Entitic vol] 88.8 fL Normal 80.0-94.0 [facility] Comment on above: Performed By: #### C BENI LEE MDW, DIFF #### [address] [address] Platelet 551 10 3/mcL High 130-400 [facility] Comment on above: Performed By: #### C BENI LEE MDW, DIFF #### [address] [address] Platelet mean volume (Bld) [Entitic vol] 7.0 fL Low 7.4-10.4 [facility] Comment on above: Performed By: #### C BENI LEE MDW, DIFF #### [address] [address] RBC 4.48 10 6/mcL Normal 4.20-5.40 [facility] Comment on above: Performed By: #### C BENI LEE MDW, DIFF #### [address] [address] WBC 25.9 10 3/mcL High 4.6-10.8 [facility] Comment on above: Performed By: #### C BC, MORPH, MDW, DIFF #### [place] [place] [address] [place] [address] LABORATORYOrdered By: SYSTEM SYSTEM on 01-16-2024 Basophil %, Manual 0.0 % Normal 0.0 - 2.5 % AO Wo rkflow SS Basophils (Bld) [#/Vol] 0.0 103/mcL Normal 0.0 - 0.2 10^3/mcL AO Workflow SS Eosinophil %, Manual 0.0 % Normal 0.0 - 7.0 % AO Workflow SS Eosinophils (Bld) [#/Vol] 0.0 103/mcL Normal 0.0 - 0.4 10^3/mcL AO Workflow SS Erythrocyte distribution width (RBC) [Ratio] 13.3 % Normal 11.5 - 14.5 % AO Workflow SS Hematocrit (Bld) [Volume fraction] 39.8 % Normal 37.0 - 47.0 % AO Workflow SS Hemoglobin (Bld) [Mass/Vol] 13.6 G/dL Normal 12.0 - 16.0 G/dL AO Workflow SS Lymphocytes (Bld) [#/Vol] 3.1 103/mcL Normal 0.8 - 3.9 10^3/mcL AO Workflow SS Lymphocytes/100 WBC (Bld) 12.0 % Normal 10.0 - 50.0 % AO Workflow SS MCH (RBC) [Entitic mass] 30.3 pg Normal 27.0 - 31.2 pg AO Workflow SS MCHC 34.1 G/dL Normal 33.0 - 37.0 G/dL AO Workflow SS MCV (RBC) [Entitic vol] 88.8 fL Normal 80.0 - 94.0 fL AO Workflow SS Monocyte distribution width Auto (Bld) [Entitic vol] 16.28 1 Normal 0.00 - 20.00 AO Workflow SS Comment on above: Result Comment: For ED adult patients suspected of sepsis, MDW<=20.0 does not rule out sepsis or risk of sepsis Monocytes (Bld) [#/Vol] 1.8 103/mcL High 0.2 - 1.0 10^3/mcL AO Workflow SS Monocytes/100 WBC (Bld) 7.0 % Normal 1.7 - 13.0 % AO Workflow SS Neutrophils (Bld) [#/Vol] 20.9 103/mcL High 2.9 - 6.2 10^3/mcL AO Workflow SS Neutrophils/100 WBC (Bld) 81.0 % High 37.0 - 80.0 % AO Workflow SS Nucleated RBC 0.0 /100 WBC Invalid Interpretation Code AO Workflow SS Platelet mean volume (Bld) [Entitic vol] 7.0 fL Low 7.4 - 10.4 fL AO Workflow SS Platelets (Bld) [#/Vol] 551 103/mcL High 130 - 400 10^3/mcL AO Workflow SS Platelets LM Ql (Bld) Slt Increased *NA* (01/16/24 11:29 PM) Invalid Interpretation Code AO Workflow SS RBC (Bld) [#/Vol] 4.48 106/mcL Normal 4.20 - 5.4 0 10^6/mcL AO Workflow SS RBC morphology finding Nom (Bld) Normal *NA* (01/16/24 11:29 PM) Invalid Interpretation Code AO Workflow SS WBC (Bld) [#/Vol] 25.9 103/mcL High 4.6 - 10.8 10^3/mcL AO Workflow SS LABORATORYOrdered By: Dana Naranjo on 01-16-2024 HCG ( test) Ql Negative (01/16/24 11:29 PM) Normal AO Manual Urine SS test (u) int Not detected Invalid Interpretation Code AO Manual Urine SS PREGUon 01-16-2024 HCG ( test) Ql (U) Negative Normal [facility] Comment on above: Performed By: #### P REGU #### [address] [address] test (u) int Not detected Invalid Interpretation Code [facility] Comment on above: Performed By: #### P REGU #### [address] [address] Urine Cultureon 12-26-2023 U[facility] Escherichia coli Donalds Count >100,000 Escherichia coli: REACTION Ampicillin Islt HUMBERTO >=32 R Ampicillin+Sulbac Islt HUMBERTO 16 I ceFAZolin Islt HUMBERTO <=4 S Cefepime Islt HUMBERTO <=0.12 S cefTRIAXone Islt HUMBERTO <=0.25 S Ciprofloxacin Islt HUMBERTO 1 S Ertapenem Islt HUMBERTO <=0.12 S B-Lactamase Extended Susc Islt NEG Gentamicin Islt HUMBERTO >=16 R Imipenem Islt HUMBERTO <=0.25 S levoFLOXacin Islt HUMBERTO 1 S Nitrofurantoin Islt HUMBERTO <=16 S Pip+Tazo Islt HUMBERTO <=4 S Tobramycin Islt HUMBERTO 8 I TMP SMX Islt HUMBERTO >=320 R Normal [facility] Comment on above: Performed By: #### M 100.2200 #### [facility] [address] [place], [place], [address] Abdomen Single Viewon 2023 Abdomen Single View [facility] [address] [place] [address] Abdomen Single View MR#: [id number] Acct: [id number] Name: HAVEN ALBERT Rep #: [id number] : 1990 F 33 From: Fan Ayala DO PCP: Dr. Divine Hopper MD Status: [facility] CLI Study: Abdomen Single View Date of Exam: 12/24/23 Exam# [id number] Ordering Dr: Yang Kitchen MD [id number] STUDY: X-RAY - ABDOMEN/PELVIS REASON FOR EXAM: Female, 33 years old. URINARY CALCULIS TECHNIQUE: Frontal views COMPARISON: None. FINDINGS: There is an unremarkable bowel gas pattern. Colonic fecal retention. There is no demonstrated free abdominal air. Possible calcifications over the left renal shadow. Normal soft tissue structures. Normal visualized osseous structures. RAD/Abdomen Single View IMPRESSION: Possible calcification over the left renal shadow. Colonic fecal retention. Electronically Signed: Fan Ayala DO at 20:15 EDT , CC: Dr. Divine Hopper MD; Dr. Yang Kitchen MD Direct Care Professional: Signed Normal [facility] Internal Medicine Office Vis khurram 12-18-2023 Internal Medicine Office Visit [facility] [address] [place] [address] [place] [address] OFFICE VISIT Date of Service: 12/18/23 MR#: [id number] Acct: [id number] Name: HAVEN ALBERT Rep #: [id number] : 1990 Provider: Dr. 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 Accompanied by: Self Is patient in pain?: No Allergies No Known Allergies Allergy (Verified 12/18/23 13:48) Medications ???Medication ???Instructions ???Recorded ???Confirmed ???Type multivitamin 1 ea PO DAILY 12/04/17 12/18/23 History D-Mannose 1 tab PO DAILY 12/06/17 12/18/23 History potassium citrate 15 mEq (1,620 15 meq PO BID 04/08/18 12/18/23 History mg) tablet,extended release dapsone 7.5 % topical gel with 1 applic topical DAILY 12/21/19 12/18/23 History pump (Aczone) fluorometholone 0.1 % eye 1 drp ophthalmic (eye) BID 12/21/19 12/18/23 History drops,suspension spironolactone 25 mg tablet 50 mg PO DAILY 12/21/19 12/18/23 History montelukast 10 mg tablet 10 mg PO QPM #90 tabs 02/19/23 12/18/23 Rx (Singulair) Semaine PO 06/17/23 07/18/23 History rohto EACH EYE 06/17/23 12/18/23 History cyclosporine 0.05 % eye drops in a drp ophthalmic (eye) Dry eye 12/18/23 12/18/23 History dropperette (Restasis) desogestrel-e.estradi ol 0.15 1 tab PO DAILY 12/18/23 History mg-0.02 mg(21)/e.estrad 0.01 mg(5) tablet eye drop .Route 12/18/23 12/18/23 History omeprazole 40 mg capsule,delayed 40 mg PO DAILY #90 caps 12/18/23 12/18/23 Rx release REPLACED BY [facility] Medical History (Updated 12/18/23 @ 14:[address] Divine Hopper MD) Hypertriglyceridemia Preventative health care Diarrhea Sprain of right hand Leukocytosis Elevated blood pressure reading without diagnosis of hypertension History of kidney stones Anemia GERD (gastroesophageal reflux disease) Deaf Partial facial paralysis BENIGN BRAIN TUMOR REMOVED Urinary calculi Calculus of kidney Surgical History History of lung biopsy H/O brain surgery Family History Grandmother Lung cancer Cancer Grandfather Cancer Mother Anemia Social History household members: spouse current occupational status: employed current occupation: [employer] Smoking Status: Never smoker alcohol intake: current alcohol intake frequency: holidays/special occasions only substance use type: does not use caffeine: No what type of physical activity do you participate in: none seatbelt use: always do you feel safe at home: Yes additional social history: Single HPI HPI Chief Complaint: 6m f/u Details: HAVEN ALBERT, is a 33 F who presents to the office today for follow-up of her chronic conditions. No acute concerns at this time. At her last visit, triglycerides were elevated. She states that she has not made any significant dietary and lifestyle changes. No significant family history of elevated triglycerides. She states that she has been less active. History of reflux. Has been on omeprazole which she states that she is taking consistently. Has not tried holding. 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 Other chronic conditions are stable. ROS Const Constitutional: No body ache, chills, excessive sweating, fatigue, fever(s), frequent falls, headache(s), snoring, weakness or change in appetite Eyes Eyes: No blurry vision, change in vision, bulging eyes, floaters, visual disturbances, eye pain or Light sensitivity ENT ENT: No abnormal hearing, ear or mastoid pain, tinnitus, balance problems, nosebleed/epistaxis, nasal congestion, headache(s), neck pain or sore throat Resp Respiratory: No cough, excessive phlegm production, pain on inspiration, shortness of breath, snoring or wheezing Cardio Cardiology: No chest pain at rest, chest pain with exertion, excessive sweating, dyspnea on exertion, lightheadedness, orthopnea or palpitations Gastro GI: No abdominal pain, change in bowel habits, constipation, cramping, diarrhea, nausea/dyspepsia or vomiting Genitourinary-Female: No burning urination, painful urination, urinary incontinence, urinary frequency, suprapubic fullness or side pain Musc (more content not included)... Normal [facility] Urine Cultureon 12-17-2023 [facility] Below infection level. Gram negative kamlesh Donalds Count <1000 Normal [facility] Comment on above: Performed By: #### M 100.2200 ####[facility] [id number] [facility] [place], [address] Kidney and Bladderon 024 Kidney and Bladder [facility] [address] [place] [address] Kidney and Bladder MR#: [id number] Acct: [id number] Name: HAVEN ALBERT Rep #: [id number] : 1990 F 33 From: Arlene Grande PCP: Dr. Divine Hopper MD Status: [facility] CL Study: Kidney and Bladder Date of Exam: 12/16/23 Exam# [id number] Ordering Dr: Yang Kitchen MD [id number] INDICATION: HX OF URINARY CALCULUS EXAMINATION: Ultrasound US Kidney(s) complete (eg, kidneys and bladder) TECHNIQUE: Gambino scale and color doppler images were obtained of the kidneys. COMPARISON: No relevant prior comparison study available __ FINDINGS: RIGHT KIDNEY: 10.9 cm length. There is no hydronephrosis. No shadowing calculus, focal lesion or perinephric collection is demonstrated. LEFT KIDNEY: 12.6 cm length. There is no hydronephrosis. 7 mm echogenic focus in the lower pole consistent with a calculus. URINARY BLADDER: Distended. Bladder volume 255 mL. Bilateral ureteral jets visualized. US/Kidney and Bladder IMPRESSION: Nonobstructing intrarenal calculus in the left kidney. No hydronephrosis.. Electronically Signed: Arlene Wong MD at 7:45 EDT , CC: Dr. Divine Hopper MD; Dr. Yang Kitchen MD Direct Care Professional: Signed Normal [facility] Urine Cultureon 11-28-2023 U[facility] Escherichia coli Donalds Count >100,000 Escherichia coli: REACTION Ampicillin Islt HUMBERTO >=32 R Ampicillin+Sulbac Islt HUMBERTO 16 I ceFAZolin Islt HUMBERTO 16 I Cefepime Islt HUMBERTO <=0.12 S cefTRIAXone Islt HUMBERTO <=0.25 S Ciprofloxacin Islt HUMBERTO 0.5 S Ertapenem Islt HUMBERTO <=0.12 S B-Lactamase Extended Susc Islt NEG Gentamicin Islt HUMBERTO >=16 R Imipenem Islt HUMBERTO <=0.25 S levoFLOXacin Islt HUMBERTO 1 S Nitrofurantoin Islt HUMBERTO <=16 S Pip+Tazo Islt HUMBEROT <=4 S Tobramycin Islt HUMBERTO 8 I TMP SMX Islt HUMBERTO <=20 S Normal [facility] Comment on above: Performed By: #### M 100.0914 #### [facility] [address] [place], [place], [address] Urine Cultureon 11-13-2023 URC Escherichia coli Donalds Count >100,000 Escherichia coli: REACTION Ampicillin Islt HUMBERTO >=32 R Ampicillin+Sulbac Islt HUMBERTO 16 I ceFAZolin Islt HUMBERTO 16 I Cefepime Islt HUMBERTO <=0.12 S cefTRIAXone Islt HUMBERTO <=0.25 S Ciprofloxacin Islt HUMBERTO <=0.25 S Ertapenem Islt HUMBERTO <=0.12 S B-Lactamase Extended Susc Islt NEG Gentamicin Islt HUMBERTO >=16 R Imipenem Islt HUMBERTO <=0.25 S levoFLOXacin Islt HUMBERTO 1 S Nitrofurantoin Islt HUMBERTO <=16 S Pip+Tazo Islt HUMBERTO <=4 S Tobramycin Islt HUMBERTO 8 I TMP SMX Islt HUMBERTO 40 S Normal [facility] Comment on above: Performed By: #### M 100.2200 ####[facility] [id number] [place], [place], [address] Urgent Care Visit Reporton 0 10-22-2023 Urgent Care Visit Report [facility] [address], [address] [place], [place] [address] OFFICE VISIT Date of Service: 10/22/23 MR#: [id number] Acct: [id number] Name: HAVEN ALBERT Rep #: [id number] : 1990 Provider: JAIRON Do Age/Sex: 33/F Location: [facility] [place] Status: Signed Intake Vital Signs 07/18/23 13:00 10/22/23 09:14 Height 5 ft 11 in Weight: 194 lb BMI 27.0 BP 110/70 104/64 Blood Pressure Location Lt brachial Lt brachial Position Sitting Sitting Respiration 18 14 Pulse 76 98 Pulse Source Monitor Auscultation Temp 98.8 F 97.5 F L Temp Source Temporal Temporal Pulse Oximetry (%) 99 98 Oxygen Delivery Method room air room air Intake Visit Reasons: ST/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/COUGH Chief Complaint: 1 year f/u Allergies No Known Allergies Allergy (Verified 07/18/23 12:53) PFSH Medical History Anemia BENIGN BRAIN TUMOR REMOVED Calculus of kidney Deaf Diarrhea Elevated blood pressure reading without diagnosis of hypertension GERD (gastroesophageal reflux disease) History of kidney stones Leukocytosis Partial facial paralysis Preventative health care Sprain of right hand Urinary calculi Surgical History H/O brain surgery History of lung biopsy Family History Grandmother Lung cancer Cancer Grandfather Cancer Mother Anemia Social History household members: spouse current occupational status: employed current occupation: [employer] Smoking Status: Never smoker alcohol intake: current alcohol intake frequency: holidays/special occasions only substance use type: does not use caffeine: No what type of physical activity do you participate in: none seatbelt use: always do you feel safe at home: Yes additional social history: Single HPI HPI Chief Complaint: 1 year f/u Details: HAVEN ALBERT, is a 33 F who presents to the office today for initial evaluation at the [facility] for approximately 3 to 4-day history of progressively worsening sore throat with swollen tender cervical lymph nodes in front of neck, chills/ fever (? Tmax), and rare occasional cough. Painful swallowing appreciated though no difficulty swallowing/drooling. No rash. No complaints of chest pressure/shortness of breath/dyspnea on exertion. No close contacts with similar complaints. ???No dffc-gom-[id number] products taken to assist. No other associated symptoms and no other alleviating/aggravati ng factors. ROS Const Constitutional: No other (As above) Exam Const General: cooperative, healthy appearing and no acute distress Orientation: alert, awake and oriented x3 HENMT Head: normal to inspection Ears: hearing grossly normal bilaterally, external ears normal, TM's normal bilaterally and EAC's normal Nose: external nose normal, nares normal, septum normal and no nasal discharge Face and sinus: normal facial exam, sinuses nontender and face symmetric Mouth: oral mucosae normal, lip normal, tongue normal and oropharynx normal Throat: posterior oropharynx normal, uvula midline, abnormal tonsil bilaterally erythema - exudates - hypertrophy +1, and no postnasal drainage Eyes General: appearance normal, both eyes and all related structures Neck Neck: normal visual inspection, full ROM, no meningeal signs, supple and lymphadenopathy (Bilateral anterior cervical lymph node swelling/tender to palpation) Neck mass: No Thyroid: thyroid normal Chest Chest palpation inspection: normal inspection of the chest Resp Effort Inspection: normal respiratory effort and able to speak in complete sentences Auscultation: Bilateral: Clear to Auscultation Cardio Palpation: normal PMI Rate: regular rate Rhythm: regular rhythm Heart Sounds: S1 normal, S2 normal, no gallops, no murmurs and no rubs Pulses: radial pulses present Skin General: no rashes or lesions noted Neuro General: patient alert, patient awake and patient oriented x3 Cognition: normal cognition Speech: speech normal Psych Appearance: grossly normal Mental Status: mental status grossly normal Mood: congruent mood Affect: normal affect Speech and Movement: speech and movement normal Attitude: cooperative Diagnoses Acute streptococcal pharyngitis J02.0 Assessment and Plan Assessment and Plan (1) Acute streptococcal pharyngitis: Status: Acute Plan: - by Cent[facility] criteria and nausea Amoxicillin as prescribed today. Supportive measures as instructed today. Work excuse provided. Follow-up with PCP in 3 to 5 days should symptoms not improve, ED sooner should symptoms worsen or (more content not included)... Normal [facility] Basophil percentageOrdered B y: Divine Hopper on 06-17-2023 Bilirubin [Mass/Vol] 0.40 mg/dL 0.20-1.00 [facility] Comment on above: For patients on eltr ombopag therapy, use of Dimension [place] TBIL is not recommended. Chloride [Moles/Vol] 108 mmol/L 98-107 [facility] Cholesterol [Mass/Vol] 170 mg/dL <200 [facility] Comment on above: <200 mg/dL Desirable 200-240 mg/dL Borderline >240 mg/dL High Risk Glucose [Mass/Vol] 91 mg/dL 74-106 [facility] Potassium [Moles/Vol] 4.1 mmol/L 3.5-5.1 [facility] Protein [Mass/Vol] 7.2 g/dL 6.4-8.2 [facility] Sodium [Moles/Vol] 139 mmol/L 136-145 [facility] Triglyceride [Mass/Vol] 249 mg/dL <199 [facility] Comment on above: The drugs N-Acetylcy steine and Metamizole may falsely depress this assay.Serum Triglycerides Reference Interval Normal <150 mg/dL Borderline high 150 - 199 mg/dL High 200 - 499 mg/dL Very High > or = 500 mg/dL Laboratory - Chemistry and C hemistry - challengeOrdered By: Divine Hopper on 06-17-2023 Albumin/Globulin [Mass ratio] 0.9 {ratio} 0.9-2.4 [facility] ALP [Catalytic activity/Vol] 79 U/L 45-117 [facility] ALT [Catalytic activity/Vol] 22 U/L 13-56 [facility] Cholesterol in HDL [Mass/Vol] 47 mg/dL >40 [facility] Comment on above: The drugs N-Acetylcy steine and Metamizole may falsely depress this assay. Reference Range HDL <40 mg/dL Low HDL Cholesterol HDL >or= 60 mg/dL High HDL Cholesterol Cholesterol in LDL [Mass/Vol] 73 mg/dL 0-130 [facility] CO2 [Moles/Vol] 25.0 mmol/L 21.0-32.0 [facility] Globulin (S) [Mass/Vol] 3.8 g/dL 2.2-4.2 [facility] Urea nitrogen/Creatinine [Mass ratio] 25.1 mg/mg 10-20 [facility] No Panel InformationOrdered By: Divine Hopper on 06-17-2023 Estimated GFR (MDRD) Amer 128 mL/min >60 [facility] Comment on above: GFR Calc Estimated GFR (MDRD) Non-Af Amer 106 mL/min >60 [facility] Comment on above: Non- GFR Calc VLDL Cholesterol 50 mg/dL 5-40 [facility] Serum or plasma calcium claudia urement (mass/volume)Ordered By: Divine Hopper on 06-17-2023 Calcium [Mass/Vol] 9.0 mg/dL 8.5-10.1 [facility] Serum or plasma creatinine m easurement (mass/volume)Ordered By: Divine Hopper on 06-17-2023 Creatinine [Mass/Vol] 0.68 mg/dL 0.55-1.02 [facility] Comment on above: The validity of the calculated GFR & GFRAA in patients over 70 years has not been determined. Clinical correlation is essential. Serum or plasma urea nitroge n measurement (mass/volume)Ordered By: Divine Hopper on 06-17-2023 Urea nitrogen [Mass/Vol] 17 mg/dL 7-18 [facility] Thin prep Papanicolaou smear with manual screeningOrdered By: Divine Hopper on 06-17-2023 Thin prep Papanicolaou smear with manual screening 3.4 g/dL 3.2-5.0 [facility] Thin prep Papanicolaou smear with manual screening 15 U/L 15-37 [facility] Thin prep Papanicolaou smear with manual screening 6 5-15 [facility] Gastrointestinal pathogens p fredi SAMSON+probe (Stl)Ordered By: Divine Hopper on 04-16-2023 Enteric Bacteriology Rotavirus [facility] No Panel InformationOrdered By: Divine Hopper on 04-16-2023 Stool Calprotectin 60 ug/g 0-120 [facility] Comment on above: Concentration Interp retation Follow-Up< 5 - 50 ug/g Normal None>50 -120 ug/g Borderline Re-evaluate in 4-6 weeks >120 ug/g Abnormal Repeat as clinically indicatedPerformed at: [facility] - [facility] [address] [id number] Director: Ying Encarnacion MD, Phone: [phone] Stool lactoferrin detection by immunoassayOrdered By: Divine Hopper on 04-16-2023 Lactoferrin IA Ql (Stl) [facility] Absolute lymphocyte countOrd ered By: Divine Hopper on 04-15-2023 Lymphocytes Auto (Unsp spec) [#/Vol] 2.37 10*3/uL 0.83-4.51 [facility] Basophil percentageOrdered B y: Divine Hopper on 04-15-2023 Basophils/100 WBC (Bld) 0.4 % 0-1 [facility] Chloride [Moles/Vol] 107 mmol/L 98-107 [facility] Eosinophils/100 WBC (Bld) 0.7 % 0-5 [facility] Glucose [Mass/Vol] 89 mg/dL 74-106 [facility] Neutrophils (Bld) [#/Vol] 2.6 10*3/uL 2.0-7.7 [facility] Neutrophils/100 WBC (Bld) 46.3 % 47-70 [facility] Potassium [Moles/Vol] 4.0 mmol/L 3.5-5.1 [facility] Sodium [Moles/Vol] 140 mmol/L 136-145 [facility] WBC (Bld) [#/Vol] 5.5 10*3/uL 4.4-11.0 [facility] Blood erythrocytes count (nu mber/volume)Ordered By: Divine Hopper on 04-15-2023 RBC (Bld) [#/Vol] 4.67 10*6/uL 4.2-5.4 [facility] Blood hemoglobin measurement (mass/volume)Ordered By: Divine Hopper on 04-15-2023 Hemoglobin (Bld) [Mass/Vol] 14.0 g/dL 12.0-15.0 [facility] Blood lymphocytes/100 leukoc ytesOrdered By: Divine Hopper on 04-15-2023 Lymphocytes/100 WBC (Bld) 43.1 % 19-41 [facility] Blood monocytes/100 leukocyt esOrdered By: Divine Hopper on 04-15-2023 Monocytes/100 WBC (Bld) 9.1 % 0-10 [facility] Blood platelet mean volumeOr dered By: Divine Hopper on 04-15-2023 Platelet mean volume (Bld) [Entitic vol] 9.7 fL 6.2-12.0 [facility] Determination of erythrocyte mean corpuscular volume (MCV)Ordered By: Divine Hopper on 04-15-2023 MCV (RBC) [Entitic vol] 91.6 fL 81-99 [facility] Hematocrit Auto (Bld) [Volum e fraction]Ordered By: Divine Hopper on 04-15-2023 Hematocrit (Bld) [Volume fraction] 42.8 % 37-47 [facility] Laboratory - Chemistry and C hemistry - challengeOrdered By: Divine Hopper on 04-15-2023 CO2 [Moles/Vol] 26.0 mmol/L 21.0-32.0 [facility] Free T4 [Mass/Vol] 1.21 ng/dL 0.76-1.46 [facility] Urea nitrogen/Creatinine [Mass ratio] 17.8 mg/mg 10-20 [facility] Laboratory - Hematology and Cell countsOrdered By: Divine Hopper on 04-15-2023 Erythrocyte distribution width (RBC) [Entitic vol] 41.2 fL 35.1-43.9 [facility] Erythrocyte distribution width (RBC) [Ratio] 12.3 % 11.6-14.6 [facility] Immature granulocytes/100 WBC (Bld) 0.400 % 0.0-0.9 [facility] Comment on above: IG% - Immature Granu locytes (promyelocytes, myelocytes and metamyelocytes) > 1% indicates that a LEFT SHIFT is Present. MCH (RBC) [Entitic mass] 30.0 pg 27.0-32.0 [facility] Nucleated RBC/100 WBC (Bld) [Ratio] 0 % 0-5 [facility] MCHC Auto (RBC) [Mass/Vol]Or dered By: Divine Hopper on 04-15-2023 MCHC (RBC) [Mass/Vol] 32.7 g/dL 32-36 [facility] No Panel InformationOrdered By: Divine Hopper on 04-15-2023 Estimated GFR (MDRD) Amer 99 mL/min >60 [facility] Comment on above: GFR Calc Estimated GFR (MDRD) Non-Af Amer 82 mL/min >60 [facility] Comment on above: Non- GFR Calc Reactive Lymphocytes 1+ [facility] Thyroid Stimulating Hormone (TSH) 2.55 uIU/mL 0.358-3.74 [facility] Platelets bldOrdered By: Michael Hopper on 04-15-2023 Platelets (Bld) [#/Vol] 354 10*3/uL 150-450 [facility] Serum or plasma calcium claudia urement (mass/volume)Ordered By: Divine Hopper on 04-15-2023 Calcium [Mass/Vol] 8.6 mg/dL 8.5-10.1 [facility] Serum or plasma creatinine m easurement (mass/volume)Ordered By: Diivne Hopper on 04-15-2023 Creatinine [Mass/Vol] 0.84 mg/dL 0.55-1.02 [facility] Comment on above: The validity of the calculated GFR & GFRAA in patients over 70 years has not been determined. Clinical correlation is essential. Serum or plasma urea nitroge n measurement (mass/volume)Ordered By: Divine Hopper on 04-15-2023 Urea nitrogen [Mass/Vol] 15 mg/dL 11-13 [facility] Thin prep Papanicolaou smear with manual screeningOrdered By: Divine Hopper on 04-15-2023 Thin prep Papanicolaou smear with manual screening 7 09-10 [facility] Jagdeep 03-01-2023 Potassium [Moles/Vol] 3.8 mmol/L Normal 3.5-5.1 [facility] ([place]) Comment on above: Performed By: #### K #### [place] [id number] LABORATORYOrdered By: SYSTEM SYSTEM on 03-01-2023 Potassium [Moles/Vol] 3.8 mmol/L Invalid Interpretation Code 3.5 - 5.1 mmol/L AO ADM SS Culture, urineOrdered By: Tatiana Kitchen on 01-08-2023 Bacteria identified Cx Nom (U) Staphylococcus epidermidis [facility] Culture, urineOrdered By: Tatiana Kitchen on 01-07-2023 Bacteria identified Cx Nom (U) Staphylococcus epidermidis [facility] Absolute lymphocyte countOrd ered By: Dr. Hopper on 06-13-2022 Lymphocytes Auto (Unsp spec) [#/Vol] 3.23 10*3/uL 0.83-4.51 [facility] Basophil percentageOrdered B y: Dr. Hopper on 06-13-2022 Basophils/100 WBC (Bld) 0.3 % 0-1 [facility] Bilirubin [Mass/Vol] 0.50 mg/dL 0.20-1.00 [facility] Comment on above: For patients on eltr ombopag therapy, use of Dimension [place] TBIL is not recommended. Chloride [Moles/Vol] 106 mmol/L 98-107 [facility] Cholesterol [Mass/Vol] 186 mg/dL <200 [facility] Comment on above: <200 mg/dL Desirable 200-240 mg/dL Borderline >240 mg/dL High Risk Eosinophils/100 WBC (Bld) 0.8 % 0-5 [facility] Glucose [Mass/Vol] 80 mg/dL 74-106 [facility] Neutrophils (Bld) [#/Vol] 10.6 10*3/uL 2.0-7.7 [facility] Neutrophils/100 WBC (Bld) 71.7 % 47-70 [facility] Potassium [Moles/Vol] 3.7 mmol/L 3.5-5.1 [facility] Protein [Mass/Vol] 7.6 g/dL 6.4-8.2 [facility] Sodium [Moles/Vol] 139 mmol/L 136-145 [facility] Triglyceride [Mass/Vol] 125 mg/dL <199 [facility] Comment on above: The drugs N-Acetylcy steine and Metamizole may falsely depress this assay.Serum Triglycerides Reference Interval Normal <150 mg/dL Borderline high 150 - 199 mg/dL High 200 - 499 mg/dL Very High > or = 500 mg/dL WBC (Bld) [#/Vol] 14.8 10*3/uL 4.4-11.0 [facility] Blood erythrocytes count (nu mber/volume)Ordered By: Dr. Hopper on 06-13-2022 RBC (Bld) [#/Vol] 4.51 10*6/uL 4.2-5.4 [facility] Blood hemoglobin measurement (mass/volume)Ordered By: Dr. Hopper on 06-13-2022 Hemoglobin (Bld) [Mass/Vol] 13.6 g/dL 12.0-15.0 [facility] Blood lymphocytes/100 leukoc ytesOrdered By: Dr. Hopper on 06-13-2022 Lymphocytes/100 WBC (Bld) 21.8 % 19-41 [facility] Blood monocytes/100 leukocyt esOrdered By: Dr. Hopper on 06-13-2022 Monocytes/100 WBC (Bld) 4.9 % 0-10 [facility] Blood platelet mean volumeOr dered By: Dr. Hopper on 06-13-2022 Platelet mean volume (Bld) [Entitic vol] 9.7 fL 6.2-12.0 [facility] Determination of erythrocyte mean corpuscular volume (MCV)Ordered By: Dr. Hopper on 06-13-2022 MCV (RBC) [Entitic vol] 92.2 fL 81-99 [facility] Hematocrit Auto (Bld) [Volum e fraction]Ordered By: Dr. Hopper on 06-13-2022 Hematocrit (Bld) [Volume fraction] 41.6 % 37-47 [facility] Laboratory - Chemistry and C hemistry - challengeOrdered By: Dr. Hopper on 06-13-2022 ALP [Catalytic activity/Vol] 80 U/L 45-117 [facility] ALT [Catalytic activity/Vol] 23 U/L 13-56 [facility] CO2 [Moles/Vol] 25.0 mmol/L 21.0-32.0 [facility] Globulin (S) [Mass/Vol] 4.3 g/dL 2.2-4.2 [facility] Urea nitrogen/Creatinine [Mass ratio] 24.3 mg/mg 10-20 [facility] Laboratory - Hematology and Cell countsOrdered By: Dr. Hopper on 06-13-2022 Erythrocyte distribution width (RBC) [Entitic vol] 40.4 fL 35.1-43.9 [facility] Erythrocyte distribution width (RBC) [Ratio] 11.9 % 11.6-14.6 [facility] Immature granulocytes/100 WBC (Bld) 0.500 % 0.0-0.9 [facility] Comment on above: IG% - Immature Granu locytes (promyelocytes, myelocytes and metamyelocytes) > 1% indicates that a LEFT SHIFT is Present. MCH (RBC) [Entitic mass] 30.2 pg 27.0-32.0 [facility] Nucleated RBC/100 WBC (Bld) [Ratio] 0 % 0-5 [facility] MCHC Auto (RBC) [Mass/Vol]Or dered By: Dr. Hopper on 06-13-2022 MCHC (RBC) [Mass/Vol] 32.7 g/dL 32-36 [facility] No Panel InformationOrdered By: Dr. Hopper on 06-13-2022 Estimated GFR (MDRD) Amer 109 mL/min >60 [facility] Comment on above: GFR Calc Estimated GFR (MDRD) Non-Af Amer 90 mL/min >60 [facility] Comment on above: Non- GFR Calc Platelets bldOrdered By: Dr. Hopper on 06-13-2022 Platelets (Bld) [#/Vol] 501 10*3/uL 150-450 [facility] Serum or plasma albumin claudia urement (mass/volume)Ordered By: Dr. Hopper on 06-13-2022 Albumin [Mass/Vol] 3.3 g/dL 3.2-5.0 [facility] Serum or plasma albumin/glob ulin mass ratioOrdered By: Dr. Hopper on 06-13-2022 Albumin/Globulin [Mass ratio] 0.8 {ratio} 0.9-2.4 [facility] Serum or plasma calcium claudia urement (mass/volume)Ordered By: Dr. Hopper on 06-13-2022 Calcium [Mass/Vol] 8.8 mg/dL 8.5-10.1 [facility] Serum or plasma cholesterol in HDL measurement (mass/volume)Ordered By: Dr. Hopper on 06-13-2022 Cholesterol in HDL [Mass/Vol] 55 mg/dL >40 [facility] Comment on above: The drugs N-Acetylcy steine and Metamizole may falsely depress this assay. Reference Range HDL <40 mg/dL Low HDL Cholesterol HDL >or= 60 mg/dL High HDL Cholesterol Serum or plasma cholesterol in VLDL measurement (mass/volume)Ordered By: Dr. Hopper on 06-13-2022 Cholesterol in VLDL [Mass/Vol] 25 mg/dL 5-40 [facility] Serum or plasma creatinine m easurement (mass/volume)Ordered By: Dr. Hopper on 06-13-2022 Creatinine [Mass/Vol] 0.78 mg/dL 0.55-1.02 [facility] Comment on above: The validity of the calculated GFR & GFRAA in patients over 70 years has not been determined. Clinical correlation is essential. Serum or plasma low density lipoprotein (LDL) cholesterol measurement (mass/volume)Ordered By: Dr. Hopper on 06-13-2022 Cholesterol in LDL [Mass/Vol] 106 mg/dL 0-130 [facility] Serum or plasma urea nitroge n measurement (mass/volume)Ordered By: Dr. Hopper on 06-13-2022 Urea nitrogen [Mass/Vol] 19 mg/dL 7-18 [facility] Thin prep Papanicolaou smear with manual screeningOrdered By: Dr. Hopper on 06-13-2022 Thin prep Papanicolaou smear with manual screening 17 U/L 15-37 [facility] Thin prep Papanicolaou smear with manual screening 8 5-15 [facility] Cervical or vagninal specime n microscopic examination by cytology stain (reported asOrdered By: Jessenia Bejarano on 03-07-2022 Cytology report Cyto stain Doc (Cvx/Vag) Comment . [facility] Comment on above: The Pap smear is a s creening test designed to aid in thedetection of premalignant and malignant conditions of theuterine cervix. It is not a diagnostic procedure andshould not be used as the sole means of detecting cervicalcancer. Both false-positive and false-negative reports dooccur. Detection in cervical specim en of any of human papilloma virus (HPV) 16, 18, 31, 33,Ordered By: Jessenia Bejarano on 03-07-2022 HPV 16+18+31+33+35+39+45+5 1+52+56+58+59+66+68 DNA Probe+sig amp Ql (Cvx) Negative Negative [facility] Comment on above: This nucleic acid am plification test detects fourteen high- risk HPV types (16,18,31,33,35,39,45,51,52,56,58,59,66,68)without differentiation. 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 [facility] Comment on above: Sav Thomas totechnologist Laboratory - Miscellaneous t estsOrdered By: Jessenia Bejarano on 03-07-2022 Service comment (Unsp spec) [Interp] Comment . [facility] Comment on above: This liquid based Th inPrep(R) pap test was screened withthe use of an image guided system. Service comment (Unsp spec) [Interp] . . [facility] Liquid-based cerv Pap + CT/G C by SAMSON w reflex to high-risk HPV for ASCUSOrdered By: Jessenia Bejarano on 03-07-2022 Cytology report Cyto stain.thin prep Doc (Cvx/Vag) Comment . [facility] Comment on above: Criteria not met, HP V Genotype not performed.Performed at: - [facility] [id number] Director: Carmelina Self MD, Phone: [phone] at: = - [facility] [id number] Director: Carmelina Self MD, Phone: [phone] No Panel InformationOrdered By: Jessenia Bejarano on 03-07-2022 Pathology report final diagnosis Narrative Comment . [facility] Comment on above: NEGATIVE FOR INTRAEP ITHELIAL LESION OR MALIGNANCY.FUNGAL ORGANISMS MORPHOLOGICALLY CONSISTENT WITH CASEY SPECIES AREPRESENT. Absolute lymphocyte counton 08-23-2021 Lymphocytes Auto (Unsp spec) [#/Vol] 2.72 10*3/uL 0.83-4.51 [facility] Work Phone: Basophil percentageon 2021 Basophils/100 WBC (Bld) 0.4 % 0-1 [facility] Work Phone: Eosinophils/100 WBC (Bld) 0.4 % 0-5 [facility] Work Phone: Neutrophils (Bld) [#/Vol] 10.8 10*3/uL 2.0-7.7 [facility] Work Phone: Neutrophils/100 WBC (Bld) 75.0 % 47-70 [facility] Work Phone: [phone] WBC (Bld) [#/Vol] 14.4 10*3/uL 4.4-11.0 [facility] Work Phone: Blood erythrocytes count (nu mber/volume)on 08-23-2021 RBC (Bld) [#/Vol] 4.59 10*6/uL 4.2-5.4 [facility] Work Phone: Blood hemoglobin measurement (mass/volume)on 08-23-2021 Hemoglobin (Bld) [Mass/Vol] 14.1 g/dL 12.0-15.0 [facility] Work Phone: Blood lymphocytes/100 leukoc yteson 08-23-2021 Lymphocytes/100 WBC (Bld) 18.9 % 19-41 [facility] Work Phone: Blood monocytes/100 leukocyt eson 08-23-2021 Monocytes/100 WBC (Bld) 4.8 % 0-10 [facility] Work Phone: Blood platelet mean volumeon 08-23-2021 Platelet mean volume (Bld) [Entitic vol] 9.6 fL 6.2-12.0 [facility] Work Phone: Determination of erythrocyte mean corpuscular volume (MCV)on 08-23-2021 MCV (RBC) [Entitic vol] 93.7 fL 81-99 [facility] Work Phone: Hematocrit Auto (Bld) [Volum e fraction]on 08-23-2021 Hematocrit (Bld) [Volume fraction] 43.0 % 37-47 [facility] Work Phone: Laboratory - Hematology and Cell countson 08-23-2021 Erythrocyte distribution width (RBC) [Entitic vol] 41.7 fL 35.1-43.9 [facility] Work Phone: Erythrocyte distribution width (RBC) [Ratio] 12.1 % 11.6-14.6 [facility] Work Phone: Immature granulocytes/100 WBC (Bld) 0.500 % 0.0-0.9 [facility] Work Phone: [phone] Comment on above: IG% - Immature Granu locytes (promyelocytes, myelocytes and metamyelocytes) > 1% indicates that a LEFT SHIFT is Present. MCH (RBC) [Entitic mass] 30.7 pg 27.0-32.0 [facility] Work Phone: Nucleated RBC/100 WBC (Bld) [Ratio] 0 % 0-5 [facility] Work Phone: MCHC Auto (RBC) [Mass/Vol]on 08-23-2021 MCHC (RBC) [Mass/Vol] 32.8 g/dL 32-36 [facility] Work Phone: Platelets bldon 08-23-2021 Platelets (Bld) [#/Vol] 533 10*3/uL 150-450 [facility] Work Phone: [phone] Absolute lymphocyte counton 07-26-2021 Lymphocytes Auto (Unsp spec) [#/Vol] 3.40 10*3/uL 0.83-4.51 [facility] Work Phone: Basophil percentageon 2021 Basophils/100 WBC (Bld) 0.3 % 0-1 [facility] Work Phone: [phone] Bilirubin [Mass/Vol] 0.50 mg/dL 0.20-1.00 [facility] Work Phone: [phone] Comment on above: For patients on eltr ombopag therapy, use of Dimension [place] TBIL is not recommended. Chloride [Moles/Vol] 105 mmol/L 98-107 [facility] Work Phone: Eosinophils/100 WBC (Bld) 1.0 % 0-5 [facility] Work Phone: Glucose [Mass/Vol] 87 mg/dL 74-106 [facility] Work Phone: Neutrophils (Bld) [#/Vol] 11.0 10*3/uL 2.0-7.7 [facility] Work Phone: Neutrophils/100 WBC (Bld) 71.2 % 47-70 [facility] Work Phone: Potassium [Moles/Vol] 3.7 mmol/L 3.5-5.1 [facility] Work Phone: Protein [Mass/Vol] 7.8 g/dL 6.4-8.2 [facility] Work [facility]: Sodium [Moles/Vol] 137 mmol/L 136-145 [facility] Work Phone: WBC (Bld) [#/Vol] 15.5 10*3/uL 4.4-11.0 [facility] Work Phone: Blood erythrocytes count (nu mber/volume)on 07-26-2021 RBC (Bld) [#/Vol] 4.46 10*6/uL 4.2-5.4 [facility] Work Phone: Blood hemoglobin measurement (mass/volume)on 07-26-2021 Hemoglobin (Bld) [Mass/Vol] 13.3 g/dL 12.0-15.0 [facility] Work Phone: Blood lymphocytes/100 leukoc yteson 07-26-2021 Lymphocytes/100 WBC (Bld) 21.9 % 19-41 [facility] Work Phone: [phone] Blood monocytes/100 leukocyt eson 07-26-2021 Monocytes/100 WBC (Bld) 5.1 % 0-10 [facility] Work Phone: Blood platelet mean volumeon 07-26-2021 Platelet mean volume (Bld) [Entitic vol] 10.4 fL 6.2-12.0 [facility] Work Phone: Determination of erythrocyte mean corpuscular volume (MCV)on 07-26-2021 MCV (RBC) [Entitic vol] 92.2 fL 81-99 [facility] Work Phone: Hematocrit Auto (Bld) [Volum e fraction]on 07-26-2021 Hematocrit (Bld) [Volume fraction] 41.1 % 37-47 [facility] Work Phone: Laboratory - Chemistry and C hemistry - challengeon 07-26-2021 ALP [Catalytic activity/Vol] 80 U/L 45-117 [facility] Work Phone: ALT [Catalytic activity/Vol] 22 U/L 13-56 [facility] Work Phone: CO2 [Moles/Vol] 26.0 mmol/L 21.0-32.0 [facility] Work Phone: [phone] Globulin (S) [Mass/Vol] 4.2 g/dL 2.2-4.2 [facility] Work Phone: Urea nitrogen/Creatinine [Mass ratio] 29.5 mg/mg 10-20 [facility] Work Phone: Laboratory - Hematology and Cell countson 07-26-2021 Erythrocyte distribution width (RBC) [Entitic vol] 42.6 fL 35.1-43.9 [facility] Work Phone: Erythrocyte distribution width (RBC) [Ratio] 12.5 % 11.6-14.6 [facility] Work Phone: Immature granulocytes/100 WBC (Bld) 0.500 % 0.0-0.9 [facility] Work Phone: Comment on above: IG% - Immature Granu locytes (promyelocytes, myelocytes and metamyelocytes) > 1% indicates that a LEFT SHIFT is Present. MCH (RBC) [Entitic mass] 29.8 pg 27.0-32.0 [facility] Work Phone: Nucleated RBC/100 WBC (Bld) [Ratio] 0 % 0-5 [facility] Work Phone: MCHC Auto (RBC) [Mass/Vol]on 07-26-2021 MCHC (RBC) [Mass/Vol] 32.4 g/dL 32-36 [facility] Work Phone: No Panel Informationon 07-26 Estimated GFR (MDRD) Amer 122 mL/min >60 [facility] Work Phone: Comment on above: GFR Calc Estimated GFR (MDRD) Non-Af Amer 101 mL/min >60 [facility] Work Phone: Comment on above: Non- GFR Calc Platelets bldon 07-26-2021 Platelets (Bld) [#/Vol] 414 10*3/uL 150-450 [facility] Work Phone: Serum or plasma albumin claudia urement (mass/volume)on 07-26-2021 Albumin [Mass/Vol] 3.6 g/dL 3.2-5.0 [facility] Work Phone: Serum or plasma albumin/glob ulin mass ratioon 07-26-2021 Albumin/Globulin [Mass ratio] 0.9 {ratio} 0.9-2.4 [facility] Work Phone: Serum or plasma calcium claudia urement (mass/volume)on 07-26-2021 Calcium [Mass/Vol] 8.8 mg/dL 8.5-10.1 [facility] Work Phone: Serum or plasma creatinine m easurement (mass/volume)on 07-26-2021 Creatinine [Mass/Vol] 0.71 mg/dL 0.55-1.02 [facility] Work Phone: Comment on above: The validity of the calculated GFR & GFRAA in patients over 70 years has not been determined. Clinical correlation is essential. Serum or plasma urea nitroge n measurement (mass/volume)on 07-26-2021 Urea nitrogen [Mass/Vol] 21 mg/dL 7-18 [facility] Work Phone: Thin prep Papanicolaou smear with manual screeningon 07-26-2021 Thin prep Papanicolaou smear with manual screening 17 U/L 15-37 [facility] Work Phone: Thin prep Papanicolaou smear with manual screening 6 5-15 [facility] Work Phone: Vital Signs Date Time Vital Sign Value Performing Clinician Facility 01-16-2024 23:10-0400 Blood Pressure Location NIDAL CHOUJAA DO [facility] 01-16-2024 23:10-0400 Blood Pressure Method NIDAL CHOUJAA DO [facility] 01-16-2024 23:10-0400 Body height 180.3 cm NIDAL CHOUJAA DO [facility] 01-16-2024 23:10-0400 Body temperature 98.06 [degF] NIDAL CHOUJAA DO [facility] 01-16-2024 23:10-0400 Body weight 90.9 kg NIDAL CHOUJAA DO [facility] 01-16-2024 23:10-0400 Diastolic Blood Pressure Non-Invasive 74 mm[Hg] NIDAL CHOUJAA DO [facility] 01-16-2024 23:10-0400 Heart rate 96 /min NIDAL CHOUJAA DO [facility] 01-16-2024 23:10-0400 Respiratory rate 18 /min NIDAL CHOUJAA DO [facility] 01-16-2024 23:10-0400 Systolic Blood Pressure Non-Invasive 107 mm[Hg] NIDAL CHOUJAA DO [facility] 06-17-2023 13:04-0500 Body height 180.34 cm No Primary Care Physician [facility] 06-17-2023 13:04-0500 Body mass index (BMI) [Ratio] 27.7 kg/m2 No Primary Care Physician [facility] 06-17-2023 13:04-0500 Body temperature 97 [degF] No Primary Care Physician [facility] 06-17-2023 13:04-0500 Body weight 90.26 kg No Primary Care Physician [facility] 06-17-2023 13:04-0500 Diastolic blood pressure 60 mm[Hg] No Primary Care Physician [facility] 06-17-2023 13:04-0500 Heart rate 116 /min No Primary Care Physician [facility] 06-17-2023 13:04-0500 Respiratory rate 16 /min No Primary Care Physician [facility] 06-17-2023 13:04-0500 SaO2% (BldA) [Mass fraction] 99 % No Primary Care Physician [facility] 06-17-2023 13:04-0500 Systolic blood pressure 118 mm[Hg] No Primary Care Physician [facility] 04-15-2023 09:45-0500 Body height 180.[address] Divine Hopper Work Phone: [facility] 04-15-2023 09:45-0500 Body mass index (BMI) [Ratio] 27.7 kg/m2 Dr. Divine Hopper Work Phone: [facility] 04-15-2023 09:45-0500 Body temperature 98.1 [degF] Dr. Divine Hopper Work Phone: [facility] 04-15-2023 09:45-0500 Body weight 90.[address] Divine Hopper Work Phone: [facility] 04-15-2023 09:45-0500 Diastolic blood pressure 72 mm[Hg] Dr. Divine Hopper Work Phone: [facility] 04-15-2023 09:45-0500 Heart rate 78 /min Dr. Divine Hopper Work Phone: [facility] 04-15-2023 09:45-0500 Respiratory rate 16 /min Dr. Divine Hopper Work Phone: [facility] 04-15-2023 09:45-0500 SaO2% (BldA) [Mass fraction] 97 % Dr. Divine Hopper Work Phone: [facility] 04-15-2023 09:45-0500 Systolic blood pressure 110 mm[Hg] Dr. Divine Hopper Work Phone: [facility] 03-11-2023 14:03-0500 Body mass index (BMI) [Ratio] 27.8 kg/m2 Dr. Divine Hopper Work Phone: [facility] 03-11-2023 14:03-0500 Body weight 90.[address] Divine Hopper Work Phone: [facility] 03-11-2023 14:03-0500 Diastolic blood pressure 72 mm[Hg] Dr. Divine Hopper Work Phone: [facility] 03-11-2023 14:03-0500 Systolic blood pressure 132 mm[Hg] Dr. Divine Hopper Work Phone: [facility] 02-19-2023 11:21-0400 Body mass index (BMI) [Ratio] 27.9 kg/m2 Dr. Divine Hopper Work Phone: [facility] 02-19-2023 11:21-0400 Body temperature 97.9 [degF] Dr. Divine Hopper Work Phone: [facility] 02-19-2023 11:21-0400 Body weight 90.[address] Divine Hopper Work Phone: [facility] 02-19-2023 11:21-0400 Diastolic blood pressure 67 mm[Hg] Dr. Divine Hopper Work Phone: [facility] 02-19-2023 11:21-0400 Heart rate 75 /min Dr. Divine Hopper Work Phone: [facility] 02-19-2023 11:21-0400 Respiratory rate 17 /min Dr. Divine Hopper Work Phone: [facility] 02-19-2023 11:21-0400 SaO2% (BldA) [Mass fraction] 99 % Dr. Divine Hopper Work Phone: [facility] 02-19-2023 11:21-0400 Systolic blood pressure 111 mm[Hg] Dr. Divine Hopper Work Phone: [facility] 09-20-2022 08:07-0400 Body height 180.34 cm No Primary Care Physician [facility] 09-20-2022 08:07-0400 Body mass index (BMI) [Ratio] 28.1 kg/m2 No Primary Care Physician [facility] 09-20-2022 08:07-0400 Body temperature 97.2 [degF] No Primary Care Physician [facility] 09-20-2022 08:07-0400 Body weight 91.62 kg No Primary Care Physician [facility] 09-20-2022 08:07-0400 Diastolic blood pressure 74 mm[Hg] No Primary Care Physician [facility] 09-20-2022 08:07-0400 Heart rate 88 /min No Primary Care Physician [facility] 09-20-2022 08:07-0400 Respiratory rate 18 /min No Primary Care Physician [facility] 09-20-2022 08:07-0400 SaO2% (BldA) [Mass fraction] 99 % No Primary Care Physician [facility] 09-20-2022 08:07-0400 Systolic blood pressure 126 mm[Hg] No Primary Care Physician [facility] 06-13-2022 13:51-0500 Body height 180.34 cm No Primary Care Physician [facility] 06-13-2022 13:51-0500 Body mass index (BMI) [Ratio] 28.5 kg/m2 No Primary Care Physician [facility] 06-13-2022 13:51-0500 Body temperature 98.2 [degF] No Primary Care Physician [facility] 06-13-2022 13:51-0500 Body weight 92.98 kg No Primary Care Physician [facility] 06-13-2022 13:51-0500 Diastolic blood pressure 80 mm[Hg] No Primary Care Physician [facility] 06-13-2022 13:51-0500 Heart rate 81 /min No Primary Care Physician [facility] 06-13-2022 13:51-0500 Respiratory rate 16 /min No Primary Care Physician [facility] 06-13-2022 13:51-0500 SaO2% (BldA) [Mass fraction] 98 % No Primary Care Physician [facility] 06-13-2022 13:51-0500 Systolic blood pressure 106 mm[Hg] No Primary Care Physician [facility] 06-13-2022 07:44-0500 Body mass index (BMI) [Ratio] 28.5 kg/m2 No Primary Care Physician [facility] 06-13-2022 07:44-0500 Body temperature 98.4 [degF] No Primary Care Physician [facility] 06-13-2022 07:44-0500 Body weight 92.98 kg No Primary Care Physician [facility] 06-13-2022 07:44-0500 Diastolic blood pressure 66 mm[Hg] No Primary Care Physician [facility] 06-13-2022 07:44-0500 Heart rate 82 /min No Primary Care Physician [facility] 06-13-2022 07:44-0500 Respiratory rate 18 /min No Primary Care Physician [facility] 06-13-2022 07:44-0500 SaO2% (BldA) [Mass fraction] 99 % No Primary Care Physician [facility] 06-13-2022 07:44-0500 Systolic blood pressure 118 mm[Hg] No Primary Care Physician [facility] 03-07-2022 13:27-0500 Body mass index (BMI) [Ratio] 28.5 kg/m2 No Primary Care Physician [facility] 03-07-2022 13:27-0500 Body weight 92.98 kg No Primary Care Physician [facility] 03-07-2022 13:27-0500 Diastolic blood pressure 72 mm[Hg] No Primary Care Physician [facility] 03-07-2022 13:27-0500 Systolic blood pressure 134 mm[Hg] No Primary Care Physician [facility] 11-02-2021 16:20-0400 Body temperature 98.6 [degF] No Primary Care Physician [facility] Work Phone: 11-02-2021 16:20-0400 Diastolic blood pressure 76 mm[Hg] No Primary Care Physician [facility] Work Phone: 11-02-2021 16:20-0400 Heart rate 93 /min No Primary Care Physician [facility] Work Phone: 11-02-2021 16:20-0400 Respiratory rate 14 /min No Primary Care Physician [facility] Work Phone: 11-02-2021 16:20-0400 SaO2% (BldA) [Mass fraction] 99 % No Primary Care Physician [facility] Work Phone: 11-02-2021 16:20-0400 Systolic blood pressure 124 mm[Hg] No Primary Care Physician [facility] Work Phone: 10-31-2021 12:43-0400 Heart rate 88 /min Pia Bentley MD Work Phone: [facility] 10-31-2021 12:43-0400 SaO2% (BldA) [Mass fraction] 99 % Pia Bentley MD Work Phone: [facility] 07-26-2021 15:05-0400 Body height 180.34 cm No Primary Care Physician [facility] Work Phone: 07-26-2021 15:05-0400 Body mass index (BMI) [Ratio] 29 kg/m2 No Primary Care Physician [facility] Work Phone: 07-26-2021 15:05-0400 Body temperature 98.5 [degF] No Primary Care Physician [facility] Work Phone: 07-26-2021 15:05-0400 Body weight 94.34 kg No Primary Care Physician [facility] Work Phone: 07-26-2021 15:05-0400 Diastolic blood pressure 82 mm[Hg] No Primary Care Physician [facility] Work Phone: 07-26-2021 15:05-0400 Heart rate 91 /min No Primary Care Physician [facility] Work Phone: 07-26-2021 15:05-0400 Respiratory rate 16 /min No Primary Care Physician [facility] Work Phone: 07-26-2021 15:05-0400 SaO2% (BldA) [Mass fraction] 99 % No Primary Care Physician [facility] Work Phone: 07-26-2021 15:05-0400 Systolic blood pressure 140 mm[Hg] No Primary Care Physician [facility] Work Phone: 07-26-2021 15:05-0400 Body height 180.34 cm No Primary Care Physician [facility] Work Phone: 07-26-2021 15:05-0400 Body mass index (BMI) [Ratio] 29 kg/m2 No Primary Care Physician [facility] Work Phone: 07-26-2021 15:05-0400 Body temperature 98.5 [degF] No Primary Care Physician [facility] Work Phone: 07-26-2021 15:05-0400 Body weight 94.34 kg No Primary Care Physician [facility] Work Phone: 07-26-2021 15:05-0400 Diastolic blood pressure 82 mm[Hg] No Primary Care Physician [facility] Work Phone: 07-26-2021 15:05-0400 Heart rate 91 /min No Primary Care Physician [facility] Work Phone: 07-26-2021 15:05-0400 Respiratory rate 16 /min No Primary Care Physician [facility] Work Phone: 07-26-2021 15:05-0400 SaO2% (BldA) [Mass fraction] 99 % No Primary Care Physician [facility] Work Phone: 07-26-2021 15:05-0400 Systolic blood pressure 140 mm[Hg] No Primary Care Physician [facility] Work Phone: 06-14-2021 11:46-0500 Body mass index (BMI) [Ratio] 27.7 kg/m2 No Primary Care Physician [facility] Work Phone: 06-14-2021 11:46-0500 Body temperature 98.9 [degF] No Primary Care Physician [facility] Work Phone: 06-14-2021 11:46-0500 Body weight 90.26 kg No Primary Care Physician [facility] Work Phone: 06-14-2021 11:46-0500 Diastolic blood pressure 88 mm[Hg] No Primary Care Physician [facility] Work Phone: 06-14-2021 11:46-0500 Heart rate 77 /min No Primary Care Physician [facility] Work Phone: 06-14-2021 11:46-0500 Respiratory rate 16 /min No Primary Care Physician [facility] Work Phone: 06-14-2021 11:46-0500 SaO2% (BldA) [Mass fraction] 98 % No Primary Care Physician [facility] Work Phone: 06-14-2021 11:46-0500 Systolic blood pressure 115 mm[Hg] No Primary Care Physician [facility] Work Phone: Encounters Encounter Date Encounter Type Care Provider Facility Start: 10-29-2024 End: 10-29-2024 Patient encounter procedure Pia Bentley MD Work Phone: [facility] Comment on above: Facial nerve motor d isorder (Primary Dx); Blepharospasm Start: 10-29-2024 ambulatory EFEWONGBE B RUCHI Anna lity:[facility] Start: 09-17-2024 End: 09-17-2024 ambulatory Efewongbe Olesmitae Facility:[facility] [place] Start: 09-01-2024 End: 09-01-2024 ambulatory Yris Gunn Facility:[facility] [place] Start: 08-12-2024 End: 08-12-20[facility] Start: 06-30-2024 End: 06-30-2024 Patient encounter procedure Pia Bentley MD Work Phone: [facility] Comment on above: Facial nerve motor d isorder (Primary Dx); Blepharospasm Start: 06-30-2024 ambulatory EFEWONGBE B OLESMITAE Faci lity:[facility] Start: 06-30-2024 ambulatory EFEWONGBE B OLEGHE Faci lity:[facility] Start: 06-29-2024 Encounter for genera l adult medical examination without abnormal findings Em Bender [facility] Start: 06-22-2024 End: 06-22-2024 ambulatory Divine Gomeze Facility:[facility] [place] Start: 06-18-2024 End: 06-18-2024 ambulatory Em Jesus Facility:[facility] Start: 04-06-2024 End: 04-06-2024 ambulatory Jessenia Bejarano SOLE RUFFER Facility:[facility] Start: 03-16-2024 Encounter for gynecological examination (general) (routine) without abnormal findings Jessenia Bejarano SOLE RUFFER [facility] Start: 03-16-2024 End: 03-16-2024 ambulatory Divine Gomeze [place] Start: 03-10-2024 ambulatory PIA BENTLEY [facility] Start: 03-10-2024 End: 03-10-2024 Patient encounter procedure Pia Bentley MD Work Phone: [facility] Comment on above: Facial nerve motor d isorder (Primary Dx); Blepharospasm Start: 03-10-2024 ambulatory PIA BENTLEY [facility] Start: 03-02-2024 End: 03-02-2024 ambulatory Efjosueongbe Patriciae Facility:[facility] Start: 02-26-2024 ambulatory Efjosuebucodabe Patriciae Facili ty:[facility] Start: 02-26-2024 End: 02-26-2024 ambulatory Efewongbe Oleghe Facility:[facility] Start: 02-24-2024 End: 02-24-2024 ambulatory Efewongbe Olesmitae Facility:[facility] Start: 01-16-2024 End: 01-17-2024 Emergency department patient visit ALPHONSE EWING DO [facility] Start: 12-24-2023 End: 12-24-2023 ambulatory Yang Kitchen Facility:[facility] Start: 12-18-2023 End: 12-18-2023 ambulatory Divine Gomeze Facility:[facility] Start: 12-16-2023 End: 12-16-2023 ambulatory Yang Kitchen Facility:[facility] Start: 12-13-2023 ambulatory Barrybucodacheryl Gomeze Facili ty:[facility] Start: 12-12-2023 ambulatory Cristopher Proano Faci lity:[facility] Start: 11-26-2023 End: 11-26-2023 ambulatory Cristopher Imtiaz Facility:[facility] Start: 11-11-2023 End: 11-11-2023 ambulatory Cristopher Imtiaz Facility:[facility] Start: 11-07-2023 End: 11-07-2023 [facility] Start: 11-05-2023 End: 11-05-2023 Patient encounter procedure Pia Bentley MD Work Phone: [facility] Comment on above: Facial nerve motor d isorder (Primary Dx); Blepharospasm Start: 11-05-2023 ambulatory PIA BENTLEY [facility] Start: 11-05-2023 ambulatory PIA BENTLEY [facility] Start: 10-22-2023 End: 10-22-2023 ambulatory Divine Hopper Facility:[facility] Start: 07-02-2023 End: 07-02-2023 Patient encounter procedure Pia Bentley MD Work Phone: [facility] Comment on above: Facial nerve motor d isorder (Primary Dx); Blepharospasm Start: 06-17-2023 End: 06-17-2023 ambulatory No Primary Care Physician [facility] Work Phone: Start: 06-17-2023 Patient encounter status No Pr imary Care Physician [facility] Start: 06-17-2023 End: 06-17-2023 Encounter for general adult medical examination without abnormal findings No Primary Care Physician [facility] Start: 06-17-2023 End: 06-17-2023 Patient encounter procedure No Primary Care Physician [facility] Work Phone: Start: 04-16-2023 End: 04-16-[address] Divine Hopper Work Phone: [facility] Work Phone: Start: 04-16-2023 End: 04-16-[address] Divine Hopper Work Phone: [facility]atory, Specimen Work Phone: Start: 04-15-2023 End: 04-15-[address] Divine Hopper Work Phone: [facility] Work Phone: Start: 04-15-2023 End: 04-15-[address] Divine Hopper Work Phone: [facility] Work Phone: Start: 03-11-2023 End: 03-11-[address] Divine Hopper Work Phone: [facility] Work Phone: Start: 03-01-2023 End: 03-02-[address] EM BENDER MD Facility:[facility] Start: 03-01-2023 End: 03-01-[address] EM BENDER MD [facility] Start: 02-19-2023 End: 02-19-[address] Divine Hopper Work Phone: [facility] Work Phone: Start: 01-07-2023 End: 01-07-2023 ambulatory No Primary Care Physician [facility] Work Phone: Start: 01-07-2023 End: 01-07-2023 Patient encounter procedure No Primary Care Physician [facility] Spec[facility] Work Phone: Start: 11-06-2022 End: 11-06-2022 Patient encounter procedure Pia Bentley MD Work Phone: [facility] Comment on above: Facial nerve motor d isorder (Primary Dx) Start: 09-20-2022 End: 09-20-2022 Patient encounter procedure No Primary Care Physician [facility] Work Phone: Start: 09-06-2022 Non-patient / Non-visit No [facility] Physician [facility] Start: 09-05-2022 End: 09-05-2022 ambulatory No Primary Care Physician [facility] Work Phone: Start: 09-05-2022 End: 09-05-2022 Patient encounter procedure No Primary Care Physician [facility]-P[facility] Services/Neurology Start: 07-03-2022 End: 07-03-2022 Patient encounter procedure Pia Bentley MD Work Phone: [facility] Comment on above: Facial nerve motor d isorder (Primary Dx); Facial paralysis Start: 06-13-2022 End: 06-13-2022 ambulatory No Primary Care Physician [facility] Work Phone: Start: 06-13-2022 Patient encounter status No [facility] Care Physician [facility] Start: 06-13-2022 End: 06-13-2022 Encounter for general adult medical examination without abnormal findings No Primary Care Physician [facility] Start: 06-13-2022 End: 06-13-2022 Patient encounter procedure No Primary Care Physician [facility] [facility] Start: 03-07-2022 End: 03-07-2022 Patient encounter procedure No Primary Care Physician [facility]Laboratory, Specimen Start: 03-07-2022 End: 03-07-2022 Patient encounter procedure No Primary Care Physician [facility] Start: 11-02-2021 End: 11-02-2021 Patient encounter procedure No Primary Care Physician [facility] Start: 10-31-2021 End: 10-31-2021 Patient encounter procedure Pia Bentley MD Work Phone: [facility] Comment on above: Disorder of facial n erve (Primary Dx); Vestibular schwannoma; Facial paralysis; Abnormal innervation syndrome Start: 08-23-2021 End: 08-23-2021 Patient encounter procedure No Primary Care Physician [facility] Start: 07-26-2021 End: 07-26-2021 Patient encounter procedure No Primary Care Physician [facility] Start: 07-25-2021 Non-patient / Non-visit No [facility] Care Physician [facility] Start: 06-14-2021 End: 06-14-2021 Patient encounter procedure No Primary Care Physician [facility] [place] Procedures Date Procedure Procedure Detail Performing Clinician Start: 04-16-[address] Divine Hopper Work Phone: Start: 04-16-[address] Divine Hopper Work Phone: Start: 01-07-2023 Urine culture No Primar y Care Physician Start: 11-02-2021 Plain x-ray of hand No Primary Care Physician Start: 11-02-2021 Plain x-ray of wrist No Primary Care Physician Craniotomy DR EM BENDER MD H/O: surgery H/O brain surgery No Primary Care Physician H/O: surgery History of lung biopsy No Pr imary Care Physician Specimen from lung obtained by biopsy (specimen) DR EM BENDER MD Plan of Treatment Date Care Activity Detail Author Start: 04-01-2025 End: 04-01-2025 Patient encounter procedure [facility] Start: 02-02-2025 End: 02-02-2025 Patient encounter procedure Outpatient Rehabilitation [facility] Start: 12-28-2024 Influenza vaccination INFLUENZA VACC INE (#1) [facility] Start: 10-29-2024 End: 10-29-2024 Patient encounter procedure 10/29/2024 3:10 PM EDT Office Visit [facility] [address] [place] [address] Pia Bentley MD [address] [place] [phone] [facility] Start: 06-30-2024 End: 06-30-2024 Patient encounter procedure 06/30/2024 11:40 AM EST Office Visit [facility] [address] [place] [address] Pia Bentley MD [address] [place] [phone] [facility] Start: 06-30-2024 End: 06-30-2024 Patient encounter procedure 06/30/2024 10:30 AM EST Rehab Services Visit Outpatient Rehabilitation [facility] [address] [place] [address] Pia Bentley MD [address] [place] [phone] Treva Patiño, IDALIA [address] [facility] [address] [place] [address] Outpatient Rehabilitation [facility] Start: 03-10-2024 End: 03-10-2024 Patient encounter procedure [facility] Start: 12-29-2023 Influenza vaccination INFLUENZA VACC INE (#1) [facility] Start: 11-05-2023 End: 11-05-2023 Patient encounter procedure Outpatient Rehabilitation [facility] Start: 04-16-2023 Protein measurement [facility] Start: 03-07-2023 End: 03-07-2023 Patient encounter procedure [facility] Start: 12-28-2022 COVID-19 VACCINE () COVID-19 VACCINE () [facility] Start: 12-28-2022 Influenza vaccination INFLUENZA VACC INE (#1) [facility] Start: 11-06-2022 End: 11-06-2022 Patient encounter procedure 11/06/2022 Office Visit Otolaryngology Pia Bentley MD [address] [place] [address] [facility] Start: 09-20-2022 Patient referral [facility] Work Phone: Start: 03-13-2022 End: 03-13-2022 Patient encounter procedure 03/13/2022 Office Visit Otolaryngology Pia Bentley MD [address] [place] [address] [facility] Start: 03-13-2022 End: 03-13-2022 ambulatory 03/13/2022 Rehab Services Visit Speech Therapy Pia Bentley MD [address] [place] [address] Treva Patiño, ORAL AND MAXILLOFACIAL SURGERY [address] [facility] [address] [place] [phone] Outpatient Rehabilitation [facility] Start: 12-28-2021 Influenza vaccination INFLUENZA VACC INE (#1) [facility] Start: 11-02-2021 Patient referral [facility] Work Phone: Start: 06-14-2021 Patient referral [facility] Work Phone: Start: 12-22-2016 Potassium [Moles/volume] in Serum or Plasma POTASSIUM [facility] Start: 2010 Screening for malignant neoplasm of cervix CERVICAL CANCER SCREENING DISCUSSION [facility] Start: 2008 Hepatitis B vaccination HEP B VACCINE (1 of 3 - 19+ 3-dose series) [facility] Start: 2008 Third diphtheria, tetanus and acellular pertussis (DTaP) vaccination TDAP (ADULT) [facility] Start: 2007 Tetanus vaccination TETANUS [facility] Start: 1989 COVID-19 VACCINE (#1) COVID-19 VACCI NE (#1) [facility] Start: 1989 Tetanus vaccination TETANUS [facility] Chemodnrvtj musc mus c innervated facial nrv unil [place] CHEMODNRVTJ MUSC MUSC INNERVATED FACIAL NRV UNIL [place] Charge Routine 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 Ordered: 10/31/2021 [facility] Comment on above: Ordered: 10/31/2021 Chemodnrvtj musc mus c innervated facial nrv unil [place] CHEMODNRVTJ MUSC MUSC INNERVATED FACIAL NRV UNIL [place] Charge Routine Facial nerve motor disorder Facial paralysis Ordered: 07/03/2022 [facility] Comment on above: Ordered: 07/03/2022 Chemodnrvtj musc mus c innervated facial nrv unil [place] CHEMODNRVTJ MUSC MUSC INNERVATED FACIAL NRV UNIL [place] Charge Routine Facial nerve motor disorder Ordered: 11/06/2022 [facility] Comment on above: Ordered: 11/06/2022 Chemodnrvtj musc mus c innervated facial nrv unil [place] CHEMODNRVTJ MUSC MUSC INNERVATED FACIAL NRV UNIL [place] Charge Routine Facial nerve motor disorder Blepharospasm Ordered: 07/02/2023 [facility] Comment on above: Ordered: 07/02/2023 Chemodnrvtj musc mus c innervated facial nrv unil [place] CHEMODNRVTJ MUSC MUSC INNERVATED FACIAL NRV UNIL [place] Charge Routine Facial nerve motor disorder Blepharospasm Ordered: 11/05/2023 [facility] Comment on above: Ordered: 11/05/2023 Chemodnrvtj musc mus c innervated facial nrv unil [place] CHEMODNRVTJ MUSC MUSC INNERVATED FACIAL NRV UNIL [place] Charge Routine Facial nerve motor disorder Blepharospasm Ordered: 03/10/2024 [facility] Comment on above: Ordered: 03/10/2024 Chemodnrvtj musc mus c innervated facial nrv unil [place] CHEMODNRVTJ MUSC MUSC INNERVATED FACIAL NRV UNIL [place] Charge Routine Blepharospasm Facial nerve motor disorder Ordered: 06/30/2024 [facility] Comment on above: Ordered: 06/30/2024 Chemodnrvtj musc mus c innervated facial nrv unil [place] CHEMODNRVTJ MUSC MUSC INNERVATED FACIAL NRV UNIL [place] Charge Routine Facial nerve motor disorder Blepharospasm Ordered: 10/29/2024 [facility] Comment on above: Ordered: 10/29/2024 Measurement of respiratory function [facility] Patient referral [facility] Work Phone: Immunizations Immunization Date Immunization Notes Care Provider An dewitt 07-26-2020 Covid (Moderna) No Primary C are Physician [facility] 05-25-2020 Covid (Moderna) No Primary C are Physician [facility] 04-07-2020 Covid (Moderna) No Primary C are Physician [facility] Payers Date Payer Category Payer Managed Care (unspecified) [facility] PPO POS Member Subscriber Plan / Payer (Effective 2024-Present) Name: HAVEN ALBERT Relation to Subscriber: Self Name: Haven Albert Payer ID: [id number] (NAIC) Type: Not on file Address: [facility] [id number] [place] [id number] 2023 Self-pay [id number] 2020 Unknown [id number] 2017 Unknown [id number]. [id number] 1989 Unknown [id number] 2.16840.1.883448.3.579. 2.627 1989 Unknown [id number] 2.16840.1.060290.3.579. 2.627 1989 Unknown [id number] 2.840.1.354609.3.579. 2.594 1989 Unknown [id number] 2.840.1.162157.3.579. 2.594 1989 Unknown [id number] 2.840.1.867906.3.579. 2.594 1989 Unknown [id number] 2.16.840.1.318476.3.579. 2.594 1989 Unknown [id number] 2.840.1.107421.3.579. 2.594 1989 Unknown [id number] 2.840.1.162290.3.579. 2.594 1989 Unknown [id number] 2.16.840.1.458921.3.579. 2.594 Unknown [id number] 2.16.840.1.436587.3.579. 2.462 Unknown [id number] 2.16.840.1.114253.3.579. 2.462 Unknown [id number] 2.16840.1.750760.3.579. 2.462 Unknown [id number] 2.16840.1.662975.3.579. 2.462 Unknown [id number] 2.16.840.1.350856.3.579. 2.462 Unknown [id number] 2.16.840.1.261231.3.579. 2.462 Unknown [id number] 2.16.840.1.157575.3.579. 2.462 Unknown [id number] 2.16.840.1.786786.3.579. 2.462 Unknown [id number] 2.16.840.1.923938.3.579. 2.462 Unknown [id number] 2.16.840.1.091752.3.579. 2.462 Unknown [id number] 2.16.840.1.899536.3.579. 2.462 Unknown [id number] 2.16.840.1.493959.3.579. 2.462 Unknown [id number] 2.16.840.1.140800.3.579. 2.462 Unknown [id number] 2.16.840.1.317674.3.579. 2.462 Unknown [id number] 2.16.840.1.545835.3.579. 2.462 Unknown [id number] 2.16.840.1.055179.3.579. 2.462 Unknown [id number] 2.16.840.1.060556.3.579. 2.462 Unknown [id number] 2.16.840.1.016466.3.579. 2.462 Unknown [id number] 2.16840.1.158500.3.579. 2.462 Unknown [id number] 2.16840.1.884887.3.579. 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) [facility] Start: 1990 Sex Assigned At Not on file O [facility] Start: 06-23-2022 End: 07-03-2022 Exposure to SARS-CoV-2 (event) Not sure [facility] Start: 10-31-2021 History of Social function [facility] Start: 10-31-2021 Tobacco use panel [facility] Gender identity Identifies as fe male gender (finding) [facility] Start: 12-24-2017 [facility]-smoker [place] [facility] Start: 09-02-2015 Sex Female (finding) [facility] Start: 06-28-2024 Sexual orientation Heterosexual (fin ding) [facility] Medical Equipment Procedure Code Equipment Code Equipment Origin al Text Equipment Identifier Dates Screw Neuro 1.5x4.0mm/Ea - [id number] Start: 12-20-2015 Mesh 3d Ti .6mm [id number] - [id number] Start: 12-20-2015 Goals Date Patient Goal Desired Activity /State Personal health goal Comment on above: Formatting of this n ote might be different from the original. 1. 06/05/2016 Pt will report improved facial function as needed to optimize speech and swallow function as measured by FGS (facial grading scale) composite score of >/=75/100. BL: 33/100 08/20/2016 CUrrent 52/100. Reduction in synkinesis. Increased movement. 12/10/2016 GOAL PROGRESSING. Current: 57/100. Continues to demonstrate reduced synkinesis and increased movement/excursion with all. Pt reports this is improved functionally as well. 07/22/2017 NOT ASSESSED TODAY. Will reassess next visit. 01/07/2018 GOAL STABLE. Current 55/100. Slight increase in synkinesis, with voluntary movement stable, however pt reports improving facial movement, e.g. Improved dental show with open mouth smile. 07/11/2018 GOAL STABLE. 03/17/2020 GOAL CONTINUES TO PROGESS. Current 64. 04/04/2021 NOT ASSESSED 07/11/2021 GOAL MET! Pt 75/100! Highest FGS as of yet. Pt reporting improved movement with modification of soft tissue mobilization 03/13/2022 Current 76/100. Pt has maintained gains over the past 8 months! 07/03/2022 71/100. Some regression which may be 2/2 her not having botox for 8 months. 2. 06/05/2016 Pt will demonstrate independence with facial rehabilitation home exercise program to facilitate treatment gains as well as carryover into functional living environment/transition into long-term HEP post-discharge from . 12/10/2016 GOAL CONTINUES. Pt demonstrates and reports compliance with HEP. 07/22/2017 GOAL CONTINUES. Pt demonstrates excellent compliance with HEP. 01/07/2018 Continues for progressions. 03/17/2020 GOAL CONTINUES FOR PROGRESSIONS. 04/04/2021 Continues for progressions. 07/11/2021 Reports continued compliance. Continue for progression of goals 03/13/2022 GOAL MET. See new self efficacy/management goal. 07/03/2022 Continues only for progressions. 3. 06/05/2016 Pt will report improved facial function as needed to optimize speech and swallow function as measured by FDI (facial disability index) total score of >/=175/200. BL: 130/200 08/20/2016 Current: 140/200. Reports improved ability to drink from a cup without needing to always use straws. 12/10/2016 Current: 144/200. Pt continues to report improvement including improved ability to smile and speak without eye closure. 07/22/2017 GOAL PROGRESSING: Current 150/200 01/07/2018 GOAL PROGRESSIN/200 07/11/2018 GOAL Continues: 157/200. 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 May be affected by the current pandemic. 04/04/2021 GOAL PROGRESSING and returned to 2018 levels at 151/200 07/11/2021 GOAL Progressing and pt now 156/200 07/03/2022 Maintained at 156/200 4. GOAL ADDED. 08/20/2016 Pt will report reduction in synkinesis per SAQ (Synkinesis Assessment Questionnaire) as needed to optimize speech and swallow function to <30. BL 39 12/10/2016 GOAL NOT MET. Current: 48. Pt with continued synkinesis in diffuse areas but reduced severity. Continue goal 07/22/2017 GOAL CONTINUES. Current: 55. 01/07/2018 GOAL PROGRESSIN.22 07/11/2018 GOAL DECLINED. CUrrent 55.56----BTX today. 03/17/2020 Current: 44. 44! Improved, planned BTX today. . 04/04/2021 GOAL DECLINED. Current: 55.56; botox today. 07/11/2021 Progressing. Current 51.11 03/13/2022 Current 44.44. 07/03/2022 Regressed considerably to 62.22. 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 07/03/2022 GOAL PROGRESSING. Formatting of this n ote might be different from the original. 1. 06/05/2016 Pt will report improved facial function as needed to optimize speech and swallow function as measured by FGS (facial grading scale) composite score of >/=75/100. BL: 33/100 08/20/2016 CUrrent 52/100. Reduction in synkinesis. Increased movement. 12/10/2016 GOAL PROGRESSING. Current: 57/100. Continues to demonstrate reduced synkinesis and increased movement/excursion with all. Pt reports this is improved functionally as well. 07/22/2017 NOT ASSESSED TODAY. Will reassess next visit. 01/07/2018 GOAL STABLE. Current 55/100. Slight increase in synkinesis, with voluntary movement stable, however pt reports improving facial movement, e.g. Improved dental show with open mouth smile. 07/11/2018 GOAL STABLE. 03/17/2020 GOAL CONTINUES TO PROGESS. Current 64. 04/04/2021 NOT ASSESSED 07/11/2021 GOAL MET! Pt 75/100! Highest FGS as of yet. Pt reporting improved movement with modification of soft tissue mobilization 03/13/2022 Current 76/100. Pt has maintained gains over the past 8 months! 07/03/2022 71/100. Some regression which may be 2/2 her not having botox for 8 months. 03/07/2023 Steady with consideration of effect of chemodenervation (worn off) on synkinesis and volitional movement. 2. 06/05/2016 Pt will demonstrate independence with facial rehabilitation home exercise program to facilitate treatment gains as well as carryover into functional living environment/transition into long-term HEP post-discharge from . 12/10/2016 GOAL CONTINUES. Pt demonstrates and reports compliance with HEP. 07/22/2017 GOAL CONTINUES. Pt demonstrates excellent compliance with HEP. 01/07/2018 Continues for progressions. 03/17/2020 GOAL CONTINUES FOR PROGRESSIONS. 04/04/2021 Continues for progressions. 07/11/2021 Reports continued compliance. Continue for progression of goals 03/13/2022 GOAL MET. See new self efficacy/management goal. 07/03/2022 Continues only for progressions. 03/07/2023 Continues for progressions with HEP modified today to promote senior care change. 3. 06/05/2016 Pt will report improved facial function as needed to optimize speech and swallow function as measured by FDI (facial disability index) total score of >/=175/200. BL: 130/200 08/20/2016 Current: 140/200. Reports improved ability to drink from a cup without needing to always use straws. 12/10/2016 Current: 144/200. Pt continues to report improvement including improved ability to smile and speak without eye closure. 07/22/2017 GOAL PROGRESSING: Current 150/200 01/07/2018 GOAL PROGRESSIN/200 07/11/2018 GOAL Continues: 157/200. 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 May be affected by the current pandemic. 04/04/2021 GOAL PROGRESSING and returned to 2018 levels at 151/200 07/11/2021 GOAL Progressing and pt now 156/200 07/03/2022 Maintained at 156/200 03/07/2023 152/200. Essentially maintained. 4. GOAL ADDED. 08/20/2016 Pt will report reduction in synkinesis per SAQ (Synkinesis Assessment Questionnaire) as needed to optimize speech and swallow function to <30. BL 39 12/10/2016 GOAL NOT MET. Current: 48. Pt with continued synkinesis in diffuse areas but reduced severity. Continue goal 07/22/2017 GOAL CONTINUES. Current: 55. 01/07/2018 GOAL PROGRESSIN.22 07/11/2018 GOAL DECLINED. CUrrent 55.56----BTX today. 03/17/2020 Current: 44. 44! Improved, planned BTX today. . 04/04/2021 GOAL DECLINED. Current: 55.56; botox today. 07/11/2021 Progressing. Current 51.11 03/13/2022 Current 44.44. 07/03/2022 Regressed considerably to 62.22. BTX today 03/07/2023 STEADY and appears to be related to botox. Will discontinue this goal. GOAL ADDED: 03/13/2022 Pt will demonstrate comprehension and use of 3 facial rehabiliation strategies as needed to promote pt self-efficacy with senior care synkinesis management including reduction of facial tightness, pain and hyperfunction. 07/03/2022 GOAL PROGRESSING. 03/07/2023 GOAL PROGRESSING. 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 Formatting of this n ote might be different from the original. 1. 06/05/2016 Pt will report improved facial function as needed to optimize speech and swallow function as measured by FGS (facial grading scale) composite score of >/=75/100. BL: 33/100 08/20/2016 CUrrent 52/100. Reduction in synkinesis. Increased movement. 12/10/2016 GOAL PROGRESSING. Current: 57/100. Continues to demonstrate reduced synkinesis and increased movement/excursion with all. Pt reports this is improved functionally as well. 07/22/2017 NOT ASSESSED TODAY. Will reassess next visit. 01/07/2018 GOAL STABLE. Current 55/100. Slight increase in synkinesis, with voluntary movement stable, however pt reports improving facial movement, e.g. Improved dental show with open mouth smile. 07/11/2018 GOAL STABLE. 03/17/2020 GOAL CONTINUES TO PROGESS. Current 64. 04/04/2021 NOT ASSESSED 07/11/2021 GOAL MET! Pt 75/100! Highest FGS as of yet. Pt reporting improved movement with modification of soft tissue mobilization 03/13/2022 Current 76/100. Pt has maintained gains over the past 8 months! 07/03/2022 71/100. Some regression which may be 2/2 her not having botox for 8 months. 03/07/2023 Steady with consideration of effect of chemodenervation (worn off) on synkinesis and volitional movement. 11/05/2023 72/200. Continues steady with FGS, however see note for progressions made today. 2. 06/05/2016 Pt will demonstrate independence with facial rehabilitation home exercise program to facilitate treatment gains as well as carryover into functional living environment/transition into long-term HEP post-discharge from . 12/10/2016 GOAL CONTINUES. Pt demonstrates and reports compliance with HEP. 07/22/2017 GOAL CONTINUES. Pt demonstrates excellent compliance with HEP. 01/07/2018 Continues for progressions. 03/17/2020 GOAL CONTINUES FOR PROGRESSIONS. 04/04/2021 Continues for progressions. 07/11/2021 Reports continued compliance. Continue for progression of goals 03/13/2022 GOAL MET. See new self efficacy/management goal. 07/03/2022 Continues only for progressions. 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 11/05/2023 Continues for progressions with modifications and response to intervention noted today, deeming pt appropriate for ongoing maintenance/spaced tx service delivery model. 3. 06/05/2016 Pt will report improved facial function as needed to optimize speech and swallow function as measured by FDI (facial disability index) total score of >/=175/200. BL: 130/200 08/20/2016 Current: 140/200. Reports improved ability to drink from a cup without needing to always use straws. 12/10/2016 Current: 144/200. Pt continues to report improvement including improved ability to smile and speak without eye closure. 07/22/2017 GOAL PROGRESSING: Current 150/200 01/07/2018 GOAL PROGRESSIN/200 07/11/2018 GOAL Continues: 157/200. 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 May be affected by the current pandemic. 04/04/2021 GOAL PROGRESSING and returned to 2018 levels at 151/200 07/11/2021 GOAL Progressing and pt now 156/200 07/03/2022 Maintained at 156/200 03/07/2023 152/200. Essentially maintained. 11/05/2023 Decline to 148/200. Will reassess next visit given HEP modifications today. 4. GOAL ADDED. 08/20/2016 Pt will report reduction in synkinesis per SAQ (Synkinesis Assessment Questionnaire) as needed to optimize speech and swallow function to <30. BL 39 12/10/2016 GOAL NOT MET. Current: 48. Pt with continued synkinesis in diffuse areas but reduced severity. Continue goal 07/22/2017 GOAL CONTINUES. Current: 55. 01/07/2018 GOAL PROGRESSIN.22 07/11/2018 GOAL DECLINED. CUrrent 55.56----BTX today. 03/17/2020 Current: 44. 44! Improved, planned BTX today. . 04/04/2021 GOAL DECLINED. Current: 55.56; botox today. 07/11/2021 Progressing. Current 51.11 03/13/2022 Current 44.44. 07/03/2022 Regressed considerably to 62.22. BTX today 03/07/2023 STEADY and appears to be related to botox. Will discontinue this goal. 11/05/2023 improved to 57.78. Goal is discontinued, but ongoing measurement to ensure tx gains or improvements. GOAL ADDED: 03/13/2022 Pt will demonstrate comprehension and use of 3 facial rehabiliation strategies as needed to promote pt self-efficacy with senior care synkinesis management including reduction of facial tightness, pain and hyperfunction. 07/03/2022 GOAL PROGRESSING. 03/07/2023 GOAL PROGRESSING. See note for details as we consider how to incorporate self management into pt's senior care maintenance/care plan. Formatting of this n ote might be different from the original. 2. 06/05/2016 Pt will demonstrate independence with facial rehabilitation home exercise program to facilitate treatment gains as well as carryover into functional living environment/transition into long-term HEP post-discharge from . 12/10/2016 GOAL CONTINUES. Pt demonstrates and reports compliance with HEP. 07/22/2017 GOAL CONTINUES. Pt demonstrates excellent compliance with HEP. 01/07/2018 Continues for progressions. 03/17/2020 GOAL CONTINUES FOR PROGRESSIONS. 04/04/2021 Continues for progressions. 07/11/2021 Reports continued compliance. Continue for progression of goals 03/13/2022 GOAL MET. See new self efficacy/management goal. 07/03/2022 Continues only for progressions. 03/07/2023 Continues for progressions with HEP modified today to promote senior care change. 11/05/2023 Continues for progressions with modifications and response to intervention noted today, deeming pt appropriate for ongoing maintenance/spaced tx service delivery model. 06/30/2024 Continues for progressions as above. 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 07/03/2022 GOAL PROGRESSING. 03/07/2023 GOAL PROGRESSING. See note for details as we consider how to incorporate self management into pt's senior care maintenance/care plan. 06/30/2024 Continues for progressions as above. Comment on above: Formatting of this n ote might be different from the original. 1. 06/05/2016 Pt will report improved facial function as needed to optimize speech and swallow function as measured by FGS (facial grading scale) composite score of >/=75/100. BL: 33/100 08/20/2016 CUrrent 52/100. Reduction in synkinesis. Increased movement. 12/10/2016 GOAL PROGRESSING. Current: 57/100. Continues to demonstrate reduced synkinesis and increased movement/excursion with all. Pt reports this is improved functionally as well. 07/22/2017 NOT ASSESSED TODAY. Will reassess next visit. 01/07/2018 GOAL STABLE. Current 55/100. Slight increase in synkinesis, with voluntary movement stable, however pt reports improving facial movement, e.g. Improved dental show with open mouth smile. 07/11/2018 GOAL STABLE. 03/17/2020 GOAL CONTINUES TO PROGESS. Current 64. 04/04/2021 NOT ASSESSED 07/11/2021 GOAL MET! Pt 75/100! Highest FGS as of yet. Pt reporting improved movement with modification of soft tissue mobilization 2. 06/05/2016 Pt will demonstrate independence with facial rehabilitation home exercise program to facilitate treatment gains as well as carryover into functional living environment/transition into long-term HEP post-discharge from . 12/10/2016 GOAL CONTINUES. Pt demonstrates and reports compliance with HEP. 07/22/2017 GOAL CONTINUES. Pt demonstrates excellent compliance with HEP. 01/07/2018 Continues for progressions. 03/17/2020 GOAL CONTINUES FOR PROGRESSIONS. 04/04/2021 Continues for progressions. 07/11/2021 Reports continued compliance. Continue for progression of goals 3. 06/05/2016 Pt will report improved facial function as needed to optimize speech and swallow function as measured by FDI (facial disability index) total score of >/=175/200. BL: 130/200 08/20/2016 Current: 140/200. Reports improved ability to drink from a cup without needing to always use straws. 12/10/2016 Current: 144/200. Pt continues to report improvement including improved ability to smile and speak without eye closure. 07/22/2017 GOAL PROGRESSING: Current 150/200 01/07/2018 GOAL PROGRESSIN/200 07/11/2018 GOAL Continues: 157/200. 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 May be affected by the current pandemic. 04/04/2021 GOAL PROGRESSING and returned to 2018 levels at 151/200 07/11/2021 GOAL Progressing and pt now 156/200 4. GOAL ADDED. 08/20/2016 Pt will report reduction in synkinesis per SAQ (Synkinesis Assessment Questionnaire) as needed to optimize speech and swallow function to <30. BL 39 12/10/2016 GOAL NOT MET. Current: 48. Pt with continued synkinesis in diffuse areas but reduced severity. Continue goal 07/22/2017 GOAL CONTINUES. Current: 55. 01/07/2018 GOAL PROGRESSIN.22 07/11/2018 GOAL DECLINED. CUrrent 55.56----BTX today. 03/17/2020 Current: 44. 44! Improved, planned BTX today. . 04/04/2021 GOAL DECLINED. Current: 55.56; botox today. 07/11/2021 Progressing. Current 51.11 Formatting of this n ote might be different from the original. 1. 06/05/2016 Pt will report improved facial function as needed to optimize speech and swallow function as measured by FGS (facial grading scale) composite score of >/=75/100. BL: 33/100 08/20/2016 CUrrent 52/100. Reduction in synkinesis. Increased movement. 12/10/2016 GOAL PROGRESSING. Current: 57/100. Continues to demonstrate reduced synkinesis and increased movement/excursion with all. Pt reports this is improved functionally as well. 07/22/2017 NOT ASSESSED TODAY. Will reassess next visit. 01/07/2018 GOAL STABLE. Current 55/100. Slight increase in synkinesis, with voluntary movement stable, however pt reports improving facial movement, e.g. Improved dental show with open mouth smile. 07/11/2018 GOAL STABLE. 03/17/2020 GOAL CONTINUES TO PROGESS. Current 64. 04/04/2021 NOT ASSESSED 07/11/2021 GOAL MET! Pt 75/100! Highest FGS as of yet. Pt reporting improved movement with modification of soft tissue mobilization 03/13/2022 Current 76/100. Pt has maintained gains over the past 8 months! 07/03/2022 71/100. Some regression which may be 2/2 her not having botox for 8 months. 2. 06/05/2016 Pt will demonstrate independence with facial rehabilitation home exercise program to facilitate treatment gains as well as carryover into functional living environment/transition into long-term HEP post-discharge from . 12/10/2016 GOAL CONTINUES. Pt demonstrates and reports compliance with HEP. 07/22/2017 GOAL CONTINUES. Pt demonstrates excellent compliance with HEP. 01/07/2018 Continues for progressions. 03/17/2020 GOAL CONTINUES FOR PROGRESSIONS. 04/04/2021 Continues for progressions. 07/11/2021 Reports continued compliance. Continue for progression of goals 03/13/2022 GOAL MET. See new self efficacy/management goal. 07/03/2022 Continues only for progressions. 3. 06/05/2016 Pt will report improved facial function as needed to optimize speech and swallow function as measured by FDI (facial disability index) total score of >/=175/200. BL: 130/200 08/20/2016 Current: 140/200. Reports improved ability to drink from a cup without needing to always use straws. 12/10/2016 Current: 144/200. Pt continues to report improvement including improved ability to smile and speak without eye closure. 07/22/2017 GOAL PROGRESSING: Current 150/200 01/07/2018 GOAL PROGRESSIN/200 07/11/2018 GOAL Continues: 157/200. 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 May be affected by the current pandemic. 04/04/2021 GOAL PROGRESSING and returned to 2018 levels at 151/200 07/11/2021 GOAL Progressing and pt now 156/200 07/03/2022 Maintained at 156/200 4. GOAL ADDED. 08/20/2016 Pt will report reduction in synkinesis per SAQ (Synkinesis Assessment Questionnaire) as needed to optimize speech and swallow function to <30. BL 39 12/10/2016 GOAL NOT MET. Current: 48. Pt with continued synkinesis in diffuse areas but reduced severity. Continue goal 07/22/2017 GOAL CONTINUES. Current: 55. 01/07/2018 GOAL PROGRESSIN.22 07/11/2018 GOAL DECLINED. CUrrent 55.56----BTX today. 03/17/2020 Current: 44. 44! Improved, planned BTX today. . 04/04/2021 GOAL DECLINED. Current: 55.56; botox today. 07/11/2021 Progressing. Current 51.11 03/13/2022 Current 44.44. 07/03/2022 Regressed considerably to 62.22. BTX today GOAL ADDED: 03/13/2022 Pt will demonstrate comprehension and use of 3 facial rehabiliation strategies as needed to promote pt self-efficacy with senior care synkinesis management including reduction of facial tightness, pain and hyperfunction. 07/03/2022 GOAL PROGRESSING. Functional Status Date Assessment Result Facility 01-17-2024 Functional Status Independent [facility] 12-21-2015 Are you deaf, or do you have serious difficulty hearing Yes 12/21/2015 3:58 PM EDT Quinn Jacobs RN Yes [facility] 12-21-2015 Are you blind, or do you have serious difficulty seeing, even when wearing glasses No 12/21/2015 3:58 PM EDT Quinn Jacobs RN No [facility] 12-21-2015 Do you have serious difficulty walking or climbing stairs No 12/21/2015 3:58 PM EDT Quinn Jacobs RN No [facility] 12-21-2015 Do you have difficul ty dressing or bathing No 12/21/2015 3:58 PM EDT Quinn Jacobs RN No [facility] 12-21-2015 Because of a physica l, mental, or emotional condition, do you have difficulty doing errands alone such as visiting a physician's office or shopping No 12/21/2015 3:58 PM EDT Quinn Jacobs, RN No [facility] Mental Status Date Assessment Result Facility 01-17-2024 Mental Status Orientation Oriented x 4 [facility] 12-21-2015 Because of a physica l, mental, or emotional condition, do you have serious difficulty concentrating, remembering, or making decisions No 12/21/2015 3:58 PM EDT Quinn Jacobs RN No [facility] Clinical Notes 10-31-2021 to 10-29-2024 Pia Bentley MD - 10/29/2024 2:30 PM Yuko Bentley MD - 06/30/2024 11:40 AM Pepper Bentley MD - 03/10/2024 9:00 AM Pepper Bentley MD - 11/05/2023 1:50 PM EDT Note Date & Type Note Facility 10-29-2024 History of Presen t illness Narrative Chemodenervation With Botox ([id number]) PREOPERATIVE DIAGNOSIS(ES): Left facial paralysis, abnormal innervation [...] Once this was completed, A total of 30 units was injected with 20 units being discarded, for a total of 50 units being utilized. Injections were performed to bilateral frontalis, left lower lip depressors, left mentalis, left buccinator, left nasal ala, left deep dori at columella. Bilateral injections performed as otherwise asymmetry would be exacerbated by unilateral treatment. CONDITION: Stable COMPLICATIONS:The patient tolerated the procedure well without apparent complications and was ambulatory. documented in this encounter [facility] 06-30-2024 History of Presen t illness Narrative Chemodenervation With Botox ([id number]) PREOPERATIVE DIAGNOSIS(ES): Left facial paralysis, abnormal innervation [...] Once this was completed, A total of 30 units was injected with 20 units being discarded, for a total of 50 units being utilized. Injections were performed to bilateral frontalis, left lower lip depressors, left mentalis, left buccinator, left nasal ala, left deep dori at columella. Bilateral injections performed as otherwise asymmetry would be exacerbated by unilateral treatment. CONDITION: Stable COMPLICATIONS:The patient tolerated the procedure well without apparent complications and was ambulatory. documented in this encounter [facility] 03-10-2024 History of Presen t illness Narrative Chemodenervation With Botox ([id number]) PREOPERATIVE DIAGNOSIS(ES): Left facial paralysis, abnormal innervation [...] was ambulatory. documented in this encounter [facility] 01-17-2024 Hospital Discharg e instructions Patient Education 01/17/2024 00:19:22 Erythema Multiforme Erythema Multiforme Erythema multiforme is a skin rash. It s cause by a hypersensitivity reaction. Many things can cause the reaction. These include a virus, bacteria, fungus, medicine, vaccine, or food. Illnesses such as pneumonia and herpes can also cause it. At first, the skin may have round red bumps, fluid-filled blisters, or pimples. Most of these turn into a round [place] with a small dark center. A white ring may surround the entire area of the skin. The sores may cause pain, burning, or itching. They occur most often on the forearms, legs, and back of hands and feet. They can spread to the abdomen, back, face, genitals, and mouth in severe cases. They can t be passed from person to person. You may also have a fever and muscle aches. Treatment includes finding and removing the cause. If a medicine may be the cause, you will be told to stop taking it. The sores will likely go away in 2 to 3 weeks without treatment. It may take longer in severe cases. The sores may come back. Your doctor may prescribe medicine to reduce pain and inflammation, or an antiviral medicine. If any sores become infected, your doctor may prescribe an antibiotic. This condition is not contagious. Home care Follow these tips: Apply tqkx-jac-nluqvue hydrocortisone cream to the rash. Soak in a bath with colloidal oatmeal added to the water. This can help relieve itching and pain. If the rash was caused by a medicine, make sure to tell future healthcare providers that you are allergic to it. You can take acetaminophen for fever and to ease pain. Follow-up care Follow up with your healthcare provider, or as advised. When to seek medical advice Call your healthcare provider right away if any of these occur: Inability to eat or swallow because you have mouth pain Your eyes become involved with the rash Trouble breathing Weakness, dizziness, or fainting Swelling or tightness of the throat and trouble swallowing Fever of 100.4 F (38.0 C) or higher The rash comes back after it goes away 4159-1026 [employer]. [address] [place] [address]. All rights reserved. This information is not intended as a substitute for professional medical care. Always follow your healthcare professional's instructions. Follow Up Care 01/16/2024 23:03:43 With:DIVINE HOPPER MD Address: [address] [place] [address]- [phone] When:2-4 days [facility] 01-17-2024 Note Discharge Instructions Thank you for allowing [facility] to assist you with your healthcare needs. The following is important discharge information regarding your hospital visit. Diagnosis from Today's Visit Erythema multiforme minor Hives Itching What to Do Next Instructions from Your Care Team Discharge Return to Work, School, or Sports (Return to Work, School, or Sports) - Ordered -- 01/18/24, May return to: work, 01/17/24 0:19:00 EDT Post Acute Orders No qualifying data available. You Need to Schedule the Following Appointments Follow Up with DIVINE HOPPER MD When:Within 2-4 days Where:[address] [place] [address] [place] [address] [phone] Allergies NKA Medications Please ask your primary doctor or pharmacist before taking any other medication not listed, including over the counter drugs, herbal medications, vitamins and or supplements as they may interact with your home medications. What How Much When Instructions Last Dose New famotidine (famotidine 40 mg oral tablet) 1 tab(s) by mouth Every day Duration: 5 Days Printed Prescription New hydrOXYzine (hydrOXYzine pamoate 25 mg oral capsule) 1 cap by mouth Four (4) times a day as needed for as needed for itching Duration: 7 Days Printed Prescription Unchanged acetaminophen (Tylenol 325 mg oral capsule) 650 Milligram by mouth Every 4 hours as needed for Pain, scale 1-3 Unchanged herbal/ nutritional product (cranberry oral capsule) See instructions 1 cap(s) Oral Daily Please take this list to your next doctor s visit. Bring all medications you take, including over the counter medications, herbals and other supplements with you to your doctor s visit. Patients and families are reminded to discard old lists and to update any records with all medication providers or retail pharmacies. Medication Leaflets hydroxyzine (darnell DROX ee zeen) Vistaril What is the most important information I should know about hydroxyzine? You should not use hydroxyzine if you are , especially during the first or second trimester. Hydroxyzine can cause a serious heart problem, especially if you use certain medicines at the same time. Tell your doctor about all your current medicines and any you start or stop using. What is hydroxyzine? Hydroxyzine reduces activity in the central nervous system. It also acts as an antihistamine that reduces the effects of natural chemical histamine in the body. Histamine can produce symptoms of itching, or hives on the skin. Hydroxyzine is used as a sedative to treat anxiety and tension. It is also used together with other medications given during and after general anesthesia. Hydroxyzine is also used to treat allergic skin reactions such as hives or contact dermatitis. Hydroxyzine may also be used for purposes not listed in this medication guide. What should I discuss with my healthcare provider before taking hydroxyzine? You should not use hydroxyzine if you are allergic to it, or if: you have long QT syndrome; you are allergic to cetirizine (Zyrtec) or levocetirizine (Xyzal); or you are in the first trimester of . You should not use hydroxyzine if you are , especially during the first or second trimester. Hydroxyzine could harm the unborn baby or cause defects. Use effective control to prevent while you are using this medicine. To make sure hydroxyzine is safe for you, tell your doctor if you have: blockage in your digestive tract (stomach or intestines); bladder obstruction or other urination problems; glaucoma; heart disease, slow heartbeats; personal or family history of long QT syndrome; an electrolyte imbalance (such as high or low levels of potassium in your blood); if you have recently had a heart attack. It is not known whether hydroxyzine passes into breast milk or if it could harm a nursing baby. You should not breast-feed while using this medicine. Do not give this medicine to a child without medical advice. How should I take hydroxyzine? Follow all directions on your prescription label. Your doctor may occasionally change your dose. Do not use this medicine in larger or smaller amounts or for longer than recommended. Shake the oral suspension (liquid) well just before you measure a dose. Measure liquid medicine with the dosing syringe provided, or with a special dose-measuring spoon or medicine cup. If you do not have a dose-measuring device, ask your pharmacist for one. Hydroxyzine is for short-term use only. You should not take this medicine for longer than 4 months. Call your doctor if your anxiety symptoms do not improve, or if they get worse. Store at room temperature away from moisture and heat. What happens if I miss a dose? Take the missed dose as soon as you remember. Skip the missed dose if it is almost time for your next scheduled dose. Do not take extra medicine to make up the missed dose. What happens if I overdose? Seek emergency medical attention or call the Poison Help line at . Overdose symptoms may include severe drowsiness, nausea, vomiting, uncontrolled muscle movements, or seizure (convulsions). What should I avoid while taking hydroxyzine? This medicine may impair your thinking or reactions. Be careful if you drive or do anything that requires you to be alert. Drinking alcohol with this medicine can cause side effects. What are the possible side effects of hydroxyzine? Get emergency medical help if you have signs of an allergic reaction: hives; difficult breathing; swelling of your face, lips, tongue, or throat. In rare cases, hydroxyzine may cause a severe skin reaction. Stop taking this medicine and call your doctor right away if you have sudden skin redness or a rash that spreads and causes white or yellow pustules, blistering, or peeling. Stop using hydroxyzine and call your doctor at once if you have: fast or pounding heartbeats; headache with chest pain; severe dizziness, fainting; or a seizure (convulsions). Side effects such as drowsiness and confusion may be more likely in older adults. Common side effects may include: drowsiness; headache; dry mouth; or skin rash. This is not a complete list of side effects and others may occur. Call your doctor for medical advice about side effects. You may report side effects to FDA at 6-666-MVB-0846. What other drugs will affect hydroxyzine? Taking this medicine with other drugs that make you sleepy can worsen this effect. Ask your doctor before taking hydroxyzine with a sleeping pill, narcotic pain medicine, muscle relaxer, or medicine for anxiety, depression, or seizures. Hydroxyzine can cause a serious heart problem, especially if you use certain medicines at the same time, including antibiotics, antidepressants, heart rhythm medicine, antipsychotic medicines, and medicines to treat cancer, malaria, HIV or AIDS. Tell your doctor about all medicines you use, and those you start or stop using during your treatment with hydroxyzine. Other drugs may interact with hydroxyzine, including prescription and lnha-zqv-gybiemt medicines, vitamins, and herbal products. Not all possible interactions are listed here. Tell each of your health care providers about all medicines you use now and any medicine you start or stop using. Where can I get more information? Your pharmacist can provide more information about hydroxyzine. Remember, keep this and all other medicines out of the reach of children, never share your medicines with others, and use this medication only for the indication prescribed. Every effort has been made to ensure that the information provided by [employer] is accurate, up-to-date, and complete, but no guarantee is made to that effect. Drug information contained herein may be time sensitive. [employer] information has been compiled for use by healthcare practitioners and consumers in the [place] and therefore [employer] does not warrant that uses outside of the [place] are appropriate, unless specifically indicated otherwise. [employer]'s drug information does not endorse drugs, diagnose patients or recommend therapy. [facility] drug information is an informational resource designed to assist licensed healthcare practitioners in caring for their patients and/or to serve consumers viewing this service as a supplement to, and not a substitute for, the expertise, skill, knowledge and judgment of healthcare practitioners. The absence of a warning for a given drug or drug combination in no way should be construed to indicate that the drug or drug combination is safe, effective or appropriate for any given patient. [facility] does not assume any responsibility for any aspect of healthcare administered with the aid of information [facility] provides. The information contained herein is not intended to cover all possible uses, directions, precautions, warnings, drug interactions, allergic reactions, or adverse effects. If you have questions about the drugs you are taking, check with your doctor, nurse or pharmacist. Copyright 8990-2775 [facility] [employer]. Version: 8.01. Revision Date: 07/11/2016. famotidine (oral/injection) (fam [place] ti gorge) Heartburn Relief, Pepcid, Pepcid AC, Pepcid AC Maximum Strength, Zantac 360 What is the most important information I should know about famotidine? Follow all directions on the label and package. Use exactly as directed. What is famotidine? Famotidine is used to treat and prevent ulcers in the stomach and intestines. It also treats conditions in which the stomach produces too much acid, such as Drake-Velarde syndrome. Famotidine also treats gastroesophageal reflux disease (GERD) and other conditions in which acid backs up from the stomach into the esophagus, causing heartburn. The Zantac 360 brand of this medicine does not contain ranitidine, a medicine that was withdrawn from market in the [place]. Famotidine may also be used for purposes not listed in this medication guide. What should I discuss with my healthcare provider before taking famotidine? Heartburn can feel like a heart attack. Get emergency medical help if you have chest pain that spreads to your jaw or shoulder. You should not use this medicine if you are allergic to famotidine or similar medicines such as ranitidine (Zantac), cimetidine (Tagamet), or nizatidine (Axid). Ask a doctor or pharmacist if this medicine is safe to use if you have: kidney disease; liver disease; cancer stomach; or long QT syndrome (in you or a family member). Ask a doctor before using this medicine if you are or . How should I take famotidine? Use exactly as directed on the label, or as prescribed by your doctor. Famotidine oral is taken by mouth. Famotidine injection is given in a vein if you are unable to take the medicine by mouth. You may take famotidine oral with or without food. Measure liquid medicine with the supplied syringe or a dose-measuring device (not a kitchen spoon). Most ulcers heal within 4 weeks of famotidine treatment, but it may take up to 8 weeks of using this medicine before your ulcer heals. Keep using the medication as directed. Call your doctor if the condition you are treating with famotidine does not improve, or if it gets worse while using famotidine. Your treatment may also include changes in diet or lifestyle habits. Follow all instructions of your doctor or dietitian. Store at room temperature away from moisture, heat, and light. Do not allow the liquid medicine to freeze. Throw away any unused famotidine liquid that is older than 30 days. What happens if I miss a dose? Take the medicine as soon as you can, but skip the missed dose if it is almost time for your next dose. Do not take two doses at one time. What happens if I overdose? Seek emergency medical attention or call the Poison Help line at . What should I avoid while taking famotidine? Drinking alcohol may increase the risk of damage to your stomach. Avoid taking other stomach acid reducers unless your doctor has told you to. However, you may take an antacid (such as Maalox, Mylanta, Gaviscon, Milk of Magnesia, Rolaids, or Tums) with famotidine. What are the possible side effects of famotidine? Get emergency medical help if you have signs of an allergic reaction: hives; difficult breathing; swelling of your face, lips, tongue, or throat. Stop using famotidine and call your doctor at once if you have: confusion, hallucinations, agitation, lack of energy; a seizure; fast or pounding heartbeats, sudden dizziness (like you might pass out); or unexplained muscle pain, tenderness, or weakness especially if you also have fever, unusual tiredness, and dark colored urine. Some side effects may be more likely in older adults and in people who have severe kidney disease. Common side effects may include: headache; dizziness; or constipation or diarrhea. This is not a complete list of side effects and others may occur. Call your doctor for medical advice about side effects. You may report side effects to FDA at 3-257-RMT-1520. What other drugs will affect famotidine? Famotidine oral can make it harder for your body to absorb other medicines you take by mouth. Tell your doctor if you are taking: cefditoren; dasatinib; delavirdine; fosamprenavir; or tizanidine (if you are taking famotidine liquid). This list is not complete. Other drugs may affect famotidine, including prescription and proj-xif-blyhewq medicines, vitamins, and herbal products. Not all possible drug interactions are listed here. Where can I get more information? Your doctor or pharmacist can provide more information about famotidine. Remember, keep this and all other medicines out of the reach of children, never share your medicines with others, and use this medication only for the indication prescribed. Every effort has been made to ensure that the information provided by [employer] is accurate, up-to-date, and complete, but no guarantee is made to that effect. Drug information contained herein may be time sensitive. [employer] information has been compiled for use by healthcare practitioners and consumers in the [place] and therefore [employer] does not warrant that uses outside of the [place] are appropriate, unless specifically indicated otherwise. [employer] drug information does not endorse drugs, diagnose patients or recommend therapy. [employer] drug information is an informational resource designed to assist licensed healthcare practitioners in caring for their patients and/or to serve consumers viewing this service as a supplement to, and not a substitute for, the expertise, skill, knowledge and judgment of healthcare practitioners. The absence of a warning for a given drug or drug combination in no way should be construed to indicate that the drug or drug combination is safe, effective or appropriate for any given patient. [employer] does not assume any responsibility for any aspect of healthcare administered with the aid of information [employer] provides. The information contained herein is not intended to cover all possible uses, directions, precautions, warnings, drug interactions, allergic reactions, or adverse effects. If you have questions about the drugs you are taking, check with your doctor, nurse or pharmacist. Copyright [employer]. Version: 20.. Revision Date: 11/19/2022. Education Materials Erythema Multiforme Erythema multiforme is a skin rash. It s cause by a hypersensitivity reaction. Many things can cause the reaction. These include a virus, bacteria, fungus, medicine, vaccine, or food. Illnesses such as pneumonia and herpes can also cause it. At first, the skin may have round red bumps, fluid-filled blisters, or pimples. Most of these turn into a round [place] with a small dark center. A white ring may surround the entire area of the skin. The sores may cause pain, burning, or itching. They occur most often on the forearms, legs, and back of hands and feet. They can spread to the abdomen, back, face, genitals, and mouth in severe cases. They can t be passed from person to person. You may also have a fever and muscle aches. Treatment includes finding and removing the cause. If a medicine may be the cause, you will be told to stop taking it. The sores will likely go away in 2 to 3 weeks without treatment. It may take longer in severe cases. The sores may come back. Your doctor may prescribe medicine to reduce pain and inflammation, or an antiviral medicine. If any sores become infected, your doctor may prescribe an antibiotic. This condition is not contagious. Home care Follow these tips: Apply aixx-jth-ktpzljd hydrocortisone cream to the rash. Soak in a bath with colloidal oatmeal added to the water. This can help relieve itching and pain. If the rash was caused by a medicine, make sure to tell future healthcare providers that you are allergic to it. You can take acetaminophen for fever and to ease pain. Follow-up care Follow up with your healthcare provider, or as advised. When to seek medical advice Call your healthcare provider right away if any of these occur: Inability to eat or swallow because you have mouth pain Your eyes become involved with the rash Trouble breathing Weakness, dizziness, or fainting Swelling or tightness of the throat and trouble swallowing Fever of 100.4 F (38.0 C) or higher The rash comes back after it goes away 5813-0184 [employer]. [address] [place] [address], [place] [address]. All rights reserved. This information is not intended as a substitute for professional medical care. Always follow your healthcare professional's instructions. Additional Information VACCINATE! IT SAVES LIVES! Members of the community who have not yet received the COVID-19 vaccine and would like to receive it can visit one of [facility] vaccine clinics. There are many vaccine clinic locations within the [facility]. For locations and available times, please visit [email or web address] It is important to note that some COVID mobile vaccine clinics are held outdoors and may be canceled in rainy or stormy conditions. To learn more about pediatric vaccinations (ages 5-11), we invite you to visit the [facility] webpage. [email or web address] [email or web address]-Jstqz-[email or web address]-Freq gfyayb-Bxzkl-[email or web address].html To learn more about the COVID-19 vaccine, we invite you to visit the CDC website for a list of frequently asked questions. https://www.cdc.gov/coronavirus/ 2019-ncov/vaccines/faq.html [facility] Patient Portal Access Instructions: Stay connected with your healthcare team and access your personal medical information anytime with the [facility] Patient Portal. If you would like a full copy of your medical records please contact the [facility] Medical Records Department Saturday through Saturday between 8a.m. and 4:30p.m. Please follow the directions below to access the portal: 1.Access the email account you provided upon registration to the hospital.2.Look for an invitation email from [facility].3.Open the email and access the invitation link: Accept Invitation to [facility].Fill in the required griffin to create your account. Sign into [email or web address] with your username and password that you created in the above steps to stay up to date. You can then view a summary of results, a summary of your visits, and the ability to download your summaries to your computer or send the information securely to a physician. Remember that your healthcare information is confidential, so carefully consider who you will allow to register on the [facility] Patient Portal for access to your information. You can also access the [facility] Patient Portal on the [employer]. Simply click on Health Records under Health Data and then click on the [facility] logo. HOW TO SAFELY DISPOSE OF PRESCRIPTION MEDICATIONS Please use one of the following methods to safely dispose of your unused medications. 1.Use a drug disposal kit: the drug disposal pouch allows you to safely discard your old and unused drugs. Ask your nurse to give you one when you are discharged.2.Visit a local take-back location: Many local pharmacies and police departments have programs that collect old and unwanted prescription drugs. Call your local pharmacy or go to [email or web address] to find one close to you.3.Make use of household items: Use cat litter or old coffee grounds to dispose medications if other options are not available. Mix your drugs with these household products, seal them in an airtight container and throw it into the garbage. Call [facility]: [phone] to be sure your drugs can be disposed of in this way. Some medicines may require a different approach.4.Never flush your medications down the toilet. IF YOU HAVE BEEN PRESCRIBED AN OPIOIDS FOR PAIN If you have been prescribed an opioid (such as hydrocodone, oxycodone or morphine), it is critical to understand the possible side effects and risks of opioid pain medications. Even when taken as directed, opioids can have several side effects including: Tolerance, meaning you might need to take more of a medication for the same pain relief. Nausea, vomiting and/or constipation. Sleepiness, dizziness, dry mouth, confusion, depression or itching. Physical dependence, meaning you have withdrawal symptoms when a medication is stopped ? this can develop within a few days. KNOW YOUR RESPONSIBILITIES It is important to know exactly how much and how often to take the opioid pain medications you are prescribed. Never take opioids in higher amounts or more often than prescribed. Do not combine opioids with alcohol or other drugs that cause drowsiness, such as benzodiazepines, also known as benzos, including diazepam and alprazolam, muscle relaxants or sleep aids. Never sell or share prescription opioids. This is illegal. Store opioids in a secure place and out of reach of others (including children, family, friends and visitors). The last page(s) of this document has been signed and retained as a CHART COPY Signatures Patient Education Materials Erythema Multiforme Medication Leaflets hydroxyzine, famotidine (oral/injection) My discharge plan and instructions have been reviewed and explained to me and I,HAVEN ALBERT understand my current condition and have read and understand these discharge instructions. I have received a written copy of the plan/instructions. If I have questions, I am aware that I should contact my doctor. Patient/Carton Filler Signature: Date/Time: Relationship to Patient: Witness Name/Signature: Date/Time: [facility] 11-05-2023 History of Presen t illness Narrative Chemodenervation With Botox ([id number]) PREOPERATIVE DIAGNOSIS(ES): Left facial paralysis, abnormal innervation [...] and was ambulatory. documented in this encounter [facility] 11-05-2023 Miscellaneous Notes Addended by: PIA BENTLEY on: 11/05/2023 03:55 PM Modules accepted: Orders documented in this encounter [facility] 11-05-2023 Note Addended by: JIMMIE BENTLEY on: 11/05/2023 03:55 PM Modules accepted: Orders [facility] 07-02-2023 History of Presen t illness Narrative Chemodenervation With Botox ([id number]) PREOPERATIVE DIAGNOSIS(ES): Left facial paralysis, abnormal innervation [...] and was ambulatory. documented in this encounter [facility] 11-06-2022 History of Presen t illness Narrative Chemodenervation With Botox ([id number]) PREOPERATIVE DIAGNOSIS(ES): Left facial paralysis, abnormal innervation [...] and was ambulatory. documented in this encounter [facility] 09-06-2022 Procedure note [facility] 07-03-2022 History of Presen t illness Narrative Chemodenervation With Botox ([id number]) PREOPERATIVE DIAGNOSIS(ES): Left facial paralysis, abnormal innervation [...] and was ambulatory. documented in this encounter [facility] 03-07-2022 Note [facility] Pap Smear Specimen Adequacy March 07, 2022 3:25pm Comment . Satisfactory for evaluation. Endocervical and/or squamous metaplasticcells (endocervical component) are present. Comment on above: Satisfactory for zander luation. Endocervical and/or squamous metaplasticcells (endocervical component) are present. 10-31-2021 History of Present illness Narrative Chemodenervation With Botox ([id number]) PREOPERATIVE DIAGNOSIS(ES): Left facial paralysis, abnormal innervation [...] was ambulatory. 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 [facility] Diagnosis Onset Date Resolution Status Elevated blood pressure read ing without diagnosis of hypertension acute Encounter to establish care acute Facial nerve palsy, secondary chronic Sarcoidosis chronic Right wrist sprain acute Sprain of right hand acute [facility] Work Phone: Evaluation note* Diagnosis Onset Date Resolution Status Encounter for routine gynecological examination noneactive Excessive mucus secretion ac sleetmute Sarcoidosis chronic [facility] acu te Facial nerve palsy, secondary chronic Sarcoidosis chronic [facility] Work Phone: Evaluation note* Diagnosis Facial nerve motor disorder- Primary Facial nerve disorder, unspecified Facial paralysis Mejia's palsy [facility] Diagnosis Onset Date Resolution Status Excessive mucus secretion ac sleetmute Sarcoidosis chronic [facility] acu te Facial nerve palsy, secondary chronic Sarcoidosis chronic [facility] Work Phone: Evaluation note* Diagnosis Facial nerve motor disorder- Primary Facial nerve disorder, unspecified [facility] Diagnosis Onset Date Resolution Status Excessive mucus secretion ac sleetmute Sarcoidosis chronic [facility] Work Phone: Evaluation note* Diagnosis Onset Date Resolution Status Allergic rhinitis acute Sarcoidosis chronic Encounter for routine gynecological examination noneactive Diarrhea acute [facility] Work Phone: Evaluation note* Diagnosis Onset Date Resolution Status Encounter for routine gynecological examination noneactive Diarrhea acute [facility] acu te [facility] Work Phone: Evaluation note* Diagnosis Facial nerve motor disorder- Primary Facial nerve disorder, unspecified Blepharospasm [facility] Diagnosis Facial nerve motor disorder- Primary Facial nerve disorder, unspecified Blepharospasm [facility] Diagnosis Facial nerve motor disorder- Primary Facial nerve disorder, unspecified Blepharospasm [facility] Diagnosis Facial nerve motor disorder- Primary Facial nerve disorder, unspecified Blepharospasm [facility] Work Phone: Hospital Discharge instructions No data available for this section [facility] Progress note No data available for this section [facility] Summary note* MAMIE Gupta: PERFORM Event Display: Patient Summary Documents Authored Date: [id number] [facility] Chief Complaint and Reason for Visit Chief Complaint 6 M FU Amb Documentation Establish Care Reason for Visit Cough Elevated blood pressure reading without diagnosis of hypertension Encounter to establish care Facial nerve palsy, secondary Sarcoidosis Chief Complaint Amb Documentation Establish Care Rt wrist injury PAIN IN RIGHT HAND AND WRIST Reason for Visit Elevated blood press ure reading without diagnosis of hypertension Encounter to establish care Facial nerve palsy, secondary Sarcoidosis Right wrist sprain Sprain of right hand Chief Complaint 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) 1 Y FU 10 m fu Reason for Visit Encounter for routin e gynecological examination Excessive mucus secretion Sarcoidosis [facility] Facial nerve palsy, secondary Sarcoidosis Chief Complaint 1 Y FU 10 m fu SARCOIDOSIS SARCOIDOSIS Reason for Visit Excessive mucus secr etion Sarcoidosis [facility] Facial nerve palsy, secondary Sarcoidosis Chief Complaint 2-3 m fu URINE Reason for Visit Excessive mucus secr etion Sarcoidosis Chief Complaint URINE 6 M FU 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) CONTINUOUS LOOSE STOOLS Reason for Visit Allergic rhinitis Sarcoidosis Encounter for routine gynecological examination Diarrhea Chief Complaint 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) CONTINUOUS LOOSE STOOLS 1 Y FU Reason for Visit Encounter for routin e gynecological examination Diarrhea [facility] Family History No Family History Records Found Relationship Condition Age at Onset Recorded Date/T jeny grandmother Malignant neoplasm of lung Unknown Malignant neoplasm Unknown grandfather Malignant neoplasm Unknown mother Anemia Unknown Advance Directives No Advanced Directives Records Found Advance Directive Response Recorded Date/ Time Living Will No December 24 8 3:35pm Power of Mechanic Sound Technician No December 24, 2 018 3:35pm Latest Code Status on File Code Status Date Activated Date Inactivated Comments Full Code 12/20/2015 6:11 AM 12/23/2015 8:09 PM Advance Directive Response Recorded Date/ Time Living Will No December 24 8 2:35pm Power of Mechanic Sound Technician No December 24, 2 018 2:35pm Latest Code Status on File Code Status Date Activated Date Inactivated Comments Full Code 12/20/2015 6:11 AM 12/23/2015 8:09 PM Date Activated Date Inactivated Comments 12/20/2015 6:11 AM 12/23/2015 8:09 PM Date Activated Date Inactivated Comments 12/20/2015 6:11 AM 12/23/2015 8:09 PM Summary Purpose Reason for Referral Specialty Diagnoses / Procedures Referred By Azael walker Referred To Contact Diagnoses Facial nerve motor disorder Blepharospasm Pia Bentley MD [address] [place] [phone] Referral ID Status Reason Start Date Expiration Date V isits Requested Visits Authorized [id number] New Request 11/05/2023 11/29/2024 1 1 Additional Source Comments Goals (unrecognized section and content) Goals may be documented in a n alternate sectionGoals may be documented in an alternate sectionGoals may be documented in an alternate sectionGoals may be documented in an alternate sectionGoals may be documented in an alternate section No data available for this sectionGoals may be documented in an alternate sectionGoals may be documented in an alternate sectionGoals may be documented in an alternate section No data available for this section Reason for Visit (unrecogniz ed section and content) Reason Comments Facial Weakness Cc: Botox for FP Specialty Diagnoses / Procedures Referred By Azael walker Referred To Contact Otolaryngology Diagnoses Facial nerve motor disorder Blepharospasm Pia Bentley MD [address] [place] [phone] Otolaryngology [facility] [address] [place] [phone] Referral ID Status Reason Start Date Expiration Date V isits Requested Visits Authorized [id number] Authorized 11/05/2023 11/29/2024 4 4 Reason Comments Facial Weakness Cc: pt here for boto x for fp Referral ID Status Reason Start Date Expiration Date Visits Re quested Visits Authorized [id number] Closed 10/31/2022 11/25/2023 4 4 Reason Comments Facial Weakness Cc: pt here for boto x for fp. Specialty Diagnoses / Procedures Referred By Contac t Referred To Contact Otolaryngology Diagnoses Disorder of facial nerve Facial paralysis Pia Bentley MD [address] [place] [place] [phone] Otol[facility]ology [facility] [address] [place], [place] [phone] Referral ID Status Reason Start Date Expiration Date Visits Requested Visits Authorized [id number] Authorized - 06/21/2021 07/16/2022 4 4 Reason Comments Botox Injection FP. Referral ID Status Reason Start Date Expiration Date Visits Requested Visits Authorized [id number] Authorized - 10/31/2022 11/25/2023 4 4 Reason Comments Facial Weakness CC: pt presents for botox for FP Specialty Diagnoses / Procedures Referred By Contac t Referred To Contact Otolaryngology Diagnoses Facial nerve motor disorder Blepharospasm Pia Bentley MD [address] [place] [place] [phone] Otolaryngology [facility] [address] [place] [place] [phone] Reason Comments Facial Weakness Cc: Botox Specialty Diagnoses / Procedures Referred By Contac t Referred To Contact Otolaryngology Diagnoses Facial nerve motor disorder Blepharospasm Pia Bentley MD [address] [place] [phone] Phone: tel: fax: [facility] [address] [place] [address] [address] [place] [address] Phone: tel: fax: Care Teams (unrecognized sec tion and content) Director Economic Relationship Specialty Start Date End Date Divine Hopper MD [address] [phone] PCP - General Internal Medicine 10/31/21 Jose Armando Paz DO 09/02/15 Team Status: Active Member Role Status Dates ERNA WARD Family Provider Active Dr. Divine Hopper MD Primary Care Provider Active Team Status: Inactive Member Role Status Dates No Primary Care Physician Primary Care Provider, Refer ring Provider Active Jessenia Bejarano SOLE RUFFER, SOLE RUFFER-C Attending Provider Active Team Status: Inactive Member Role Status Dates No Primary Care Physician Primary Care Provider, Refer ring Provider Active Dr. Hipolito Juares DO Attending Provider Active Team Status: Inactive Member Role Status Dates No Primary Care Physician Primary Care Provider, Refer ring Provider Active Dr. Divine Hopper MD Attending Provider Active Team Status: Inactive Member Role Status Dates No Primary Care Physician Primary Care Provider Active Jessenia Bejarano SOLE RUFFER, SOLE RUFFER-C Attending Provider Active Team Status: Inactive Member Role Status Dates Dr. Divine Hopper MD Primary Care P rovider, Attending Provider, Referring Provider Active Team Status: Active Member Role Status Dates Dr. Hipolito Juares DO Referring Provider, Other Provide r Active Dr. Divine Hopper MD Primary Care Provider Active Dr. Ron Trevino MD Attending Provider Active Team Status: Inactive Member Role Status Dates Dr. Hipolito Juares DO Attending Provider, Referring Pro vider Active Dr. Divine Hopper MD Primary Care Provider Active Director Economic Relationship Specialty Start Date End Date Divine Hopper MD [address] [place] [phone] PCP - General Internal Medicine 10/31/21 Jose Armando Paz DO 09/02/15 Team Status: Inactive Member Role Status Dates No Primary Care Physician Referring Provider Active Elizabeth Duggan SOLE RUFFER, SOLE RUFFER-C Attending Provider Active Dr. Divine Hopper MD Primary Care Provider Active Team Status: Inactive Member Role Status Dates Dr. Divine Hopper MD Primary Care Provider Active Dr. Yang Kitchen MD Attending Provider, Referr ing Provider Active Team Status: Inactive Member Role Status Dates No Primary Care Physician Referring Provider Active Jessenia Bejarano SOLE RUFFER, SOLE RUFFER-C Attending Provider Active Dr. Divine Hopper MD Primary Care Provider Active Team Status: Inactive Member Role Status Dates Dr. Divine Hopper MD Primary Care Provider, Refer ring Provider Active Dr. Hipolito Juares DO Attending Provider Active Team Status: Active Member Role Status Dates Dr. Divine Hopper MD Primary Care P rovider, Attending Provider, Referring Provider Active Team Status: Inactive Member Role Status Dates Dr. Divine Hopper MD Primary Care Provider, Atten ding Provider Active Director Economic Relationship Specialty Start Date End Date Divine Hopper MD [address] [place] [phone] PCP - General Internal Medicine 10/31/21 Jose Armando Paz DO 09/02/15 Director Economic Relationship Specialty Start Date End Date Divine Hopper MD [address] [phone] PCP - General Internal Medicine 10/31/21 Jose Armando Paz DO 09/02/15 Director Economic Relationship Specialty Start Date End Date Divine Hopper MD [address] [phone] PCP - General Internal Medicine 10/31/21 Jose Armando Paz, 09/02/15 Director Economic Relationship Specialty Start Date End Date Divine Hopper MD [address] [phone] PCP - General Internal Medicine 10/31/21 Jose Armando Paz, 09/02/15 Director Economic Relationship Specialty Start Date End Date Divine Hopper MD PCP - General Internal Medicine 10/31/21 Jose Armando Paz, 09/02/15 INFORMATION SOURCE (unrecogn ized section and content) DATE CREATED AUTHOR 03/03/2023 [facility]ly [facility] ([place] DATE CREATED AUTHOR AUTHOR'S ORGANIZ ATION 01/19/2024 [facility] DATE CREATED AUTHOR AUTHOR'S ORGANIZ ATION 09/24/2024 [facility] DATE CREATED AUTHOR AUTHOR'S ORGANIZ ATION 11/01/2024 [place] FOR RECORDS PERTAINING TO PATIENTS WHO ARE [...] BE BASED ON THE PRIMARY CLINICAL RECORDS. [employer] [facility]. provides no warranty or guarantee of the accuracy or completeness of information in this document.
== END | disposition home or self-care (01) ==
PROVIDERS: PCP Internal Medicine; Referring Provider Internal Medicine; Visit Provider Internal Medicine
DX: D64.9 Anemia, unspecified (principal); E78.1 Pure hyperglyceridemia
CPT/HCPCS: 36415; 80061; 82728; 83540; 83550; 85025

== ENCOUNTER → 2025-03-12 | Outpatient (CLI) | payer BC, SELFPAY ==
[2025-03-12 14:59] LABS: Potassium 3.7 mmol/L (3.3-5.1)
== END | disposition home or self-care (01) ==
LOC: LAB 13:28
PROVIDERS: PCP Internal Medicine; Referring Provider Dermatology; Visit Provider Urology
DX: N39.0 Urinary tract infection, site not specified (principal); Z79.899 Other long term (current) drug therapy
CPT/HCPCS: 36415; 84132; 87077; 87086; 87088; 87186

== ENCOUNTER → 2025-03-29 | Outpatient (CLI) | payer BC, SELFPAY | END | disposition home or self-care (01) | LOC: LABSPEC 16:31 | PROVIDERS: Visit Provider Nurse Practitioner Women's Health | DX: R35.0 Frequency of micturition (principal) | CPT/HCPCS: 87077; 87086; 87088; 87186 ==